=== PATIENT | female | born 1955 | race Caucasian/White ===

== ENCOUNTER 2024-05-29 10:18 | Emergency (ER) | payer MEDICARE, SELFPAY ==
[2024-05-29 10:36] VITALS: BP 128/69; PULSE 72; RESP 16; TEMP 37.5; O2SAT 98
--- NOTE | 2024-05-29 10:49 | ED_ITS ---
HPI - Eye Problem General Chief complaint: Eye Problems Stated complaint: Eye Problem History of Present Illness HPI Narrative: Patient presents with bilateral eye redness and drainage. Patient states she has a history of dry eye and has been using the eyedrops as prescribed. Patient is also using the Pataday eyedrops this has been going on for over 2 weeks so. Patient states now every morning her both her eyes were matted shut. Related Data Allergies Allergy/AdvReac Type Severity Reaction Status Date / Time No Known Allergies Allergy Verified 05/29/24 10:48 Review of Systems Review of Systems: CONSTITUTIONAL: Denies chills, or sweats. Reports fever and generalized body aches EYES: Denies visual changes, redness, or discharge. ENT: Denies otalgia. Reports nasal congestion runny nose and sore throat CARDIOVASCULAR: Denies chest pain, palpitations, or edema. RESPIRATORY: Denies dyspnea. Reports occasional cough GASTROINTESTINAL: Denies abdominal pain, nausea, vomiting, or diarrhea. GENITOURINARY: Denies dysuria or hematuria. SKIN: Denies rash or itching. MUSCULOSKELETAL: Denies back pain, joint pain, or myalgia. Reports generalized body aches NEUROLOGIC: Denies headache, numbness, or weakness. PSYCHIATRIC: Denies anxiety or depression. [facility] Comments At time of signature, agree with nursing past medical, surgical, social and family history. There is no relevant family history pertinent to the presenting complaint Exam Narrative: The patient is a well-developed, well-nourished in no acute distress. SKIN: Skin is warm and dry without erythema, swelling or exudate. There is good turgor. No tenting. HEAD: Atraumatic. Normocephalic. No temporal or scalp tenderness. EYES: Moist and bright. Sclera and conjunctivae normal. No discharge. PERRLA. Extraocular motions intact. Gross visual acuity intact. EARS: Pinna is normal shape and contour. Clear external auditory canals. TM pearly baltzaar with good cone of light, no erythema or suppuration. Bilateral cerumen noted no gross hearing deficit. NOSE: pink, moist mucosa with good air movement. Clear rhinorrhea without nasal flaring. Septum midline. Mouth: moist mucous membranes. THROAT; mild erythema noted to posterior oropharynx with moderate postnasal drainage. Without exudate or ulceration.. Uvula midline. Normal movement of soft palate. NECK: Supple and nontender with full range of motion without discomfort. No meningeal signs. LUNGS: Equal and bilateral breath sounds without wheezes, rales or rhonchi. CHEST: The chest wall is without retractions or use of accessory muscles. HEART: Has a regular rate and rhythm without murmur, gallops, click or rub. ABDOMEN: Soft, nontender with positive active bowel sounds. No rebound tenderness. EXTREMITIES: Without cyanosis, clubbing or edema. Equal 2+ distal pulses and 2 second capillary refill noted. NEUROLOGIC: alert, active, . The patient moves all extremities with normal muscle strength. Normal muscle tone is noted. Normal coordination is noted. NO focal neurological findings noted. Eyes: Conjunctivae: conjunctival abnormality bilateral conjunctival injection and discharge Course Course Level of Care: Express Care Visit Vital Signs Vital signs: Vital Signs Temperature 37.5 C 05/29/24 10:36 Pulse Rate 72 05/29/24 10:36 Respiratory Rate 16 05/29/24 10:36 Blood Pressure 128/69 05/29/24 10:36 Pulse Oximetry 98 05/29/24 10:36 Oxygen Delivery Room Air 05/29/24 10:36 Temperature 37.5 C 05/29/24 10:36 Pulse Rate 72 05/29/24 10:36 Respiratory Rate 16 05/29/24 10:36 Blood Pressure 128/69 05/29/24 10:36 Pulse Oximetry 98 05/29/24 10:36 Oxygen Delivery Room Air 05/29/24 10:36 Discharge Plan Discharge Clinical Impression: Bacterial conjunctivitis Patient Disposition: Home, Self-Care Condition: Stable Instructions: Antibiotic Form, Conjunctivitis (ED) Additional Instructions: Conjunctivitis is spread by [id number] contact or by touching a contaminated surface. You can use artificial tears, cold and warm compresses-use, different compress for each eye, and increase hygiene such as hand-washing. Do not wear contacts for 1 week, if applicable. Do not return for 24 hours to daycare, school, workplace for 24 hours after first antibiotic dose. Change bedding. follow up with eye doctor in 24-48 hours -If you have any worsening of symptoms or any other concerns please go to the ED immediately. Patient Language: Libyan Prescriptions: New cetirizine [Zyrtec] 10 mg tablet 10 mg PO DAILY Qty: 14 0RF ofloxacin [Ocuflox] 0.3 % drops 2 drp EACH EYE QID 7 Days Qty: 5 0RF Follow-up/Referrals: Paulino,ADEOLA Fernandez [Primary Care Provider] -
--- OUTSIDE RECORDS SUMMARY | 2024-06-05 13:38 | XMS_ITS | Clinical Summary ---
Author Organization [facility] Building A Address [address] [place] [address] Care Team Providers Care Reviewer Sales Name Role Phone Maurice Bob Primary Care Provider Allergies No known active allergies Medications cholecalcifero l (VITAMIN D3) 2,000 unit capsule 1 capsule (2,000 Units total) daily. 100 capsule 7 Active cyanocobalamin (Vitamin B-12) 1,000 mcg tabletIndicati ons:Prevention of Vitamin B12 Deficiency Take 1 tablet (1,000 mcg total) by mouth daily Active atorvastatin (LIPITOR) 10 mg tablet Take 0.5 tablets (5 mg total) by mouth daily 45 tablet 3 4 Active FLUoxetine (PROzac) 10 mg tablet/capsule Take 1 tablet/caps ule (10 mg total) by mouth daily 90 capsule 4 4 05/09/20 25 Active aspirin 81 mg enteric coated tablet Take 1 tablet (81 mg total) by mouth every other day 05/09/20 24 Discontinued mirtazapine (REMERON) 7.5 mg tablet Take 1 tablet (7.5 mg total) by mouth nightly 90 tablet 3 4 05/09/20 24 Discontinued Active Problems Problem Noted Date Diagnosed Date IGT (impaired glucose tolerance) 02/18/2021 Assessment & Plan (05/04/2023 11:39 AM W[employer]EWATER [employer] IN[employer]): Patient should reduce sugar and carbs, increase exercise, maintain proper body weight, and will check an A1c once or twice yearly. Assessment & Plan (02/18/2021 3:03 PM CDT): a1c controlled with diet and exercises at 5.2 and cont to work to keep low Bilateral carotid artery stenosis 12/05/2019 Overview (05/04/2023): Mild intimal thickening with less than 50% blockage bilaterally 04/2022 Assessment & Plan (05/04/2023 11:37 AM W[employer]EWATER T[employer] INSTRUCTOR): Continue aspirin atorvastatin diet exercise and suggest repeating carotid ultrasound in a year or 2. Assessment & Plan (10/22/2021 9:16 AM CDT): On tight risk cotnroll and check every couplde yrs.as life line will do formal eval at hospital the week before Assessment & Plan (02/05/2021 3:23 PM CDT): Needs updated carotid study and agrees to . So r eview on return but with tight risk should be stable to [facility]. Assessment & Plan (08/27/2020 8:23 AM CDT): Tight ldl at 72 and stay on meds as on and repeat scan two yrs from first Assessment & Plan (12/05/2019 9:06 AM CDT): Mild bilateral strt asa 81 and lllllsttin at Small strted dose and re eval effects and taarget tight contoll recheck 89 yrs Pure hypercholesterolemia 12/05/2019 Assessment & Plan (05/08/2024 7:28 PM WASTEWATER [employer] INSTRUCTOR): Counseled on heart healthy diet, exercise Assessment & Plan (05/04/2023 11:40 AM WASTEWATER T[employer]MENT [employer]ANT INSTRUCTOR): Well controlled on current therapy and will check a lipid panel and LFTs in 12 months. Assessment & Plan (10/22/2021 9:14 AM CDT): ldl at 59 And keep same Your cholesterol in the form of ldl (bad) cholesterol,hdl(good) cholesterol and triglycerides are monitored. The triglycerides respond to reduction/controll of your simple carbs/sugars In such items as sugared soda/sweet tea along with fruit juices(containing natural sugar) even if no added sugar is added. LDL cholesterol is reduced with reducing daily intake of fats and robert. saturated fats. The monosaturated fats like olive oil are not harmful except in the calories they contained. Whole milk cheese needs to be remembered along with whole milk products And limited. Assessment & Plan (02/05/2021 3:25 PM CDT): ldl at 54 and great and keep here to pfevent and revers arterial disease. No added diet Assessment & Plan (08/27/2020 8:24 AM CDT): ldl 73 and 72 last and prior 104. So working and has been on 7-8 mohnths. Cont meds and no chages and ocnt Diet. Your cholesterol in the form of ldl (bad) cholesterol,hdl(good) cholesterol and triglycerides are monitored. The triglycerides respond to reduction/controll of your simple carbs/sugars In such items as sugared soda/sweet tea along with fruit juices(containing natural sugar) even if no added sugar is added. LDL cholesterol is reduced with reducing daily intake of fats and robert. saturated fats. The monosaturated fats like olive oil are not harmful except in the calories they contained. Whole milk cheese needs to be remembered along with whole milk products And limited. Assessment & Plan (03/08/2020 9:45 AM CDT): ldl at 72 and dropped 36 and will ask to inch up taking 2.5 mg and go to athe 1/4 pil and add 1/2 of the 1/4 and target 60 if able no diedt as wtlow enough Assessment & Plan (12/05/2019 9:08 AM CDT): ldl at 106 and target 60 start atorvastin and no ore then 1/2 pill of a 10 and can start at smashing a full tab and taaking over week or cut the full tab into 1/2 to 1-4 a dayYour cholesterol in the form of ldl (bad) cholesterol,hdl(good) cholesterol and triglycerides are monitored. The triglycerides respond to reduction/controll of your simple carbs/sugars In such items as sugared soda/sweet tea along with fruit juices(containing natural sugar) even if no added sugar is added. LDL cholesterol is reduced with reducing daily intake of fats and robert. saturated fats. The monosaturated fats like olive oil are not harmful except in the calories they contained. Whole milk cheese needs to be remembered along with whole milk products And limited. Osteopenia of multiple sites 11/29/2018 Overview (05/04/2023): BMD due 10/2023. Assessment & Plan (05/04/2023 11:39 AM WASTEWATER TREATMENT [employer]ANT INSTRUCTOR): Calcium, vitamin-D, weight-bearing exercise and repeat bone density scan due October 2023 Assessment & Plan (10/22/2021 9:15 AM CDT): Stable bdmd and repeat in 2 + yrs Assessment & Plan (02/05/2021 3:29 PM CDT): Check on reutorn as 2 yrs out. And check vit d on reutrn Assessment & Plan (12/05/2019 9:10 AM CDT): Due for update Assessment & Plan (11/29/2018 11:06 AM CDT): bmd -1.3 and -1.4 mild osteopenia keep d upl;recheck 2yrs and walking wt brearing several time A wek Healthcare maintenance 11/26/2017 Overview (11/26/2017): Added automatically from request for surgery [id number] Assessment & Plan (05/04/2023 11:39 AM WASTEWATER T[employer] INSTRUCTOR): Flu shot each March. Shingrix and Prevnar 20 completed. Tetanus booster due October 2030. Consider RSV and COVID booster. Mammogram due January 2024. Recommended seeing her lead handler for well woman exam and evaluation of her lower abdominal pain as well. Colonoscopy due March 2028. Repeat visit 2 months with Kalee for follow-up of her abdominal pain Assessment & Plan (02/05/2021 3:32 PM CDT): Low fall risk derpoiens screen nl cog screeen nl colon and blanco up to date. Suggest p shot sersies and covid series done. Heart rate 57 nsr axis 71 nl no ekg with rate 57and take p 13 in 6months on reutrn as getting trip planned B12 deficiency 02/27/2017 Assessment & Plan (05/04/2023 11:36 AM WASTEWATER T[employer]MENT [employer] INSTRUCTOR): Continue B12 supplementation and check levels yearly. Assessment & Plan (11/29/2018 11:15 AM CDT): b 12 came up and stable 996 and cotn as doing. Assessment & Plan (11/26/2017 8:52 AM CDT): b12 great last fall and will recheck ou return. Cont on b12 Assessment & Plan (05/19/2017 9:09 AM WASTEWATER TREATMENT [employer]ANT INSTRUCTOR): b12 at 7612 and great and will stay about here for most as long as stay with supplements Assessment & Plan (02/27/2017 8:26 AM CDT): b12 level ws in the range where 5-10% can see a nerve damage risk restart b12 and shold need chandan 500 a day. The vitamin itself is not a risk to cause s tr ess.anxiety. Slow transit constipation 11/25/2016 Assessment & Plan (05/04/2023 11:40 AM WASTEWATER TREATMENT [employer]ANT INSTRUCTOR): Add MiraLax to her prunes and hopefully this will improve her lower abdominal discomfort. Assessment & Plan (11/26/2017 8:52 AM CDT): Back to nl with diet. Assessment & Plan (05/19/2017 9:10 AM WASTEWATER TRE[employer]MENT [employer]ANT INSTRUCTOR): Controlled and stable Assessment & Plan (11/25/2016 9:04 AM CDT): Try probiotic and fiber bversus miralx sdaily GERD (gastroesophageal reflux disease) 7 Assessment & Plan (08/27/2020 8:22 AM CDT): Clearing throat . Irritation no obvious gerd trial life styole chaznges and see if enough if not trial ppi for several weeks. For now g[facility] at [facility] and prn and report. ot prilosec works Assessment & Plan (11/29/2018 11:12 AM CDT): goen Assessment & Plan (11/26/2017 9:03 AM CDT): Gone and not using the zantac Assessment & Plan (05/19/2017 9:10 AM WASTEWATER T[employer] INSTRUCTOR): No gerd with meds Assessment & Plan (11/25/2016 9:03 AM CDT): Trial zantac 150 twice a day and see if stops the thickening feeling in back of throat . If not consider upping meds and or ent eeval Vitamin D deficiency 10/22/2013 Overview (09/12/2016): VITAMIN D DEFICIENCY NOS Assessment & Plan (05/04/2023 11:40 AM WASTEWATER T[employer]MENT [employer] INSTRUCTOR): Continue current supplementation and check level in 1 year. Assessment & Plan (10/22/2021 9:17 AM CDT): vid At 45 and great. And keep same Assessment & Plan (03/08/2020 9:43 AM CDT): Level 38 qand good and no changes Assessment & Plan (12/05/2019 9:10 AM CDT): Check on return Assessment & Plan (11/29/2018 11:07 AM CDT): D at 35 want to keep here or better. Assessment & Plan (11/26/2017 8:53 AM CDT): A yr aago low but up to nl 6month ago. Dina add to nov labs to monitoor Assessment & Plan (05/19/2017 9:09 AM WASTEWATER TREATMENT [employer]ANT INSTRUCTOR): Vit 39 Great and no changes Assessment & Plan (02/27/2017 8:25 AM CDT): D was not a cause for anxiety and would restr the 1999 Day and check levels in the futrer Assessment & Plan (11/25/2016 9:05 AM CDT): Vit d at 28 and want higher. Add 2000 of d a day and will get yo to about 40 and great. Stay with or will d rop Resolved Problems Problem Noted Date Diagnosed Date Resolved Date Depression, major, recurrent 01/27/2024 05/09/2024 Lower abdominal pain 05/04/2023 024 Assessment & Plan (05/04/2023 11:42 AM WASTEWATER TREAT[employer] INSTRUCTOR): CT abdomen pelvis with p.o. and IV contrast. Call back for results. Could be chronic constipation and recommended adding MiraLax to her high-fiber diet. Schedule gynecology evaluation. Follow-up 2 months and consider repeat colonoscopy or other interventions depending on his symptoms at that time. Dog bite 08/27/2020 02/05/2021 Assessment & Plan (08/27/2020 8:32 AM CDT): Cleared nicely and get update on dog bite. tetnus as had covid 1 wk ago will wait on tetnus and get Month after covid 2nd. BMI 21.0-21.9, adult 11/26/2017 024 Assessment & Plan (02/05/2021 3:24 PM CDT): stabl nhung dgood wt. Assessment & Plan (08/27/2020 8:23 AM CDT): Work to keep tight Assessment & Plan (03/08/2020 9:44 AM CDT): St stable Assessment & Plan (12/05/2019 9:10 AM CDT): wowrk to keep stable Assessment & Plan (11/29/2018 11:07 AM CDT): Work to keep wt stable Assessment & Plan (11/26/2017 8:51 AM CDT): Weight such that your great at present but do not want to lose much if any. If find it drifting down then needs to take counter actions to bring up Colon cancer screening 11/26/201711/29 Assessment & Plan (11/26/2017 8:50 AM CDT): Colon due this fall and will refer for such. Recurrent major depressive d isorder, in full remission (CMS/HCC) 11/26/2017 03/21/2022 Assessment & Plan (02/05/2021 3:26 PM CDT): devyn taitirbrian abd bi changes Assessment & Plan (08/27/2020 8:25 AM CDT): Well cont roolled on meds and cont on as is. Assessment & Plan (03/08/2020 9:45 AM CDT): Well controlled and sstay on e ]meds Assessment & Plan (12/05/2019 9:09 AM CDT): Well controlled on meds and no chages Assessment & Plan (11/29/2018 11:06 AM CDT): Well contrlled on meds. And stay stable Assessment & Plan (11/26/2017 8:54 AM CDT): Stable on prozac. Had came off more then once n past and didn't go well and decided to stay on now going forward Epigastric pain 05/19/2017 11/26/2017 Assessment & Plan (05/19/2017 9:16 AM WASTEWATER TREATMENT [employer]ANT INSTRUCTOR): As pain better to near gone will not eval or treat but if appears to get worse again. Not completely go away then would weant to re eval. As no new meds added to get improvement and after cruise to [place]. Additionally not takinghte zantac she has on any frequescy but only with occasional gerd andnot having Gal bladder out. Chapin play wait and watch with improvement for now. No bm changes either Anxiousness 02/27/2017 11/26/2017 Assessment & Plan (05/19/2017 9:11 AM WASTEWATER TREATMENT [employer]ANT INSTRUCTOR): Back to b ase line and feels shold never come off the meds. Will stay with for the future Assessment & Plan (02/27/2017 8:25 AM CDT): Resolution or major improvement with strtinghte prozac after 3 wks would stay on and Look for additioal improvement over next several weeks. Option to go to 30-40 a day if need over time. Fall and winter/holiday time can increased need. PE (physical exam), annual 11/25/2016 0 02/05/2021 Assessment & Plan (12/05/2019 9:15 AM CDT): Well exam wt proper new cad. mildlipids up to date on colon and blanco update bmd for nov fall flu shots suggest shingles shot. Assessment & Plan (11/29/2018 11:15 AM CDT): Fall flu lshots. Discussed shingles shot but had old 1 and 1/2 yrs ago and will look at in 1 yr to get. Blanco.s repeat bmd in 2yrs. Colon in 10 yrs as nl last fall. Cbc,cmp. ua all nl. Assessment & Plan (11/26/2017 9:02 AM CDT): Screening blood cnts. Chem for liver and kidney great. No anemia. Lipids good and no changes needed. bmd next summer p.e. And due prior to seeeing then. Colon oct time for 10 yr Repeat. Blanco in setpt for yr'ly, shinlgles 03/23 and new .2 shot series now available and felt much better then last. Suggest getting it but can do now or wait sev eral yrs from the prior shot. Neck pain appears more strain. Reviewed range of motion and stretches , if not going to gone in a wk would re eval and consider referral for formal pt. Possible xrays eval . No apparent underlying lymph noes or masses. Assessment & Plan (05/19/2017 9:14 AM WASTEWATER TREATMENT [employer]ANT INSTRUCTOR): Repeat in november Assessment & Plan (11/25/2016 9:06 AM CDT): Screening labs for blood cnts. Chem with kidney and liver nl. w eight good yrly blanco. Screening colon per rec's. Hep c neg. Check screening yr'ly and repeat b12 and d in 6 [facility] Vitamin B-complex deficiency 10/22/2013 02/27/2017 Overview (09/10/2016): B-COMPLEX DEFIC NEC Assessment & Plan (11/25/2016 9:05 AM CDT): b12 at 379 and neuro feels Below 400 there is a 5-10 %^ chance of nerve damage. So try 500 5-7 days a week and stay on and will check in futuree Palpitations 10/22/2013 11/25/2016 Overview (09/12/2016): Palpitations Depression 10/22/2013 02/27/2017 Overview (09/12/2016): DEPRESSIVE DISORDER NEC Encounters Date Type Department Care Team Description 05/09/2024 8:00 AM W[employer]EWATER TREATMENT PLANT INSTRUCTOR Office Visit [facility] Primary Care at [address] [place] [address] Maurice Bob PA Annual physical exam (Primary Dx); Pure hypercholesterolemia; Vitamin D deficiency; BMI 22.0-22.9, adult; Anxiety and depression; B12 deficiency 05/09/2024 Orders Only [facility] Primary Care at [address] [place] [address] Maurice Bob PA Pure hypercholesterolemia (Primary Dx); B12 deficiency; Vitamin D deficiency 04/07/2024 Telephone [facility] Primary Care at [address] [place] [address] Tereza Randall MA 04/06/2024 11:15 AM CDT - 04/06/2024 11:59 PM CDT Hospital Encounter [facility] [address] [place] [address] Osteopenia of multiple sites Discharge Disposition: Discharge to home or self care from Last 3 Months Immunizations Name Administration Dates Next Due Influenza, Quad, Adjuvantate d, Intramuscular 04/24/2021 Influenza, Quadrivalent, Hig h Dose, Preservative Free, Intrr 03/21/2022 Influenza, Quadrivalent, Spl it, Intramuscular 04/22/2023 Influenza, Quadrivalent, Spl it, Preservative Free, Intradermal 03/12/2016 Influenza, Quadrivalent, Spl it, Preservative Free, Intramuscular 03/08/2020,04/08/2019,04/07/2018,02/27 Influenza, Split 05/30/2013, 2,07/17/2011,03/05 Influenza, Trivalent, Adjuva nted, Intramuscular 04/01/2024 Influenza, Trivalent, IM (MDV) 05/30/2013 Influenza, Trivalent, Recomb inant, Egg Free, Preservative Free, Antibiotic Free, IM (FLUBLOK) 03/24/2014 Influenza, Unspecified 02/05/2021(Deferred: Charu ent Refused) Pfizer SARS-CoV-2 Monovalent Vaccination (12+ Yrs) PURPLE 09/15/2020,08/23/2020 Pneumococcal Conjugate Pcv20 12/25/2021 Tdap 10/15/2020,01/26/2012 ZOSTER LIVE 03/26/2016 ZOSTER Recombinant 12/20/2020,10/15/2020 Surgical History Surgery Date Site/Laterality Comments TONSILLECTOMY 06/08/1974 - 06/07/1975 Tonsillectomy SECTION section CHOLECYSTECTOMY Cholecystectomy COLONOSCOPY 03/22/2008 Medical History Medical History Date Comments Hx Other Medical MVP Chronic constipation Smoking Family History Medical History Relation Name Comments COPD Mother copd; Lung cancer Mother Cancer, lung; Breast cancer Mother's Sister shree Ovarian cancer Neg Hx Thyroid cancer Neg Hx Relation Name Status Comments Mother Alive Mother's Sister shree Social History Tobacco Use Types Packs/Day Years Used Date Smoking Tobacco: Former Smokeless Tobacco: Former Comments:Started 1972 quit 1 998 2 ppd Alcohol Use Standard Drinks/Week Comments No 0 (1 standard drink = 0.6 oz pur e alcohol) AUDIT-C Answer Date Recorded Q1: How often do you have a drink containing alc ohol? 2-4 times a month 05/09/2024 Q2: How many drinks containi ng alcohol do you have on a typical day when you are drinking? 1 or 2 05/09/2024 Q3: How often do you have si x or more drinks on one occasion? Less than monthly 05/09/2024 PHQ-2 Answer Date Recorded PHQ-2 Total Score (If total score is 3 or more points, staff should administer the PHQ-9) 0 05/09/2024 Comments No Sex and Gender Information Value Date Recorded Sex Assigned at Not on file Legal Sex Female 9:51 AM W[employer]EWATER T[employer] INSTRUCTOR Gender Identity Not on file Sexual Orientation Not on file Obstetrics History Para Term AB IAB SAB Ectopic Multiple Livin g Live Births 3 2 2 Date Outcome GA Total Labor Labor/2nd/3rd Weight Sex Type Anes PTL Erin A1 A5 Name Clin Term Term Last Filed Vital Signs Vital Sign Reading Time Taken Comments Blood Pressure 126/70 05/09/2024 7:50 AM W[employer]EWATER T[employer]AT[employer] INSTRUCTOR Pulse 70 05/09/2024 7:50 AM W[employer]EWATER T[employer] INSTRUCTOR Temperature 36.4 ??C (97.6 ??F) 05/09/2024 7:50 AM CS T Respiratory Rate 16 05/09/2024 7:50 AM W[employer]EWATER [employer] INSTRUCTOR Oxygen Saturation 96% 05/09/2024 7:50 AM WASTEWATER TREATMENT PLANT INSTRUCTOR Inhaled Oxygen Concentration - - Weight 62 kg (136 lb 9.6 oz) 05/09/2024 7:50 AM WASTEWATER T[employer]AT[employer]ANT INSTRUCTOR Height 165.1 cm (5' 5 ) 05/09/2024 7:50 AM W[employer]EWATER T[employer]ATMENT [employer]ANT INSTRUCTOR Body Mass Index 22.73 05/09/2024 7:50 AM WASTEWATER TREATMENT [employer]ANT INSTRUCTOR Plan of Treatment Health Maintenance Due Date Last Done Comments Covid-19 Vaccine (2023-2 5 season) 2024 05/05/2023, 05/21/2022, 04/17/2021, Additional history exists Breast Cancer Screening-Mammogram 01/13/2025 01/14/2024, 01/07/2023, 11/21/2021, Additional history exists Depression Screening 05/09/2025 05/09/2024, 01/27/2024, 12/17/2023, Additional history exists Fall Risk Assessment 05/09/2025 05/09/2024, 01/27/2024, 12/17/2023, Additional history exists Well Visit 65+ 05/09/2025 05/09/2024, 04/09, 03/21/2022, Additional history exists Osteoporosis Screening-Bone Density Scan 04/06/2026 04/06/2024, 10/07/2021, 11/08/2018, Additional history exists Colon Cancer Screening-Colonoscopy 03/29/2028 03/29/2018, 03/22/2008 DTaP/Tdap/Td Vaccine (3 - Td or Tdap) 10/15/2030 10/15/2020, 01/26/2012 Hepatitis C Screening Completed 11/04/2016, 017 Colon Cancer Screening-CT Colonography Discontinued 03/29/2018, 03/22/2008 Colon Cancer Screening-DNA Stool Discontinued 03/29/20 18, 03/22/2008 Colon Cancer Screening-FIT Discontinued 03/29/2018, Colon Cancer Screening-Sigmoidoscopy Discontinued 03/29/2018, 03/22/2008 Zoster Vaccine Completed 12/20/2020, 10/06, 03/26/2016 Pneumococcal vaccine 65+ Completed 12/25/2021 Influenza Vaccine Completed 04/01/2024, , 03/21/2022, Additional history exists Hepatitis B Screening Completed 04/27/2024 Procedures Procedure Name Priority Date/Time Associated Diagnosis Comments TSH Routine 04/27/2024 9:43 AM W[employer]EWATER T[employer]AT[employer] INSTRUCTOR Slow transit constipation Healthcare maintenance LIPID PANEL Routine 04/27/2024 9:43 AM W[employer]EWATER T[employer]AT[employer] INSTRUCTOR Slow transit constipation Pure hypercholesterolem ia Healthcare maintenance VITAMIN B12 Routine 04/27/2024 9:43 AM WASTEWATER TREATMENT PLANT INSTRUCTOR B12 deficiency Slow transit constipation Healthcare maintenance VITAMIN D 25 HYDROXY Routine 04/27/2024 9:43 AM WASTEWATER TREATMENT PLANT INSTRUCTOR Vitamin D deficiency Slow transit constipation Healthcare maintenance COMPREHENSIVE METABOLIC PANEL Routine 04/27/2024 9:43 AM WASTEWATER T[employer]ATMENT [employer]ANT INSTRUCTOR Slow transit constipation Healthcare maintenance HEPATITIS B SURFACE ANTIGEN Routine 04/27/2024 9:43 AM WASTEWATER T[employer]ATMENT PLANT INSTRUCTOR Slow transit constipation Need for hepatitis B screening test Healthcare maintenance HEPATITIS B SURFACE ANTIBODY (IMMUNE STATUS) Routine 04/27/2024 9:43 AM WASTEWATER TREATMENT PLANT INSTRUCTOR Slow transit constipation Need for hepatitis B screening test Healthcare maintenance HEPATITIS B CORE ANTIBODY, TOTAL Routine 04/27/2024 9:43 AM WASTEWATER T[employer]ATMENT [employer]ANT INSTRUCTOR Slow transit constipation Need for hepatitis B screening test Healthcare maintenance DEXA AXIAL SKELETON BONE DENSITY 1 OR MORE SITES Schedule Routine, Read Routine (OP Routine) 04/06/2024 11:46 AM CDT Osteopenia of multiple sites SCREENING MAMMOGRAM BILATERAL W SAEED Schedule Routine, Read Routine (OP Routine) 01/14/2024 2:13 PM CDT Screening mammogram, encounter for COLONOSCOPY 03/29/2018 8:26 AM CDT HEPATITIS C AB REFLEX RNA QUANT PCR Routine 11/04/2016 8:35 AM CDT from Last 3 Months or Most Recently Relevant to Health Maintenance Results * Hepatitis B core antibody, total Blood (04/27/2024 9:43 AM WASTEWATER TREATMENT [employer]ANT INSTRUCTOR) Hep B core IgG/IgM NON-REACTI VE NON-REACTI VE [facility] Comment: For additional information, please refer to http://education.doggyloot.[employer]/faq/XBG342 (This link is being provided for informational/ educational purposes only.) Blood 04/27/2024 9:43 AM WASTEWATER T[employer]ATMENT PLANT INSTRUCTOR 04/27/2024 9:44 AM WASTEWATER TREATMENT PLANT INSTRUCTOR Narrative [facility] - 04/28/2024 6:59 AM WASTEWATER TREATMENT PLANT INSTRUCTOR FASTING:YES FASTING: YES Maurice MIR LAB MICROBIOLOGY - GENE RAL ORDERABLES Final Result Performing Organization Address [facility] de Phone Number [facility] [address] [place] [address] * Vitamin D 25 hydroxy (04/27/2024 9:43 AM WASTEWATER TREATMENT PLANT INSTRUCTOR) Pathologist [facility] Vitamin D 25-OH 46 30 - 100 ng/mL [facility] Comment: Vitamin D Status ? 25-OH Vitamin D: Deficiency: ?<20 ng/mL Insufficiency: ? 20 - 29 ng/mL Optimal: ? > or = 30 ng/mL For 25-OH Vitamin D testing on patients on D2-supplementation and patients for whom quantitation of D2 and D3 fractions is required, the QuestAssureD(TM) 25-OH VIT D, (D2,D3), LC/MS/MS is recommended: order code 77092 (patients >2yrs). See Note 1 Note 1 For additional information, please refer to http://education.Broadchoice.[employer]/faq/XRL838 (This link is being provided for informational/ educational purposes only.) Blood 04/27/2024 9:43 AM WASTEWATER TREATMENT PLANT INSTRUCTOR 04/27/2024 9:44 AM WASTEWATER TREATMENT PLANT INSTRUCTOR Narrative [facility] - 04/28/2024 6:59 AM WASTEWATER TREATMENT PLANT INSTRUCTOR FASTING:YES FASTING: YES Maurice MIR LAB BLOOD ORDERABLES Fi nal Result Performing Organization Address [facility]/ZIP Co de Phone Number [facility] [address] [place] [address] * Hepatitis B surface antibody (immune status) Blood (04/27/2024 9:43 AM [employer]EW[employer]STRU[employer]) Pathologist [facility] HBsAb (immune status) NON-REACTI VE NON-REACTI VE [facility] Blood 04/27/2024 9:43 AM [employer] IN[employer]CTOR 04/27/2024 9:44 AM [employer]EWATER [employer] INSTRUCTOR Narrative [facility] - 04/28/2024 6:59 AM [employer]EWATER [employer] INSTRUCTOR FASTING:YES FASTING: YES Maurice MIR LAB MICROBIOLOGY - GENE RAL ORDERABLES Final Result Performing Organization Address [facility] Co de Phone Number QUEST [facility] [address] [place] [address] * Hepatitis B Surface Antigen Blood (04/27/2024 9:43 AM W[employer]EWATER [employer] INSTRUCTOR) [facility] HepBsAg NON-REACTI VE NON-REACTI VE [facility] Comment: For additional information, please refer to http://education.MiniTime/faq/TYE529 (This link is being provided for informational/ educational purposes only.) Blood 04/27/2024 9:43 AM [employer] IN[employer]CTOR 04/27/2024 9:44 AM [employer]EWATER [employer] INSTRUCTOR Narrative [facility] - 04/28/2024 6:59 AM WASTEWATER [employer] INSTRUCTOR FASTING:YES FASTING: YES Maurice MIR LAB MICROBIOLOGY - GENE RAL ORDERABLES Final Result Performing Organization Address [facility] de Phone Number QUEST [facility] [address] [place] [address] * TSH (04/27/2024 9:43 AM WASTEWATER [employer] INSTRUCTOR) [facility] TSH 2.14 0.40 - 4.50 mIU/L [facility] Blood 04/27/2024 9:43 AM [employer]EW[employer] INSTRUCTOR 04/27/2024 9:44 AM W[employer]EWATER [employer] INSTRUCTOR Narrative [facility] - 04/28/2024 6:59 AM W[employer]EWATER [employer] INSTRUCTOR FASTING:YES FASTING: YES Maurice MIR LAB BLOOD ORDERABLES Fi nal Result Performing Organization Address [facility] Co de Phone Number QUEST [facility] [address] [place] [address] * Vitamin B12 (04/27/2024 9:43 AM W[employer]EW[employer]STRUCTOR) Vitamin B12 621 200 - 1,100 pg/mL [facility] Blood 04/27/2024 9:43 AM W[employer]EWATER [employer] INSTRUCTOR 04/27/2024 9:44 AM W[employer]EWATER [employer] INSTRUCTOR Narrative [facility] - 04/28/2024 6:59 AM WASTEWATER [employer] INSTRUCTOR FASTING:YES FASTING: YES Maurice MIR LAB BLOOD ORDERABLES Fi nal Result Performing Organization Address [facility] Co de Phone Number QUEST [facility] [address] [place] [address] * (ABNORMAL) Lipid panel (04/27/2024 9:43 AM WASTEWATER [employer] INSTRUCTOR) Pathologist [facility] Cholesterol 198 <200 mg/dL [facility] HDL 77 > OR = 50 mg/dL [facility] Triglycerides 63 <150 mg/dL [facility] LDL 106(H) mg/dL (calc) [facility] Comment: Reference range: <100 Desirable range <100 mg/dL for primary prevention; ?? <70 mg/dL for patients with CHD or diabetic patients with > or = 2 CHD risk factors. LDL-C is now calculated using the Tyrone-Jc calculation, which is a validated novel method providing better accuracy than the Friedewald equation in the estimation of LDL-C. Tyrone BONILLA et al. BON. 2013;310(19): 7070-1451 (http://education.Broadchoice.Inway Studios/faq/QSU756) Chol/HDL ratio 2.6 <5.0 (calc) [facility] Non-HDL, (LDL+VLDL) 121 <130 mg/dL (calc) [facility] Comment: For patients with diabetes plus 1 major ASCVD risk factor, treating to a non-HDL-C goal of <100 mg/dL (LDL-C of <70 mg/dL) is considered a therapeutic option. Blood 04/27/2024 9:43 AM WASTEWATER [employer] INSTRUCTOR 04/27/2024 9:44 AM WASTEWATER [employer]ATMENT [employer]ANT INSTRUCTOR Narrative [facility] - 04/28/2024 6:59 AM WASTEWATER [employer] INSTRUCTOR FASTING:YES FASTING: YES us Maurice MIR LAB BLOOD ORDERABLES Fi nal Result [facility] [address] [place] [address] * Comprehensive metabolic panel (04/27/2024 9:43 AM WASTEWATER [employer] INSTRUCTOR) Pathologist [facility] Glucose 87 65 - 99 mg/dL [facility] Comment: ? Fasting reference interval BUN 15 7 - 25 mg/dL [facility] Creatinine 0.57 0.50 - 1.05 mg/dL [facility] eGFR 99 > OR = 60 mL/min/1.7 3m2 [facility] BUN/creat ratio SEE NOTE: (calc) [facility] Comment: ?? Not Reported: BUN and Creatinine are within ?? reference range. ? Sodium 137 135 - 146 mmol/L [facility] Potassium, pl 4.3 3.5 - 5.3 mmol/L [facility] Chloride 102 98 - 110 mmol/L [facility] CO2 29 20 - 32 mmol/L [facility] Calcium 9.0 8.6 - 10.4 mg/dL [facility] Protein, sr 6.4 6.1 - 8.1 g/dL [facility] Albumin 4.1 3.6 - 5.1 g/dL [facility] GLOBULIN 2.3 1.9 - 3.7 g/dL (calc) [facility] Alb/glob ratio 1.8 1.0 - 2.5 (calc) [facility] Bilirubin, total 0.5 0.2 - 1.2 mg/dL [facility] Alk phos 69 37 - 153 U/L [facility] AST 19 10 - 35 U/L [facility] ALT (SGPT) 9 6 - 29 U/L [facility] Blood 04/27/2024 9:43 AM WASTEWATER [employer]MENT [employer]ANT INSTRUCTOR 04/27/2024 9:44 AM WASTEWATER TREATMENT [employer]ANT INSTRUCTOR Narrative [facility] - 04/28/2024 6:59 AM WASTEWATER TREATMENT [employer]ANT INSTRUCTOR FASTING:YES FASTING: YES us Maurice MIR LAB BLOOD ORDERABLES Fi nal Result BONNY [facility] [address] [address] * Dexa Axial Skeleton Bone Density 1 or 2 Site (04/06/2024 11:46 AM CDT) Anatomical Region Laterality Modality Body N/A Other 04/06/2024 6:59 PM CDT Narrative 04/06/2024 7:01 PM CDT EXAM DESCRIPTION: DEXA AXIAL SKELETON BONE DENSITY 1 OR MORE SITES REASON FOR STUDY: 69 y/o ?? year old ??F ??with given history of: ??Osteoporosis screening ?? Screening. ? 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 Maximum height: ??67 ??inches ? Weight: ??134 ??pounds Risk factors: ??Postmenopausal, parental hip fracture COMPARISON: 11/08/2018 No comparison FINDINGS: AP LUMBAR SPINE L1-L4: Total BMD is 0.872 g/cm2 T-score is -1.6 LEFT HIP: Total BMD is 0.696 g/cm2 T-score is -2.0 Femoral neck BMD is 0.696 g/cm2 T-score is -1.4 ?? FRAX: 10 year risk for a major osteoporotic fracture is 14 %, 10 year risk for a hip fracture is 1.8 % IMPRESSION: Low Bone Mass. REFERENCE: Bone mineral density: T-Score: ?Normal (T-score above or = -1.0) ?Low bone mass ??(T-score between -1.0 and -2.5) replaces the previously used term osteopenia ?Osteoporosis (T-score = or below -2.5) Z-Score: ? Within the expected range for age (Z-score above -2.0) ? Below the expected range for age (Z-score is -2.0 or below) Please see below follow up recommendations. Medical evaluation for secondary causes of low bone mineral density may be appropriate. FRAX is a World Health Organization validated fracture risk assessment tool that calculates a person's 10 year probability of a major osteoporosis related fracture and hip fracture. ??According to the National Osteoporosis Foundation guidelines, postmenopausal women and men age 50 or older with low bone mass and a 10 year probability of a major osteoporosis related fracture = or greater than 20% or a 10 year probability of a hip fracture = or greater than 3% should be considered for pharmacological treatment for the prevention of osteoporosis. For further information, including treatment recommendations, please refer to the 2019 ISCD Official Positions (http://www.iscd.org) and the NOF's Clinician's Guide to Prevention and Treatment of Osteoporosis (http://www.nof.org/professionals/clinical-guidelines) THIS IS AN ELECTRONICALLY VERIFIED FINAL REPORT 04/06/2024 7:01 PM - Electronically signed by ??Tanmay Marley M.D. MF: [email or web address] D: ??04/06/2024 7:01 PM T: ??04/06/2024 7:01 PM Report ID: [id number] Reading Location: ??[id number] Procedure Note Tanmay Marley MD - 04/06/2024 EXAM DESCRIPTION: DEXA AXIAL SKELETON BONE DENSITY 1 OR MORE SITES REASON FOR STUDY: 69 y/o year old F with given history of:Osteoporosis screening Screening. 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 REFERENCE: Bone mineral density: T-Score: Normal (T-score above or = -1.0) Low bone mass (T-score between -1.0 and -2.5) replaces thepreviously used term osteopenia Osteoporosis (T-score = or below -2.5) Z-Score: Within the expected range for age (Z-score above -2.0) Below the expected range for age (Z-score is -2.0 or below) Please see below follow up recommendations. Medical evaluation forsecondary causes of low bone mineral density may be appropriate. FRAX is a World Health Organization validated fracture risk assessmenttool that calculates a person's 10 year probability of a major osteoporosisrelated fracture and hip fracture. According to the National OsteoporosisFoundation guidelines, postmenopausal women and men age 50 or older with low bonemass and a 10 year probability of a major osteoporosis related fracture = or greater than 20% or a 10 year probability of a hip fracture = or greaterthan 3% should be considered for pharmacological treatment for the preventionof osteoporosis. For further information, including treatment recommendations, please referto the 2019 ISCD Official Positions (http://www.iscd.org) and the NOF's Clinician's Guide to Prevention and Treatment of Osteoporosis (http://www.nof.org/professionals/clinical-guidelines) THIS IS AN ELECTRONICALLY VERIFIED FINAL REPORT 04/06/2024 7:01 PM - Electronically signed by Tanmay Marley M.D. MF: [id number] Report ID: [id number] Reading Location: [id number] Maurice MIR IMG DXA PROCEDURES Eloisa l Result * Screening Mammogram Bilateral W Saeed (01/14/2024 2:13 PM CDT) Anatomical Region Laterality Modality Breast Bilateral Mammography 01/14/2024 2:32 PM CDT Impressions 01/14/2024 2:32 PM CDT There is no mammographic evidence of malignancy. A 1 year screening mammogram is recommended. BI-RADS: 1 - Negative. The patient has been or will be contacted. The patient will be entered into a reminder system with a target due date of 1 year for her next mammogram. Electronically signed by: Jake Perry M.D. Narrative 01/14/2024 2:32 PM CDT EXAMINATION: SCREENING MAMMOGRAM BILATERAL W SAEED ORDERING HEALTHCARE PROVIDER: SELF SCREENING MAMMOGRAM HISTORY: Routine screening mammography. COMPARISON: ??01/07/2023, 11/21/2021, 09/06/2020, 06/21/2019 TECHNIQUE: CC and MLO views of the bilateral breasts were obtained with digital technique using breast tomosynthesis with C view. Computer aided detection was utilized. FINDINGS: DENSITY: There are scattered fibroglandular elements in the bilateral breasts. BREASTS: There are no suspicious masses, suspicious calcifications, or other suspicious findings in either breast. There has been no suspicious interval change. us Self Screening Mammogram IMG MAMMO PROCEDURES Fi nal Result * COLONOSCOPY (03/29/2018 8:26 AM CDT) Anatomical Region Laterality Modality Other Narrative Procedure Note Tulio Serna MD - 03/29/2018 8:26 AM CDT [facility] Patient Name: Renee Vance Procedure Date: 03/29/2018 8:26 AM Date of : 1955 Admit Type: Outpatient Age: 63 Gender: Female Attending MD: Tulio Serna M.D. Room: ON LICENSE OF [facility] ENDOSCOPY CAPSULE Note Status: Finalized Procedure: Colonoscopy Indications: Screening for colorectal malignant neoplasm, Last colonoscopy: March 2008 Referring MD: Wood Mahan MD Providers: Tulio Serna M.D. Impression: - Hemorrhoids found on perianal exam. - The entire examined colon is normal. - No specimens collected. Recommendation: - Discharge patient to home. - Resume previous diet. - Continue present medications. - Repeat colonoscopy in 10 years for screeningpurposes. - Return to primary care physician as previously scheduled. Medicines: Propofol per Anesthesia Complications: No immediate complications. Estimated Blood Loss: Estimated blood loss: none. Procedure: Pre-Anesthesia Assessment: - Prior to the procedure, a History and Physical was performed, and patient medications and allergieswere reviewed. The patient is competent. The risks and benefits of the procedure and the sedation optionsand risks were discussed with the patient. All questions were answered and informed consent was obtained. Patient identification and proposed procedure were verified by the physician in the pre-procedure area. Mental Status Examination: alert and oriented.Airway Examination: normal oropharyngeal airway and neck mobility. Prophylactic Antibiotics: The patient does not require prophylactic antibiotics. Prior Anticoagulants: The patient has taken no previous anticoagulant or antiplatelet agents. ASA Grade Assessment: II - A patient with mild systemicdisease. After reviewing the risks and benefits, the patientwas deemed in satisfactory condition to undergo the procedure. The anesthesia plan was to use moderate sedation / analgesia (conscious sedation).Immediately prior to administration of medications, the patientwas re-assessed for adequacy to receive sedatives. The heart rate, respiratory rate, oxygen saturations,blood pressure, adequacy of pulmonary ventilation, and response to care were monitored throughout the procedure. The physical status of the patient was re-assessed after the procedure. The benefits, risks and alternatives of theprocedure and sedation were discussed and informed consent was obtained. All questions were answered. Please referto the signed informed consent document in the medical record. The scope was passed under direct vision.The Colonoscope [id number] was introducedthrough the anus and advanced to the the cecum, identifiedby appendiceal orifice and ileocecal valve. The colonoscopy was performed without difficulty. The patient tolerated the procedure well. The quality of the bowel preparation was good. Findings: Hemorrhoids were found on perianal exam. The colon (entire examined portion) appeared normal. Electronically signed by Tulio Serna M.D. Tulio Serna M.D. 03/29/2018 8:53:54 AM Number of Addenda: 0 Note Initiated On: 03/29/2018 8:26 AM Procedure Code(s): --- Professional --- G0121, Colorectal cancer screening; colonoscopy on individual not meeting criteria for high risk Diagnosis Code(s): --- Professional --- K64.9, Unspecified hemorrhoids Z12.11, Encounter for screening for malignant neoplasm of colon CPT copyright 2017 [employer]. All rights reserved. The codes documented in this report are preliminary and upon on site nurse reviewmay be revised to meet current compliance requirements. Recognized by the [employer] for promoting quality in endoscopy us Tulio Serna MD ENDOSCOPY PROCEDURES Final Re sult * Hepatitis C Antibody Reflex Hepatitis C RNA Quantitative PCR (11/04/2016 8:35 AM CDT) Hep C Ab Negative Negative MEKHI MCCULLOUGH Blood specimen (specimen) 11/04/2016 8:35 AM CDT 11/04/2016 1:02 PM CDT us Wood Mahan MD LAB MICROBI OLOGY - GENERAL ORDERABLES [place] - [place] [id number] [address] [place] [address] from Last 3 Months or Most Recently Relevant to Health Maintenance Insurance [facility] AETNA MEDICARE AET MEDICARE Advance Directives For more information, please contact: [phone] * Full Code (Latest Code Status on File) Date Activated Date Inactivated Comments 03/29/2018 7:54 AM 03/29/2018 11:44 AM * Full Code Date Activated Date Inactivated Comments 03/29/2018 7:54 AM 03/29/2018 7:54 AM Care Teams Reviewer Sales Relationship Specialty Start Date End Date Maurice Bob PA [address] [place] [address] DR SANCHEZ [address] [place] [id number] PCP - General Internal Medicine 05/04/23
--- OUTSIDE RECORDS SUMMARY | 2024-06-05 13:38 | XMS_ITS | Encounter Summary ---
Author Organization [facility] Healthcare Address [address] [place] [address] Care Team Providers Care Soil Tester Name Role Phone Maurice Bob Primary Care Provider Reason for Visit * Reason Comments Preventative Care Encounter Details Date Type Department Care Team (Late st Contact Info) Description 05/09/2024 8:00 AM DELIVERY DRIVER/CUSTOMER SERVICE Office Visit [facility] Medical Group Primary Care at [address] [place] [phone] Maurice Bob PA [address] [place], [place] [address] [place] [address] Annual physical exam (Primary Dx); Pure hypercholesterolemia ; Vitamin D deficiency; BMI 22.0-22.9, adult; Anxiety and depression; B12 deficiency Social History Tobacco Use Types Packs/Day Years Used Date Smoking Tobacco: Former Smokeless Tobacco: Former Comments:Started 1971 quit 1 998 2 ppd Alcohol Use [...] on file Legal Sex Female 9:51 AM DELIVERY DRIVER/CUSTOMER SERVICE Gender Identity Not on file Sexual Orientation Not on file documented as of this encounter Last Filed Vital Signs Vital Sign Reading Time Taken Comments Blood Pressure 126/70 05/09/2024 7:50 AM DELIVERY DRIVER/CUSTOMER SERVICE Pulse 70 05/09/2024 7:50 AM DELIVERY DRIVER/CUSTOMER SERVICE Temperature 36.4 ??C (97.6 ??F) 05/09/2024 7:50 AM CS T Respiratory Rate 16 05/09/2024 7:50 AM DELIVERY DRIVER/CUSTOMER SERVICE Oxygen Saturation 96% 05/09/2024 7:50 AM DELIVERY DRIVER/CUSTOMER SERVICE Inhaled Oxygen Concentration - - Weight 62 kg (136 lb 9.6 oz) 05/09/2024 7:50 AM DELIVERY DRIVER/CUSTOMER SERVICE Height 165.1 cm (5' 5 ) 05/09/2024 7:50 AM DELIVERY DRIVER/CUSTOMER SERVICE Body Mass Index 22.73 05/09/2024 7:50 AM DELIVERY DRIVER/CUSTOMER SERVICE documented in this encounter Patient Instructions * Patient Instructions* Maurice Bob PA - 05/09/2024 8:00 AM DELIVERY DRIVER/CUSTOMER SERVICE My medical technologist, Tereza, and I are thankful you have trusted us with your care, and hope that you received EXCELLENT care today! Please do not hesitate to call if you have any questions or concerns. You may receive a phone call or text asking about your care today. We would love to hear your input and again, hope your visit was as EXCELLENT as possible, even if you were not feeling your best! -Maurice Bob PA-C VERY DRIVER/CUSTOMER SERVICE documented in this encounter Ordered Prescriptions Prescription Sig Dispense Quantity Refills Last Filled Start Date End Date FLUoxetine (PROzac) 10 mg tablet/capsule Take 1 tablet/caps ule (10 mg total) by mouth daily 90 capsule 4 05/09/2024 05/09/2025 documented in this encounter Progress Notes * Maurice Bob PA - 05/09/2024 8:00 AM CST Subjective/Objective Patient ID: Renee Vance is a 69 y.o. female. Chief Complaint Preventative Care HPI Renee Vance is 69 yo here for CPE. Her weigh tis up a few lbs. Good appetite. She walks. No falls, injuries. No CP, SOB, cough, abd pain. Is fighting tooth and nail to keepthe weight off. But is sleeping well. Feelsthe appetite is too good with the mirtazepine. The stress is better now with the wedding behind her. She is going [place] a [place] in June She is UTD on mammo and BMD. UTD On pneumococcal vaccine, tetanus, shingrix. Had normal cscope 2018 CARE TEAM Crum Lynne, optho Matthew, account technician Jane, derm No Known Allergies Current Outpatient Medications: atorvastatin (LIPITOR) 10 mg tablet, Take 0.5 tablets (5 mg total) by mouth daily, Disp: 45 tablet,Rfl: 3 cholecalciferol (VITAMIN D3) 2,000 unit capsule, 1 capsule (2,000 Units total) daily., Disp: 100 capsule, Rfl: 0 cyanocobalamin (Vitamin B-12) 1,000 mcg tablet, Take 1 tablet (1,000 mcg total) by mouth daily, Disp: , Rfl: FLUoxetine (PROzac) 10 mg tablet/capsule, Take 1 tablet/capsule (10 mg total) by mouth daily, Disp:90 capsule, Rfl: 4 Past Medical History: Diagnosis Date Chronic constipation HX OTHER MEDICAL MVP Smoking Past Surgical History: Procedure Laterality Date SECTION section CHOLECYSTECTOMY Cholecystectomy COLONOSCOPY 03/22/2008 TONSILLECTOMY 1975 Tonsillectomy Family History Problem Relation Age of Onset Lung cancer Mother Cancer, lung; COPD Mother copd; Breast cancer Mother's Sister Ovarian cancer Neg Hx Thyroid cancer Neg Hx Social History Tobacco Use Smoking status: Former Smokeless tobacco: Former Tobacco comments: Started 1971 quit 2017 2 ppd Substance and Sexual Activity Drug use: No Sexual activity: Defer Alcohol Use: Alcohol Misuse (05/09/2024) AUDIT-C Frequency of Alcohol Consumption: 2-4 times a month Average Number of Drinks: 1 or 2 Frequency of Binge Drinking: Less than monthly Review of Systems Constitutional: Negative for appetite change (imrpoved), chills, fatigue, fever and unexpected weight change (up). HENT: Negative for hearing loss, rhinorrhea, sore throat and trouble swallowing. No odynophagia, dysphagia Eyes: Negative for visual disturbance. Respiratory: Negative for cough, chest tightness, shortness of breath and wheezing. Cardiovascular: Negative for chest pain, palpitations and leg swelling. Gastrointestinal: Negative for abdominal pain, blood in stool, constipation, diarrhea, nausea and vomiting. Endocrine: Negative for polydipsia and polyuria. Genitourinary: Negative for difficulty urinating, dysuria, frequency, hematuria and urgency. Musculoskeletal: Negative for arthralgias, back pain, gait problem, joint swelling, myalgias and neck stiffness. Skin: Negative for rash. Neurological: Negative for dizziness, syncope, weakness, light-headedness and headaches. Hematological: Negative for adenopathy. Does not bruise/bleed easily. Psychiatric/Behavioral: Negative for agitation and sleep disturbance. The patient is not nervous/anxious. Vitals: 05/09/24 0750 BP: 126/70 BP Location: Left arm Patient Position: Sitting Pulse: 70 Resp: 16 Temp: 36.4 ??C (97.6 ??F) TempSrc: Oral SpO2: 96% Weight: 62 kg (136 lb 9.6 oz) Height: 165.1 cm (5' 5 ) Physical Exam Constitutional: General: She is not in acute distress. HENT: Head: Normocephalic and atraumatic. Right Ear: Tympanic membrane, ear canal and external ear normal. Left Ear: Tympanic membrane, ear canal and external ear normal. Nose: No congestion. Mouth/Throat: Pharynx: No oropharyngeal exudate (TMs normal, nose and throat clear). Eyes: Extraocular Movements: Extraocular movements intact. Pupils: Pupils are equal, round, and reactive to light. Neck: Thyroid: No thyromegaly. Vascular: No carotid bruit. Comments: No carotid bruits Cardiovascular: Rate and Rhythm: Normal rate and regular rhythm. Heart sounds: Normal heart sounds. No murmur heard. No friction rub. No gallop. Pulmonary: Effort: Pulmonary effort is normal. Breath sounds: Normal breath sounds. No wheezing or rales. Chest: Chest wall: No tenderness. Abdominal: General: Bowel sounds are normal. Palpations: Abdomen is soft. There is no mass. Tenderness: There is no abdominal tenderness. There is no guarding. Comments: Tympanic, soft, NT Musculoskeletal: General: No deformity. Normal range of motion. Cervical back: Neck supple. Right lower leg: No edema. Left lower leg: No edema. Lymphadenopathy: Cervical: No cervical adenopathy. Skin: General: Skin is warm. Findings: No rash. Neurological: Mental Status: She is alert and oriented to person, place, and time. Cranial Nerves: No cranial nerve deficit. Psychiatric: Mood and Affect: Mood normal. Judgment: Judgment normal. Latest Reference Range & Units 04/27/24 09:43 Sodium 135 - 146 mmol/L 137 Potassium Lvl 3.5 - 5.3 mmol/L 4.3 Chloride 98 - 110 mmol/L 102 CO2 20 - 32 mmol/L 29 BUN 7 - 25 mg/dL 15 Creatinine 0.50 - 1.05 mg/dL 0.57 BUN_Creat Ratio 6 - 22 (calc) SEE NOTE: Glucose 65 - 99 mg/dL 87 Calcium 8.6 - 10.4 mg/dL 9.0 Bilirubin, total 0.2 - 1.2 mg/dL 0.5 Protein, sr 6.1 - 8.1 g/dL 6.4 Albumin 3.6 - 5.1 g/dL 4.1 Alb/glob ratio 1.0 - 2.5 (calc) 1.8 Estimated Glomerular Filtration Rate > OR = 60 mL/min/1.73m2 99 Alk phos 37 - 153 U/L 69 AST 10 - 35 U/L 19 ALT 6 - 29 U/L 9 Chol/HDL ratio <5.0 (calc) 2.6 Cholesterol <200 mg/dL 198 HDL Cholesterol > OR = 50 mg/dL 77 LDL mg/dL (calc) 106 (H) Non-HDL Cholesterol <130 mg/dL (calc) 121 Triglycerides <150 mg/dL 63 TSH 0.40 - 4.50 mIU/L 2.14 Vitamin D 25-OH 30 - 100 ng/mL 46 Vitamin B12 200 - 1,100 pg/mL 621 HepBsAg NON-REACTIVE NON-REACTIVE HBsAb (immune status) NON-REACTIVE NON-REACTIVE Hep B core IgG/IgM NON-REACTIVE NON-REACTIVE (H): Data is abnormally high Assessment/Plan Diagnoses and all orders for this visit: Annual physical exam (Primary) Comments: Discussed routine screneings and vaccines. Follow-up 6 months with labs ahead Pure hypercholesterolemia Comments: LDL up a notch. Continue atorvastatin 10 mg. Recheck level in 6 months Assessment & Plan: Counseled on heart healthy diet, exercise Vitamin D deficiency Comments: Level is sufficient at 46 BMI 22.0-22.9, adult Anxiety and depression Comments: Improved. Given her weight has come back up, we opted to DC mirtazapine and return back to fluoxetine 10 mg. If needed she can go up to 20. Report in with progress in the next month B12 deficiency Comments: Level normal at 621 Other orders - FLUoxetine (PROzac) 10 mg tablet/capsule; Take 1 tablet/capsule (10 mg total) by mouth daily Side effects, risks, interactions reviewed with patient. Indications for testing discussed. Any further problems to contact us. She was told what to look out for and verbalized understanding. The patient was given the opportunity to have all questions answered today and was in agreement with the plan of care. VERY DRIVER/CUSTOMER SERVICE documented in this encounter Miscellaneous Notes * Assessment & Plan Note - Maurice Bob PA - 05/08/2024 7:28 PM DELIVERY DRIVER/CUSTOMER SERVICE Associated Problem(s): Pure hypercholesterolemia Counseled on heart healthy diet, exercise VERY DRIVER/CUSTOMER SERVICE documented in this encounter Plan of Treatment Not on file documented as of this encounter Visit Diagnoses Diagnosis Annual physical exam- Primary Routine general medical examination at a health care facility Pure hypercholesterolemia Vitamin D deficiency BMI 22.0-22.9, adult Anxiety and depression B12 deficiency documented in this encounter Discontinued Medications Medication Sig Discontinue Reason Start Date End Da te mirtazapine (REMERON) 7.5 mg tablet Take 1 tablet (7.5 mg total) by mouth nightly 01/27/2024 05/09/2024 aspirin 81 mg enteric coated tablet Take 1 tablet (81 mg total) by mouth every other day 05/09/2024 documented as of this encounter Care Teams Soil Tester Relationship Specialty Start Date End Date Maurice Bob PA [address] [facility] [address] PCP - General Internal Medicine 05/04/23 documented as of this encounter
--- OUTSIDE RECORDS SUMMARY | 2024-06-05 13:38 | XMS_ITS | Encounter Summary ---
Author Organization [facility] Healthcare Address [address] [place] [address] Care Team Providers Care Automatic Coin Machine Mechanic Name Role Phone Maurice Bob Primary Care Provider Reason for Visit * Reason Comments Anxiety Encounter Details Date Type Department Care Team (Late st Contact Info) Description 01/27/2024 1:15 PM CDT Office Visit [facility] Medical Group Primary Care at [address] [place] [phone] Maurice Bob PA [address] [place], [place] [address] [place] [address] Anxiety and depression (Primary Dx); BMI 23.0-23.9, adult; Vitamin D deficiency Social History Tobacco Use Types Packs/Day Years Used Date Smoking Tobacco: Former Smokeless Tobacco: Former Tobacco Cessation:Counseling Given: Not Answered Alcohol Use Standard Drinks/Week Comments No 0 (1 standard drink = 0.6 oz pur e alcohol) AUDIT-C Answer Date Recorded Q1: How often do you have a drink containing alcohol? Never 12/17/2023 Q2: How many drinks containi ng alcohol do you have on a typical day when you are drinking? Patient does not drink Q3: How often do you have si x or more drinks on one occasion? Never 12/17/2023 PHQ-2 Answer Date Recorded PHQ-2 Total Score (If total score is 3 or more points, staff should administer the PHQ-9) 0 01/27/2024 Comments No Sex and Gender Information Value Date Recorded Sex Assigned at Not on file Legal Sex Female 9:51 AM FUEL DOCK ATTENDANT Gender Identity Not on file Sexual Orientation Not on file documented as of this encounter Last Filed Vital Signs Vital Sign Reading Time Taken Comments Blood Pressure 120/66 01/27/2024 1:05 PM CDT Pulse 73 01/27/2024 1:05 PM CDT Temperature 36.3 ??C (97.4 ??F) 01/27/2024 1:05 PM CD T Respiratory Rate 16 01/27/2024 1:05 PM CDT Oxygen Saturation 97% 01/27/2024 1:05 PM CDT Inhaled Oxygen Concentration - - Weight 60.8 kg (134 lb) 01/27/2024 1:05 PM CDT Height 162.6 cm (5' 4 ) 01/27/2024 1:05 PM CDT Body Mass Index 23 01/27/2024 1:05 PM CDT documented in this encounter Patient Instructions * Patient Instructions* Maurice Bob PA - 01/27/2024 1:15 PM CDT My bio medical technician, Tereza, and I are thankful you have [...] not feeling your best! -Maurice Bob PA-C documented in this encounter Ordered Prescriptions Prescription Sig Dispense Quantity Refills Last Filled Start Date End Date mirtazapine (REMERON) 7.5 mg tablet Take 1 tablet (7.5 mg total) by mouth nightly 90 tablet 3 01/27/2024 4 documented in this encounter Progress Notes * Maurice Bob PA - 01/27/2024 1:15 PM CDT Subjective/Objective Patient ID: Renee Vance is a 69 y.o. female. Chief Complaint Anxiety HPI Patient is here for a follow up on depression and anxiety . See my last note. Last visit we startedher on mirtazapine and buspirone. She took the mirtazapine and felt much better was able to sleep. Her appetite is improved. She Took 3 tablets of buspirone and stopped as it made her dizzy. But she feels good. Patient is in a good mood and has been getting good sleep lately. Her appetite has improved and she was back up 5 lb as well. Denies: CP, SOB, cough, abdominal pain, bowel changes, constipation, hematuria, dizziness, lightheadedness, falls, injuries Stress has improved some as it gets closer to the wedding and they are getting tasks completed Review of Systems Constitutional: Positive for unexpected weight change. Negative for appetite change (improved), chills and fever. Respiratory: Negative for cough, shortness of breath and wheezing. Cardiovascular: Negative for chest pain, palpitations and leg swelling. Gastrointestinal: Negative for abdominal pain. Neurological: Negative for dizziness and light-headedness. Psychiatric/Behavioral: Negative for sleep disturbance (Improved). The patient is not nervous/anxious. Vitals: 01/27/24 1305 BP: 120/66 BP Location: Left arm Patient Position: Sitting Pulse: 73 Resp: 16 Temp: 36.3 ??C (97.4 ??F) TempSrc: Oral SpO2: 97% Weight: 60.8 kg (134 lb) Height: 162.6 cm (5' 4 ) Physical Exam Constitutional: General: She is not in acute distress. Appearance: She is well-developed. Neck: Vascular: No carotid bruit. Cardiovascular: Rate and Rhythm: Normal rate and regular rhythm. Heart sounds: Normal heart sounds. No murmur heard. Pulmonary: Effort: Pulmonary effort is normal. No respiratory distress. Breath sounds: Normal breath sounds. No wheezing or rales. Musculoskeletal: Cervical back: Normal range of motion and neck supple. Right lower leg: No edema. Left lower leg: No edema. Lymphadenopathy: Cervical: No cervical adenopathy. Psychiatric: Mood and Affect: Mood normal. Behavior: Behavior normal. Thought Content: Thought content normal. Judgment: Judgment normal. Assessment/Plan Diagnoses and all orders for this visit: Anxiety and depression (Primary) Comments: Improved and will continue mirtazapine 7.5 at night. Any further she was to contact us BMI 23.0-23.9, adult Vitamin D deficiency Comments: Continue D supplement and will repeat level before next visit Other orders - mirtazapine (REMERON) 7.5 mg tablet; Take 1 tablet (7.5 mg total) by mouth nightly Side effects, risks, interactions reviewed with patient. Indications for testing discussed. Any further problems to contact us. She was told what to look out for and verbalized understanding. The patient was given the opportunity to have all questions answered today and was in agreement with the plan of care. documented in this encounter Plan of Treatment Not on file documented as of this encounter Visit Diagnoses Diagnosis Anxiety and depression- Primary BMI 23.0-23.9, adult Vitamin D deficiency documented in this encounter Discontinued Medications Medication Sig Discontinue Reason Start Date End Da te busPIRone (BUSPAR) 5 mg tabletIndications:Genera lized Anxiety Disorder Take 2 tablets (10 mg total) by mouth 3 (three) times a day as needed (anxiety) 12/17/2023 01/27/2024 mirtazapine (REMERON) 7.5 mg tablet Take 1 tablet (7.5 mg total) by mouth nightly Reorder 12/17/2023 01/27/2024 documented as of this encounter Care Teams Automatic Coin Machine Mechanic Relationship Specialty Start Date End Date Maurice Bob PA [address] [facility] [address] [place] [address] [place] [id number] PCP - General Internal Medicine 05/04/23 documented as of this encounter
--- OUTSIDE RECORDS SUMMARY | 2024-06-05 13:38 | XMS_ITS | Encounter Summary ---
Author Organization [facility] Healthcare Address [address] [place] [address] Care Team Providers Care College Athletic Director Name Role Phone Maurice Bob Primary Care Provider Reason for Referral * Diagnostic Imaging (Routine) - Closed Specialty Diagnoses / Procedures Referred By Contac t Referred To Contact Diagnoses Osteopenia of multiple sites Procedures Dexa Axial Skeleton Bone Density 1 or 2 Site Maurice Bob PA [address] [facility] [address] [place] [address] [place] [address] Phone: tel: fax: [address] [phone] Referral ID Status Reason Start Date Expiration Date Visits Re quested Visits Authorized [id number] Closed 01/27/2024 02/25/2025 1 1 Encounter Details Date Type Department Care Team (Late st Contact Info) Description 01/27/2024 Orders Only [facility] Medical Group Primary Care at [address] [phone] Maurice Bob PA [address] [facility] [address] [place] [address] [place] [id number] Osteopenia of multiple sites (Primary Dx) Social History Tobacco Use Types Packs/Day Years Used Date Smoking Tobacco: Former Smokeless Tobacco: Former Alcohol Use Standard Drinks/Week Comments No 0 [...] on file Legal Sex Female 9:51 AM COCONUT COOKER Gender Identity Not on file Sexual Orientation Not on file documented as of this encounter Plan of Treatment Not on file documented as of this encounter Results * Dexa Axial Skeleton Bone Density 1 or 2 Site (04/06/2024 11:46 AM CDT) Anatomical Region Laterality Modality Body N/A Other 04/06/2024 6:59 PM CDT Narrative 04/06/2024 7:01 PM CDT EXAM DESCRIPTION: DEXA AXIAL SKELETON BONE DENSITY 1 OR MORE SITES REASON FOR STUDY: 69 y/o ?? year old ??F ??with given history of: ??Osteoporosis screening ?? Screening. ? Products Mechanical Design Engineer/Model: [employer] SL (S/N [id number]) CLINICAL INFORMATION: Current height: ??66 ??inches ? [...] PM T: ??04/06/2024 7:01 PM Report ID: [id number] Reading Location: ??[id number] Procedure Note Tanmay Marley MD - 04/06/2024 EXAM DESCRIPTION: DEXA AXIAL SKELETON BONE DENSITY 1 OR MORE SITES REASON FOR STUDY: 69 y/o year old F with given history of:Osteoporosis screening Screening. Products Mechanical Design Engineer/Model: [employer] (S/N [id number]) CLINICAL INFORMATION: Current height: 66 inches Maximum [...] Tanmay Marley M.D. MF: [email or web address] Report ID: [id number] Reading Location: [place] [address] Maurice MIR G DXA PROCEDURES Eloisa l Result documented in this encounter Visit Diagnoses Diagnosis Osteopenia of multiple sites- Primary Osteopenia of multiple sites documented in this encounter Care Teams College Athletic Director Relationship Specialty Start Date End Date Maurice Bob PA [address] [facility] [address] [place] [address] [place] [id number] PCP - General Internal Medicine 05/04/23 documented as of this encounter
--- OUTSIDE RECORDS SUMMARY | 2024-06-05 13:38 | XMS_ITS | Encounter Summary ---
Author Organization Formerly [facility] Address [address] [place] [address] Care Team Providers Care Setter Molding And Coremaking Machines Name Role Phone Maurice Bob Primary Care Provider Reason for Referral * Diagnostic Imaging (Routine) - Closed Specialty Diagnoses / Procedures Referred By Contac t Referred To Contact Diagnoses Osteopenia of multiple sites Procedures Dexa Axial Skeleton Bone Density 1 or 2 Site Maurice Bob PA [address] [place] [address] [address] SANCHEZ [address] [place] [address] Phone: tel: fax: [address] [phone] Referral ID Status Reason Start Date Expiration Date Visits Re quested Visits Authorized [id number] Closed 01/27/2024 02/25/2025 1 1 Reason for Visit * Diagnostic Imaging (Routine) - Closed Specialty Diagnoses / Procedures Referred By Contac t Referred To Contact Diagnoses Osteopenia of multiple sites Procedures Dexa Axial Skeleton Bone Density 1 or 2 Site Maurice Bob PA [address] [address] Phone: tel: fax: [address] [phone] Referral ID Status Reason Start Date Expiration Date Visits Re quested Visits Authorized [id number] Closed 01/27/2024 02/25/2025 1 1 Encounter Details Date Type Department Care Team (Latest Contact Info) Description 04/06/2024 11:15 AM CDT - 04/06/2024 11:59 PM CDT Hospital Encounter [facility] [address] [place] [address] Osteopenia of multiple sites Discharge Disposition: Discharge to home or self care Social History Tobacco Use Types Packs/Day Years [...] on file Legal Sex Female 9:51 AM WOVEN LABEL DESIGNER Gender Identity Not on file Sexual Orientation Not on file documented as of this encounter Medications at Time of Discharge atorvastatin (LIPITOR) 10 mg tablet Take 0.5 tablets (5 mg total) by mouth daily 45 tablet 3 08/17/2023 cholecalciferol (VITAMIN D3) 2,000 unit capsule 1 capsule (2,000 Units total) daily. 100 capsule 02/27/2017 cyanocobalamin (Vitamin B-12) 1,000 mcg tabletIndications :Prevention of Vitamin B12 Deficiency Take 1 tablet (1,000 mcg total) by mouth daily aspirin 81 mg enteric coated tablet Take 1 tablet (81 mg total) by mouth every other day 05/09/2024 mirtazapine (REMERON) 7.5 mg tablet Take 1 tablet (7.5 mg total) by mouth nightly 90 tablet 3 01/27/2024 05/09/2024 documented as of this encounter Discharge Disposition Disposition Code Departure Means Destination Discharge to home or self care documented in this encounter Plan of Treatment Not on file documented as of this encounter Procedures Procedure Name Priority Date/Time Associated Diagnosis Comments DEXA AXIAL SKELETON BONE DENSITY 1 OR MORE SITES Schedule Routine, Read Routine (OP Routine) 04/06/2024 11:46 AM CDT Osteopenia of multiple sites documented in this encounter Results * Dexa Axial Skeleton Bone Density 1 or 2 Site (04/06/2024 11:46 AM CDT) Anatomical Region Laterality Modality Body N/A Other 04/06/2024 6:59 PM CDT Narrative 04/06/2024 7:01 PM CDT EXAM DESCRIPTION: DEXA AXIAL SKELETON BONE DENSITY 1 OR MORE SITES REASON FOR STUDY: 69 y/o ?? year old ??F ??with given history of: ??Osteoporosis screening ?? Screening. ? Manufacturing Analyst/Model: [employer] Discovery SL (S/N [id number]) CLINICAL INFORMATION: Current height: ??66 ??inches ? [...] PM T: ??04/06/2024 7:01 PM Report ID: [id number] Reading Location: ??[id number] Procedure Note Tanmay Marley MD - 04/06/2024 EXAM DESCRIPTION: DEXA AXIAL SKELETON BONE DENSITY 1 OR MORE SITES REASON FOR STUDY: 69 y/o year old F with given history of:Osteoporosis screening Screening. Manufacturing Analyst/Model: [employer] SL (S/N [id number]) CLINICAL INFORMATION: Current height: 66 inches Maximum [...] Tanmay Marley M.D. MF: MADELINE Report ID: [id number] Reading Location: [place] [address] Maurice MIR IMG DXA PROCEDURES Eloisa l Result documented in this encounter Visit Diagnoses Diagnosis Osteopenia of multiple sites documented in this encounter Care Teams Setter Molding And Coremaking Machines Relationship Specialty Start Date End Date Maurice Bob PA [address] [place] [address] [place] [address] PCP - General Internal Medicine 05/04/23 documented as of this encounter
--- OUTSIDE RECORDS SUMMARY | 2024-06-05 13:38 | XMS_ITS | Referral Summary ---
Author Organization [facility] Address [address] [place] [address] Care Team Providers Care End Maker Name Role Phone Maurice Bob Primary Care Provider Encounters Date Type Department Care Team Description 05/09/2024 Orders Only [facility] Primary Care at [address] [phone] Maurice Bob PA Pure hypercholesterolemia (Primary Dx); B12 deficiency; Vitamin D deficiency 05/09/2024 8:00 AM HRIS MANAGER Office Visit [facility] Primary Care at [address] [phone] Maurice Bob PA Annual physical exam (Primary Dx); Pure hypercholesterolemia; Vitamin D deficiency; BMI 22.0-22.9, adult; Anxiety and depression; B12 deficiency 04/07/2024 Telephone [facility] Primary Care at [address] [phone] Tereza Randall MA 04/06/2024 11:15 AM CDT - 04/06/2024 11:59 PM CDT Hospital Encounter [facility] [address] [place] [address] Osteopenia of multiple sites Discharge Disposition: Discharge to home or self care from Last 3 Months Allergies No known active allergies Medications cholecalcifero [...] 02/18/2021 Assessment & Plan (05/04/2023 11:39 AM HRIS MANAGER): Patient should reduce sugar and carbs, increase [...] 04/2022 Assessment & Plan (05/04/2023 11:37 AM HRIS MANAGER): Continue aspirin atorvastatin diet exercise and suggest [...] with tight risk should be stable to gurwinder. Assessment & Plan (08/27/2020 8:23 AM CDT): Tight ldl at 72 and stay on meds as on and repeat scan two yrs from first Assessment & Plan (12/05/2019 9:06 AM CDT): Mild bilateral strt asa 81 and lllllsttin at Small strted dose and re eval effects and taarget tight contoll recheck 89 yrs Pure hypercholesterolemia 12/05/2019 Assessment & Plan (05/08/2024 7:28 PM HRIS MANAGER): Counseled on heart healthy diet, exercise Assessment & Plan (05/04/2023 11:40 AM HRIS MANAGER): Well controlled on current therapy and will [...] 10/2023. Assessment & Plan (05/04/2023 11:39 AM HRIS MANAGER): Calcium, vitamin-D, weight-bearing exercise and repeat bone [...] and walking wt brearing several time A [employer] maintenance 11/26/2017 Overview (11/26/2017): Added automatically from request for surgery [id number] Assessment & Plan (05/04/2023 11:39 AM HRIS MANAGER): Flu shot each March. Shingrix and Prevnar 20 completed. Tetanus booster due October 2030. Consider RSV and COVID booster. Mammogram due January 2024. Recommended seeing her document analyst for well woman exam and evaluation of [...] 02/27/2017 Assessment & Plan (05/04/2023 11:36 AM HRIS MANAGER): Continue B12 supplementation and check levels yearly. Assessment & Plan (11/29/2018 11:15 AM CDT): b 12 came up and stable 996 and cotn as doing. Assessment & Plan (11/26/2017 8:52 AM CDT): b12 great last fall and will recheck ou return. Cont on b12 Assessment & Plan (05/19/2017 9:09 AM HRIS MANAGER): b12 at 7612 and great and will [...] 11/25/2016 Assessment & Plan (05/04/2023 11:40 AM HRIS MANAGER): Add MiraLax to her prunes and hopefully this will improve her lower abdominal discomfort. Assessment & Plan (11/26/2017 8:52 AM CDT): Back to nl with diet. Assessment & Plan (05/19/2017 9:10 AM HRIS MANAGER): Controlled and stable Assessment & Plan (11/25/2016 9:04 AM CDT): Try probiotic and fiber bversus miralx sdaily GERD (gastroesophageal reflux disease) 7 Assessment & Plan (08/27/2020 8:22 AM CDT): Clearing throat . Irritation no obvious gerd trial life styole chakeeges and see if enough if not trial ppi for several weeks. For [facility] and report. otc prilosec works Assessment & Plan (11/29/2018 11:12 AM CDT): goen Assessment & Plan (11/26/2017 9:03 AM CDT): Gone and not using the zantac Assessment & Plan (05/19/2017 9:10 AM HRIS MANAGER): No gerd with meds Assessment & Plan (11/25/2016 9:03 AM CDT): Trial zantac 150 twice a day and see if stops the thickening feeling in back of throat . If not consider upping meds and or ent eeval Vitamin D deficiency 10/22/2013 Overview (09/12/2016): VITAMIN D DEFICIENCY NOS Assessment & Plan (05/04/2023 11:40 AM HRIS MANAGER): Continue current supplementation and check level in [...] monitoor Assessment & Plan (05/19/2017 9:09 AM HRIS MANAGER): Vit 39 Great and no changes Assessment [...] 024 Assessment & Plan (05/04/2023 11:42 AM HRIS MANAGER): CT abdomen pelvis with p.o. and IV [...] Assessment & Plan (02/05/2021 3:24 PM CDT): whit hooker dgood wt. Assessment & Plan (08/27/2020 8:23 [...] Assessment & Plan (02/05/2021 3:26 PM CDT): viancaelisa horner abd bi changes Assessment & Plan (08/27/2020 [...] 11/26/2017 Assessment & Plan (05/19/2017 9:16 AM HRIS MANAGER): As pain better to near gone will not eval or treat but if appears to get worse again. Not completely go away then would weant to re eval. As no new meds added to get improvement and after cruise to [place]. Additionally not takinghte zantac she has on any frequescy but only with occasional gerd andnot having Gal bladder out. Chapin play wait and watch with improvement for now. No bm changes either Anxiousness 02/27/2017 11/26/2017 Assessment & Plan (05/19/2017 9:11 AM HRIS MANAGER): Back to b ase line and feels [...] masses. Assessment & Plan (05/19/2017 9:14 AM HRIS MANAGER): Repeat in november Assessment & Plan (11/25/2016 9:06 AM CDT): Screening labs for blood cnts. Chem with kidney and liver nl. w eight good yrly blanco. Screening colon per rec's. Hep c neg. Check screening yr'ly and repeat b12 and d in 6 m [facility] Vitamin B-complex deficiency 10/22/2013 02/27/2017 Overview (09/10/2016): B-COMPLEX DEFIC NEC Assessment & Plan (11/25/2016 9:05 AM CDT): b12 at 379 and neuro feels Below 400 there is a 5-10 %^ chance of nerve damage. So try 500 5-7 days a week and stay on and will check in futuree Palpitations 10/22/2013 11/25/2016 Overview (09/12/2016): Palpitations Depression 10/22/2013 02/27/2017 Overview (09/12/2016): DEPRESSIVE DISORDER NEC Immunizations Name Administration Dates Next Due Influenza, [...] 10/15/2020,01/26/2012 ZOSTER LIVE 03/26/2016 ZOSTER Recombinant 12/20/2020,10/15/2020 Social History Tobacco Use Types Packs/Day Years [...] on file Legal Sex Female 9:51 AM HRIS MANAGER Gender Identity Not on file Sexual Orientation Not on file Last Filed Vital Signs Vital Sign Reading Time Taken Comments Blood Pressure 126/70 05/09/2024 7:50 AM HRIS MANAGER Pulse 70 05/09/2024 7:50 AM HRIS MANAGER Temperature 36.4 ??C (97.6 ??F) 05/09/2024 7:50 AM CS T Respiratory Rate 16 05/09/2024 7:50 AM HRIS MANAGER Oxygen Saturation 96% 05/09/2024 7:50 AM HRIS MANAGER Inhaled Oxygen Concentration - - Weight 62 kg (136 lb 9.6 oz) 05/09/2024 7:50 AM HRIS MANAGER Height 165.1 cm (5' 5 ) 05/09/2024 7:50 AM HRIS MANAGER Body Mass Index 22.73 05/09/2024 7:50 AM HRIS MANAGER Plan of Treatment Not on file Procedures Procedure Name Priority Date/Time Associated Diagnosis Comments TSH Routine 04/27/2024 9:43 AM HRIS MANAGER Slow transit constipation Healthcare maintenance LIPID PANEL Routine 04/27/2024 9:43 AM HRIS MANAGER Slow transit constipation Pure hypercholesterolem ia Healthcare maintenance VITAMIN B12 Routine 04/27/2024 9:43 AM HRIS MANAGER B12 deficiency Slow transit constipation Healthcare maintenance VITAMIN D 25 HYDROXY Routine 04/27/2024 9:43 AM HRIS MANAGER Vitamin D deficiency Slow transit constipation Healthcare maintenance COMPREHENSIVE METABOLIC PANEL Routine 04/27/2024 9:43 AM HRIS MANAGER Slow transit constipation Healthcare maintenance HEPATITIS B SURFACE ANTIGEN Routine 04/27/2024 9:43 AM HRIS MANAGER Slow transit constipation Need for hepatitis B screening test Healthcare maintenance HEPATITIS B SURFACE ANTIBODY (IMMUNE STATUS) Routine 04/27/2024 9:43 AM HRIS MANAGER Slow transit constipation Need for hepatitis B screening test Healthcare maintenance HEPATITIS B CORE ANTIBODY, TOTAL Routine 04/27/2024 9:43 AM HRIS MANAGER Slow transit constipation Need for hepatitis B [...] core antibody, total Blood (04/27/2024 9:43 AM HRIS MANAGER) Hep B core IgG/IgM NON-REACTI VE NON-REACTI VE [facility] Comment: For additional information, please refer to http://education.Panizon.GTxcel/faq/JER901 (This link is being provided for informational/ educational purposes only.) Blood 04/27/2024 9:43 AM HRIS MANAGER 04/27/2024 9:44 AM HRIS MANAGER Narrative [facility] - 04/28/2024 6:59 AM HRIS MANAGER FASTING:YES FASTING: YES us Maurice MIR LAB MICROBIOLOGY - GENE [facility] ORDERABLES Final Result [facility] [address] [place] [address] * Vitamin D 25 hydroxy (04/27/2024 9:43 AM HRIS MANAGER) Pathologist [facility] Vitamin D 25-OH 46 30 - 100 ng/mL [facility] Comment: Vitamin D Status ? 25-OH Vitamin D: Deficiency: ?<20 ng/mL Insufficiency: ? 20 - 29 ng/mL Optimal: ? > or = 30 ng/mL For 25-OH Vitamin D testing on patients on D2-supplementation and patients for whom quantitation of D2 and D3 fractions is required, the Quest[facility]ure[facility](TM) 25-OH VIT D, (D2,D3), LC/MS/MS is recommended: order code 70973 (patients >2yrs). See Note 1 Note 1 For additional information, please refer to http://education.DigiPath/faq/OGG986 (This link is being provided for informational/ educational purposes only.) Blood 04/27/2024 9:4 3 AM HRIS MANAGER 04/27/2024 9:44 AM HRIS MANAGER Narrative [facility] - 04/28/2024 6:59 AM HRIS MANAGER FASTING:YES FASTING: YES Maurice MIR LAB BLOOD ORDERABLES Fi nal Result [facility] [address] [place] [address] * Hepatitis B surface antibody (immune status) Blood (04/27/2024 9:43 AM HRIS MANAGER) [facility] HBsAb (immune status) NON-REACTI VE NON-REACTI VE [facility] Blood 04/27/2024 9:43 AM HRIS MANAGER 04/27/2024 9:44 AM HRIS MANAGER Narrative [facility] - 04/28/2024 6:59 AM HRIS MANAGER FASTING:YES FASTING: YES Maurice MIR LAB MICROBIOLOGY - GENE RAL ORDERABLES Final Result Performing Organization Address [facility] de Phone Number [facility] [address] [place] [address] * Hepatitis B Surface Antigen Blood (04/27/2024 9:43 AM HRIS MANAGER) [facility] HepBsAg NON-REACTI VE NON-REACTI VE [facility] Comment: For additional information, please refer to http://education.RemitPro/faq/ZIB846 (This link is being provided for informational/ educational purposes only.) Blood 04/27/2024 9:43 AM HRIS MANAGER 04/27/2024 9:44 AM HRIS MANAGER Narrative [facility] - 04/28/2024 6:59 AM HRIS MANAGER FASTING:YES FASTING: YES Maurice MIR LAB MICROBIOLOGY - GENE RAL ORDERABLES Final Result Performing Organization Address [facility] de Phone Number [facility] [address] [place] [address] * TSH (04/27/2024 9:43 AM HRIS MANAGER) [facility] TSH 2.14 0.40 - 4.50 mIU/L [facility] Blood 04/27/2024 9:43 AM HRIS MANAGER 04/27/2024 9:44 AM HRIS MANAGER Narrative [facility] - 04/28/2024 6:59 AM HRIS MANAGER FASTING:YES FASTING: YES Maurice MIR LAB BLOOD ORDERABLES Fi nal Result Performing Organization Address [facility] de Phone Number [facility] [address] [place] [address] * Vitamin B12 (04/27/2024 9:43 AM HRIS MANAGER) [facility] Vitamin B12 621 200 - 1,100 pg/mL [facility] Blood 04/27/2024 9:43 AM HRIS MANAGER 04/27/2024 9:44 AM HRIS MANAGER Narrative [facility] - 04/28/2024 6:59 AM HRIS MANAGER FASTING:YES FASTING: YES Maurice MIR LAB BLOOD ORDERABLES Fi nal Result Performing Organization Address [facility]/ZIP Co de Phone Number [facility] [address] [address] [address] * (ABNORMAL) Lipid panel (04/27/2024 9:43 AM HRIS MANAGER) Cholesterol 198 <200 mg/dL [facility] [...] factors. LDL-C is now calculated using the Tyrone-Hosea calculation, which is a validated novel method providing better accuracy than the Friedewald equation in the estimation of LDL-C. Tyrone SS et al. BON. 2013;310(19): 6274-3148 (http://education.DigiPath/faq/YLZ316) Chol/HDL ratio 2.6 <5.0 (calc) [facility] Non-HDL, (LDL+VLDL) 121 <130 mg/dL (calc) [facility] Comment: For patients with diabetes plus 1 major ASCVD risk factor, treating to a non-HDL-C goal of <100 mg/dL (LDL-C of <70 mg/dL) is considered a therapeutic option. Blood 04/27/2024 9:43 AM HRIS MANAGER 04/27/2024 9:44 AM HRIS MANAGER Narrative [facility] - 04/28/2024 6:59 AM HRIS MANAGER FASTING:YES FASTING: YES Maurice MIR LAB BLOOD ORDERABLES Fi nal Result [facility] [address] [address] [address] * Comprehensive metabolic panel (04/27/2024 9:43 AM HRIS MANAGER) Glucose 87 65 - 99 mg/dL [facility] [...] [facility] Blood 04/27/2024 9:43 AM HRIS MANAGER 04/27/2024 9:44 AM HRIS MANAGER Narrative [facility] - 04/28/2024 6:59 AM HRIS MANAGER FASTING:YES FASTING: YES us Maurice MIR LAB BLOOD ORDERABLES Fi nal Result [employer] [facility] [address] [address] [address] * Dexa Axial Skeleton Bone Density 1 or 2 Site (04/06/2024 11:46 AM CDT) Anatomical Region Laterality Modality Body N/A Other 04/06/2024 6:59 PM CDT Narrative 04/06/2024 7:01 PM CDT EXAM DESCRIPTION: DEXA AXIAL SKELETON BONE DENSITY 1 OR MORE SITES REASON FOR STUDY: 69 y/o ?? year old ??F ??with given history of: ??Osteoporosis screening ?? Screening. ? Back End Web Developer/Model: [employer] SL (S/N [id number]) CLINICAL INFORMATION: Current height: ??66 ??inches ? [...] PM T: ??04/06/2024 7:01 PM Report ID: [id number] Reading Location: ??[id number] Procedure Note Tanmay Marley MD - 04/06/2024 EXAM DESCRIPTION: DEXA AXIAL SKELETON BONE DENSITY 1 OR MORE SITES REASON FOR STUDY: 69 y/o year old F with given history of:Osteoporosis screening Screening. Back End Web Developer/Model: [employer] SL (S/N [id number]) CLINICAL INFORMATION: Current height: 66 inches Maximum [...] Tanmay Marley M.D. MF: MADELINE Report ID: [id number] Reading Location: [place] [address] Maurice MIR IMG DXA PROCEDURES Eloisa l [...] Serna MD - 03/29/2018 8:26 AM CDT [facility] Patient Name: Renee Vance Procedure Date: 03/29/2018 8:26 AM Date of : 1955 Admit Type: Outpatient Age: 63 Gender: Female Attending MD: Tulio Serna M.D. Room: [facility] Note Status: Finalized Procedure: Colonoscopy Indications: Screening [...] scope was passed under direct vision.The Colonoscope [id number] was introducedthrough the anus and advanced to [...] malignant neoplasm of colon CPT copyright 2017 [employer]. All rights reserved. The codes documented in this report are preliminary and upon stopperer assembler reviewmay be revised to meet current compliance requirements. Recognized by the [employer] for promoting quality [...] - GENERAL ORDERABLES Edited Result - Final MEKHI MCCULLOUGH [address] [address] [employer] [place] [address] from Last 3 Months or Most Recently Relevant to Health Maintenance Insurance [facility] AETNA MEDICARE [facility] MEDICARE Advance Directives For more information, please contact: [phone] * Full Code (Latest Code Status on File) Date Activated Date Inactivated Comments 03/29/2018 7:54 AM 03/29/2018 11:44 AM * Full Code Date Activated Date Inactivated Comments 03/29/2018 7:54 AM 03/29/2018 7:54 AM Care Teams End Maker Relationship Specialty Start Date End Date Maurice Bob PA [address] [facility] [address] SANCHEZ [address] [place] [address] PCP - General Internal Medicine 05/04/23
--- OUTSIDE RECORDS SUMMARY | 2024-06-05 13:38 | XMS_ITS | Encounter Summary ---
Author Organization [facility] Healthcare Address [address] [place] [address] Care Team Providers Care Federal District Law Clerk Name Role Phone Maurice Bob Primary Care Provider Encounter Details Date Type Department Care Team (Latest Contact Info) Description 05/09/2024 Orders Only [facility] Medical Group Primary Care at [address] [place] [address] Maurice Bob PA [address] [place] [address] [address] [place] [address] Pure hypercholesterolemia (Primary Dx); B12 deficiency; Vitamin D deficiency Social History Tobacco Use Types Packs/Day Years Used Date Smoking Tobacco: Former Smokeless Tobacco: Former Comments:Started 1972 quit 2 018 2 ppd Alcohol Use Standard Drinks/Week Comments [...] on file Legal Sex Female 9:51 AM BASKET PERSON Gender Identity Not on file Sexual Orientation Not on file documented as of this encounter Plan of Treatment Scheduled Orders Name Type Priority Associated Diagnoses Orde r Schedule Comprehensive metabolic panel Lab Routine Pure hypercholesterolemia Expected: 11/03/2024 (Approximate), Expires: 05/09/2025 Vitamin B12 Lab Routine B12 deficiency Expected: 11/03/2024 (Approximate), Expires: 05/09/2025 Vitamin D 25 hydroxy Lab Routine Vitamin D deficiency Expected: 11/03/2024 (Approximate), Expires: 05/09/2025 Lipid panel with reflex to direct LDL Lab Routine Pure hypercholesterolemia Expected: 11/03/2024 (Approximate), Expires: 05/09/2025 documented as of this encounter Visit Diagnoses Diagnosis Pure hypercholesterolemia- Primary B12 deficiency Vitamin D deficiency documented in this encounter Care Teams Federal District Law Clerk Relationship Specialty Start Date End Date Maurice Bob PA [address] [facility] [address] SANCHEZ [address] [place] [address] PCP - General Internal Medicine 05/04/23 documented as of this encounter
--- OUTSIDE RECORDS SUMMARY | 2024-06-05 13:38 | XMS_ITS | Encounter Summary ---
Author Organization [facility] Healthcare Address [address] [place] [address] Care Team Providers Care Briquetter Operator Name Role Phone Maurice Bob Primary Care Provider Encounter Details Date Type Department Care Team (Late st Contact Info) Description 01/14/2024 Telephone [facility] Medical Group Primary Care at [address] [place] [address] Maurice Bob PA [address] [place] [address] [address] [place] [address] Social History Tobacco Use Types Packs/Day Years [...] points, staff should administer the PHQ-9) 0 12/17/2023 Comments No Sex and Gender Information Value Date Recorded Sex Assigned at Not on file Legal Sex Female 9:51 AM BULL GANG WORKER Gender Identity Not on file Sexual Orientation Not on file documented as of this encounter Miscellaneous Notes * Telephone Encounter - Tereza Randall MA - 01/14/2024 3:16 PM CDT Pt aware * Telephone Encounter - Tereza Randall MA - 01/14/2024 3:16 PM CDT ----- Message from ADEOLA Leung sent at 01/14/2024 2:55 PM CDT ----- Please inform patient her mammogram was negative. Repeat one year. documented in this encounter Plan of Treatment Not on file documented as of this encounter Visit Diagnoses Not on filedocumented in this encounter Care Teams Briquetter Operator Relationship Specialty Start Date End Date Maurice Bob PA 2 [facility] [address] SANCHEZ [address] [place] [address] PCP - General Internal Medicine 05/04/23 documented as of this encounter
--- OUTSIDE RECORDS SUMMARY | 2024-06-05 13:38 | XMS_ITS | Data Portability ---
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 Lab pap, LB + reflex to HR HPV if ASC-U 2016 017 [facility], [address], [address], [place], [address], 7 10:10:29 fecal occult blood, stool 2016 017 JONELLE In-Office Order, Internal Use Only DO Not Attach Compendium DO Not Attach Compendium, Do Not Delete/merge, [id number] 14:13:00 fecal occult blood, stool 2017 018 JONELLE In-Office Order, Internal Use Only DO Not Attach Compendium DO Not Attach Compendium, Do Not Delete/merge, [id number] 12:53:07 unlisted lab - igp, rfx aptima HPV ascu 2019 020 [facility], [address], [address], [place], [address], 0 16:12:54 fecal occult blood, stool 2019 020 JONELLE In-Office Order, Internal Use Only DO Not Attach Compendium DO Not Attach Compendium, Do Not Delete/merge, [id number] 10:47:39 cytology report, thin prep, smear or scraping, cervical or vaginal 2023 024 [facility], [address], [address], [place], [address], 4 16:22:07 Referral None recorded. Procedures None recorded. Surgeries None recorded. Imaging MAMMO, screening, digital, bilateral 2017 018 [email or web address] Not available 8 12:52:50 MAMMO, screening, digital, bilateral 2019 020 JONELLE Not available 1 15:58:56 MAMMO, screening, digital, bilateral 2021 022 JONELLE Borges (Radiology), [address] [place], [address], 2 10:03:38 MAMMO, screening, digital, bilateral 2023 024 JONELLE Borges Scheduling, [address] [place], [address], 16:53:23 Medication Orders None recorded. Patient TargetsNo targets recorded. Patient Instructions Encounter Date Encounter Id Patient Instructions Last Modified By Organization Details Last Modified Time 05/03/2018 [id number] learning about breast cancer screening Not available 05/03/2018 12:47:23 04/26/2020 [id number] learning about breast cancer screening Not available 04/26/2020 10:41:25 11/19/2021 [id number] learning about breast cancer screening Not available 11/19/2021 10:04:53 11/24/2023 [id number] learning about breast cancer screening gter Not available 11/24/2023 10:08:03 Reason for Referral None Reported. Results Created Date Observation Date Name Description Value Unit Range Abnormal Flag Note LastModifiedBy Organization Detail LastModifiedTime 04/28/2017 fecal occul t blood , stool Occult Blood negati ve Not Available In-Office Order Internal Use Only DO Not Attach Compendium DO Not Attach Compendium, Do Not Delete/merge, [id number] 04/28/2017 13:57:27 04/28/20 17 04/30/2017 pap, IG + refle x HR HPV diagnosis: Commen t NEGAT BREEZY FOR INTRA EPITH ELIAL LESISIAH N AND CONNOR VIDALES . CELLU LAR POND ES ASSOC IATED WITH ATROP HY ARE PRESE NT. Not Available [facility] ([facility]) [address], [place], [address], 04/30/2017 10:10:29 04/28/20 17 04/30/2017 pap, IG + refle x HR HPV specimen adequacy: Commen t Satis facto ry for evalu ation . Endoc ervic al compo nent may not be disti nguis hed in cases of atrop hy. Not Available [facility] ([facility]) [address], [place], [address], 04/30/2017 10:10:29 04/28/20 17 04/30/2017 pap, IG + refle x HR HPV clinician provided ICD10: Commen t Z01.4 19 Not Available [facility] ([facility]) [address] [place], [address], 04/30/2017 10:10:29 04/28/20 17 04/30/2017 pap, IG + refle x HR HPV performed by: Guilherme merrill, Cytot duong cho (ASCP ) Not Available [facility] ([facility]) [address] [place], [address], 04/30/2017 10:10:29 04/28/20 17 04/30/2017 pap, IG + refle x HR HPV . . Not Available [facility] ([facility]) [address] [place], [address], 04/30/2017 10:10:29 04/28/20 17 04/30/2017 pap, IG + refle x HR HPV note: Guilherme cho The Pap smear is a scree mare test desig rosa to aid in the detec tion of vikram ligna nt and malig nant condi tions of the uteri ne cervi x. It is not a diagn ostic proce dure and shoul d not be used as the sole means of detec ting cervi radha cance r. Both false -posi tive and false -nega tive repor ts do occur . Not Available [facility] ([facility]) [address] [place], [address], 04/30/2017 10:10:29 04/28/20 17 04/30/2017 pap, IG + refle x HR HPV test methodology: Guilherme cho This liqui d based ThinP rep(R ) pap test was scree rosa with the use of an image guide kaleb johnson Not Available [facility] ([facility]) [address] [place], [address], 04/30/2017 10:10:29 04/28/20 17 04/30/2017 pap, IG + refle x HR HPV . Commen t The HPV DNA refle x crite fenrando were not met with this speci men resul t there fore, no HPV testi ng was perfo rmed. Not Available [facility] ([facility]) [address], [place], [address], 04/30/2017 10:10:29 05/03/20 18 05/03/2018 fecal occul t blood , stool Occult Blood negati ve Not Available In-Office Order Internal Use Only DO Not Attach Compendium DO Not Attach Compendium, Do Not Delete/merge, [id number] 05/03/2018 12:29:36 04/26/20 20 04/30/2020 pap, IG + refle x HR HPV diagnosis: Guilherme t NEGAT BREEZY FOR INTRA EPITH ELIAL LESIO N OR CONNOR VIDALES . CELLU SORIN POND ES ASSOC IATED WITH ATROP HY ARE PRESE NT. THIS SPECI MEN WAS RESCR EENED PART OF OUR QUALI TY CONTR OL PROGR AM. Not Available [facility] ([facility]) [address], [place], [address], 04/30/2020 16:12:54 04/26/20 20 04/30/2020 pap, IG + refle x HR HPV specimen adequacy: Guilherme t Satis facto ry for evalu ation . Endoc ervic al compo nent may not be disti nguis hed in cases of atrop hy. Not Available [facility] ([facility]) [address], [place], [address], 04/30/2020 16:12:54 04/26/20 20 04/30/2020 pap, IG + refle x HR HPV clinician provided ICD10: Guilherme cho Z01.4 19 Not Available [facility] ([facility]) [address], [place], [address], 04/30/2020 16:12:54 04/26/20 20 04/30/2020 pap, IG + refle x HR HPV performed by: Guilherme t Corazon Zarate (ASCP ) Not Available [facility] ([facility]) [address] [place], [address], 04/30/2020 16:12:54 04/26/20 20 04/30/2020 pap, IG + refle x HR HPV QC reviewed by: Guilherme jones, Cytot duong cho (ASCP ) Not Available [facility] ([facility]) [address] [place], [address], 04/30/2020 16:12:54 04/26/20 20 04/30/2020 pap, IG + refle x HR HPV . . Not Available [facility] ([facility]) [address] [place], [address], 04/30/2020 16:12:54 04/26/20 20 04/30/2020 pap, IG + refle x HR HPV note: Guilherme cho The Pap smear is a scree mare test desig rosa to aid in the detec tion of vikram ligna nt and malig nant condi tions of the uteri ne cervi x. It is not a diagn ostic proce dure and shoul d not be used as the sole means of detec ting cervi radha cance r. Both false -posi tive and false -nega tive repor ts do occur . Not Available [facility] ([facility]) [address] [place], [address], 04/30/2020 16:12:54 04/26/20 20 04/30/2020 pap, IG + refle x HR HPV test methodology: Guilherme cho This liqui d based ThinP rep(R ) pap test was scree rosa with the use of an image guide kaleb aj. Not Available [facility] ([facility]) [address] [place], [address], 04/30/2020 16:12:54 04/26/20 20 04/30/2020 pap, IG + refle x HR HPV . Guilherme t The HPV DNA refle x crite fernando were not met with this speci men resul t there fore, no HPV testi ng was perfo rmed. Not Available [facility] ([facility]) [address], [place], [address], 04/30/2020 16:12:54 04/26/20 20 04/26/2020 fecal occul t blood , stool Occult Blood negati ve Not Available In-Office Order Internal Use Only DO Not Attach Compendium DO Not Attach Compendium, Do Not Delete/merge, [id number] 04/26/2020 10:40:51 11/24/19 24 11/27/2023 IGP, RFX APTIM A HPV ASCU diagnosis: COMMEN T UNSAT ISFAC TORY FOR EVALU ATION . Not Available [facility] ([facility]) [address], [place], [address], 11/27/2023 16:22:07 11/24/19 24 11/27/2023 IGP, RFX APTIM A HPV ASCU recommendati on: GUILHERME T Sugge st follo w up as clini beatrice appro priat e. Not Available [facility] ([facility]) [address], [place], [address], 11/27/2023 16:22:07 11/24/19 24 11/27/2023 IGP, RFX APTIM A HPV ASCU specimen adequacy: COMMEN T Speci men proce ssed and exami rosa but unsat isfac tory for evalu ation of epith elial abnor malit y becau se of obscu ring infla mmato ry exuda te. Not Available [facility] ([facility]) [address], [place], [address], 11/27/2023 16:22:07 11/24/19 24 11/27/2023 IGP, RFX APTIM A HPV ASCU clinician provided ICD10: GUILHERME Cho Z01.4 19 Not Available [facility] ([facility]) [address], [place], [address], 11/27/2023 16:22:07 11/24/19 24 11/27/2023 IGP, RFX APTIM A HPV ASCU performed by: GUILHERME Bee, Cytot echno logis t (ASCP ) Not Available [facility] ([facility]) [address] [place], [address], 11/27/2023 16:22:07 11/24/19 24 11/27/2023 IGP, RFX APTIM A HPV ASCU QC reviewed by: GUILHERME Elaine n, Super visor y Cytot echno logis t (ASCP ) Not Available [facility] ([facility]) [address] [place], [address], 11/27/2023 16:22:07 11/24/19 24 11/27/2023 IGP, RFX APTIM A HPV ASCU . . Not Available [facility] ([facility]) [address] [place], [address], 11/27/2023 16:22:07 11/24/19 24 11/27/2023 IGP, RFX APTIM A HPV ASCU note: GUILHERME Cho The Pap smear is a scree mare test desig rosa to aid in the detec tion of vikram ligna nt and malig nant condi tions of the uteri ne cervi x. It is not a diagn ostic proce dure and shoul d not be used as the sole means of detec ting cervi radha cance r. Both false -posi tive and false -nega tive repor ts do occur . Not Available [facility] ([facility]) [address] [place], [address], 11/27/2023 16:22:07 11/24/19 24 11/27/2023 IGP, RFX APTIM A HPV ASCU test methodology: GUILHERME Cho This liqui d based ThinP rep(R ) pap test was scree rosa with the use of an image guide d syste m. Not Available [facility] ([facility]) [address], [place], [address], 11/27/2023 16:22:07 11/24/19 24 11/27/2023 IGP, RFX APTIM A HPV ASCU . COMMEN T The HPV DNA refle x crite fernando were not met with this speci men resul t there fore, no HPV testi ng was perfo rmed. Not Available [facility] ([facility]) [address], [place], [address], 11/27/2023 16:22:07 06/22/19 20 06/21/2019 MAMMO , scree mare, digit al, bilat eral No observ ation record ed. [address] [place], [address], 06/22/2019 10:44:04 09/07/19 21 09/06/2020 MAMMO , scree mare, digit al, bilat eral No observ ation record ed. [facility] [address] [place] [address] [place], [address], 09/06/2020 16:06:32 11/22/19 22 11/21/2021 MAMMO , scree mare, digit al, bilat eral No observ ation record ed. [facility] [address] [place] [address] [place], [address], 11/21/2021 10:06:55 01/08/20 23 01/07/2023 MAMMO , scree mare, digit al, bilat eral No observ ation record ed. [address] [place], [address], 01/08/2023 09:33:16 11/24/19 24 05/28/2023 CT, abdom en + pelvi s, w/ contr ast No observ ation record ed. [address] [place], [address], 11/24/2023 10:04:34 01/14/20 24 01/14/2024 MAMMO , melanye mare, digit al, bilat eral No observ ation record ed. esteban [facility] [address] [place], [address], 01/14/2024 16:56:57 Result Notes None recorded. Problems Name Problem SNOMED Code Status Onset Date Resolution Date Notes Provider Name and Address Organization Details Recorded Time Menopause present 613042291 Active Shagufta Sprague MD Attn: Nkechi ryan,[address] [facility], [place], [address] [place] [address] 5 14:20:33 Problem Notes None recorded. Procedures Surgical History Date Name Laterality Status Provider Name and Address Organization Details Recorded Time 4 Most Recent Mammogram completed Iman Yuan RN [facility] 01/14/2024 16:57:08 4 Date of Last Pap Smear completed Iman Yuan RN [facility] 11/27/2023 16:22:59 Caesarean Section completed Iman Yuan RN [facility] 02/28/2015 16:12:40 Imaging Results Imaging Date Name Status [facility]Modified by [facility] Details LastModified Time 06/21/2019 MAMMO, screening, digital, bilateral [facility] [address] [place], [address], 06/22/2019 10:44:04 09/06/2020 MAMMO, screening, digital, bilateral completed esteban [facility] [address] [place] [address] [place], [address], 09/06/2020 16:06:32 11/21/2021 MAMMO, screening, digital, bilateral completed esteban [facility] [address] [place], [address], 11/21/2021 10:06:55 01/07/2023 MAMMO, screening, digital, bilateral completed esteban [address] [place], [address], 01/08/2023 09:33:16 05/28/2023 CT, abdomen + pelvis, w/ contrast completed [email or web address] [address] [place], [address], 11/24/2023 10:04:34 01/14/2024 MAMMO, screening, digital, bilateral completed esteban Nub[place] [address] [place], [address], 01/14/2024 16:56:57 Procedure Notes None recorded. Medical Equipment None Reported. Allergies No known drug allergies Medications Name Sig Start Date Stop Date Status Note LastModified by Organization Details LastModified Time atorvastatin 10 mg tablet TAKE 1/2 TABLET BY MOUTH EVERY DAY active Not Available Not Available No t Available acyclovir 5 % topical ointment 11/19 completed Not Available Not Available Not Available fluoxetine 20 mg tablet TAKE 1 TABLET BY MOUTH DAILY active Not Available Not Available No t Available ranitidine 150 mg tablet 11/19 completed Not Available Not Available Not Available halobetasol propionate 0.05 % topical cream 11/19 completed Not Available Not Available Not Available ketoconazole 2 % topical cream APPLY BID TO TOES AND TOE WEBS ON LEFT FOOT FOR 8 WEEKS 11/19 completed Not Available Not Available Not Available Vitals Date Recorded Body height Body mass index (BMI) Body weight Systolic blood pressure Diastolic blood pressure Provider Name and Address Organization Details Last Updated DateTime 05/03/2018 170.18 cm 21.4 kg/m2 69465 g 108 mm[Hg] 72 mm[Hg] Ana M louis [place] - [facility] 8 12:35:22 Date Recorded Body weight Systolic blood pressure Diastolic blood pressure Provider Name and Address Organization Details Last Updated DateTime 04/26/2020 33200.64 g 132 mm[Hg] 78 mm[Hg] JEAN Brasher [place] - [facility] 04/26/2020 10:36:29 Date Recorded Body weight Systolic blood pressure Diastolic blood pressure Provider Name and Address Organization Details Last Updated DateTime 11/19/2021 11280.81 g 122 mm[Hg] 74 mm[Hg] Maday Monreal Luna [facility] 11/19/2021 10:01:52 Date Recorded Body height Body mass index (BMI) Body weight Systolic blood pressure Diastolic blood pressure Provider Name and Address Organization Details Last Updated DateTime 11/24/2023 170.18 cm 21.3 kg/m2 53225.56 g 155 mm[Hg] 80 mm[Hg] Maday Monreal Luna [facility] 4 10:01:05 Date Recorded Body height Body mass index (BMI) Body weight Systolic blood pressure Diastolic blood pressure Provider Name and Address Organization Details Last Updated DateTime 04/28/2017 170.18 cm 20.7 kg/m2 20601.63 g 102 mm[Hg] 72 mm[Hg] Ana M louis MA [facility] 7 14:02:24 Social History Question Answer Notes LastModified by Organizat ion Details LastModified Time Tobacco Smoking Status Former Smoker Iman Yuan RN [facility], [facility] 02/28/2015 16:12:40 How Much Tobacco Do You Chew? None Information not available 04/26/2020 In The 14 Days Before Symptom Onset, Have You Had Close Contact With A Laboratory-confir med COVID-19 While That Case Was Ill? No Information not available 11/19/2021 In The 14 Days Before Symptom Onset, Have You Had Close Contact With A Person Who Is Under Investigation For COVID-19 While That Person Was Ill? No Information not available 11/19/2021 Have You Been To An Area Known To Be High Risk For COVID-19? No Information not available 11/19/2021 What Type Of Diet Are You Following? REGULAR Information not available 04/26/2020 Do You Or Have You Ever Used E-cigarettes Or Vape? Never Used Electronic Cigarettes Information not available 04/26/2020 What Was The Date Of Your Most Recent Tobacco Screening? 11/24/2023 Information not available 11/24/2023 How Many Children Do You Have? 2 Information not available 04/13/2015 What Is Your Relationship Status? Information not available 04/13/2015 Do You Or Have You Ever Used Smokeless Tobacco? Never Used Smokeless Tobacco Information not available 04/26/2020 How Much Tobacco Do You Smoke? No Information not available 04/26/2020 General Stress Level Low Information not available 04/26/2020 Has Tobacco Cessation Counseling Been Provided? No Information not available 11/19/2021 On What Date Was Tobacco Cessation Counseling Provided? 04/26/2020 Information not available 04/26/2020 Do You Or Have You Ever Used Any Other Forms Of Tobacco Or Nicotine? No Information not available 11/19/2021 Sex: Female Functional Status Question Answer Note LastModified by Organization D etails LastModified Time What is your exercise level? None Information not available 04/26/2020 Mental Status None recorded. Family History Relationship Description Onset Age of this Age Resolved Age Notes LastModified by Organization Details LastModified Time Father No current problems or disability [email or web address] Not available 11/19 09:56:37 Mother No current problems or disability [email or web address] Not available 11/19 09:56:37 Notes:no breast ca hx Mother other [place] Medical History Condition Response Other N High Blood Pressure N Breast Cancer N Thyroid Problems N Kidney or Bladder Problems N Lung Disease N Depression N Blood Clots N GI Problems N Acne N Breast Problem N Eating Disorder N Anemia N Anesthesia Complications N Headaches/Migraines N Ovarian Cancer N Diabetes N Anxiety Disorder N Muscle, Joint, or Bone Problems N Blood Transfusions N Seizures/Epilepsy N Polyps N Infertility N Acid Reflux (GERD) N Cancer N Abuse/Domestic Violence N Asthma N Endometriosis N High Cholesterol N Hepatitis N Liver Disease N Heart Disease N Pre-Eclampsia N Osteoporosis N Gynecological History Statement/Question Response Abnormal Pap N If Post Menopausal, Age at Menopause 46 Menses Monthly N STIs/STDs N HPV Vaccine N Date of Last Pap Smear 11/24/2023 Sexual Problems? N Current Control Method Menopause Most Recent Mammogram 01/14/2024 LMP Definite Obstetrics History GPAL:G 3 P 2 0 0 2 Type Value Full Term 2 Living 2 Total 3 Immunizations Vaccine Type Date Status Note Provider Nam e and Address Organization Details Recorded Time Influenza, split virus, quadrivalent, preservative 3 completed Maday Jocelin, RMA [place], [place] [facility] 11/24/2023 09:56:19 zoster recombinant 1 completed Maday Monreal [place] [facility] 11/24/2023 09:56:19 zoster recombinant 1 completed Maday Monreal [place] [facility] 11/24/2023 09:56:19 Influenza, high-dose, quadrivalent, PF 2 completed Maday Monreal [place] [facility] 11/24/2023 09:56:19 Influenza, adjuvanted, quadrivalent, PF 1 completed Maday Monreal [place] [facility] 11/24/2023 09:56:19 COVID-19, mRNA, LNP-S, PF, 30 mcg/0.3 mL dose 1 completed Maday Monreal [place] [facility] 11/24/2023 09:56:19 COVID-19, mRNA, LNP-S, PF, 30 mcg/0.3 mL dose 1 completed Maday Monreal [place] [facility] 11/24/2023 09:56:19 COVID-19, mRNA, LNP-S, PF, 30 mcg/0.3 mL dose 1 completed Maday Monreal [place] [facility] 11/24/2023 09:56:19 Pneumococcal conjugate PCV20, polysaccharide [id number] conjugate, adjuvant, PF 2 completed Maday Monreal [place] [facility] 11/24/2023 09:56:19 COVID-19, mRNA, LNP-S, bivalent, PF, 30 mcg/0.3 mL dose 2 completed Maday Monreal [place] [facility] 11/24/2023 09:56:19 COVID-19, subunit, rS-nanoparticle, adjuvanted, PF, 5 mcg/0.5 mL 3 completed Maday Monreal [place] [facility] 11/24/2023 09:56:19 Tdap 1 completed Maday Jocelin, [place] [facility] 11/24/2023 09:56:19 Influenza, split virus, trivalent, preservative 3 completed Maday Jocelin, [place] [facility] 11/24/2023 09:56:19 Influenza, split virus, quadrivalent, PF 7 completed Maday Lesterce, [place] [facility] 11/24/2023 09:56:19 Influenza, split virus, quadrivalent, PF 0 completed Maday Jocelin, [place] [facility] 11/24/2023 09:56:19 Influenza, split virus, quadrivalent, PF 8 completed Maday Jocelin, [place] [facility] 11/24/2023 09:56:19 Influenza, split virus, quadrivalent, PF 9 completed Maday Grace, [place] [facility] 11/24/2023 09:56:19 Past Encounters Encounter ID Performer Location Encounter Start Date Encounter Closed Date Diagnosis/Indication Diagnosis SNOMED-CT Code Diagnosis ICD10 Code [id number] MD Nubia Morgan ([facility]) [address] [place], [place] [address], [place] [address] 04/13/2015 13:52:11 04/13/2015 15:02:17 Gynecologic examination 15506438 Z01.419 Menopause present 124181 006 N95.1 Screening for malignant neoplasm of colon 436995376 Z12.11 Screening for malignant neoplasm of breast 954901528 Z12.39 [id number] MD Nubia Morgan ([facility]) [address] [place] [address] 04/28/2017 13:33:52 04/28/2017 16:01:28 Body mass index 20-24 - normal 144486066 Z68.22 Gynecologi c examination 95866225 Z01.419 Screening for malignant neoplasm of colon 322352289 Z12.11 [id number] MD Nubia Morgan [address] [place] [address] 05/03/2018 11:44:07 05/04/2018 16:55:29 Screening for malignant neoplasm of colon 889152049 Z12.11 Gynecologi c examination 80031592 Z01.419 Screening for malignant neoplasm of breast 354660310 Z12.39 [id number] MD Nubia Morgan [address] [place] [address] 04/26/2020 10:22:58 04/27/2020 16:30:44 Screening for malignant neoplasm of colon 001217714 Z12.11 Gynecologi c examination 02876052 Z01.419 Screening for malignant neoplasm of breast 763775348 Z12.39 [id number] MD Nubia Morgan [address] [place] [address] 11/19/2021 09:35:36 11/20/2021 08:42:13 Gynecologic examination 17863467 Z01.419 Screening for malignant neoplasm of breast 034236978 Z12.39 Menopause present 515257 006 N95.1 [id number] MD Nubia Morgan [address] [place] [address] 11/24/2023 09:38:57 11/27/2023 09:49:22 Screening for malignant neoplasm of breast [id number] Z12.39 Gynecologi c examination [id number] Z01.419 Health Concerns Section Related Observation LastModified by Organization Detai ls LastModified Time None Recorded Concern Status LastModified by Organization Details LastModified Time None Recorded Advance Directives Directive None Recorded Payers Encounter Date Sequence Insurance Name Policy Number Policy Rod Covered Member ID Rod Member ID Guarantor Name 04/28/2017 1 [employer] - DOS PRIOR TO 20 - [facility] BENEFITS PLAN [id number] Renee Vance [id number] Renee Vance 05/03/2018 1 [employer] - DOS PRIOR TO 20 - [facility] BENEFITS PLAN [id number] Renee Vance [id number] Renee Vance 04/26/2020 1 [employer] - DOS PRIOR TO 20 - [facility] BENEFITS PLAN [id number] Renee Vance [id number] Renee Vance 11/19/2021 2 MEDICARE-ME (MEDICARE) Renee Vance [id number] Renee Vance 11/19/2021 2 [employer] - PREFERRED CARE (MEDICARE SUPPLEMENT) Renee Vance [id number] Renee Vance 11/24/2023 1 [employer] - PRIME (MEDICARE REPLACEMENT/A DVANTAGE - HMO) [id number] Renee Vance [id number] Renee Vance Notes Date Note Type Note Provider Name and Address Organization Details Recorded Time 04/28/2017 text/html Annual 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 Post-MenopausalRep orted bypatient.Menopaus al Symptoms:no menopausal symptoms; normal vaginal lubrication Vaginal Bleeding:history of menopause having occurred; no history of post menopausal bleeding Urinary Symptoms:no hematuria; no incontinence; no nocturia; no urinary frequency Vulva:no genital lesion; no vulvar atrophy Vagina:normal vaginal discharge; no vaginal atrophy Breast:no breast lump; no nipple discharge; no breast pain Sexual Complaints:no sexual complaints Psychological Symptoms:no depression; no anxiety Shagufta Sprague MD Attn: Accounting[address] [place], [address], [facility] 04/28/2017 14:15:31 05/03/2018 text/html Annual Pipe 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 Post-MenopausalRep orted bypatient.Menopaus al Symptoms:no menopausal symptoms; normal vaginal lubrication Vaginal Bleeding:history of menopause having occurred; no history of post menopausal bleeding Urinary Symptoms:no hematuria; no incontinence; no nocturia; no urinary frequency Vulva:no genital lesion; no vulvar atrophy Vagina:normal vaginal discharge; no vaginal atrophy Breast:no breast lump; no nipple discharge; no breast pain Sexual Complaints:no sexual complaints Psychological Symptoms:no depression; no anxiety Shagufta Sprague MD Attn: Accounting[address] [place], [address], [facility] 05/03/2018 12:58:23 04/26/2020 text/html Annual Pipe 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 Post-MenopausalRep orted bypatient.Menopaus al Symptoms:no menopausal symptoms; normal vaginal lubrication Vaginal Bleeding:history of menopause having occurred; no history of post menopausal bleeding Urinary Symptoms:no hematuria; no incontinence; no nocturia; no urinary frequency Vulva:no genital lesion; no vulvar atrophy Vagina:normal vaginal discharge; no vaginal atrophy Breast:no breast lump; no nipple discharge; no breast pain Sexual Complaints:no sexual complaints Psychological Symptoms:no depression; no anxiety Shagufta Sprague MD Attn: Accounting[address] [place], [address], [facility] 04/26/2020 10:56:14 11/19/2021 text/html Annual Pipe 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 Post-MenopausalRep orted bypatient.Menopaus al Symptoms:no menopausal symptoms; normal vaginal lubrication Vaginal Bleeding:history of menopause having occurred; no history of post menopausal bleeding Urinary Symptoms:no hematuria; no incontinence; no nocturia; no urinary frequency Vulva:no genital lesion; no vulvar atrophy Vagina:normal vaginal discharge; no vaginal atrophy Breast:no breast lump; no nipple discharge;breast pain; left sided Sexual Complaints:no sexual complaints Psychological Symptoms:no depression; no anxiety Shagufta Sprague MD Attn: Accounting[address] [place], [address], [facility] 11/19/2021 10:14:51 11/24/2023 text/html Annual Pipe 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 Post-MenopausalRep orted bypatient.Menopaus al Symptoms:no menopausal symptoms; normal vaginal lubrication Vaginal Bleeding:history of menopause having occurred; no history of post menopausal bleeding Urinary Symptoms:no hematuria; no incontinence; no nocturia; no urinary frequency Vulva:no genital lesion; no vulvar atrophy Vagina:normal vaginal discharge; no vaginal atrophy Breast:no breast lump; no nipple discharge;breast pain; left sided Sexual Complaints:no sexual complaints Psychological Symptoms:no depression; no anxiety some recent RLQ pain, CT showed lots of stool, no female issues seen Shagufta Sprague MD Attn: Accounting[address] [place], [address], [facility] 11/24/2023 10:19:08 OBGyn Episode No OBEpisode recorded.
--- OUTSIDE RECORDS SUMMARY | 2024-06-05 13:38 | XMS_ITS | Encounter Summary ---
Author Organization [facility] Healthcare Address [address] [place] [address] Care Team Providers Care Prototype Machine Operator Name Role Phone Maurice Bob Primary Care Provider Encounter Details Date Type Department Care Team (Late st Contact Info) Description 04/07/2024 Telephone [facility] Medical Group Primary Care at [address] [place] [address] Tereza Randall MA Social History Tobacco Use Types Packs/Day Years [...] on file Legal Sex Female 9:51 AM QUILLER OPERATOR Gender Identity Not on file Sexual Orientation Not on file documented as of this encounter Miscellaneous Notes * Telephone Encounter - Mishel Norton - 04/08/2024 9:36 AM CDT Noted. HM updated. * Telephone Encounter - Tereza Randall MA - 04/07/2024 9:49 AM CDT Pt aware * Telephone Encounter - Tereza Randall MA - 04/07/2024 9:49 AM CDT ----- Message from ADEOLA Leung sent at 04/07/2024 7:58 AM CDT ----- Patient's bone density shows low bone mass but not quite osteoporosis. Repeat BMD in 2 years documented in this encounter Plan of Treatment Not on file documented as of this encounter Visit Diagnoses Not on filedocumented in this encounter Care Teams Prototype Machine Operator Relationship Specialty Start Date End Date Maurice Bob PA [address] [facility] [address] S[address] [place] [address] PCP - General Internal Medicine 05/04/23 documented as of this encounter
--- OUTSIDE RECORDS SUMMARY | 2024-06-05 13:39 | XMS_ITS | Encounter Summary ---
Author Organization [facility] Healthcare Address [address] [place] [address] Care Team Providers Care Audio/Visual Operator Name Role Phone Maurice Bob Primary Care Provider Reason for Visit * Reason Comments Anxiety/Depression She has been having some anxiety and depression and she had some old prozac form 2 years ago that she started to take again but doesn't seem to help Encounter Details Date Type Department Care Team (Late st Contact Info) Description 12/17/2023 11:00 AM CDT Office Visit [facility] Medical Group Primary Care at [address] [place] [address] Maurice Bob PA [address] [place] [address] [address] [place] [address] Anxiety and depression (Primary Dx) Social History Tobacco Use Types [...] on file Legal Sex Female 9:51 AM 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 Gender Identity Not on file Sexual Orientation Not on file documented as of this encounter Last Filed Vital Signs Vital Sign Reading Time Taken Comments Blood Pressure 140/80 12/17/2023 10:55 AM CDT Pulse 79 12/17/2023 10:55 AM CDT Temperature - - Respiratory Rate - - Oxygen Saturation 94% 12/17/2023 10:55 AM CDT Inhaled Oxygen Concentration - - Weight 58.5 kg (129 lb) 12/17/2023 10:55 AM CDT Height 162.6 cm (5' 4 ) 12/17/2023 10:55 AM CDT Body Mass Index 22.14 12/17/2023 10:55 AM CDT documented in this encounter Patient Instructions * Patient Instructions* Maurice Bob PA - 12/17/2023 11:00 AM CDT My medical assistant instructor and I are thankful you have trusted [...] Refills Last Filled Start Date End Date busPIRone (BUSPAR) 5 mg tabletIndications: Generalized Anxiety Disorder Take 2 tablets (10 mg total) by mouth 3 (three) times a day as needed (anxiety) 50 tablet 1 12/17/2023 4 mirtazapine (REMERON) 7.5 mg tablet Take 1 tablet (7.5 mg total) by mouth nightly 30 tablet 1 12/17/2023 4 documented in this encounter Progress Notes * Maurice Bob PA - 12/17/2023 11:00 AM CDT Subjective/Objective Patient ID: Renee Vance is a 68 y.o. female. Chief Complaint Anxiety/Depression (She has been having some anxiety and depression and she had some old prozac form 2 years ago that she started to take again but doesn't seem to help) HPI Renee Vance is here c/o anxiety and depression for the past month or so. Her stomach is upset, churning, trouble sleeping. Appetite is down as is weight. Has had stress with upcoming big wedding of her son's in Feb. And was told by Dr. Castro she had an abnormal pap - to be repeated I na year. She tried taking prozac from 2 years dun82xx, followed by 20mg, but that di dnot help. She has good support network with and gf. No SI/HI. Review of Systems Constitutional: Positive for appetite change and unexpected weight change. Negative for chills and fever. Respiratory: Negative for cough, shortness of breath and wheezing. Cardiovascular: Negative for chest pain, palpitations and leg swelling. Gastrointestinal: Positive for nausea. Negative for abdominal pain (upset stomach). Neurological: Negative for dizziness and light-headedness. Psychiatric/Behavioral: Positive for sleep disturbance. Negative for agitation, confusion and dysphoric mood. The patient is nervous/anxious. Vitals: 12/17/23 1055 BP: 140/80 BP Location: Left arm Patient Position: Sitting Pulse: 79 SpO2: 94% Weight: 58.5 kg (129 lb) Height: 162.6 cm (5' 4 ) Physical Exam Constitutional: General: She is not in acute distress (thin pleasant NAD). Appearance: She is well-developed. Cardiovascular: Rate and Rhythm: Normal rate and regular rhythm. Heart sounds: Normal heart sounds. No murmur heard. Pulmonary: Effort: Pulmonary effort is normal. No respiratory distress. Breath sounds: Normal breath sounds. No wheezing or rales. Musculoskeletal: Right lower leg: No edema. Left lower leg: No edema. Psychiatric: Mood and Affect: Mood normal. Thought Content: Thought content normal. Judgment: Judgment normal. Assessment/Plan Diagnoses and all orders for this visit: Anxiety and depression (Primary) Comments: Options discussed. DC prozac. ADd remeron 7.5 hs, and buspar 5 TID prn anxiety. FU about 1 mo, sooner if needed. Other orders - mirtazapine (REMERON) 7.5 mg tablet; Take 1 tablet (7.5 mg total) by mouth nightly - busPIRone (BUSPAR) 5 mg tablet; Take 2 tablets (10 mg total) by mouth 3 (three) times a day as needed (anxiety) Side effects, risks, interactions reviewed with patient. [...] Visit Diagnoses Diagnosis Anxiety and depression- Primary documented in this encounter Care Teams Audio/Visual Operator Relationship Specialty Start Date End Date Maurice Bob PA [address] [place] [address] [place] [address] PCP - General Internal Medicine 05/04/23 documented as of this encounter
--- OUTSIDE RECORDS SUMMARY | 2024-06-05 13:39 | XMS_ITS | Encounter Summary ---
Author Organization [facility] Medical Group Address [address] [place] [address] Care Team Providers Care Boat Detailer Name Role Phone Maurice Bbo Primary Care Provider Encounter Details Date Type Department Care Team (Late st Contact Info) Description 04/21/2022 Telephone [facility] Primary Care at [address] [place] [address] Maurice Bob PA [address] [place] [address] [address] [place] [address] Social History Tobacco Use Types Packs/Day Years Used Date Smoking Tobacco: Former Smokeless Tobacco: Former Alcohol Use Standard Drinks/Week Comments No 0 (1 standard drink = 0.6 oz pur e alcohol) PHQ-2 Answer Date Recorded PHQ-2 Total Score (If total score is 3 or more points, staff should administer the PHQ-9) 0 03/21/2022 Comments No Sex and Gender Information Value Date Recorded Sex Assigned at Not on file Legal Sex Female 9: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 Stay on the ASA and cholesterolmed. HNUT MACHINE OPERATOR documented in this encounter Plan of Treatment Not on file documented as of this encounter Visit Diagnoses Not on filedocumented in this encounter Care Teams Boat Detailer Relationship Specialty Start Date End Date Maurice Bob PA [address] [facility] [address] [place] [address] PCP - General Internal Medicine 03/12/22 12/01/22 documented as of this encounter
--- OUTSIDE RECORDS SUMMARY | 2024-06-05 13:39 | XMS_ITS | Encounter Summary ---
Author Organization [facility] Healthcare Address [address] [place] [address] Care Team Providers Care Clerical Receptionist Name Role Phone Maurice Bob Primary Care Provider Encounter Details Date Type Department Care Team (Latest Contact Info) Description 09/07/[address] [facility] Medical Group Primary Care at [address] [place] [address] Maurice Bob PA [address] [place] [address] [address] [place] [address] Healthcare maintenance (Primary Dx); Vitamin D deficiency; B12 deficiency; Slow transit constipation; Need for hepatitis B screening test; Pure hypercholesterolemia Social History Tobacco Use Types Packs/Day Years Used Date Smoking Tobacco: Former Smokeless Tobacco: Former Alcohol Use Standard Drinks/Week Comments No 0 (1 standard drink = 0.6 oz pur e alcohol) AUDIT-C Answer Date Recorded Q1: How often do you have a drink containing alc ohol? Monthly or less 05/04/2023 Q2: How many drinks containi ng alcohol do you have on a typical day when you are drinking? 1 or 2 05/04/2023 Q3: How often do you have si x or more drinks on one occasion? Never 05/04/2023 PHQ-2 Answer Date Recorded PHQ-2 Total Score (If total score is 3 or more points, staff should administer the PHQ-9) 0 09/07/2023 Comments No Sex and Gender Information Value Date Recorded Sex Assigned at Not on file Legal Sex Female 9:51 AM JEEP DRIVER Gender Identity Not on file Sexual Orientation Not on file documented as of this encounter Plan of Treatment Not on file documented as of this encounter Procedures Procedure Name Priority Date/Time Associated Diagnosis Comments HEPATITIS B CORE ANTIBODY, TOTAL Routine 04/27/2024 9:43 AM JEEP DRIVER Slow transit constipation Need for hepatitis B screening test Healthcare maintenance VITAMIN D 25 HYDROXY Routine 04/27/2024 9:43 AM JEEP DRIVER Vitamin D deficiency Slow transit constipation Healthcare maintenance HEPATITIS B SURFACE ANTIBODY (IMMUNE STATUS) Routine 04/27/2024 9:43 AM JEEP DRIVER Slow transit constipation Need for hepatitis B screening test Healthcare maintenance HEPATITIS B SURFACE ANTIGEN Routine 04/27/2024 9:43 AM JEEP DRIVER Slow transit constipation Need for hepatitis B screening test Healthcare maintenance TSH Routine 04/27/2024 9:43 AM JEEP DRIVER Slow transit constipation Healthcare maintenance VITAMIN B12 Routine 04/27/2024 9:43 AM JEEP DRIVER B12 deficiency Slow transit constipation Healthcare maintenance LIPID PANEL Routine 04/27/2024 9:43 AM JEEP DRIVER Slow transit constipation Pure hypercholesterolemi a Healthcare maintenance COMPREHENSIVE METABOLIC PANEL Routine 04/27/2024 9:43 AM JEEP DRIVER Slow transit constipation Healthcare maintenance documented in this encounter Results * TSH (04/27/2024 9:43 AM JEEP DRIVER) TSH 2.14 0.40 - 4.50 mIU/L [facility] Blood 04/27/2024 9:43 AM JEEP DRIVER 04/27/2024 9:44 AM JEEP DRIVER Narrative [facility] - 04/28/2024 6:59 AM JEEP DRIVER FASTING:YES FASTING: YES us Maurice MIR LAB BLOOD ORDERABLES Fi nal Result [facility] [address] [facility] [place] [address] * (ABNORMAL) Lipid panel (04/27/2024 9:43 AM JEEP DRIVER) Pathologist [facility] Cholesterol 198 <200 mg/dL [facility] [...] factors. LDL-C is now calculated using the Jarred calculation, which is a validated novel method providing better accuracy than the Friedewald equation in the estimation of LDL-C. Tyrone BONILLA et al. BON. 2013;310(19): 1258-6632 (http://education.[employer].ThePort Network/faq/BPN750) Chol/HDL ratio 2.6 <5.0 (calc) [facility] Non-HDL, (LDL+VLDL) 121 <130 mg/dL (calc) [facility] Comment: For patients with diabetes plus 1 major ASCVD risk factor, treating to a non-HDL-C goal of <100 mg/dL (LDL-C of <70 mg/dL) is considered a therapeutic option. Blood 04/27/2024 9:43 AM JEEP DRIVER 04/27/2024 9:44 AM JEEP DRIVER Narrative [facility] - 04/28/2024 6:59 AM JEEP DRIVER FASTING:YES FASTING: YES us Maurice MIR LAB BLOOD ORDERABLES Fi nal Result BON[facility] [address] [place] [address] * Vitamin B12 (04/27/2024 9:43 AM JEEP DRIVER) Pathologist [facility] Vitamin B12 621 200 - 1,100 pg/mL [facility] Blood 04/27/2024 9:43 AM JEEP DRIVER 04/27/2024 9:44 AM JEEP DRIVER Narrative [facility] - 04/28/2024 6:59 AM JEEP DRIVER FASTING:YES FASTING: YES Maurice MIR LAB BLOOD ORDERABLES Fi nal Result Performing Organization Address [facility] de Phone Number [facility] [address] [place] [address] * Vitamin D 25 hydroxy (04/27/2024 9:43 AM JEEP DRIVER) [facility] Vitamin D 25-OH 46 30 - 100 ng/mL [facility] Comment: Vitamin D Status ? 25-OH Vitamin D: Deficiency: ?<20 ng/mL Insufficiency: ? 20 - 29 ng/mL Optimal: ? > or = 30 ng/mL For 25-OH Vitamin D testing on patients on D2-supplementation and patients for whom quantitation of D2 and D3 fractions is required, the QuestAssureD(TM) 25-OH VIT D, (D2,D3), LC/MS/MS is recommended: order code 68950 (patients >2yrs). See Note 1 Note 1 For additional information, please refer to http://education.Openet/faq/XWZ329 (This link is being provided for informational/ educational purposes only.) Blood 04/27/2024 9:43 AM JEEP DRIVER 04/27/2024 9:44 AM JEEP DRIVER Narrative [facility] - 04/28/2024 6:59 AM JEEP DRIVER FASTING:YES FASTING: YES Maurice MIR LAB BLOOD ORDERABLES Fi nal Result Performing Organization Address [facility]/ZIP Co de Phone Number [facility] [address] [facility] [place] [address] * Hepatitis B Surface Antigen Blood (04/27/2024 9:43 AM JEEP DRIVER) HepBsAg NON-REACTI VE NON-REACTI VE [facility] Comment: For additional information, please refer to http://[employer].Rackup/faq/MVU527 (This link is being provided for informational/ educational purposes only.) Blood 04/27/2024 9:43 AM JEEP DRIVER 04/27/2024 9:44 AM JEEP DRIVER Narrative [facility] - 04/28/2024 6:59 AM JEEP DRIVER FASTING:YES FASTING: YES Maurice MIR LAB MICROBIOLOGY - GENE RAL ORDERABLES Final Result Performing Organization Address [facility] Co de Phone Number [facility] [address] [place] [address] * Hepatitis B surface antibody (immune status) Blood (04/27/2024 9:43 AM JEEP DRIVER) HBsAb (immune status) NON-REACTI VE NON-REACTI VE [facility] Blood 04/27/2024 9:43 AM JEEP DRIVER 04/27/2024 9:44 AM JEEP DRIVER Narrative [facility] - 04/28/2024 6:59 AM JEEP DRIVER FASTING:YES FASTING: YES Maurice MIR LAB MICROBIOLOGY - GENE RAL ORDERABLES Final Result Performing Organization Address [facility] Co de Phone Number [facility] [address] [place] [address] * Hepatitis B core antibody, total Blood (04/27/2024 9:43 AM JEEP DRIVER) Hep B core IgG/IgM NON-REACTI VE NON-REACTI VE [facility] Comment: For additional information, please refer to http://[employer].Rackup/faq/POI014 (This link is being provided for informational/ educational purposes only.) Blood 04/27/2024 9:43 AM JEEP DRIVER 04/27/2024 9:44 AM JEEP DRIVER Narrative [facility] - 04/28/2024 6:59 AM JEEP DRIVER FASTING:YES FASTING: YES us Maurice MIR LAB MICROBIOLOGY - GENE RAL ORDERABLES Final Result [facility] [address] [address] [place] [address] * Comprehensive metabolic panel (04/27/2024 9:43 AM JEEP DRIVER) Glucose 87 65 - 99 mg/dL [facility] [...] [facility] Blood 04/27/2024 9:43 AM JEEP DRIVER 04/27/2024 9:44 AM JEEP DRIVER Narrative [facility] - 04/28/2024 6:59 AM JEEP DRIVER FASTING:YES FASTING: YES Maurice MIR LAB BLOOD ORDERABLES Fi nal Result [facility] [address] [place] [address] documented in this encounter Visit Diagnoses Diagnosis Healthcare maintenance- Primary Vitamin D deficiency B12 deficiency Slow transit constipation Need for hepatitis B screening test Pure hypercholesterolemia documented in this encounter Care Teams Clerical Receptionist Relationship Specialty Start Date End Date Maurice Bob PA [address] [place] [address] DR SANC[address] [place] [address] PCP - General Internal Medicine 05/04/23 documented as of this encounter
--- OUTSIDE RECORDS SUMMARY | 2024-06-05 13:39 | XMS_ITS | Encounter Summary ---
Author Organization [facility] Healthcare Address [address] [place] [address] Care Team Providers Care Litigation Associate Name Role Phone Maurice Bob Primary Care Provider Reason for Visit * Diagnostic Imaging (Routine) - Closed Specialty Diagnoses / Procedures Referred By Alyx t Referred To Contact Diagnoses Bilateral carotid artery stenosis Procedures [facility] Carotids Maurice Bob PA [address] [place] [address] [place] [address] Phone: tel: fax: [address] [address] Referral ID Status Reason Start Date Expiration Date Visits Re quested Visits Authorized [id number] Closed 10/22/2021 11/21/2022 1 1 Encounter Details Date Type Department Care Team (Latest Contact Info) Description 04/15/2022 10:49 AM VENDING MACHINE MECHANIC - 04/15/2022 11:59 PM VENDING MACHINE MECHANIC Hospital Encounter [facility] [address] [place] [id number] Wood Maahn MD [address] [place], [place] [id number] Discharge Disposition: Discharge to home or self [...] on file Legal Sex Female 9:51 AM VENDING MACHINE MECHANIC Gender Identity Not on file Sexual Orientation Not on file documented as of this encounter Medications at Time of Discharge cholecalciferol (VITAMIN D3) 2,000 unit capsule 1 capsule (2,000 Units total) daily. 100 capsule 02/27/2017 cyanocobalamin (Vitamin B-12) 1,000 mcg tabletIndications :Prevention of Vitamin B12 Deficiency Take 1 tablet (1,000 mcg total) by mouth daily aspirin 81 mg enteric coated tablet Take 1 tablet (81 mg total) by mouth every other day 05/09/2024 atorvastatin (LIPITOR) 10 mg tablet TAKE 1/2 TABLET BY MOUTH EVERY DAY 45 tablet 3 02/03/2022 03/19/2023 FLUoxetine (PROzac) 20 mg tablet TAKE 1 TABLET BY MOUTH DAILY 90 tablet 3 05/06/2021 11/06/2022 documented as of this encounter Discharge Disposition Disposition Code Departure Means Destination Discharge to home or self care documented in this encounter Plan of Treatment Not on file documented as of this encounter Procedures Procedure Name Priority Date/Time Associated Diagnosis Comments US CAROTIDS DUPLEX BILATERAL Schedule Routine, Read Routine (OP Routine) 04/15/2022 11:39 AM VENDING MACHINE MECHANIC Bilateral carotid artery stenosis documented in this encounter Results * Vl US Carotids (04/15/2022 11:39 AM VENDING MACHINE MECHANIC) Anatomical Region Laterality Modality Vascular Bilateral Ultrasound 04/15/2022 3:53 PM VENDING MACHINE MECHANIC Narrative 04/15/2022 3:55 PM VENDING MACHINE MECHANIC EXAM DESCRIPTION: ?? US CAROTIDS DUPLEX BILATERAL REASON FOR STUDY: ?? Carotid Bruit, lifeline scan 4 years ago with bilateral carotid arterial plaque. TECHNIQUE: Gonzalez scale, color Doppler and spectral Doppler imaging were performed. ??Velocity criteria are extrapolated from diameter as defined by the Society of Radiologists in Ultrasound Consensus Conference. All velocity measurements are in cm/sec. COMPARISON: ?? None. FINDINGS: Right: ??Mild intimal thickening and plaque are seen. Distal CCA Peak Systolic Velocity: ??76 Distal CCA End Diastolic Velocity: ??26 Peak ICA Systolic Velocity: ??82 ICA End Diastolic Velocity: ??33 Peak ICA/CCA Systolic Ratio: ??1.1 Right Vertebral Artery: ?Antegrade direction of flow. Left: ??Mild intimal thickening and plaque are seen. Distal CCA Peak Systolic Velocity: 84 Distal CCA End Diastolic Velocity: 25 Peak ICA Systolic Velocity: 95 ICA End Diastolic Velocity: 33 Peak ICA/CCA Systolic Ratio: 1.1 Left Vertebral Artery: ?Antegrade direction of flow. IMPRESSION: Velocities correspond to a ?? less than 50 percent diameter stenosis of the right ICA. Velocities correspond to a ?? less than 50 percent diameter stenosis of the left ICA. ?? Antegrade direction of flow of the bilateral vertebral arteries. REFERENCE: Consensus Panel Gonzalez-Scale and Doppler US Criteria for Diagnosis of ICA Stenosis. No stenosis: ICA PSV <125*, 0 percent plaque, ICA/CCA PSV Ratio <2.0, ICA EDV <40*. <50 percent stenosis: ICA PSV <125*, <50 percent plaque, ICA/CCA PSV Ratio <2.0, ICA EDV <40*. 50-69 percent stenosis: ICA PSV 125-230*, >=50 percent plaque, ICA/CCA PSV Ratio 2.0-4.0, ICA EDV 40-100*. >=70 percent but less than near occlusion >230, >=50 percent plaque, ICA/CAA PSV Ratio >4.0, ICA EDV >100*. *cm/sec Plaque estimate (diameter reduction) with gonzalez-scale and color Doppler US. RSNA 2002 THIS IS AN ELECTRONICALLY VERIFIED FINAL REPORT 04/15/2022 3:55 PM - Electronically signed by ??Sharan Camara M.D. CH: JAMEL D: ??04/15/2022 3:55 PM T: ??04/15/2022 3:55 PM Report ID: [id number] Reading Location: ??[id number] Procedure Note Sharan Camara Jr., MD - 04/15/2022 EXAM DESCRIPTION: US CAROTIDS DUPLEX BILATERAL REASON FOR STUDY: Carotid Bruit, lifeline scan 4 years ago withbilateral carotid arterial plaque. TECHNIQUE: Gonzalez scale, color Doppler and spectral Doppler imaging were performed. Velocity criteria are extrapolated from diameter as defined bythe Society of Radiologists in Ultrasound Consensus Conference. All velocity measurements are in cm/sec. COMPARISON: None. FINDINGS: Right: Mild intimal thickening and plaque are seen. Distal CCA Peak Systolic Velocity: 76 Distal CCA End Diastolic Velocity: 26 Peak ICA Systolic Velocity: 82 ICA End Diastolic Velocity: 33 Peak ICA/CCA Systolic Ratio: 1.1 Right Vertebral Artery: Antegrade direction of flow. Left: Mild intimal thickening and plaque are seen. Distal CCA Peak Systolic Velocity: 84 Distal CCA End Diastolic Velocity: 25 Peak ICA Systolic Velocity: 95 ICA End Diastolic Velocity: 33 Peak ICA/CCA Systolic Ratio: 1.1 Left Vertebral Artery: Antegrade direction of flow. IMPRESSION: Velocities correspond to a less than 50 percent diameter stenosis ofthe right ICA. Velocities correspond to a less than 50 percent diameter stenosis ofthe left ICA. Antegrade direction of flow of the bilateral vertebral arteries. REFERENCE: Consensus Panel Gonzalez-Scale and Doppler US Criteria forDiagnosis of ICA Stenosis. No stenosis: ICA PSV <125*, 0 percent plaque, ICA/CCA PSV Ratio <2.0, ICAEDV <40*. <50 percent stenosis: ICA PSV <125*, <50 percent plaque, ICA/CCA PSV Ratio <2.0, ICA EDV <40*. 50-69 percent stenosis: ICA PSV 125-230*, >=50 percent plaque, ICA/CCA PSV Ratio 2.0-4.0, ICA EDV 40-100*. >=70 percent but less than near occlusion >230, >=50 percent plaque,ICA/CAA PSV Ratio >4.0, ICA EDV >100*. *cm/sec Plaque estimate (diameter reduction) with gonzalez-scale and color DopplerUS. RSNA 2002 THIS IS AN ELECTRONICALLY VERIFIED FINAL REPORT 04/15/2022 3:55 PM - Electronically signed by Sharan Camara M.D. CH: JAMEL Report ID: [id number] Reading Location: [place] [address] us Maurice MIR IMG US PROCEDURES Final Result documented in this encounter Visit Diagnoses Not on filedocumented in this encounter Care Teams Litigation Associate Relationship Specialty Start Date End Date Maurice Bob PA [address] [place] [address] [place] [id number] PCP - General Internal Medicine 03/12/22 12/01/22 documented as of this encounter
--- OUTSIDE RECORDS SUMMARY | 2024-06-05 13:39 | XMS_ITS | Encounter Summary ---
Author Organization [facility] Healthcare Address [address] [place] [address] Care Team Providers Care Glass Cutting Machine Feeder Name Role Phone Maurice Bob Primary Care Provider Barrie Duke MD Unavailable [phone] Encounter Details Date Type Department Care Team (Late st Contact Info) Description 05/27/2023 Telephone [facility] [address] [place] [address] Wendy Vuong RT Social History Tobacco Use Types Packs/Day Years [...] points, staff should administer the PHQ-9) 0 05/04/2023 Comments No Sex and Gender Information Value Date Recorded Sex Assigned at Not on file Legal Sex Female 9:51 AM MULTIPLEX OPERATOR Gender Identity Not on file Sexual Orientation Not on file documented as of this encounter Miscellaneous Notes * Telephone Encounter - Wendy Vuong RT - 05/27/2023 12:25 PM MULTIPLEX OPERATOR C @ 12:25 IPLEX OPERATOR documented in this encounter Plan of Treatment Not on file documented as of this encounter Visit Diagnoses Not on filedocumented in this encounter Care Teams Glass Cutting Machine Feeder Relationship Specialty Start Date End Date Maurice Bob PA [address] [place] [address] PCP - General Internal Medicine 05/04/23 Barrie Duke MD [address] [place] [address] Consulting Physician Internal Medicine 05/04/23 4 documented as of this encounter
--- OUTSIDE RECORDS SUMMARY | 2024-06-05 13:39 | XMS_ITS | Encounter Summary ---
Author Organization [facility] Healthcare Address [address] [place] [address] Care Team Providers Care Bilingual Inside Sales Representative Name Role Phone Unavailable Primary Care Provider Unavailabl e Encounter Details Date Type Department Care Team (Late st Contact Info) Description 04/23/2023 Orders Only [facility] Medical Group Primary Care at [address] [place] [address] Maurice Bob PA [address] [place] [address] [address] [place] [address] Social History Tobacco Use Types Packs/Day Years Used Date Smoking Tobacco: Former Smokeless Tobacco: Former Alcohol Use Standard Drinks/Week Comments No 0 (1 standard drink = 0.6 oz pur e alcohol) PHQ-2 Answer Date Recorded PHQ-2 Total Score (If total score is 3 or more points, staff should administer the PHQ-9) 0 11/06/2022 Comments No Sex and Gender Information Value Date Recorded Sex Assigned at Not on file Legal Sex Female 9:51 AM ACADEMIC DEAN Gender Identity Not on file Sexual Orientation Not on file documented as of this encounter Plan of Treatment Not on file documented as of this encounter Procedures Procedure Name Priority Date/Time Associated Diagnosis Comments VITAMIN D 25 HYDROXY Routine 04/23/2023 7:40 AM ACADEMIC DEAN CHOLESTEROL, LDL, DIRECT Routine 04/23/2023 7:40 AM ACADEMIC DEAN VITAMIN B12 Routine 04/23/2023 7:40 AM ACADEMIC DEAN COMPREHENSIVE METABOLIC PANEL Routine 04/23/2023 7:40 AM ACADEMIC DEAN documented in this encounter Results * Vitamin D 25 hydroxy (04/23/2023 7:40 AM ACADEMIC DEAN) Vitamin D 25-OH 46 30 - 100 ng/mL [facility] Comment: Vitamin D Status ? 25-OH Vitamin D: Deficiency: ?<20 ng/mL Insufficiency: ? 20 - 29 ng/mL Optimal: ? > or = 30 ng/mL For 25-OH Vitamin D testing on patients on D2-supplementation and patients for whom quantitation of D2 and D3 fractions is required, the Quest[facility]ure[facility](TM) 25-OH VIT D, (D2,D3), LC/MS/MS is recommended: order code 51261 (patients >2yrs). See Note 1 Note 1 For additional information, please refer to http://education.[employer]/faq/CGH833 (This link is being provided for informational/ educational purposes only.) 04/23/2023 7:40 AM ACADEMIC DEAN 04/23/2023 7:42 AM ACADEMIC DEAN Narrative [facility] - 04/24/2023 6:05 AM ACADEMIC DEAN FASTING:YES FASTING: YES Maurice MIR LAB BLOOD ORDERABLES Fi nal Result [facility] [address] [place] [address] * Vitamin B12 (04/23/2023 7:40 AM ACADEMIC DEAN) Vitamin B12 704 200 - 1,100 pg/mL [facility] 04/23/2023 7:40 AM ACADEMIC DEAN 04/23/2023 7:42 AM ACADEMIC DEAN Narrative [facility] - 04/24/2023 6:05 AM ACADEMIC DEAN FASTING:YES FASTING: YES us Maurice MIR LAB BLOOD ORDERABLES Fi nal Result [facility] [address] [address] [address] * Comprehensive metabolic panel (04/23/2023 7:40 AM ACADEMIC DEAN) Pathologist [facility] Glucose 85 65 - 99 mg/dL [facility] Comment: ? Fasting reference interval BUN 10 7 - 25 mg/dL [facility] Creatinine 0.63 0.50 - 1.05 mg/dL [facility] eGFR 97 > OR = 60 mL/min/1.7 3m2 [facility] BUN/creat ratio SEE NOTE: (calc) [facility] Comment: ?? Not Reported: BUN and Creatinine are within ?? reference range. ? Sodium 140 135 - 146 mmol/L [facility] Potassium, pl 4.6 3.5 - 5.3 mmol/L [facility] Chloride 105 98 - 110 mmol/L [facility] CO2 31 20 - 32 mmol/L [facility] Calcium 8.9 8.6 - 10.4 mg/dL [facility] Protein, sr 6.4 6.1 - 8.1 g/dL [facility] Albumin 4.0 3.6 - 5.1 g/dL [facility] GLOBULIN 2.4 1.9 - 3.7 g/dL (calc) [facility] Alb/glob ratio 1.7 1.0 - 2.5 (calc) [facility] Bilirubin, total 0.6 0.2 - 1.2 mg/dL [facility] Alk phos 57 37 - 153 U/L [facility] AST 19 10 - 35 U/L [facility] ALT (SGPT) 9 6 - 29 U/L [facility] 04/23/2023 7:40 AM ACADEMIC DEAN 04/23/2023 7:42 AM ACADEMIC DEAN Narrative [facility] - 04/24/2023 6:05 AM ACADEMIC DEAN FASTING:YES FASTING: YES Maurice MIR LAB BLOOD ORDERABLES Fi nal Result Performing Organization Address [facility] de Phone Number [facility] [address] [place] [address] * Cholesterol, LDL, direct (04/23/2023 7:40 AM ACADEMIC DEAN) LDL, direct 69 <100 mg/dL [facility] Comment: Greatly elevated Triglycerides values (>1200 mg/dL) interfere with the dLDL assay. As no Triglycerides testing was ordered, interpret results with caution. Desirable range <100 mg/dL for primary prevention; ?? <70 mg/dL for patients with CHD or diabetic patients with > or = 2 CHD risk factors. 04/23/2023 7:40 AM ACADEMIC DEAN 04/23/2023 7:42 AM ACADEMIC DEAN Narrative [facility] - 04/24/2023 6:05 AM ACADEMIC DEAN FASTING:YES FASTING: YES Maurice MIR LAB BLOOD ORDERABLES Fi nal Result Performing Organization Address [facility] Co de Phone Number [facility] [address] [address] [facility] [place] [address] documented in this encounter Visit Diagnoses Not on filedocumented in this encounter
--- OUTSIDE RECORDS SUMMARY | 2024-06-05 13:39 | XMS_ITS | Encounter Summary ---
Author Organization [facility] Healthcare Address [address] [place] [address] Care Team Providers Care Drapery Counselor Name Role Phone Maurice Bob Primary Care Provider Barrie Duke MD Unavailable Reason for Visit * Reason Comments Preventative Care Encounter Details Date Type Department Care Team (Late st Contact Info) Description 05/04/2023 11:00 AM CHANGE CONSULTANT Office Visit [facility] Primary Care at [address] [place] [address] Barrie Duke MD [address] [address] Healthcare maintenance (Primary Dx); Body mass index (BMI) of 22.0-22.9 in adult; B12 deficiency; Bilateral carotid artery stenosis; IGT (impaired glucose tolerance); Osteopenia of multiple sites; Pure hypercholesterolemia; Vitamin D deficiency; Slow transit constipation; Lower abdominal pain Social History Tobacco Use Types Packs/Day Years [...] on file Legal Sex Female 9:51 AM CHANGE CONSULTANT Gender Identity Not on file Sexual Orientation Not on file documented as of this encounter Last Filed Vital Signs Vital Sign Reading Time Taken Comments Blood Pressure 110/70 05/04/2023 11:00 AM CHANGE CONSULTANT Pulse 58 05/04/2023 11:00 AM CHANGE CONSULTANT Temperature - - Respiratory Rate 16 05/04/2023 11:00 AM CHANGE CONSULTANT Oxygen Saturation 96% 05/04/2023 11:00 AM CHANGE CONSULTANT Inhaled Oxygen Concentration - - Weight 60.8 kg (134 lb) 05/04/2023 11:00 AM CHANGE CONSULTANT Height 165 cm (5' 4.96 ) 05/04/2023 11:00 AM CHANGE CONSULTANT Body Mass Index 22.33 05/04/2023 11:00 AM CHANGE CONSULTANT documented in this encounter Patient Instructions * Patient Instructions* Barrie Duke MD - 05/04/2023 11:00 AM CHANGE CONSULTANT Add miralax one serving daily. GE CONSULTANT documented in this encounter Ordered Prescriptions Prescription Sig Dispense Quantity Refills Last Filled Start Date End Date scopolamine 1 mg over 3 days patch [address] 1 patch on the skin every third day as needed (nausea) 10 patch 1 05/04/2023 07/06/2023 documented in this encounter Progress Notes * Barrie Duke MD - 05/04/2023 11:00 AM CST Subjective/Objective Patient ID: eRnee Vance is a 68 y.o. female. Chief Complaint Preventative Care HPI Patient presents today for yearly physical. Apparently staff put her on my schedule today for unknown reasons. Patient thought they were transferring her to my practice. Complains of 6-8 week historyof right greater than left lower quadrant abdominal pain. It is associated with increased gas production. Pain severity currently 2/10 but can be worse. It might get better after having a bowel movement. She has had longstanding history of constipation. She has been eating prunes and lemon juice inthe morning with some improvement. Colonoscopy unremarkable March 2018 with recommendations for 10 year follow-up. Did have hemorrhoids on that examination and she notes trace blood on her stool occ asionally. Denies weight loss. She is due to see her community relations representative. Has had multiple C-sections and cholecystectomy. Otherwise tolerating her atorvastatin without difficulty. Requests scopolamine patches for upcoming cruise in June. Past medical history, social history, family history, medications, allergies reviewed and updated in the EMR. Review of Systems Constitutional: Negative for chills, fever and unexpected weight change. Respiratory: Negative for shortness of breath. Cardiovascular: Negative for chest pain and palpitations. Gastrointestinal: Positive for abdominal pain, constipation and negative for diarrhea. Skin: Negative for rash. Neurological: Negative for numbness and headaches. Psychiatric/Behavioral: Negative for dysphoric mood. The patient is not nervous/anxious. Physical Exam Blood pressure 110/70, pulse 58, resp. rate 16, height 165 cm (5' 4.96 ), weight 60.8 kg (134 lb), SpO2 96%, not currently . Constitutional: Oriented to person, place, and time. Appears well-developed and well-nourished. HENT: Head: Normocephalic and atraumatic. Cardiovascular: Normal rate, regular rhythm and normal heart sounds. Pulmonary/Chest: Breath sounds normal. Abdominal: Soft. Bowel sounds are normal. There is no tenderness. Neurological: Alert and oriented to person, place, and time. Psychiatric: Normal mood and affect. Assessment/Plan Diagnoses and all orders for this visit: Healthcare maintenance (Z00.00) (Primary) Assessment & Plan: Flu shot each March. Shingrix and Prevnar 20 completed. Tetanus booster due October 2030. Consider RSV and COVID booster. Mammogram due January 2024. Recommended seeing her community relations representative for well woman exam and evaluation of her lower abdominal pain as well. Colonoscopy due March 2028. Repeat visit 2months with Kalee for follow-up of her abdominal pain Body mass index (BMI) of 22.0-22.9 in adult (Z68.22) B12 deficiency (E53.8) Assessment & Plan: Continue B12 supplementation and check levels yearly. Bilateral carotid artery stenosis (I65.23) Assessment & Plan: Continue aspirin atorvastatin diet exercise and suggest repeating carotid ultrasound in a year or 2. IGT (impaired glucose tolerance) (R73.02) Assessment & Plan: Patient should reduce sugar and carbs, increase exercise, maintain proper body weight, and will check an A1c once or twice yearly. Osteopenia of multiple sites (M85.89) Assessment & Plan: Calcium, vitamin-D, weight-bearing exercise and repeat bone density scan due October 2023 Pure hypercholesterolemia (E78.00) Assessment & Plan: Well controlled on current therapy and will check a lipid panel and LFTs in 12 months. Vitamin D deficiency (E55.9) Assessment & Plan: Continue current supplementation and check level in 1 year. Slow transit constipation (K59.01) Assessment & Plan: Add MiraLax to her prunes and hopefully this will improve her lower abdominal discomfort. Lower abdominal pain (R10.30) Assessment & Plan: CT abdomen pelvis with p.o. and IV contrast. Call back for results. Could be chronic constipation and recommended adding MiraLax to her high-fiber diet. Schedule gynecology evaluation. Follow-up 2 months and consider repeat colonoscopy or other interventions depending on his symptoms at that time. Other orders - scopolamine 1 mg over 3 days patch 3 day; Place 1 patch on the skin every third day as needed (nausea) GE CONSULTANT documented in this encounter Miscellaneous Notes * Assessment & Plan Note - Barrie Duke MD - 05/04/2023 11:42 AM CHANGE CONSULTANT Associated Problem(s): Lower abdominal pain (Resolved 07/06/2023) CT abdomen pelvis with p.o. and IV contrast. Call back for results. Could be chronic constipation and recommended adding MiraLax to her high-fiber diet. Schedule gynecology evaluation. Follow-up 2 months and consider repeat colonoscopy or other interventions depending on his symptoms at that time. GE CONSULTANT * Assessment & Plan Note - Barrie Duke MD - 05/04/2023 11:40 AM CHANGE CONSULTANT Associated Problem(s): Vitamin D deficiency Continue current supplementation and check level in 1 year. GE CONSULTANT * Assessment & Plan Note - Barrie Duke MD - 05/04/2023 11:40 AM CHANGE CONSULTANT Associated Problem(s): Slow transit constipation Add MiraLax to her prunes and hopefully this will improve her lower abdominal discomfort. GE CONSULTANT * Assessment & Plan Note - Barrie Duke MD - 05/04/2023 11:40 AM CHANGE CONSULTANT Associated Problem(s): Pure hypercholesterolemia Well controlled on current therapy and will check a lipid panel and LFTs in 12 months. GE CONSULTANT * Assessment & Plan Note - Barrie Duke MD - 05/04/2023 11:39 AM CHANGE CONSULTANT Associated Problem(s): Osteopenia of multiple sites Calcium, vitamin-D, weight-bearing exercise and repeat bone density scan due October 2023 GE CONSULTANT * Assessment & Plan Note - Barrie Duke MD - 05/04/2023 11:39 AM CHANGE CONSULTANT Associated Problem(s): IGT (impaired glucose tolerance) Patient should reduce sugar and carbs, increase exercise, maintain proper body weight, and will check an A1c once or twice yearly. GE CONSULTANT * Assessment & Plan Note - Barrie Duke MD - 05/04/2023 11:39 AM CHANGE CONSULTANT Associated Problem(s): Healthcare maintenance Flu shot each March. Shingrix and Prevnar 20 completed. Tetanus booster due October 2030. Consider RSV and COVID booster. Mammogram due January 2024. Recommended seeing her community relations representative for well woman exam and evaluation of her lower abdominal pain as well. Colonoscopy due March 2028. Repeat visit 2months with Kaele for follow-up of her abdominal pain GE CONSULTANT * Assessment & Plan Note - Barrie Duke MD - 05/04/2023 11:37 AM CHANGE CONSULTANT Associated Problem(s): Bilateral carotid artery stenosis Continue aspirin atorvastatin diet exercise and suggest repeating carotid ultrasound in a year or 2. GE CONSULTANT * Assessment & Plan Note - Barrie Duke MD - 05/04/2023 11:36 AM CHANGE CONSULTANT Associated Problem(s): B12 deficiency Continue B12 supplementation and check levels yearly. GE CONSULTANT GE CONSULTANT documented in this encounter Plan of Treatment Not on file documented as of this encounter Visit Diagnoses Diagnosis Healthcare maintenance- Primary Body mass index (BMI) of 22.0-22.9 in adult B12 deficiency Bilateral carotid artery stenosis Occlusion and stenosis of carotid artery without mention of cerebral infarction IGT (impaired glucose tolerance) Impaired glucose tolerance test Osteopenia of multiple sites Pure hypercholesterolemia Vitamin D deficiency Slow transit constipation Lower abdominal pain Abdominal pain, other specified site documented in this encounter Discontinued Medications Medication Sig Discontinue Reason Start Date End Da te [id number] ETHasone (MAXITROL) 3.5mg/mL-10,000 unit/mL-0.1 % ophthalmic suspension SHAKE LIQUID AND INSTILL 1 DROP IN EACH EYE FOUR TIMES DAILY FOR 5 DAYS 10/14/2022 05/04/2023 documented as of this encounter Care Teams Drapery Counselor Relationship Specialty Start Date End Date Maurice Bob PA [address] [place] [address] [place] [address] PCP - General Internal Medicine 05/04/23 Barrie Duke MD [address] [facility] [address] SANCHEZ [address] [place] [id number] Consulting Physician Internal Medicine 05/04/23 4 documented as of this encounter
--- OUTSIDE RECORDS SUMMARY | 2024-06-05 13:39 | XMS_ITS | Encounter Summary ---
Author Organization [facility] Healthcare Address [address] [place] [address] Care Team Providers Care Memorial Marker Designer Name Role Phone Maurice Bob Primary Care Provider Barrie Duke MD Unavailable [phone] Reason for Referral * MRI/CAT/PET Scan (Routine) - Closed Specialty Diagnoses / Procedures Referred By Contac t Referred To Contact Radiology Diagnoses Lower abdominal pain Procedures CT Abdomen Pelvis W Contrast Barrie Duke MD [address] [place] [address] DR SANCHEZ [address] [place] [address] Phone: tel: fax: [address] [phone] Referral ID Status Reason Start Date Expiration Date Visits Re quested Visits Authorized [id number] Closed 05/13/2023 11/09/2023 1 1 E BOLT EQUALIZER Reason for Visit * MRI/CAT/PET Scan (Routine) - Closed Specialty Diagnoses / Procedures Referred By Contac t Referred To Contact Radiology Diagnoses Lower abdominal pain Procedures CT Abdomen Pelvis W Contrast Barrie Duke MD [address] [place] [address] DR SANCHEZ [address] [place] [address] Phone: tel: fax: [address] [phone] Referral ID Status Reason Start Date Expiration Date Visits Re quested Visits Authorized [id number] Closed 05/13/2023 11/09/2023 1 1 Encounter Details Date Type Department Care Team (Latest Contact Info) Description 05/28/2023 2:35 PM STAVE BOLT EQUALIZER - 05/28/2023 11:59 PM STAVE BOLT EQUALIZER Hospital Encounter [facility] [address] [place] [address] Lower abdominal pain Discharge Disposition: Discharge to home or self [...] on file Legal Sex Female 9:51 AM STAVE BOLT EQUALIZER Gender Identity Not on file Sexual Orientation [...] day 05/09/2024 atorvastatin (LIPITOR) 10 mg tablet Take 0.5 tablets (5 mg total) by mouth daily 45 tablet 03/20/2023 08/16/2023 scopolamine 1 mg over 3 days patch [address] 1 patch on the skin every third day as needed (nausea) 10 patch 1 05/04/2023 07/06/2023 documented as of this encounter Discharge Disposition Disposition Code Departure Means Destination Discharge to home or self care documented in this encounter Plan of Treatment Not on file documented as of this encounter Procedures Procedure Name Priority Date/Time Associated Diagnosis Comments CT ABDOMEN PELVIS W CONTRAST Schedule Routine, Read Routine (OP Routine) 05/28/2023 4:20 PM STAVE BOLT EQUALIZER Lower abdominal pain documented in this encounter Results * CT Abdomen Pelvis W Contrast (05/28/2023 4:20 PM STAVE BOLT EQUALIZER) Anatomical Region Laterality Modality Body N/A Computed Tomogra phy 05/30/2023 2:00 PM STAVE BOLT EQUALIZER Narrative 05/30/2023 2:10 PM STAVE BOLT EQUALIZER EXAM DESCRIPTION: ?? CT ABDOMEN PELVIS W CONTRAST REASON FOR STUDY: ?? abd pain ?? Right lower abdomen pain x 3 weeks, pain is better this past week. ??H/o constipation, cholecystectomy, 3 c-sections ? TECHNIQUE: CT scan of the abdomen and pelvis performed with intravenous and ?? without ??oral contrast using helical scanning technique with dynamic intravenous contrast injection. Reconstructed coronal and sagittal MPR images reviewed. All images stored on PACS. Automated exposure control was used as a dose optimization technique for this examination. CONTRAST TYPE/DOSE: ?? 75 ML of IOVERSOL 350 MG IODINE/ML INTRAVENOUS SYRINGE ?? injected via ?? intravenous COMPARISON: ?? None available REFERENCE: Per ACR white paper recommendations, unless otherwise specified no follow-up imaging is recommended for incidental renal and adrenal lesions per consensus recommendations based on imaging criteria. Further lab evaluation could be pursued based on clinical findings. FINDINGS: LOWER CHEST: ?? Linear densities right middle lobe and lingula likely related to scarring or atelectasis. ??No dense consolidations or effusions. LIVER: ?? Normal size. ??1 cm hypodensity medial segment left lobe suggesting small cyst. GALLBLADDER: ?? Surgically absent with clips in place. BILE DUCTS: ?? Mildly prominent intrahepatic and extrahepatic ducts may indicate reservoir effect post cholecystectomy. ??Please correlate clinically and with laboratory values. SPLEEN: ?? Normal size. ??No focal lesions. PANCREAS: ?? No identified cystic or solid masses. No significant calcifications. No adjacent inflammation or peripancreatic fluid collections. Pancreatic duct not dilated. ?? ADRENALS: ?? Normal. KIDNEYS/URINARY TRACT: ?? No identified significant cystic or solid masses. No visualized stones. No hydronephrosis or hydroureter. Symmetric enhancement. ? Urinary bladder is unremarkable. GI: ?? No dilated bowel loops. No obvious wall thickening. ??Normal appendix. ?? No significant diverticular disease. Large volume stool throughout the colon. ??No cecily regions of wall thickening identified. PERITONEUM: ?? No ascites or free air. RETROPERITONEUM: ?? No mass or adenopathy. REPRODUCTIVE: ?? No significant abnormality. VASCULATURE: ?? No abdominal aortic aneurysm. MUSCULOSKELETAL: ?? No significant abnormality. OTHER: ?? No other abnormality. IMPRESSION: No acute finding. Large volume stool throughout the colon. Mildly prominent intrahepatic and extrahepatic ducts may indicate reservoir effect post cholecystectomy. THIS IS AN ELECTRONICALLY VERIFIED FINAL REPORT 05/30/2023 2:10 PM - Electronically signed by ??Abdiaziz Benitez M.D. RB: ZACHARY D: ??05/30/2023 2:10 PM T: ??05/30/2023 2:10 PM Report ID: [id number] Reading Location: ??[id number] Procedure Note Abdiaziz Benitez MD - 05/30/2023 EXAM DESCRIPTION: CT ABDOMEN PELVIS W CONTRAST REASON FOR STUDY: abd pain Right lower abdomen pain x 3 weeks, pain is better this past week. H/o constipation, cholecystectomy, 3 c-sections TECHNIQUE: CT scan of the abdomen and pelvis performed with intravenousand without oral contrast using helical scanning technique with dynamic intravenous contrast injection. Reconstructed coronal and sagittal MPRimages reviewed. All images stored on PACS. Automated exposure control was usedas a dose optimization technique for this examination. CONTRAST TYPE/DOSE: 75 ML of IOVERSOL 350 MG IODINE/ML INTRAVENOUSSYRINGE injected via intravenous COMPARISON: None available REFERENCE: Per ACR white paper recommendations, unless otherwise specifiedno follow-up imaging is recommended for incidental renal and adrenal lesionsper consensus recommendations based on imaging criteria. Further labevaluation could be pursued based on clinical findings. FINDINGS: LOWER CHEST: Linear densities right middle lobe and lingula likelyrelated to scarring or atelectasis. No dense consolidations or effusions. LIVER: Normal size. 1 cm hypodensity medial segment left lobesuggesting small cyst. GALLBLADDER: Surgically absent with clips in place. BILE DUCTS: Mildly prominent intrahepatic and extrahepatic ducts may indicate reservoir effect post cholecystectomy. Please correlateclinically and with laboratory values. SPLEEN: Normal size. No focal lesions. PANCREAS: No identified cystic or solid masses. No significant calcifications. No adjacent inflammation or peripancreatic fluidcollections. Pancreatic duct not dilated. ADRENALS: Normal. KIDNEYS/URINARY TRACT: No identified significant cystic or solid masses.No visualized stones. No hydronephrosis or hydroureter. Symmetricenhancement. Urinary bladder is unremarkable. GI: No dilated bowel loops. No obvious wall thickening. Normalappendix. No significant diverticular disease. Large volume stool throughout the colon. No cecily regions of wallthickening identified. PERITONEUM: No ascites or free air. RETROPERITONEUM: No mass or adenopathy. REPRODUCTIVE: No significant abnormality. VASCULATURE: No abdominal aortic aneurysm. MUSCULOSKELETAL: No significant abnormality. OTHER: No other abnormality. IMPRESSION: No acute finding. Large volume stool throughout the colon. Mildly prominent intrahepatic and extrahepatic ducts may indicatereservoir effect post cholecystectomy. THIS IS AN ELECTRONICALLY VERIFIED FINAL REPORT 05/30/2023 2:10 PM - Electronically signed by Abdiaziz Benitez M.D. RB: ZACHARY Report ID: [id number] Reading Location: [place] [address] Barrie Duke MD IMG CT PROCEDURES Final Resu lt documented in this encounter Visit Diagnoses Diagnosis Lower abdominal pain Abdominal pain, other specified site documented in this encounter Administered Medications Inactive Administered Medications - up to 3 most recent administrations Medication Order MAR Action Action Date Dose Rate Site ioversoL (OPTIRAY 350) syringe 75 mL 75 mL, intravenous, Once in imaging, contrast, Starting on Malini 05/28/23 at 1618, For 1 dose Contrast Given 05/28/2023 4:21 PM STAVE BOLT EQUALIZER 75 mL documented in this encounter Orders Medications Ordered That Fuad ht Not Have Been Administered Count Last Ordered Date First Ordered Date ioversoL (OPTIRAY 350) syringe 75 mL 1 05/09 documented in this encounter Care Teams Memorial Marker Designer Relationship Specialty Start Date End Date Maurice Bob PA [address] [place] [address] DR SANCHEZ [address] [place] [id number] PCP - General Internal Medicine 05/04/23 Barrie Duke MD [address] [facility] [address] SANCHEZ [address] [place] [id number] Consulting Physician Internal Medicine 05/04/23 4 documented as of this encounter
--- OUTSIDE RECORDS SUMMARY | 2024-06-05 13:39 | XMS_ITS | Encounter Summary ---
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 Gender Identity Not on file Sexual Orientation Not on file documented as of this encounter Miscellaneous Notes * Addendum Note - Maria Ines Gilbert - 11/06/2022 8:21 AM CDTAddended by: MARIA INES GILBERT on: 11/06/2022 08:27 AM Modules accepted: Orders * Addendum Note - Mayelin Jameson CLT - 11/06/2022 8:21 AM CDTAddended by: MAYELIN JAMESON on: 11/06/2022 08:46 AM Modules accepted: Orders documented in this encounter Plan of Treatment Not on file documented as of this encounter Results * (ABNORMAL) CBC with auto differential (11/06/2022 8:52 AM CDT) WBC 3.8 3.8 - 9.9 K/cumm [facility] Hgb 13.4 11.9 - 15.5 g/dL [facility] Hct 39.8 35.6 - 45.5 % [facility] Plt 241 150 - 400 K/cumm [facility] MPV 9.4 9.1 - 12.3 fL [facility] RBC 4.19 3.90 - 5.20 M/cumm [facility] MCV 95.0 81.3 - 96.4 fL [facility] MCH 32.0 27.1 - 33.3 pg [facility] MCHC 33.7 32.3 - 35.7 g/dL [facility] RDW CV 14.2 11.1 - 14.9 % [facility] RDW SD 49.7(H) 35.7 - 48.1 fL [facility] NRBC abs 0.00 0.00 - 0.01 K/cumm [facility] Blood 11/06/2022 8:52 AM CDT 11/06/2022 8:59 AM CDT us Maurice MIR LAB BLOOD ORDERABLES Fi nal Result [facility] Department [place] [address] documented in this encounter Visit Diagnoses Diagnosis Orthostasis- Primary Orthostatic hypotension documented in this encounter Care Teams Heel Cementer Machine Relationship Specialty Start Date End Date Maurice Bob PA [address] [place] [address] [address] [place] [address] PCP - General Internal Medicine 03/12/22 12/01/22 documented as of this encounter
--- OUTSIDE RECORDS SUMMARY | 2024-06-05 13:39 | XMS_ITS | Encounter Summary ---
Author Organization [facility] Address [address] [place] [address] Care Team Providers Care Fuel Tank Sealer And Tester Name Role Phone Maurice Bob Primary Care Provider Barrie Duke MD Unavailable [phone] Reason for Referral * Diagnostic Imaging (Routine) - Closed Specialty Diagnoses / Procedures Referred By Contac t Referred To Contact Diagnoses Screening mammogram for breast cancer Procedures Screening Mammogram Bilateral W Barrie Larios MD [address] [place] [address] Phone: tel: fax: [address] [phone] Referral ID Status Reason Start Date Expiration Date Visits Re quested Visits Authorized [id number] Closed 01/08/2023 02/07/2024 1 1 Encounter Details Date Type Department Care Team (Late st Contact Info) Description 01/08/2023 Orders Only [facility] Primary Care at [address] [address] Barrie Duke MD [address] [address] Screening mammogram for breast cancer (Primary Dx) Social History Tobacco Use Types [...] on file 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 Gender Identity Not on file Sexual Orientation Not on file documented as of this encounter Progress Notes * Saray Stockton MA - 01/08/2023 12:05 PM CDT Completed 01/14/2024 documented in this encounter Plan of Treatment Scheduled Orders Name Type Priority Associated Diagnoses Orde r Schedule Screening Mammogram Bilateral W Saeed Imaging Schedule Routine, Read Routine (OP Routine) Screening mammogram for breast cancer Expected: 2024 (Approximate), Expires: 07/11/2024 documented as of this encounter Visit Diagnoses Diagnosis Screening mammogram for breast cancer- Primary documented in this encounter Care Teams Fuel Tank Sealer And Tester Relationship Specialty Start Date End Date Maurice Bob PA [address] [place] [address] PCP - General Internal Medicine 05/04/23 Barrie Duke MD [address] [place] [address] Consulting Physician Internal Medicine 05/04/23 4 documented as of this encounter
--- OUTSIDE RECORDS SUMMARY | 2024-06-05 13:39 | XMS_ITS | Encounter Summary ---
Author Organization [facility] Address [address] [place] [address] Care Team Providers Care Client Coordinator Name Role Phone Unavailable Primary Care Provider Unavailabl e Reason for Referral * Diagnostic Imaging (Routine) - Closed Specialty Diagnoses / Procedures Referred By Alyx cho Referred To Contact Diagnoses Screening mammogram for breast cancer Procedures Screening Mammogram Bilateral W Zayra Kirkland PA [address] [place] [address] [place] [address] Phone: tel: fax: [address] [phone] Referral ID Status Reason Start Date Expiration Date Visits Re quested Visits Authorized [id number] Closed 11/06/2022 12/06/2023 1 1 Reason for Visit * Diagnostic Imaging (Routine) - Closed Specialty Diagnoses / Procedures Referred By Alyx cho Referred To Contact Diagnoses Screening mammogram for breast cancer Procedures Screening Mammogram Bilateral W Zayra Kirkland PA [address] [facility] [address] [facility] [place] [place] [address] Phone: tel: fax: [address] [phone] Referral ID Status Reason Start Date Expiration Date Visits Re quested Visits Authorized [id number] Closed 11/06/2022 12/06/2023 1 1 Encounter Details Date Type Department Care Team (Latest Contact Info) Description 01/07/2023 12:58 PM CDT - 01/07/2023 11:59 PM CDT Hospital Encounter [facility] [address] [place] [address] Screening mammogram for breast cancer Discharge Disposition: Discharge to home or self [...] on file Legal Sex Female 9:51 AM PRIVACY OFFICER Gender Identity Not on file Sexual Orientation [...] EVERY DAY 45 tablet 3 02/03/2022 03/19/2023 neomycin-polymyxi n-dexAMETHasone (MAXITROL) 3.5mg/mL-10,000 unit/mL-0.1 % ophthalmic suspension SHAKE LIQUID AND INSTILL 1 DROP IN EACH EYE FOUR TIMES DAILY FOR 5 DAYS 10/14/2022 05/04/2023 documented as of this encounter Discharge Disposition Disposition Code Departure Means Destination Discharge to home or self care documented in this encounter Plan of Treatment Not on file documented as of this encounter Procedures Procedure Name Priority Date/Time Associated Diagnosis Comments SCREENING MAMMOGRAM BILATERAL W NICOLE Schedule Routine, Read Routine (OP Routine) 01/07/2023 1:17 PM CDT Screening mammogram for breast cancer documented in this encounter Results * Screening Mammogram Bilateral W Nicole (01/07/2023 1:17 PM CDT) Anatomical Region Laterality Modality Breast Bilateral Mammography 01/07/2023 3:46 PM CDT Impressions 01/07/2023 3:46 PM CDT There is no mammographic evidence of malignancy. A 1 year screening mammogram is recommended. BI-RADS: 1 - Negative. The patient has been or will be contacted. The patient will be entered into a reminder system with a target due date of 1 year for her next mammogram. Electronically signed by: Morenita Ibanez M.D. Narrative 01/07/2023 3:46 PM CDT EXAMINATION: SCREENING MAMMOGRAM BILATERAL W NICOLE ORDERING HEALTHCARE PROVIDER: ZAYRA BOB HISTORY: Routine screening mammography. COMPARISON: ??11/21/2021, 09/06/2020, 06/21/2019, 04/07/2018 TECHNIQUE: CC and MLO views of the bilateral breasts were obtained with digital technique using breast tomosynthesis with C view. Computer aided detection was utilized. FINDINGS: DENSITY: There are scattered fibroglandular elements in the bilateral breasts. BREASTS: There are no suspicious masses, suspicious calcifications, or other suspicious findings in either breast. There has been no suspicious interval change. us Zayra MIR IMG MAMMO PROCEDURES Fi nal Result documented in this encounter Visit Diagnoses Diagnosis Screening mammogram for breast cancer documented in this encounter
--- OUTSIDE RECORDS SUMMARY | 2024-06-05 13:39 | XMS_ITS | Encounter Summary ---
Author Organization [facility] Address [address] [place] [address] Care Team Providers Care Machine Lay Out Worker Name Role Phone Maurice Bob Primary Care Provider Encounter Details Date Type Department Care Team (Late st Contact Info) Description 11/06/2022 Orders Only [facility] Primary Care at [place] [address] [facility] [facility] [address] [place] [address] Maurice Bob PA [address] [place] [address] [address] [place] [address] Vitamin D deficiency (Primary Dx); B12 deficiency; Pure hypercholesterolemia; Hypertension, unspecified type Social History Tobacco Use Types Packs/Day Years [...] on file 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 Gender Identity Not on file Sexual Orientation Not on file documented as of this encounter Plan of Treatment Scheduled Orders Name Type Priority Associated Diagnoses Orde r Schedule Comprehensive metabolic panel Lab Routine Hypertension, unspecified type Expected: 03/22/2023, Expires: 11/07/2023 Cholesterol, LDL, direct Lab Routine Pure hypercholesterolemia Expected: 03/22/2023, Expires: 11/07/2023 Vitamin D 25 hydroxy Lab Routine Vitamin D deficiency Expected: 03/22/2023, Expires: 11/07/2023 Vitamin B12 Lab Routine B12 deficiency Expected: 03/22/2023, Expires: 11/07/2023 documented as of this encounter Visit Diagnoses Diagnosis Vitamin D deficiency- Primary B12 deficiency Pure hypercholesterolemia Hypertension, unspecified type documented in this encounter Care Teams Machine Lay Out Worker Relationship Specialty Start Date End Date Maurice Bob PA [address] [facility] [address] [place] [address] PCP - General Internal Medicine 03/12/22 12/01/22 documented as of this encounter
--- OUTSIDE RECORDS SUMMARY | 2024-06-05 13:39 | XMS_ITS | Encounter Summary ---
Author Organization [facility] Address [address] [place] [address] Care Team Providers Care Car Examiner Name Role Phone Maurice Bob Primary Care Provider Reason for Visit * Reason Comments Medicare Wellness Encounter Details Date Type Department Care Team (Late st Contact Info) Description 03/21/2022 9:15 AM CDT Office Visit [facility] Primary Care at [address] [place] [address] Maurice Bob PA [address] [place], [place] [address] [place] [address] Initial Medicare annual wellness visit (Primary Dx); Vitamin D deficiency; Osteopenia of multiple sites; Pure hypercholesterolemia ; BMI 21.0-21.9, adult; Flu vaccine need; Bilateral carotid artery stenosis; B12 deficiency Social History Tobacco Use Types Packs/Day Years Used Date Smoking Tobacco: Former Smokeless Tobacco: Former Tobacco Cessation:Counseling Given: No Alcohol Use Standard Drinks/Week Comments No 0 (1 standard drink = 0.6 oz pur e alcohol) PHQ-2 Answer Date Recorded PHQ-2 Total Score (If total score is 3 or more points, staff should administer the PHQ-9) 0 03/21/2022 Comments No Sex and Gender Information Value Date Recorded Sex Assigned at Not on file 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 Gender Identity Not on file Sexual Orientation Not on file documented as of this encounter Last Filed Vital Signs Vital Sign Reading Time Taken Comments Blood Pressure 102/70 03/21/2022 9:28 AM CDT Pulse 74 03/21/2022 9:28 AM CDT Temperature - - Respiratory Rate - - Oxygen Saturation 99% 03/21/2022 9:28 AM CDT Inhaled Oxygen Concentration - - Weight 61.2 kg (135 lb) 03/21/2022 9:28 AM CDT Height 167.6 cm (5' 6 ) 03/21/2022 9:28 AM CDT Body Mass Index 21.79 03/21/2022 9:28 AM CDT documented in this encounter Patient Instructions * Patient Instructions* Maurice Bob PA - 03/21/2022 9:15 AM CDT My clinical medical assistant, Candida, and I are thankful you have trusted us with your care, and hope thatyou received EXCELLENT care today! Please do not hesitate to call if you have any questions or concerns. You may receive a phone call or text asking about your care today. We would love to hear your input and again, hope your visit was as EXCELLENT as possible, even if you were not feeling your best! -Maurice Bob PA-C documented in this encounter Progress Notes * Maurice Bob PA - 03/21/2022 9:15 AM CDT Subjective/Objective Patient ID: Renee Vance is a 67 y.o. female. Chief Complaint Medicare Wellness HPI Renee Vance is. 67 yo here for Medicare PE. CARE TEAM She did see armida duvall and will be switching soon as he retired. 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 She is UTD On mammo. Normal colonoscopy in 2018 with 10 year surveillance recommended. Had BMD in October showing low bone mass. UTD on vaccines. No falls. No depression. She walks daily , CP, SOB, cough, abd pain. Plans on going off the fluoxetine and has been weaning. Was on for palpitations, but these are controlled , fleeting, and had beenWU d by card, wore monitor, in the past. No Known Allergies Current Outpatient Medications: aspirin 81 mg enteric coated tablet, Take 81 mg by mouth every other day, Disp: , Rfl: atorvastatin (LIPITOR) 10 mg tablet, TAKE 1/2 TABLET BY MOUTH EVERY DAY, Disp: 45 tablet, Rfl: 3 cholecalciferol (VITAMIN D3) 2,000 unit capsule, 1 capsule (2,000 Units total) daily., Disp: 100 capsule, Rfl: 0 cyanocobalamin (Vitamin B-12) 1,000 mcg tablet, Take 1,000 mcg by mouth daily, Disp: , Rfl: FLUoxetine (PROzac) 20 mg tablet, TAKE 1 TABLET BY MOUTH DAILY (Patient taking differently: 20 mg every other day), Disp: 90 tablet, Rfl: 3 Past Medical History: Diagnosis Date Chronic constipation [...] Use Smoking status: Former Smokeless tobacco: Former Substance and Sexual Activity Drug use: No Sexual activity: Defer Alcohol Use: Not on file Review of Systems Constitutional: Negative for appetite change, chills, fatigue, fever and unexpected weight change. HENT: Negative for hearing loss, rhinorrhea, sore [...] urinating, dysuria, frequency, hematuria and urgency. Musculoskeletal: Positive for arthralgias (R ankle, from sprain in June). Negative for back pain, gait problem, joint swelling, myalgias and neck stiffness. Skin: Negative for rash. Neurological: Negative for dizziness, syncope, weakness, light-headedness and headaches. Hematological: Negative for adenopathy. Does not bruise/bleed easily. Psychiatric/Behavioral: Negative for agitation and sleep disturbance. The patient is not nervous/anxious. Vitals: 03/21/22 0928 BP: 102/70 BP Location: Left arm Patient Position: Sitting Pulse: 74 SpO2: 99% Weight: 61.2 kg (135 lb) Height: 167.6 cm (5' 6 ) Physical Exam Constitutional: General: She is [...] Judgment normal. Latest Reference Range & Units 03/12/22 07:24 Sodium 135 - 146 mmol/L 138 Potassium Lvl 3.5 - 5.3 mmol/L 4.3 Chloride 98 - 110 mmol/L 102 CO2 20 - 32 mmol/L 28 BUN 7 - 25 mg/dL 9 Creatinine 0.50 - 1.05 mg/dL 0.65 Glucose 65 - 99 mg/dL 82 Calcium 8.6 - 10.4 mg/dL 8.9 Bilirubin, total 0.2 - 1.2 mg/dL 0.5 Protein, sr 6.1 - 8.1 g/dL 6.2 Albumin 3.6 - 5.1 g/dL 3.9 Estimated Glomerular Filtration Rate > OR = 60 mL/min/1.73m2 97 Alk phos 37 - 153 U/L 66 AST 10 - 35 U/L 20 ALT 6 - 29 U/L 11 Alb/glob ratio 1.0 - 2.5 (calc) 1.7 BUN_Creat Ratio 6 - 22 (calc) NOT APPLICABLE LDL Chol, Direct <100 mg/dL 55 Assessment/Plan Diagnoses and all orders for this visit: Initial Medicare annual wellness visit (Primary) Comments: depression screen: Negative fall risk: Negligible no cognitive dysfunction Flu shot today Vitamin D deficiency Osteopenia of multiple sites Comments: Up-to-date on bone density scan and repeat in 2 years. On vitamin-D Pure hypercholesterolemia Comments: Controlled with LDL 55 BMI 21.0-21.9, adult Flu vaccine need - Flu Vaccine Quad High Dose PF 65Y+ IM - Fluzone High Dose Quad Bilateral carotid artery stenosis Comments: On statin and recommend resuming aspirin. LDL suppressed. Repeat Doppler in April scheduled B12 deficiency Comments: Will check level before next visit. On supplement Discussed community resources and any need for referrals. Health risk assessment reviewed. Providers and care team suppliers up-to-date. Age-appropriate Medicare preventive services check list reviewed. Discussed physical activities. Side effects, risks, interactions reviewed with patient. [...] as of this encounter Visit Diagnoses Diagnosis Initial Medicare annual wellness visit- Primary Vitamin D deficiency Osteopenia of multiple sites Pure hypercholesterolemia BMI 21.0-21.9, adult Flu vaccine need Bilateral carotid artery stenosis Occlusion and stenosis of carotid artery without mention of cerebral infarction B12 deficiency documented in this encounter Discontinued Medications Medication Sig Discontinue Reason Start Date End Da te acyclovir (ZOVIRAX) 5 % ointment acyclovir 5 % topical ointment 03/21/2022 ketoconazole (NIZORAL) 2 % cream ketoconazole 2 % topical cream APPLY BID TO TOES AND TOE WEBS ON LEFT FOOT FOR 8 WEEKS 03/21/2022 lactobacillus rhamnosus R0011 20 billion cell capsule Take by mouth 03/21/2022 aspirin 81 mg chewable tablet Take 1 tablet (81 mg total) by mouth daily Therapy completed 03/08/2020 03/21/2022 documented as of this encounter Historical Medications * This list may reflect changes made after this encounter. aspirin 81 mg enteric coated tablet Take 1 tablet (81 mg total) by mouth every other day 05/09/2024 added in this encounter Orders Immunization/Injection Count Last Ordered Date First Ordered Date FLU VACCINE HIGH DOSE QUAD P F 65Y+ IM - FLUZONE HIGH DOS 1 03/21/2022 documented in this encounter Care Teams Car Examiner Relationship Specialty Start Date End Date Maurice Bob PA [address] [place] [address] DR [address] [place] [address] PCP - General Internal Medicine 03/12/22 12/01/22 documented as of this encounter
--- OUTSIDE RECORDS SUMMARY | 2024-06-05 13:39 | XMS_ITS | Encounter Summary ---
Author Organization [facility] Address [address] [place] [address] Care Team Providers Care Registered Massage Therapist Name Role Phone Maurice Bob Primary Care Provider Reason for Visit * Reason Comments Hyperlipidemia Encounter Details Date Type Department Care Team (Late st Contact Info) Description 11/06/2022 8:00 AM CDT Office Visit [facility] Primary Care at [address] [place] [address] Maurice Bob PA [address] [place], [place] [address] [place] [address] Vitamin D deficiency (Primary Dx); Pure hypercholesterolemia ; BMI 22.0-22.9, adult; Orthostasis; B12 deficiency Social History Tobacco Use Types [...] on file 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 Gender Identity Not on file Sexual Orientation Not on file documented as of this encounter Last Filed Vital Signs Vital Sign Reading Time Taken Comments Blood Pressure 112/64 11/06/2022 8:16 AM CDT Pulse 77 11/06/2022 7:58 AM CDT Temperature - - Respiratory Rate 16 11/06/2022 7:58 AM CDT Oxygen Saturation 96% 11/06/2022 7:58 AM CDT Inhaled Oxygen Concentration - - Weight 61.9 kg (136 lb 6.4 oz) 11/06/2022 7:58 A M CDT Height 167.6 cm (5' 6 ) 11/06/2022 7:58 AM CDT Body Mass Index 22.02 11/06/2022 7:58 AM CDT documented in this encounter Patient Instructions * Patient Instructions* Maurice Bob PA - 11/06/2022 8:00 AM CDT My medical clerical assistant, Tereza, and I are thankful you have [...] Progress Notes * Maurice Bob PA - 11/06/2022 8:00 AM CDT Subjective/Objective Patient ID: Renee Vance is a 67 y.o. female. Chief Complaint Hyperlipidemia HPI Renee is here for six-month follow-up. She has occ lightheadedness , usually with standing up or walking up a hill for example. It is Fleeting. No falls. No presyncope or syncope. No CP, infrequent palpitations, better with staying away from coffee. Doing well off prozac. Appetite and weight are stable. Review of Systems Constitutional: Negative for appetite change, chills, fever and unexpected weight change. Respiratory: Negative for cough, shortness of breath and wheezing. Cardiovascular: Negative for chest pain, palpitations and leg swelling. Gastrointestinal: Negative for abdominal pain. Neurological: Positive for light-headedness (see HPI). Negative for dizziness. Vitals: 11/06/22 0758 11/06/22 0815 11/06/22 0816 BP: 122/74 132/74 112/64 BP Location: Right arm Patient Position: Sitting Sitting Standing Pulse: 77 Resp: 16 SpO2: 96% Weight: 61.9 kg (136 lb 6.4 oz) Height: 167.6 cm (5' 6 ) Physical [...] adenopathy. Psychiatric: Mood and Affect: Mood normal. Latest Reference Range & Units 10/31/22 08:08 Sodium 135 - 146 mmol/L 140 Potassium Lvl 3.5 - 5.3 mmol/L 4.6 Chloride 98 - 110 mmol/L 103 CO2 20 - 32 mmol/L 31 BUN 7 - 25 mg/dL 9 Creatinine 0.50 - 1.05 mg/dL 0.61 Glucose 65 - 99 mg/dL 85 Calcium 8.6 - 10.4 mg/dL 9.2 Bilirubin, total 0.2 - 1.2 mg/dL 0.5 Protein, sr 6.1 - 8.1 g/dL 6.4 Albumin 3.6 - 5.1 g/dL 4.0 Estimated Glomerular Filtration Rate > OR = 60 mL/min/1.73m2 99 Alk phos 37 - 153 U/L 73 AST 10 - 35 U/L 19 ALT 6 - 29 U/L 10 Alb/glob ratio 1.0 - 2.5 (calc) 1.7 BUN_Creat Ratio 6 - 22 (calc) NOT APPLICABLE Chol/HDL ratio <5.0 (calc) 1.9 Cholesterol <200 mg/dL 163 HDL Cholesterol > OR = 50 mg/dL 86 LDL mg/dL (calc) 63 Non-HDL Cholesterol <130 mg/dL (calc) 77 Triglycerides <150 mg/dL 56 Vitamin D 25-OH 30 - 100 ng/mL 53 Vitamin B12 200 - 1,100 pg/mL 841 IMPRESSION: Velocities correspond to a less than 50 percent diameter stenosis of the right ICA. Velocities correspond to a less than 50 percent diameter stenosis of the left ICA. Antegrade direction of flow of the bilateral vertebral arteries. Assessment/Plan Diagnoses and all orders for this visit: Vitamin D deficiency (Primary) Comments: Vitamin-D level is normal at 53. Pure hypercholesterolemia Comments: LDL well controlled on Lipitor. Continue heart healthy diet exercise BMI 22.0-22.9, adult Orthostasis Comments: Suggest pushign fluids with salt, and wearing compression hose. Will additionally check CBC B12 deficiency Comments: B12 level is also normal. Side effects, risks, interactions reviewed with patient. Indications for testing discussed. Any further problems to contact us. She was told what to look out for and verbalized understanding. The patient was given the opportunity to have all questions answered today and was in agreement with the plan of care. * Radha Cavazos - 11/06/2022 8:00 AM CDT Order placed. Centralized scheduling should contact pt to schedule. documented in this encounter Plan of Treatment Not on file documented as of this encounter Visit Diagnoses Diagnosis Vitamin D deficiency- Primary Pure hypercholesterolemia BMI 22.0-22.9, adult Orthostasis Orthostatic hypotension B12 deficiency documented in this encounter Discontinued Medications Medication Sig Discontinue Reason Start Date End Da te FLUoxetine (PROzac) 20 mg tablet TAKE 1 TABLET BY MOUTH DAILY 05/06/2021 11/06/2022 documented as of this encounter Historical Medications * This list may reflect changes made after this encounter. neomycin-polymyxi n-dexAMETHasone (MAXITROL) 3.5mg/mL-10,000 unit/mL-0.1 % ophthalmic suspension SHAKE LIQUID AND INSTILL 1 DROP IN EACH EYE FOUR TIMES DAILY FOR 5 DAYS 10/14/2022 05/04/2023 added in this encounter Care Teams Registered Massage Therapist Relationship Specialty Start Date End Date Maurice Bob PA [address] [facility] [facility] [address] S[address] [place], [place] [address], [place] [address] PCP - General Internal Medicine 03/12/22 12/01/22 documented as of this encounter
--- OUTSIDE RECORDS SUMMARY | 2024-06-05 13:39 | XMS_ITS | Encounter Summary ---
Author Organization [facility] Healthcare Address [address] [place] [address] Care Team Providers Care Irrigation Laborer Name Role Phone Maurice Bob Primary Care Provider Barrie Duke MD Unavailable [phone] Reason for Visit * Reason Comments 2 mo fu Encounter Details Date Type Department Care Team (Late st Contact Info) Description 07/06/2023 10:45 AM PAPER FINISHER Office Visit [facility] Medical Group Primary Care at [address] [place] [address] Maurice Bob PA [address] [place] [address] [address] [place] [address] Chest pain, unspecified type (Primary Dx); Slow transit constipation; Pure hypercholesterolemia ; Vitamin D deficiency; BMI 23.0-23.9, adult; B12 deficiency Social History Tobacco Use Types [...] points, staff should administer the PHQ-9) 0 07/06/2023 Comments No Sex and Gender Information Value Date Recorded Sex Assigned at Not on file Legal Sex Female 9:51 AM PAPER FINISHER Gender Identity Not on file Sexual Orientation Not on file documented as of this encounter Last Filed Vital Signs Vital Sign Reading Time Taken Comments Blood Pressure 110/62 07/06/2023 10:38 AM PAPER FINISHER Pulse 66 07/06/2023 10:38 AM PAPER FINISHER Temperature 36.4 ??C (97.5 ??F) 07/06/2023 10:[address] Respiratory Rate 16 07/06/2023 10:38 AM PAPER FINISHER Oxygen Saturation 96% 07/06/2023 10:38 AM PAPER FINISHER Inhaled Oxygen Concentration - - Weight 62.4 kg (137 lb 9.6 oz) 07/06/2023 10:38 AM PAPER FINISHER Height 162.6 cm (5' 4 ) 07/06/2023 10:38 AM PAPER FINISHER Body Mass Index 23.62 07/06/2023 10:38 AM PAPER FINISHER documented in this encounter Patient Instructions * Patient Instructions* Maurice Bob PA - 07/06/2023 10:45 AM PAPER FINISHER My medical policy specialist, Tereza, and I are thankful you have [...] not feeling your best! -Maurice Bob PA-C R FINISHER documented in this encounter Progress Notes * Maurice Bob PA - 07/06/2023 10:45 AM CST Subjective/Objective Patient ID: Renee Vance is a 68 y.o. female. Chief Complaint 2 mo fu HPI Renee Vance is 68 yo here for 2 mo FU. Saw BM in April for CPE and was having lower abd discomfort and constipation. Had CT, as below. She still has occ lower abd discomfort 1-2x a month. She takes prunes and fiber to help her go, but still doesn't have BMs every day. She has tried MiraLax but that makes her more gassy She has had a few episodes of severe substernal pain, lasting 10 min. She was sitting at home when it came on suddenly. No n/v/dizziness. Maybe some indigestion with it as she felt it up the L neck and face. No pain in arm or back. She has a lot of flatus, but no indigestion, heartburn normally. No palpitations. MGF w/ NE but he w as obese. Appetite is good. Weight is stable. Had recent [place] cruise. Nonsmoker. Review of Systems Constitutional: Negative for appetite change, chills, fever and unexpected weight change. Respiratory: Negative for cough, shortness of breath and wheezing. Cardiovascular: Positive for chest pain (see HPI). Negative for palpitations and leg swelling. Gastrointestinal: Positive for abdominal distention (bloating). Negative for abdominal pain. Neurological: Negative for dizziness and light-headedness. Vitals: 07/06/23 1038 BP: 110/62 BP Location: Right arm Patient Position: Sitting Pulse: 66 Resp: 16 Temp: 36.4 ??C (97.5 ??F) TempSrc: Oral SpO2: 96% Weight: 62.4 kg (137 lb 9.6 oz) Height: 162.6 cm (5' 4 ) Physical Exam Constitutional: General: She is not in acute distress. Appearance: She is well-developed. Neck: Vascular: No carotid bruit. Cardiovascular: Rate and Rhythm: Normal rate and regular rhythm. Heart sounds: Normal heart sounds. No murmur heard. Pulmonary: Effort: Pulmonary effort is normal. No respiratory distress. Breath sounds: Normal breath sounds. No wheezing or rales. Abdominal: General: Bowel sounds are normal. There is no distension. Palpations: Abdomen is soft. Tenderness: There is no abdominal tenderness (currenlty NT). There is no guarding. Musculoskeletal: Cervical back: Normal range of motion and neck supple. Right lower leg: No edema. Left lower leg: No edema. Lymphadenopathy: Cervical: No cervical adenopathy. Psychiatric: Mood and Affect: Mood normal. Latest Reference Range & Units 04/23/23 07:40 Sodium 135 - 146 mmol/L 140 Potassium Lvl 3.5 - 5.3 mmol/L 4.6 Chloride 98 - 110 mmol/L 105 CO2 20 - 32 mmol/L 31 BUN 7 - 25 mg/dL 10 Creatinine 0.50 - 1.05 mg/dL 0.63 Glucose 65 - 99 mg/dL 85 Calcium 8.6 - 10.4 mg/dL 8.9 Bilirubin, total 0.2 - 1.2 mg/dL 0.6 Protein, sr 6.1 - 8.1 g/dL 6.4 Albumin 3.6 - 5.1 g/dL 4.0 Estimated Glomerular Filtration Rate > OR = 60 mL/min/1.73m2 97 Alk phos 37 - 153 U/L 57 AST 10 - 35 U/L 19 ALT 6 - 29 U/L 9 Alb/glob ratio 1.0 - 2.5 (calc) 1.7 BUN_Creat Ratio 6 - 22 (calc) SEE NOTE: LDL Chol, Direct <100 mg/dL 69 Vitamin D 25-OH 30 - 100 ng/mL 46 Vitamin B12 200 - 1,100 pg/mL 704 No acute finding. Large volume stool throughout the colon. Mildly prominent intrahepatic and extrahepatic ducts may indicate reservoir effect post cholecystectomy. Today ECG: SB, VR 58. No St or T wave changes Assessment/Plan Diagnoses and all orders for this visit: Chest pain, unspecified type (Primary) Comments: Now resolved. EKG is normal. Will obtain exercise stress echo to ensure noncardiac. Follow-up about2 months with labs, sooner if needed Orders: - ECG 12 lead Slow transit constipation Comments: Reviewed CT with patient. Some improved. She is managing with diet Pure hypercholesterolemia Comments: Counseled on heart healthy diet exercise. Remains on Lipitor and will repeat labs before next visit Vitamin D deficiency Comments: Vitamin-D level sufficient at 46 and will continue to monitor BMI 23.0-23.9, adult B12 deficiency Comments: She is on B12 supplement and will check B12 level with next labs Side effects, risks, interactions reviewed with patient. Indications for testing discussed. Any further problems to contact us. She was told what to look out for and verbalized understanding. The patient was given the opportunity to have all questions answered today and was in agreement with the plan of care. R FINISHER documented in this encounter Plan of Treatment Not on file documented as of this encounter Procedures Procedure Name Priority Date/Time Associated Diagnosis Comments ECG 12-LEAD Routine 07/06/2023 Chest pain, unspecified type documented in this encounter Results * ECG 12 lead (07/06/2023) Maurice MIR ECG ORDERABLES Final R esult documented in this encounter Visit Diagnoses Diagnosis Chest pain, unspecified type- Primary Slow transit constipation Pure hypercholesterolemia Vitamin D deficiency BMI 23.0-23.9, adult B12 deficiency documented in this encounter Discontinued Medications Medication Sig Discontinue Reason Start Date End Da te scopolamine 1 mg over 3 days patch [address] 1 patch on the skin every third day as needed (nausea) 05/04/2023 07/06/2023 documented as of this encounter Care Teams Irrigation Laborer Relationship Specialty Start Date End Date Maurice Bob PA [address] [facility] [place] [address] PCP - General Internal Medicine 05/04/23 Barrie Duke MD [address] [facility] [place] [address] Consulting Physician Internal Medicine 05/04/23 4 documented as of this encounter
--- OUTSIDE RECORDS SUMMARY | 2024-06-05 13:39 | XMS_ITS | Encounter Summary ---
Author Organization [facility] Healthcare Address [address] [place] [address] Care Team Providers Care Flatwork Presser Name Role Phone Maurice Bob Primary Care Provider Barrie Duke MD Unavailable [phone] Reason for Referral * MRI/CAT/PET Scan (Routine) - Closed Specialty Diagnoses / Procedures Referred By Contac t Referred To Contact Radiology Diagnoses Lower abdominal pain Procedures CT Abdomen Pelvis W Contrast Barrie Duke MD [address] [place] [address] Phone: tel: fax: [address] [address] Referral ID Status Reason Start Date Expiration Date Visits Re quested Visits Authorized [id number] Closed 05/13/2023 11/09/2023 1 1 CONDITIONING UNIT TESTER Encounter Details Date Type Department Care Team (Late st Contact Info) Description 05/04/2023 Orders Only [facility] Medical Group Primary Care at [address] [place] [address] Barrie Duke MD [address] [address] Lower abdominal pain (Primary Dx) Social History Tobacco Use Types [...] on file Legal Sex Female 9: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 CT ABDOMEN PELVIS W [...] PM T: ??05/30/2023 2:10 PM Report ID: [id number] Reading Location: [id number] Procedure Note Abdiaziz Benitez MD - 05/30/2023 [...] Abdiaziz Benitez M.D. RB: ZACHARY Report ID: [id number] Reading Location: [id number] Barrie Duke MD IMG CT PROCEDURES Final Resu lt documented in this encounter Visit Diagnoses Diagnosis Lower abdominal pain- Primary Abdominal pain, other specified site Lower abdominal pain Abdominal pain, other specified site documented in this encounter Care Teams Flatwork Presser Relationship Specialty Start Date End Date Maurice Bob PA [address] [facility] [place] [address] PCP - General Internal Medicine 05/04/23 Barrie Duke MD [address] [place] [address] [place] [address] Consulting Physician Internal Medicine 05/04/23 4 documented as of this encounter
--- OUTSIDE RECORDS SUMMARY | 2024-06-05 13:39 | XMS_ITS | Encounter Summary ---
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 * Telephone Encounter - Elio Estes MA - 11/06/2022 11:13 AM CDT ----- Message from ADEOLA Arambula sent at 11/06/2022 10:02 AM CDT ----- Patient's CBC is normal. We discussed her blood pressure dropping in the office. If she also gets a chance to check it from time to time at home, both sitting and standing, that would be helpful as well. documented in this encounter Plan of Treatment Not on file documented as of this encounter Visit Diagnoses Not on filedocumented in this encounter Care Teams Cycle Specialist Relationship Specialty Start Date End Date Maurice Bob PA [address] [facility] [address] [place] [address] [place] [address] PCP - General Internal Medicine 03/12/22 12/01/22 documented as of this encounter
--- OUTSIDE RECORDS SUMMARY | 2024-06-05 13:39 | XMS_ITS | Encounter Summary ---
Author Organization [facility] Medical Group Address [address] [facility] [address] [place] [address] Care Team Providers Care Prescriptionist Name Role Phone Wood Mahan MD Primary Care Provi cherie Reason for Referral * Diagnostic Imaging (Routine) - Closed Specialty Diagnoses / Procedures Referred By Alyx cho Referred To Contact Diagnoses Screening mammogram, encounter for Procedures Screening Mammogram Bilateral W Maurice Kirkland PA [address] [facility] [address] [place] [address] [place] [address] Phone: tel: fax: [address] [address] Referral ID Status Reason Start Date Expiration Date Visits Re quested Visits Authorized [id number] Closed 11/21/2021 12/21/2022 1 1 Encounter Details Date Type Department Care Team (Late st Contact Info) Description 11/21/2021 Orders Only [facility] [address] [address] Maurice Bob PA [address] [facility] [address] [place] [address] [place] [address] Screening mammogram, encounter for (Primary Dx) Social History Tobacco Use Types Packs/Day Years Used Date Smoking Tobacco: Former Smokeless Tobacco: Former Alcohol Use Standard Drinks/Week Comments No 0 (1 standard drink = 0.6 oz pur e alcohol) PHQ-2 Answer Date Recorded PHQ-2 Total Score (If total score is 3 or more points, staff should administer the PHQ-9) 0 10/22/2021 Comments No Sex and Gender Information Value Date Recorded Sex Assigned at Not on file Legal Sex Female 9:51 AM 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 Gender Identity Not on file Sexual Orientation Not on file documented as of this encounter Plan of Treatment Scheduled Orders Name Type Priority Associated Diagnoses Orde r Schedule Screening Mammogram Bilateral W Saeed Imaging Schedule Routine, Read Routine (OP Routine) Screening mammogram, encounter for Expected: 11/21/2022, Expires: 05/23/2023 documented as of this encounter Visit Diagnoses Diagnosis Screening mammogram, encounter for- Primary documented in this encounter Care Teams Prescriptionist Relationship Specialty Start Date End Date Wood Mahan MD PCP - General 08/10/09 03/11/22 documented as of this encounter
--- OUTSIDE RECORDS SUMMARY | 2024-06-05 13:39 | XMS_ITS | Encounter Summary ---
Author Organization [facility] Healthcare Address [address] [place] [address] Care Team Providers Care Appointment Specialist Name Role Phone Maurice Diaz Primary Care Provider Barrie Duke MD Unavailable [phone] Reason for Referral * Cardiology (Routine) - Closed Specialty Diagnoses / Procedures Referred By Contac t Referred To Contact Diagnoses Chest pain, unspecified type Procedures Stress Echo Exercise W Doppler/CF Maurice Diaz PA [address] [facility] [address] [place] [address] [place] [address] Phone: tel: fax: [address] [address] Referral ID Status Reason Start Date Expiration Date Visits Re quested Visits Authorized [id number] Closed 07/07/2023 01/06/2024 1 1 CAL SECRETARY TEACHER Encounter Details Date Type Department Care Team (Latest Contact Info) Description 07/06/2023 Orders Only [facility] Medical Group Primary Care at [address] [place] [phone] Maurice Diaz PA [address] [facility] [address] [place] [place] [address] Pure hypercholesterolemia (Primary Dx); Vitamin D deficiency; B12 deficiency; IGT (impaired glucose tolerance); Chest pain, unspecified type Social History Tobacco Use Types [...] on file Legal Sex Female 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 Gender Identity Not on file Sexual Orientation Not on file documented as of this encounter Plan of Treatment Not on file documented as of this encounter Procedures Procedure Name Priority Date/Time Associated Diagnosis Comments LIPID PANEL WITH REFLEX TO DIRECT LDL Routine 08/26/2023 7:25 AM CDT Pure hypercholesterolem ia IGT (impaired glucose tolerance) VITAMIN D 25 HYDROXY Routine 08/26/2023 7:25 AM CDT Pure hypercholesterolem ia Vitamin D deficiency IGT (impaired glucose tolerance) VITAMIN B12 Routine 08/26/2023 7:25 AM CDT Pure hypercholesterolem ia B12 deficiency IGT (impaired glucose tolerance) COMPREHENSIVE METABOLIC PANEL Routine 08/26/2023 7:25 AM CDT Pure hypercholesterolem ia IGT (impaired glucose tolerance) documented in this encounter Results * Vitamin D 25 hydroxy (08/26/2023 7:25 AM CDT) Vitamin D 25-OH 46 30 - 100 ng/mL [facility] Comment: Vitamin D Status ? 25-OH Vitamin D: Deficiency: ?<20 ng/mL Insufficiency: ? 20 - 29 ng/mL Optimal: ? > or = 30 ng/mL For 25-OH Vitamin D testing on patients on D2-supplementation and patients for whom quantitation of D2 and D3 fractions is required, the [facility](TM) 25-OH VIT D, (D2,D3), LC/MS/MS is recommended: order code 48476 (patients >2yrs). See Note 1 Note 1 For additional information, please refer to http://education.Raiing/faq/SRB486 (This link is being provided for informational/ educational purposes only.) Blood 08/26/2023 7:25 AM CDT 08/26/2023 7:26 AM CDT Narrative [facility] - 08/27/2023 10:28 PM CDT FASTING:YES FASTING: YES Maurice MIR LAB BLOOD ORDERABLES Fi nal Result Performing Organization Address [facility] de Phone Number [facility] [address] [place] [address] * Vitamin B12 (08/26/2023 7:25 AM CDT) Pathologist [facility] Vitamin B12 685 200 - 1,100 pg/mL [facility] Blood 08/26/2023 7:25 AM CDT 08/26/2023 7:26 AM CDT Narrative [facility] - 08/27/2023 10:28 PM CDT FASTING:YES FASTING: YES Mauirce MIR LAB BLOOD ORDERABLES Fi nal Result Performing Organization Address [facility] de Phone Number [facility] [address] [place] [address] * Comprehensive metabolic panel (08/26/2023 7:25 AM CDT) Pathologist [facility] Glucose 89 65 - 99 mg/dL [facility] Comment: ? Fasting reference interval BUN 12 7 - 25 mg/dL [facility] Creatinine 0.64 0.50 - 1.05 mg/dL [facility] eGFR 97 > OR = 60 mL/min/1.7 3m2 [facility] BUN/creat ratio SEE NOTE: 6 - 22 (calc) [facility] Comment: ?? Not Reported: BUN and Creatinine are within ?? reference range. ? Sodium 137 135 - 146 mmol/L [facility] Potassium, pl 4.4 3.5 - 5.3 mmol/L [facility] Chloride 102 98 - 110 mmol/L [facility] CO2 30 20 - 32 mmol/L [facility] Calcium 8.8 8.6 - 10.4 mg/dL [facility] Protein, sr 6.1 6.1 - 8.1 g/dL [facility] Albumin 3.8 3.6 - 5.1 g/dL [facility] GLOBULIN 2.3 1.9 - 3.7 g/dL (calc) [facility] Alb/glob ratio 1.7 1.0 - 2.5 (calc) [facility] Bilirubin, total 0.5 0.2 - 1.2 mg/dL [facility] Alk phos 86 37 - 153 U/L [facility] AST 17 10 - 35 U/L [facility] ALT (SGPT) 9 6 - 29 U/L [facility] Blood 08/26/2023 7:25 AM CDT 08/26/2023 7:26 AM CDT Narrative [facility] - 08/27/2023 10:28 PM CDT FASTING:YES FASTING: YES us Maurice MIR LAB BLOOD ORDERABLES Fi nal Result [facility] [address] [address] [place] [address] * Lipid panel with reflex to direct LDL (08/26/2023 7:25 AM CDT) Pathologist [facility] Cholesterol 166 <200 mg/dL [facility] HDL 77 > OR = 50 mg/dL [facility] Triglycerides 52 <150 mg/dL [facility] LDL 76 mg/dL (calc) [facility] Comment: Reference [...] LDL-C. Tyrone SS et al. BON. 2013;310(19): 3815-6289 (http://education.Raiing/faq/JML376) Chol/HDL ratio 2.2 <5.0 (calc) [facility] Non-HDL, (LDL+VLDL) 89 <130 mg/dL (calc) [facility] Comment: For patients with diabetes plus 1 major ASCVD risk factor, treating to a non-HDL-C goal of <100 mg/dL (LDL-C of <70 mg/dL) is considered a therapeutic option. Blood 08/26/2023 7:25 AM CDT 08/26/2023 7:26 AM CDT Narrative [facility] - 08/27/2023 10:28 PM CDT FASTING:YES FASTING: YES Maurice MIR LAB BLOOD ORDERABLES Fi nal Result [facility] [address] [facility] [place] [address] * STRESS ECHO EXERCISE W DOPPLER/CF WO CONTRAST (07/17/2023 10:47 AM 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) Anatomical Region Laterality Modality Ultrasound, Nucl ear Medicine 07/17/2023 10:3 7 AM 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 Narrative 07/17/2023 11:41 AM 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 [address] [place] [address] Stress Echocardiogram Report Patient Name: RENEE BRUCE : 1955 Study Date: 07/17/2023 10:37:07 AM Gender: F Tech: CLINICAL ADMINISTRATOR Ref Provider: MAURICE DIAZ Height(Cm): 166 BSA: Weight(Kg): 61.69 ?Quality: Good Order Provider: MAURICE DIAZ PROCEDURES: Stress Echo Report: Treadmill stress echocardiogram. INDICATIONS: Chest Pain. FINDINGS: Stress Echo: Exercise Time: 6:00. Resting HR 80 bpm. Peak HR: 149 bpm. Predicted Maximal HR 153 bpm. Target HR: 130 bpm. Percent Max Predicted HR Achieved: 97 %. Baseline BP: 216/78. Peak BP: 170/74. METS achieved: 7.3. Supervising Physician: The Supervising Physician is karin nix. Termination: Target HR achieved. Leg fatigue and shortness of breath. Resting ECG: Normal sinus rhythm normal axis. Sinus bradycardia. Exercise ECG: Normal exercise ECG. Only minor changes noted inferolaterally. Resting LV Function: Normal left ventricular size and systolic function with normal wall thickness. Post Stress LV Function: Hyperdynamic global contractility, no segmental wall motion abnormality, chamber size smaller. CONCLUSIONS: Adequate stress test in regards to heart rate. No definite ischemia on stress EKG. Only minor changes noted inferolaterally. No Echocardiographic evidence of ischemia. Electronically Signed By: Dr Karin Nix 2023-07-17 11:41:02 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 Procedure Note Karin Nix MD - 07/17/[address] [place] [address] Stress Echocardiogram Report Patient Name: RENEE BRUCE : 1955 Study Date: 07/17/2023 10:37:07 AM Gender: F Tech: CLINICAL ADMINISTRATOR Ref Provider: MAURICE DIAZ Height(Cm): 166 BSA: Weight(Kg): 61.69 Quality: Good Order Provider: MAURICE DIAZ PROCEDURES: Stress Echo Report: Treadmill stress echocardiogram. INDICATIONS: Chest Pain. FINDINGS: Stress Echo: Exercise Time: 6:00. Resting HR 80 bpm. Peak HR: 149 bpm. PredictedMaximal HR 153 bpm. Target HR: 130 bpm. Percent Max Predicted HR Achieved: 97 %. Baseline BP:216/78. Peak BP: 170/74. METS achieved: 7.3. Supervising Physician: The Supervising Physician is karin nix. Termination: Target HR achieved. Leg fatigue and shortness of breath. Resting ECG: Normal sinus rhythm normal axis. Sinus bradycardia. Exercise ECG: Normal exercise ECG. Only minor changes noted inferolaterally. Resting LV Function: Normal left ventricular size and systolic function with normal wallthickness. Post Stress LV Function: Hyperdynamic global contractility, no segmental wall motion abnormality,chamber size smaller. CONCLUSIONS: Adequate stress test in regards to heart rate. No definite ischemia on stress EKG. Only minor changes noted inferolaterally. No Echocardiographic evidence of ischemia. Electronically Signed By: Dr Karin Nix 2023-07-17 11:41:02 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 Maurice MIR CV ECHO PROCEDURES Eloisa l Result documented in this encounter Visit Diagnoses Diagnosis Pure hypercholesterolemia- Primary Vitamin D deficiency B12 deficiency IGT (impaired glucose tolerance) Impaired glucose tolerance test Chest pain, unspecified type Chest pain, unspecified type documented in this encounter Care Teams Appointment Specialist Relationship Specialty Start Date End Date Maurice Diaz PA [address] [place] [address] [place] [address] PCP - General Internal Medicine 05/04/23 Barrie Duke MD [address] [place] [address] [place] [address] Consulting Physician Internal Medicine 05/04/23 4 documented as of this encounter
--- OUTSIDE RECORDS SUMMARY | 2024-06-05 13:39 | XMS_ITS | Encounter Summary ---
Author Organization [facility] Healthcare Address [address] [place] [address] Care Team Providers Care Radio Communications Mechanician Name Role Phone Maurice Bob Primary Care Provider Barrie Duke MD Unavailable [phone] Encounter Details Date Type Department Care Team (Late st Contact Info) Description 05/28/2023 2:35 PM LOAF COUNTER Lab [address] [address] Social History Tobacco Use Types Packs/Day Years [...] on file Legal Sex Female 9:51 AM LOAF COUNTER Gender Identity Not on file Sexual Orientation Not on file documented as of this encounter Plan of Treatment Not on file documented as of this encounter Procedures Procedure Name Priority Date/Time Associated Diagnosis Comments CREATININE, WHOLE BLOOD STAT 05/28/2023 2:42 PM LOAF COUNTER documented in this encounter Results * (ABNORMAL) Creatinine, whole blood (05/28/2023 2:42 PM LOAF COUNTER) Creatinine, bld 0.55(L) 0.60 - 1.30 mg/dL [facility] DIGGS ([place]) Blood 05/28/2023 2:42 PM LOAF COUNTER 05/28/2023 2:44 PM LOAF COUNTER us Barrie Duke MD LAB BLOOD ORDERABLES Final R esult MEKHI CATERINA ([place]) 1 [facility] [place] [address] documented in this encounter Visit Diagnoses Not on filedocumented in this encounter Care Teams Radio Communications Mechanician Relationship Specialty Start Date End Date Maurice Bob PA [address] [facility] [address] [place] [address] PCP - General Internal Medicine 05/04/23 Barrie Duke MD [address] [facility] [address] [place] [address] Consulting Physician Internal Medicine 05/04/23 4 documented as of this encounter
--- OUTSIDE RECORDS SUMMARY | 2024-06-05 13:39 | XMS_ITS | Encounter Summary ---
Author Organization [facility] Medical Group Address [address] [facility] [address] [place] [address] Care Team Providers Care Algology Teacher Name Role Phone Unavailable Primary Care Provider Unavailabl e Encounter Details Date Type Department Care Team (Late st Contact Info) Description 01/08/2023 Telephone [facility] Medical Group Primary Care at [place] [address] [facility] [address] [place] [address] Maurice Bob PA [address] [place] [address] [address] [place] [address] Social History Tobacco Use Types [...] on file 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 Centralized scheduling should contact pt to schedule. * Telephone Encounter - Elio Estes MA - 01/08/2023 8:39 AM CDT Pt is aware, routing to referrals * Telephone Encounter - Elio Estes MA - 01/08/2023 8:39 AM CDT ----- Message from ADEOLA Arambula sent at 01/07/2023 4:53 PM CDT ----- Please inform patient her mammogram was negative. Repeat one year. documented in this encounter Plan of Treatment Not on file documented as of this encounter Visit Diagnoses Not on filedocumented in this encounter
--- OUTSIDE RECORDS SUMMARY | 2024-06-05 13:39 | XMS_ITS | Encounter Summary ---
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 * Telephone Encounter - Candida Mishra MA - 11/21/2021 11:06 AM CDT ----- Message from ADEOLA Arambula sent at 11/21/2021 9:37 AM CDT ----- Please inform patient her mammogram was negative. Repeat one year. documented in this encounter Plan of Treatment Not on file documented as of this encounter Visit Diagnoses Not on filedocumented in this encounter Care Teams Real Estate Transaction Coordinator Relationship Specialty Start Date End Date Wood Mahan MD PCP - General 08/10/09 03/11/22 documented as of this encounter
--- OUTSIDE RECORDS SUMMARY | 2024-06-05 13:39 | XMS_ITS | Encounter Summary ---
Author Organization [facility] Healthcare Address [address] [place] [address] Care Team Providers Care Framing Mill Supervisor Name Role Phone Zayra Bob Primary Care Provider Barrie Duke MD Unavailable [phone] Reason for Referral * Cardiology (Routine) - Closed Specialty Diagnoses / Procedures Referred By Alyx cho Referred To Contact Diagnoses Chest pain, unspecified type Procedures Stress Echo Exercise W Doppler/CF Zayra Bob PA [address] [facility] [address] [place] [address] Phone: tel: fax: [address] [address] Referral ID Status Reason Start Date Expiration Date Visits Re quested Visits Authorized [id number] Closed 07/07/2023 01/06/2024 1 1 IN RESTORER Reason for Visit * Cardiology (Routine) - Closed Specialty Diagnoses / Procedures Referred By Contcandelario cho Referred To Contact Diagnoses Chest pain, unspecified type Procedures Stress Echo Exercise W Doppler/CF Zayra Bob PA [address] [facility] [address] [place] [address] Phone: tel: fax: [address] [address] Referral ID Status Reason Start Date Expiration Date Visits Re quested Visits Authorized [id number] Closed 07/07/2023 01/06/2024 1 1 Encounter Details Date Type Department Care Team (Latest Contact Info) Description 07/17/2023 10:02 AM VIOLIN RESTORER - 07/17/2023 11:59 PM VIOLIN RESTORER Hospital Encounter [facility] Cardiology 1 [place] [address] Chest pain, unspecified type Discharge Disposition: Discharge to home or self [...] on file Legal Sex Female 9:51 AM VIOLIN RESTORER Gender Identity Not on file Sexual Orientation [...] by mouth daily 45 tablet 03/20/2023 08/16/2023 documented as of this encounter Discharge Disposition Disposition Code Departure Means Destination Discharge to home or self care documented in this encounter Plan of Treatment Not on file documented as of this encounter Procedures Procedure Name Priority Date/Time Associated Diagnosis Comments STRESS ECHO EXERCISE W DOPPLER/CF WO CONTRAST Routine 07/17/2023 10:47 AM VIOLIN RESTORER Chest pain, unspecified type documented in this encounter Results * STRESS ECHO EXERCISE W DOPPLER/CF WO CONTRAST (07/17/2023 10:47 AM VIOLIN RESTORER) Anatomical Region Laterality Modality Ultrasound, Nucl ear Medicine 07/17/2023 10:3 7 AM VIOLIN RESTORER Narrative 07/17/2023 11:41 AM VIOLIN RESTORER [address] [place] [address] Stress Echocardiogram Report Patient Name: RENEE BRUCE : 1955 Study Date: 07/17/2023 10:37:07 AM Gender: F Tech: RAILROAD COOK Ref Provider: ZAYRA BOB Height(Cm): 166 BSA: Weight(Kg): 61.69 ?Quality: Good Order Provider: ZAYRA BOB PROCEDURES: Stress Echo Report: Treadmill stress echocardiogram. [...] Signed By: Dr Karin Nix 2023-07-17 11:41:02 VIOLIN RESTORER Procedure Note Karin Nix MD - 07/17/2023 [facility] [address] [facility] [place] [address] Stress Echocardiogram Report Patient Name: RENEE BRUCE : 1955 Study Date: 07/17/2023 10:37:07 AM Gender: F Tech: RAILROAD COOK Ref Provider: ZAYRA BOB Height(Cm): 166 BSA: Weight(Kg): 61.69 Quality: Good Order Provider: ZAYRA BOB PROCEDURES: Stress Echo Report: Treadmill stress echocardiogram. [...] Signed By: Dr Karin Nix 2023-07-17 11:41:02 VIOLIN RESTORER Zayra MIR CV ECHO PROCEDURES Eloisa l Result documented in this encounter Visit Diagnoses Diagnosis Chest pain, unspecified type documented in this encounter Care Teams Framing Mill Supervisor Relationship Specialty Start Date End Date Zayra Bob PA [address] [facility] [place] [address] PCP - General Internal Medicine 05/04/23 Barrie Duke MD [address] [facility] [place] [place] [address] Consulting Physician Internal Medicine 05/04/23 4 documented as of this encounter
--- OUTSIDE RECORDS SUMMARY | 2024-06-05 13:39 | XMS_ITS | Encounter Summary ---
Author Organization [facility] Medical Group Address [address] [facility] [address] [place] [address] Care Team Providers Care Hall Worker Name Role Phone Maurice Bob Primary Care Provider Encounter Details Date Type Department Care Team (Latest Contact Info) Description 03/21/2022 Orders Only [facility] Medical Group Primary Care at [address] [place] [address] Maurice Bob PA [address] [place] [address] [address] [place] [address] Vitamin D deficiency (Primary Dx); B12 deficiency; Pure hypercholesterolemia Social History Tobacco Use Types [...] on file 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 Gender Identity Not on file Sexual Orientation Not on file documented as of this encounter Plan of Treatment Not on file documented as of this encounter Procedures Procedure Name Priority Date/Time Associated Diagnosis Comments LIPID PANEL WITH REFLEX TO DIRECT LDL Routine 10/31/2022 8:08 AM CDT Pure hypercholesterolemia VITAMIN D 25 HYDROXY Routine 10/31/2022 8:08 AM CDT Vitamin D deficiency VITAMIN B12 Routine 10/31/2022 8:08 AM CDT B12 deficiency COMPREHENSIVE METABOLIC PANEL Routine 10/31/2022 8:08 AM CDT Pure hypercholesterolemia documented in this encounter Results * Lipid panel with reflex to direct LDL (10/31/2022 8:08 AM CDT) Pathologist [facility] Cholesterol 163 <200 mg/dL [facility] HDL 86 > OR = 50 mg/dL [facility] Triglycerides 56 <150 mg/dL [facility] LDL 63 mg/dL (calc) [facility] Comment: Reference [...] LDL-C. Tyrone SS et al. BON. 2013;310(19): 8307-2209 (http://education.carpooling.com/faq/HHT320) Chol/HDL ratio 1.9 <5.0 (calc) [facility] Non-HDL, (LDL+VLDL) 77 <130 mg/dL (calc) [facility] Comment: For patients with diabetes plus 1 major ASCVD risk factor, treating to a non-HDL-C goal of <100 mg/dL (LDL-C of <70 mg/dL) is considered a therapeutic option. Blood 10/31/2022 8:08 AM CDT 10/31/2022 8:08 AM CDT Narrative [facility] - 11/01/2022 6:17 AM CDT FASTING:YES FASTING: YES Maurice MIR LAB BLOOD ORDERABLES Fi nal Result [facility] [address] [place], [place] [address] * Comprehensive metabolic panel (10/31/2022 8:08 AM CDT) Pathologist [facility] Glucose 85 65 - 99 mg/dL [facility] Comment: ? Fasting reference interval BUN 9 7 - 25 mg/dL [facility] Creatinine 0.61 0.50 - 1.05 mg/dL [facility] eGFR 99 > OR = 60 mL/min/1. 73m2 [facility] Comment: The eGFR is based on the CKD-EPI 2020 equation. To calculate the new eGFR from a previous Creatinine or Cystatin C result, go to https://www.kidney.org/professionals/ kdoqi/gfr%5Fcalculator BUN/creat ratio NOT APPLICABLE (calc) [facility] Sodium 140 135 - 146 mmol/L [facility] Potassium, pl 4.6 3.5 - 5.3 mmol/L [facility] Chloride 103 98 - 110 mmol/L [facility] CO2 31 20 - 32 mmol/L [facility] Calcium 9.2 8.6 - 10.4 mg/dL [facility] Protein, sr 6.4 6.1 - 8.1 g/dL [facility] Albumin 4.0 3.6 - 5.1 g/dL [facility] GLOBULIN 2.4 1.9 - 3.7 g/dL (calc) [facility] Alb/glob ratio 1.7 1.0 - 2.5 (calc) [facility] Bilirubin, total 0.5 0.2 - 1.2 mg/dL [facility] Alk phos 73 37 - 153 U/L [facility] AST 19 10 - 35 U/L [facility] ALT (SGPT) 10 6 - 29 U/L [facility] Blood 10/31/2022 8:08 AM CDT 10/31/2022 8:08 AM CDT Narrative [facility] - 11/01/2022 6:17 AM CDT FASTING:YES FASTING: YES Maurice Kayla MIR LAB BLOOD ORDERABLES Fi nal Result Performing Organization Address [facility] Co de Phone Number [facility] [address] [place] [address] * Vitamin B12 (10/31/2022 8:08 AM CDT) Pathologist [facility] Vitamin B12 841 200 - 1,100 pg/mL [facility] Blood 10/31/2022 8:08 AM CDT 10/31/2022 8:08 AM CDT [facility] - 11/01/2022 6:17 AM CDT FASTING:YES FASTING: YES Maurice Kayla MIR LAB BLOOD ORDERABLES Fi nal Result Performing Organization Address [facility] de Phone Number [facility] [address] [place] [address] * Vitamin D 25 hydroxy (10/31/2022 8:08 AM CDT) Pathologist [facility] Vitamin D 25-OH 53 30 - 100 ng/mL [facility] Comment: Vitamin D Status ? 25-OH Vitamin D: Deficiency: ?<20 ng/mL Insufficiency: ? 20 - 29 ng/mL Optimal: ? > or = 30 ng/mL For 25-OH Vitamin D testing on patients on D2-supplementation and patients for whom quantitation of D2 and D3 fractions is required, the [facility] 25-OH VIT D, (D2,D3), LC/MS/MS is recommended: order code 58013 (patients >2yrs). See Note 1 Note 1 For additional information, please refer to http://education.carpooling.com/faq/ZMI647 (This link is being provided for informational/ educational purposes only.) Blood 10/31/2022 8:08 AM CDT 10/31/2022 8:08 AM CDT Narrative [facility] - 11/01/2022 6:17 AM CDT FASTING:YES FASTING: YES us Maurice MIR LAB BLOOD ORDERABLES Fi nal Result [facility] [address] [place] [address] documented in this encounter Visit Diagnoses Diagnosis Vitamin D deficiency- Primary B12 deficiency Pure hypercholesterolemia documented in this encounter Care Teams Hall Worker Relationship Specialty Start Date End Date Maurice Bob PA [address] [facility] [address] [place] [address] PCP - General Internal Medicine 03/12/22 12/01/22 documented as of this encounter
--- OUTSIDE RECORDS SUMMARY | 2024-06-05 13:39 | XMS_ITS | Encounter Summary ---
Author Organization [facility] Healthcare Address [address] [place] [address] Care Team Providers Care Tax Collection Coordinator Name Role Phone Maurice Bob Primary Care Provider Reason for Visit * Reason Comments 2 mo fu Encounter Details Date Type Department Care Team (Latest Contact Info) Description 09/07/2023 9:30 AM CDT Office Visit 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 Gender Identity Not on file Sexual Orientation Not on file documented as of this encounter Last Filed Vital Signs Vital Sign Reading Time Taken Comments Blood Pressure 120/70 09/07/2023 9:18 AM CDT Pulse 66 09/07/2023 9:18 AM CDT Temperature 36.6 ??C (97.9 ??F) 09/07/2023 9:18 AM CD T Respiratory Rate 16 09/07/2023 9:18 AM CDT Oxygen Saturation 97% 09/07/2023 9:18 AM CDT Inhaled Oxygen Concentration - - Weight 62.2 kg (137 lb 3.2 oz) 09/07/2023 9:18 A M CDT Height 162.6 cm (5' 4 ) 09/07/2023 9:18 AM CDT Body Mass Index 23.55 09/07/2023 9:18 AM CDT documented in this encounter Patient Instructions * Patient Instructions* Maurice Bob PA - 09/07/2023 9:30 AM CDT My ophthalmic medical technician, Tereza, and I are thankful [...] Progress Notes * Maurice Bob PA - 09/07/2023 9:30 AM CDT Subjective/Objective Patient ID: Renee Vance is a 68 y.o. female. Chief Complaint 2 mo fu HPI Patient presents for 2 month follow-up. Since last visit we ordered a stress test, as below. She feels well. She occ has indigestion which helps with Tums. This is infrequent, only with certain foods. She still has some bloating and mild constipation. She has a BM daily but they are small. No bloodin stool. She drinks prune juice in and takes a lot of fiber. She has avoided MiraLax because it makes her gassy. Her appetite is good and weight is stable. She drinks plenty of fluids. She is UTD Oncolonoscopy Review of Systems Constitutional: Negative for appetite change, chills, fever and unexpected weight change. Respiratory: Negative for cough, shortness of breath and wheezing. Cardiovascular: Negative for chest pain, palpitations and leg swelling. Gastrointestinal: Positive for constipation. Negative for abdominal pain, nausea and vomiting. Neurological: Negative for dizziness and light-headedness. Vitals: 09/07/23 0918 BP: 120/70 BP Location: Right arm Patient Position: Sitting Pulse: 66 Resp: 16 Temp: 36.6 ??C (97.9 ??F) TempSrc: Oral SpO2: 97% Weight: 62.2 kg (137 lb 3.2 oz) Height: 162.6 cm (5' 4 ) [...] rales. Abdominal: General: Bowel sounds are normal. Palpations: Abdomen is soft. Tenderness: There is no abdominal tenderness. There is no guarding. Musculoskeletal: Cervical back: Normal range of motion and neck supple. Right lower leg: No edema. Left lower leg: No edema. Lymphadenopathy: Cervical: No cervical adenopathy. Psychiatric: Mood and Affect: Mood normal. Latest Reference Range & Units 08/26/23 07:25 Sodium 135 - 146 mmol/L 137 Potassium Lvl 3.5 - 5.3 mmol/L 4.4 Chloride 98 - 110 mmol/L 102 CO2 20 - 32 mmol/L 30 BUN 7 - 25 mg/dL 12 Creatinine 0.50 - 1.05 mg/dL 0.64 Glucose 65 - 99 mg/dL 89 Calcium 8.6 - 10.4 mg/dL 8.8 Bilirubin, total 0.2 - 1.2 mg/dL 0.5 Protein, sr 6.1 - 8.1 g/dL 6.1 Albumin 3.6 - 5.1 g/dL 3.8 Estimated Glomerular Filtration Rate > OR = 60 mL/min/1.73m2 97 Alk phos 37 - 153 U/L 86 AST 10 - 35 U/L 17 ALT 6 - 29 U/L 9 Alb/glob ratio 1.0 - 2.5 (calc) 1.7 BUN_Creat Ratio 6 - 22 (calc) SEE NOTE: Chol/HDL ratio <5.0 (calc) 2.2 Cholesterol <200 mg/dL 166 HDL Cholesterol > OR = 50 mg/dL 77 LDL mg/dL (calc) 76 Non-HDL Cholesterol <130 mg/dL (calc) 89 Triglycerides <150 mg/dL 52 Vitamin D 25-OH 30 - 100 ng/mL 46 Vitamin B12 200 - 1,100 pg/mL 685 CONCLUSIONS: Adequate stress test in regards to heart rate. No definite ischemia on stress EKG. Only minor changes noted inferolaterally. No Echocardiographic evidence of ischemia. Assessment/Plan Diagnoses and all orders for this visit: Slow transit constipation (Primary) Comments: Improved. Recommend intermittent bowel cleanse perhaps once a month or as needed. Educational handout provided on that as well BMI 23.0-23.9, adult Vitamin D deficiency Comments: Vitamin-D level normal at 46 B12 deficiency Comments: B12 level sufficient at 685 Pure hypercholesterolemia Comments: Lipids are well controlled and continue Lipitor 5 mg, heart healthy diet exercise. Repeat labs before physical later this year Side effects, risks, interactions reviewed with patient. [...] as of this encounter Visit Diagnoses Diagnosis Slow transit constipation- Primary BMI 23.0-23.9, adult Vitamin D deficiency B12 deficiency Pure hypercholesterolemia documented in this encounter Care Teams Tax Collection Coordinator Relationship Specialty Start Date End Date Maurice Bob PA [address] [place] [address] [place] [address] PCP - General Internal Medicine 05/04/23 documented as of this encounter
--- OUTSIDE RECORDS SUMMARY | 2024-06-05 13:39 | XMS_ITS | Encounter Summary ---
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 Gender Identity Not on file Sexual Orientation Not on file documented as of this encounter Plan of Treatment Not on file documented as of this encounter Procedures Procedure Name Priority Date/Time Associated Diagnosis Comments DIFFERENTIAL AUTO Routine 11/06/2022 8:5 2 AM CDT Orthostasis CBC WITH AUTO DIFFERENTIAL Routine 11/06/2022 8:52 AM CDT Orthostasis documented in this encounter Results * Differential, auto (11/06/2022 8:52 AM CDT) Neutrophil abs 1.7 1.7 - 6.5 K/cumm [facility] ([place]) Imm gran abs 0.0 0.0 - 0.1 K/cumm [facility] ([place]) Lymphocyte abs 1.6 0.8 - 3.3 K/cumm [facility] ([place]) Monocyte abs 0.4 0.2 - 0.8 K/cumm [facility] ([place]) Eosinophil abs 0.1 0.0 - 0.5 K/cumm [facility] ([place]) Basophil abs 0.0 0.0 - 0.1 K/cumm [facility] ([place]) Neutrophil pct 46.1 % [facility] ([place]) Comment: Interpretive Data Percent cell count reference ranges are not reported, since discordance with absolute values may lead to misinterpretation of CBC data. Current Interpretive Data was last revised on 2017. Imm gran pct 0.0 % [facility] ([place]) Comment: Interpretive Data Percent cell count reference ranges are not reported, since discordance with absolute values may lead to misinterpretation of CBC data. Current Interpretive Data was last revised on 2017. Lymphocyte pct 41.6 % [facility] ([place]) Comment: Interpretive Data Percent cell count reference ranges are not reported, since discordance with absolute values may lead to misinterpretation of CBC data. Current Interpretive Data was last revised on 2017. Monocyte pct 9.9 % [facility] ([place]) Comment: Interpretive Data Percent cell count reference ranges are not reported, since discordance with absolute values may lead to misinterpretation of CBC data. Current Interpretive Data was last revised on 2017. Eosinophil pct 1.6 % [facility] ([place]) Comment: Interpretive Data Percent cell count reference ranges are not reported, since discordance with absolute values may lead to misinterpretation of CBC data. Current Interpretive Data was last revised on 2017. Basophil pct 0.8 % [facility] ([place]) Comment: Interpretive Data Percent cell count reference ranges are not reported, since discordance with absolute values may lead to misinterpretation of CBC data. Current Interpretive Data was last revised on 2017. Blood 11/06/2022 8:52 AM CDT 11/06/2022 8:59 AM CDT us Maurice MIR LAB BLOOD ORDERABLES Fi nal Result Performing Organization Address City/[facility]/ZIP Co de Phone Number [facility] ([place]) [address] [facility] [place] [address] * (ABNORMAL) CBC with auto differential (11/06/2022 [...] ORDERABLES Fi nal Result Performing Organization Address City/[facility]/ZIP Co de Phone Number [facility] ([place]) 1 [facility] [place] [address] documented in this encounter Visit Diagnoses Diagnosis Orthostasis Orthostatic hypotension documented in this encounter Care Teams Senior Qualitative Researcher Relationship Specialty Start Date End Date Maurice Bob PA [address] [facility] [address] [place] [address] PCP - General Internal Medicine 03/12/22 12/01/22 documented as of this encounter
--- OUTSIDE RECORDS SUMMARY | 2024-06-05 13:39 | XMS_ITS | Encounter Summary ---
Author Organization [facility] Healthcare Address [address] [place] [address] Care Team Providers Care Poising Inspector Name Role Phone Wood Mahan MD Primary Care Provi cherie Reason for Visit * Diagnostic Imaging (Routine) - Closed Specialty Diagnoses / Procedures Referred By Alyx cho Referred To Contact Diagnoses Screening mammogram for breast cancer Procedures Screening Mammogram Bilateral W Zayra Kirkland PA [address] [facility] [address] SANCHEZ [address] [place] [address] Phone: tel: fax: [address] [address] Referral ID Status Reason Start Date Expiration Date Visits Re quested Visits Authorized [id number] Closed 10/22/2021 11/21/2022 1 1 Encounter Details Date Type Department Care Team (Latest Contact Info) Description 11/21/2021 7:26 AM CDT - 11/21/2021 11:59 PM CDT Hospital Encounter [facility] [address] [place] [address] Wood Mahan MD [address] [place] [address] Zayra Bob PA [address] [facility] [address] SANCHEZ [address] [place] [address] Discharge Disposition: Discharge to home or self [...] on file 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 100 capsule 02/27/2017 cyanocobalamin (Vitamin B-12) 1,000 mcg tabletIndication s:Prevention of Vitamin B12 Deficiency Take 1 tablet (1,000 mcg total) by mouth daily acyclovir (ZOVIRAX) 5 % ointment acyclovir 5 % topical ointment 2 aspirin 81 mg chewable tablet Take 1 tablet (81 mg total) by mouth daily 30 tablet 11 03/08/2020 2 atorvastatin (LIPITOR) 10 mg tablet TAKE 1/2 TABLET BY MOUTH EVERY DAY 45 tablet 3 01/21/2021 2 FLUoxetine (PROzac) 20 mg tablet TAKE 1 TABLET BY MOUTH DAILY 90 tablet 3 05/06/2021 3 ketoconazole (NIZORAL) 2 % cream ketoconazole 2 % topical cream APPLY BID TO TOES AND TOE WEBS ON LEFT FOOT FOR 8 WEEKS 2 lactobacillus rhamnosus R0011 20 billion cell capsule Take by mouth 2 documented as of this encounter Discharge Disposition Disposition Code Departure Means Destination Discharge to home or self care documented in this encounter Plan of Treatment Not on file documented as of this encounter Procedures Procedure Name Priority Date/Time Associated Diagnosis Comments SCREENING MAMMOGRAM BILATERAL W NICOLE Schedule Routine, Read Routine (OP Routine) 11/21/2021 7:42 AM CDT Screening mammogram for breast cancer documented in this encounter Results * Screening Mammogram Bilateral W Nicole (11/21/2021 7:42 AM CDT) Anatomical Region Laterality Modality Breast Bilateral Mammography 11/21/2021 8:49 AM CDT Impressions 11/21/2021 8:49 AM CDT There is no mammographic evidence of malignancy. A 1 year screening mammogram is recommended. BI-RADS: 1 - Negative. The patient has been or will be contacted. The patient will be entered into a reminder system with a target due date of 1 year for her next mammogram. Electronically signed by: Jake Perry M.D. Narrative 11/21/2021 8:49 AM CDT EXAMINATION: SCREENING MAMMOGRAM BILATERAL W NICOLE ORDERING HEALTHCARE PROVIDER: ZAYRA BOB HISTORY: Routine screening mammography. COMPARISON: ??09/06/2020, 06/21/2019, 04/07/2018, 02/18/2017 TECHNIQUE: CC and MLO views of the [...] on filedocumented in this encounter Care Teams Poising Inspector Relationship Specialty Start Date End Date Wood Mahan MD PCP - General 08/10/09 03/11/22 documented as of this encounter
--- OUTSIDE RECORDS SUMMARY | 2024-06-05 13:39 | XMS_ITS | Encounter Summary ---
Author Organization [facility] Address [address] [place] [address] Care Team Providers Care Associate Software Developer Name Role Phone Maurice Bob Primary Care Provider Reason for Referral * Diagnostic Imaging (Routine) - Closed Specialty Diagnoses / Procedures Referred By Contac t Referred To Contact Diagnoses Screening mammogram, encounter for Procedures Screening Mammogram Bilateral W Nicole Screening Mammogram, [address] [address] Referral ID Status Reason Start Date Expiration Date Visits Re quested Visits Authorized [id number] Closed 01/13/2024 02/11/2025 1 1 * Diagnostic Imaging (Routine) - Closed Specialty Diagnoses / Procedures Referred By Contac t Referred To Contact Diagnoses Screening mammogram, encounter for Procedures Screening Mammogram Bilateral W Nicole Screening Mammogram, Self [address] [address] Referral ID Status Reason Start Date Expiration Date Visits Re quested Visits Authorized [id number] Closed 01/13/2024 02/11/2025 1 1 Reason for Visit * Diagnostic Imaging (Routine) - Closed Specialty Diagnoses / Procedures Referred By Contac t Referred To Contact Diagnoses Screening mammogram, encounter for Procedures Screening Mammogram Bilateral W Nicole Screening Mammogram, [address] [address] Referral ID Status Reason Start Date Expiration Date Visits Re quested Visits Authorized [id number] Closed 01/13/2024 02/11/2025 1 1 Encounter Details Date Type Department Care Team (Latest Contact Info) Description 01/14/2024 1:56 PM CDT - 01/14/2024 11:59 PM CDT Hospital Encounter [facility] [address] [place] [address] Screening mammogram, encounter for Discharge Disposition: Discharge to home or self [...] on file 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 Gender Identity Not on file Sexual Orientation [...] total) by mouth every other day 05/09/2024 busPIRone (BUSPAR) 5 mg tabletIndications :Generalized Anxiety Disorder Take 2 tablets (10 mg total) by mouth 3 (three) times a day as needed (anxiety) 50 tablet 1 12/17/2023 01/27/2024 mirtazapine (REMERON) 7.5 mg tablet Take 1 tablet (7.5 mg total) by mouth nightly 30 tablet 1 12/17/2023 01/27/2024 documented as of this encounter Discharge Disposition Disposition Code Departure Means Destination Discharge to home or self care documented in this encounter Plan of Treatment Not on file documented as of this encounter Procedures Procedure Name Priority Date/Time Associated Diagnosis Comments SCREENING MAMMOGRAM BILATERAL W NICOLE Schedule Routine, Read Routine (OP Routine) 01/14/2024 2:13 PM CDT Screening mammogram, encounter for documented in this encounter Results * Screening Mammogram Bilateral W Nicole (01/14/2024 2:13 PM CDT) Anatomical Region Laterality [...] MAMMOGRAM BILATERAL W NICOLE ORDERING HEALTHCARE PROVIDER: SELF SCREENING MAMMOGRAM HISTORY: [...] Mammogram IMG MAMMO PROCEDURES Fi nal Result documented in this encounter Visit Diagnoses Diagnosis Screening mammogram, encounter for documented in this encounter Care Teams Associate Software Developer Relationship Specialty Start Date End Date Maurice Bob PA [address] [facility] [address] SANCHEZ [address] [place] [address] PCP - General Internal Medicine 05/04/23 documented as of this encounter
--- OUTSIDE RECORDS SUMMARY | 2024-06-05 13:39 | XMS_ITS | Encounter Summary ---
Author Organization [facility] Address [address] [place] [address] Care Team Providers Care Unit Assistant Name Role Phone Zayra Bob Primary Care Provider Reason for Referral * Diagnostic Imaging (Routine) - Closed Specialty Diagnoses / Procedures Referred By Alyx cho Referred To Contact Diagnoses Screening mammogram for breast cancer Procedures Screening Mammogram Bilateral W Zayra Kirkland PA 2 [facility] [address] SANCHEZ [address] [place] [address] Phone: tel: fax: [address] [address] Referral ID Status Reason Start Date Expiration Date Visits Re quested Visits Authorized [id number] Closed 11/06/2022 12/06/2023 1 1 Encounter Details Date Type Department Care Team (Late st Contact Info) Description 11/06/2022 Orders Only [facility] Primary Care at [address] [address] Zayra Bob PA [address] [facility] [address] SANCHEZ [address] [place] [address] Screening mammogram for breast cancer (Primary Dx) [...] on file 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 Zayra MIR IMG MAMMO PROCEDURES Fi nal Result documented in this encounter Visit Diagnoses Diagnosis Screening mammogram for breast cancer- Primary Screening mammogram for breast cancer documented in this encounter Care Teams Unit Assistant Relationship Specialty Start Date End Date Zayra Bob PA [address] [place] [address] DR SANCHEZ [address] [place] [address] PCP - General Internal Medicine 03/12/22 12/01/22 documented as of this encounter
--- OUTSIDE RECORDS SUMMARY | 2024-06-05 13:39 | XMS_ITS | Encounter Summary ---
Author Organization [facility] Healthcare Address [address] [place] [address] Care Team Providers Care Bottom Cager Name Role Phone Maurice Bob Primary Care Provider Reason for Visit * Reason Onset Date Comments Insomnia 12/11/2023 Diarrhea 12/11/2023 Encounter Details Date Type Department Care Team (Late st Contact Info) Description 12/11/[address] 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 I don't feel like myself. I feel anxious. There is a big wedding coming up in February, but normally that kind of stuff doesn't bother me. She has lost about 5 lbs and she has some nausea and insomnia. She is able to fall asleep but wakes up 2 hours later and can't fall back to sleep. She has tried melatonin but no relief. No vomitting. No chest pains. Sometimes she feels like her throat is feeling smaller and that she may choke. No shortness of breath. She is walking 40 minutes a day, 5 days a week. No suicidal or homicial ideations. She has been taking Prozac again (from an old script). She started off at 10mg daily and then after one week she increased it to 20mg daily. She is requesting a call back today to discuss an appt on Thursday with Maurice Bob. Okay to leave a message on machine. She agrees to call us back if she hasn't heard back by sometime this afternoon. Reason for Disposition Depression is worsening (e.g.,sleeping poorly, less able to do activities of daily living) Protocols used: [id number] * Telephone Encounter - Maday Lee RN - 12/11/2023 9:05 AM CDT Regarding: trouble sleeping, loose stools, upset stomach ----- Message from Nai Diego sent at 12/11/2023 8:58 AM CDT ----- Symptom Based Call Chief Complaint(s): trouble sleeping, loose stools, upset stomach Duration: started about four weeks ago What type of symptom(s) is the patient experiencing? Non-Emergent. Is this a new or reoccurring symptom(s)? new What have you tried to help your symptom(s)? Patient has not taken anything over the counter however, she has an script of 20 mg fluoxetine that she was no longer taking. She restarted 10 mg a day then went up to 10 mg twice a day. She restarted this because she thought maybe her symptoms were due to some anxiety she is having. She mentioned a wedding coming up in February and that couldpossibly be causing her some stress. She also mentioned wondering if it could be hormone related. She said her throat sometimes feels like it is smaller when she goes to eat and feels like she may choke however states she has not and has not had any trouble breathing or chest tightness. Why was appointment not scheduled? Appointment availability did not meet the patient's need. Additional Comments: patient stated she has lost about five pounds from not eating much and not being able to sleep. She requested an appointment with ADEOLA Richards however first available is 12/16 and patient wondering if she could work her in sooner. Does message need to be routed? Yes-Action Needed documented in this encounter Plan of Treatment Not on file documented as of this encounter Visit Diagnoses Not on filedocumented in this encounter Care Teams Bottom Cager Relationship Specialty Start Date End Date Maurice Bob PA [address] [place] [address] DR SANCHEZ [address] [place] [address] PCP - General Internal Medicine 05/04/23 documented as of this encounter
--- OUTSIDE RECORDS SUMMARY | 2024-06-05 13:39 | XMS_ITS | Encounter Summary ---
Author Organization [facility] Healthcare Address [address] [place] [address] Care Team Providers Care Sales Representative Business Courses Name Role Phone Maurice Bob Primary Care Provider Barrie Duke MD Unavailable [phone] Encounter Details Date Type Department Care Team (Late st Contact Info) Description 07/17/2023 Telephone [facility] Primary Care at [address] [place] [phone] Maurice Bob PA [address] [place], [place] [address] [place] [address] Social History Tobacco Use Types [...] on file 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 Good news. TER SUPERVISOR documented in this encounter Plan of Treatment Not on file documented as of this encounter Visit Diagnoses Not on filedocumented in this encounter Care Teams Sales Representative Business Courses Relationship Specialty Start Date End Date Maurice Bob PA [address] [facility] [place] [address] PCP - General Internal Medicine 05/04/23 Barrie Duke MD [address] [facility] [place] [address] Consulting Physician Internal Medicine 05/04/23 4 documented as of this encounter
--- OUTSIDE RECORDS SUMMARY | 2024-06-05 13:40 | XMS_ITS | Encounter Summary ---
Author Organization [facility] Address [address] [place] [address] Care Team Providers Care President Celebrity Acquistion Name Role Phone Wood Mahan MD Primary Care Provi [facility] Encounter Details Date Type Department Care Team (Late st Contact Info) Description 11/28/2019 [facility] Internal Medicine [address] [facility] [address] [place] [phone] Wood Mahan MD [address] [place] [address] Social History Tobacco Use Types Packs/Day Years Used Date Smoking Tobacco: Former Smokeless Tobacco: Former Alcohol Use Standard Drinks/Week Comments No 0 (1 standard drink = 0.6 oz pur e alcohol) PHQ-2 Answer Date Recorded PHQ-2 Score 0 01/27/2019 Comments No Sex and Gender Information Value Date Recorded Sex Assigned at Not on file 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 Gender Identity Not on file Sexual Orientation Not on file documented as of this encounter Plan of Treatment Not on file documented as of this encounter Procedures Procedure Name Priority Date/Time Associated Diagnosis Comments URINALYSIS AND REFLEX TO MICROSCOPIC AND CULTURE Routine 11/28/2019 8:53 AM CDT VITAMIN D 25 HYDROXY Routine 11/28/2019 8:53 AM CDT TSH Routine 11/28/2019 8:53 AM CDT VITAMIN B12 Routine 11/28/2019 8:53 AM CDT LIPID PANEL Routine 11/28/2019 8:53 AM CDT COMPREHENSIVE METABOLIC PANEL Routine 11/28/2019 8:53 AM CDT documented in this encounter Results * Vitamin B12 (11/28/2019 8:53 AM CDT) Pathologist [facility] Vitamin B12 586 200 - 1,100 pg/mL [facility] 11/28/2019 8:53 AM CDT 11/28/2019 8:58 AM CDT [facility] - 11/30/2019 1:53 AM CDT FASTING:YES FASTING: YES Wood Mahan MD LAB BLOOD ORDERABLE S Final Result Performing Organization Address City/State/[facility] Co de Phone Number [facility] [address] [place] [address] * Vitamin D 25 hydroxy (11/28/2019 8:53 AM CDT) Pathologist [facility] Vitamin D 25-OH 43 30 - 100 ng/mL [facility] Comment: Vitamin D Status ? 25-OH Vitamin D: Deficiency: ?<20 ng/mL Insufficiency: ? 20 - 29 ng/mL Optimal: ? > or = 30 ng/mL For 25-OH Vitamin D testing on patients on D2-supplementation and patients for whom quantitation of D2 and D3 fractions is required, the QuestAssureD(TM) 25-OH VIT D, (D2,D3), LC/MS/MS is recommended: order code 50721 (patients >2yrs). See Note 1 Note 1 For additional information, please refer to http://education.Listar.Service Management Group/faq/ENA369 (This link is being provided for informational/ educational purposes only.) 11/28/2019 8:53 AM CDT 11/28/2019 8:58 AM CDT Narrative [facility] - 11/30/2019 1:53 AM CDT FASTING:YES FASTING: YES Wood Mahan MD LAB BLOOD ORDERABLE S Final Result Performing Organization Address [facility] de Phone Number [facility] [address] [place] [address] * TSH (11/28/2019 8:53 AM CDT) TSH 1.74 0.40 - 4.50 mIU/L [facility] 11/28/2019 8:53 AM CDT 11/28/2019 8:58 AM CDT Narrative [facility] - 11/30/2019 1:53 AM CDT FASTING:YES FASTING: YES Wood Mahan MD LAB BLOOD ORDERABLE S Final Result Performing Organization Address [facility] de Phone Number [facility] [address] [place] [address] * Comprehensive metabolic panel (11/28/2019 8:53 AM CDT) Glucose 83 65 - 99 mg/dL [facility] Comment: ? Fasting reference interval BUN 9 7 - 25 mg/dL [facility] Creatinine 0.67 0.50 - 0.99 mg/dL [facility] Comment: For patients >49 years of age, the reference limit for Creatinine is approximately 13% higher for people identified as -Uzbek. eGFR NON-AFR. DJIBOUTIAN 94 > OR = 60 mL/min/1 .73m2 [facility] EGFR 108 > OR = 60 mL/min/1 .73m2 [facility] BUN/creat ratio NOT APPLICABLE (calc) [facility] Sodium 135 135 - 146 mmol/L [facility] Potassium, pl 4.1 3.5 - 5.3 mmol/L [facility] Chloride 100 98 - 110 mmol/L [facility] CO2 30 20 - 32 mmol/L [facility] Calcium 9.1 8.6 - 10.4 mg/dL [facility] Protein, sr 6.3 6.1 - 8.1 g/dL [facility] Albumin 4.0 3.6 - 5.1 g/dL [facility] GLOBULIN 2.3 1.9 - 3.7 g/dL (calc) [facility] Alb/glob ratio 1.7 1.0 - 2.5 (calc) [facility] Bilirubin, total 0.6 0.2 - 1.2 mg/dL [facility] Alk phos 67 37 - 153 U/L [facility] AST 20 10 - 35 U/L [facility] ALT (SGPT) 10 6 - 29 U/L [facility] 11/28/2019 8:53 AM CDT 11/28/2019 8:58 AM CDT Narrative [facility] - 11/30/2019 1:53 AM CDT FASTING:YES FASTING: YES us Wood Mahan MD LAB BLOOD ORDERABLE S Final Result [facility] [address] [place] [address] * (ABNORMAL) Lipid panel (11/28/2019 8:53 AM CDT) Pathologist [facility] Cholesterol 206(H) <200 mg/dL [facility] HDL 85 > OR = 50 mg/dL [facility] Triglycerides 65 <150 mg/dL [facility] LDL 106(H) [...] LDL-C. Tyrone SS et al. BON. 2013;310(19): 4843-3016 (http://education.Nefsis/faq/LZF396) Chol/HDL ratio 2.4 <5.0 (calc) [facility] Non-HDL, (LDL+VLDL) 121 <130 mg/dL (calc) [facility] Comment: For patients with diabetes plus 1 major ASCVD risk factor, treating to a non-HDL-C goal of <100 mg/dL (LDL-C of <70 mg/dL) is considered a therapeutic option. 11/28/2019 8:53 AM CDT 11/28/2019 8:58 AM CDT Narrative [facility] - 11/30/2019 1:53 AM CDT FASTING:YES FASTING: YES Wood Mahan MD LAB BLOOD ORDERABLE S Final Result [facility] [address] [place] [address] * Urinalysis reflex to microscopic and culture (11/28/2019 8:53 AM CDT) Color, ur YELLOW YELLOW [facility] Appearance, ur CLEAR CLEAR [facility] Specific gravity 1.007 1.001 - 1.035 [facility] pH, ur 7.0 5.0 - 8.0 [facility] Glucose, ur NEGATIVE NEGATIVE [facility] Bilirubin, ur NEGATIVE NEGATIVE [facility] Ketones, ur NEGATIVE NEGATIVE [facility] Blood, ur NEGATIVE NEGATIVE [facility] Protein, ur, quant NEGATIVE NEGATIVE [facility] Nitrites, ur NEGATIVE NEGATIVE [facility] Leukocyte esterase, ur NEGATIVE NEGATIVE [facility] WBC, ur NONE SEEN < OR = 5 /HPF [facility] RBC, ur NONE SEEN < OR = 2 /HPF [facility] Epithelial cells, squamous, ur NONE SEEN < OR = 5 /HPF [facility] Bacteria, ur, quant NONE SEEN NONE SEEN /HPF [facility] Hyaline cast NONE SEEN NONE SEEN /LPF [facility] Urine culture NO CULTURE INDICATED [facility] 11/28/2019 8:53 AM CDT 11/28/2019 8:58 AM CDT Narrative [facility] - 11/30/2019 1:53 AM CDT FASTING:YES FASTING: YES us Wood Mahan MD LAB MICROBIOLOGY - GENERAL ORDERABLES Final Result [facility] [address] [facility] [address] documented in this encounter Visit Diagnoses Not on filedocumented in this encounter Care Teams President Celebrity Acquistion Relationship Specialty Start Date End Date Wood Mahan MD PCP - General 08/10/09 03/11/22 documented as of this encounter
--- OUTSIDE RECORDS SUMMARY | 2024-06-05 13:40 | XMS_ITS | Encounter Summary ---
Author Organization [facility] Address [address] [place] [address] Care Team Providers Care Commercial Management Accountant Name Role Phone Wood Mahan MD Primary Care Provi cherie Encounter Details Date Type Department Care Team (Latest Contact Info) Description 03/08/2020 [facility] Internal Medicine [address] [place] [phone] Wood Mahan MD [address] [place] [address] Vitamin D deficiency (Primary Dx); Pure hypercholesterolemia Social History Tobacco Use Types Packs/Day Years Used Date Smoking Tobacco: Former Smokeless Tobacco: Former Alcohol Use Standard Drinks/Week Comments No 0 (1 standard drink = 0.6 oz pur e alcohol) PHQ-2 Answer Date Recorded PHQ-2 Total Score (If total score is 3 or more points, staff should administer the PHQ-9) 0 03/08/2020 Comments No Sex and Gender Information Value Date Recorded Sex Assigned at Not on file 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 Gender Identity Not on file Sexual Orientation Not on file documented as of this encounter Plan of Treatment Not on file documented as of this encounter Procedures Procedure Name Priority Date/Time Associated Diagnosis Comments LIPID PANEL WITH REFLEX TO DIRECT LDL Routine 08/22/2020 8:13 AM CDT Pure hypercholesterolemia COMPREHENSIVE METABOLIC PANEL Routine 08/22/2020 8:13 AM CDT Pure hypercholesterolemia documented in this encounter Results * Lipid panel with reflex to direct LDL (08/22/2020 8:13 AM CDT) Cholesterol 163 <200 mg/dL [facility] HDL 75 > OR = 50 mg/dL [facility] Triglycerides 71 <150 mg/dL [facility] LDL 73 mg/dL (calc) [facility] Comment: Reference [...] LDL-C. Tyrone SS et al. BON. 2013;310(19): 6187-2187 (http://education.Sribu/faq/HVT983) Chol/HDL ratio 2.2 <5.0 (calc) [facility] Non-HDL, (LDL+VLDL) 88 <130 mg/dL (calc) [facility] Comment: For patients with diabetes plus 1 major ASCVD risk factor, treating to a non-HDL-C goal of <100 mg/dL (LDL-C of <70 mg/dL) is considered a therapeutic option. Blood specimen (specimen) 08/22/2020 8:13 AM CDT 08/22/2020 8:14 AM CDT Narrative [facility] - 08/23/2020 3:00 AM CDT FASTING:YES FASTING: YES us Wood Mahan MD LAB BLOOD ORDERABLE S Final Result [facility] [address] [place] [id number] * Comprehensive metabolic panel (08/22/2020 8:13 AM CDT) Glucose 90 65 - 99 mg/dL [facility] Comment: ? Fasting reference interval BUN 11 7 - 25 mg/dL [facility] Creatinine 0.60 0.50 - 0.99 mg/dL [facility] Comment: For patients >49 years of age, the reference limit for Creatinine is approximately 13% higher for people identified as -Sri Lankan. eGFR NON-AFR. IVORIAN 96 > OR = 60 mL/min/1 .73m2 [facility] EGFR 112 > OR = 60 mL/min/1 .73m2 [facility] BUN/creat ratio NOT APPLICABLE 6 - 22 (calc) [facility] Sodium 138 135 - 146 mmol/L [facility] Potassium, pl 4.4 3.5 - 5.3 mmol/L [facility] Chloride 102 98 - 110 mmol/L [facility] CO2 28 20 - 32 mmol/L [facility] Calcium 9.1 8.6 - 10.4 mg/dL [facility] Protein, sr 6.3 6.1 - 8.1 g/dL [facility] Albumin 4.0 3.6 - 5.1 g/dL [facility] GLOBULIN 2.3 1.9 - 3.7 g/dL (calc) [facility] Alb/glob ratio 1.7 1.0 - 2.5 (calc) [facility] Bilirubin, total 0.6 0.2 - 1.2 mg/dL [facility] Alk phos 68 37 - 153 U/L [facility] AST 19 10 - 35 U/L [facility] ALT (SGPT) 10 6 - 29 U/L [facility] Blood specimen (specimen) 08/22/2020 8:13 AM CDT 08/22/2020 8:14 AM CDT Narrative [facility] - 08/23/2020 3:00 AM CDT FASTING:YES FASTING: YES us Wood Mahan MD LAB BLOOD ORDERABLE S Final Result [facility] [address] [place] [address] documented in this encounter Visit Diagnoses Diagnosis Vitamin D deficiency- Primary Pure hypercholesterolemia documented in this encounter Care Teams Commercial Management Accountant Relationship Specialty Start Date End Date Wood Mahan MD PCP - General 08/10/09 03/11/22 documented as of this encounter
--- OUTSIDE RECORDS SUMMARY | 2024-06-05 13:40 | XMS_ITS | Encounter Summary ---
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
--- OUTSIDE RECORDS SUMMARY | 2024-06-05 13:40 | XMS_ITS | Encounter Summary ---
Author Organization [facility] Address [address] [place] [address] Care Team Providers Care Hand Glove Cleaner Name Role Phone Wood Mahan MD Primary Care Provi [facility] Encounter Details Date Type Department Care Team (Late st Contact Info) Description 10/08/2021 Telephone [place] [facility] [address] [facility] [address] [facility] [address] [place] [address] Wood Mahan MD [address] [place] [address] Social History Tobacco Use Types Packs/Day Years Used Date Smoking Tobacco: Former Smokeless Tobacco: Former Alcohol Use Standard Drinks/Week Comments No 0 (1 standard drink = 0.6 oz pur e alcohol) PHQ-2 Answer Date Recorded PHQ-2 Total Score (If total score is 3 or more points, staff should administer the PHQ-9) 0 02/05/2021 Comments No Sex and Gender Information Value Date Recorded Sex Assigned at Not on file 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 Gender Identity Not on file Sexual Orientation Not on file documented as of this encounter Miscellaneous Notes * Telephone Encounter - Candida Mishra MA - 10/08/2021 8:14 AM CDT Pt aware * Telephone Encounter - Candida Mishra MA - 10/08/2021 8:13 AM CDT ----- Message from Wood Mahan MD sent at 10/07/2021 6:21 PM CDT ----- Bone density same with touch less in the neck of the hip but still thin no change and heather talk about documented in this encounter Plan of Treatment Not on file documented as of this encounter Visit Diagnoses Not on filedocumented in this encounter Care Teams Hand Glove Cleaner Relationship Specialty Start Date End Date Wood Mahan MD PCP - General 08/10/09 03/11/22 documented as of this encounter
--- OUTSIDE RECORDS SUMMARY | 2024-06-05 13:40 | XMS_ITS | Encounter Summary ---
Author Organization [facility] Address [address] [place] [address] Care Team Providers Care Division Roadmaster Name Role Phone Wood Mahan MD Primary Care Provi cherie Reason for Referral * Diagnostic Imaging (Routine) - Closed Specialty Diagnoses / Procedures Referred By Contac t Referred To Contact Diagnoses Osteopenia of multiple sites Vitamin D deficiency Procedures Dexa Axial Skeleton Bone Density 1 or 2 Site Wood Mahan MD Phone: tel: fax: [address] [phone] Referral ID Status Reason Start Date Expiration Date Visits Re quested Visits Authorized [id number] Closed 02/05/2021 03/07/2022 1 1 Encounter Details Date Type Department Care Team (Late st Contact Info) Description 02/05/2021 Orders Only [place] Internal Medicine [address] [facility] [address] [place] [address] Wood Mahan MD [address] [place] [address] Bilateral carotid artery stenosis (Primary Dx); Pure hypercholesterolemia; Osteopenia of multiple sites; Vitamin D deficiency Social History Tobacco Use [...] on file 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 Gender Identity Not on file Sexual Orientation Not on file documented as of this encounter Progress Notes * Helio Cornejo MA - 02/05/2021 3:38 PM CDT Printed Epic orders given to pt for [facility] documented in this encounter Plan of Treatment Not on file documented as of this encounter Procedures Procedure Name Priority Date/Time Associated Diagnosis Comments LIPID PANEL WITH REFLEX TO DIRECT LDL Routine 10/14/2021 7:14 AM CDT Pure hypercholesterolemia VITAMIN D 25 HYDROXY Routine 10/14/2021 7:14 AM CDT Vitamin D deficiency COMPREHENSIVE METABOLIC PANEL Routine 10/14/2021 7:14 AM CDT Pure hypercholesterolemia documented in this encounter Results * Vitamin D 25 hydroxy (10/14/2021 7:14 AM CDT) Vitamin D 25-OH 45 30 - 100 ng/mL [facility] Comment: Vitamin D Status ? 25-OH Vitamin D: Deficiency: ?<20 ng/mL Insufficiency: ? 20 - 29 ng/mL Optimal: ? > or = 30 ng/mL For 25-OH Vitamin D testing on patients on D2-supplementation and patients for whom quantitation of D2 and D3 fractions is required, the [facility](TM) 25-OH VIT D, (D2,D3), LC/MS/MS is recommended: order code 36522 (patients >2yrs). See Note 1 Note 1 For additional information, please refer to http://WhatClinic.com.TextHub/faq/KOM474 (This link is being provided for informational/ educational purposes only.) Blood specimen (specimen) 10/14/2021 7:14 AM CDT 10/14/2021 7:15 AM CDT Narrative [facility] - 10/15/2021 10:28 AM CDT FASTING:YES FASTING: YES us Wood Mahan MD LAB BLOOD ORDERABLE S Final Result [facility] [address] [address] * Lipid panel with reflex to direct LDL (10/14/2021 7:14 AM CDT) Cholesterol 153 <200 mg/dL [facility] HDL 80 > OR = 50 mg/dL [facility] Triglycerides 55 <150 mg/dL [facility] LDL 59 mg/dL (calc) [facility] Comment: Reference [...] LDL-C. Tyrone BONILLA et al. BON. 2013;310(19): 7001-5407 (http://education.Shyp.Compario/faq/OGV988) Chol/HDL ratio 1.9 <5.0 (calc) [facility] Non-HDL, (LDL+VLDL) 73 <130 mg/dL (calc) [facility] Comment: For patients with diabetes plus 1 major ASCVD risk factor, treating to a non-HDL-C goal of <100 mg/dL (LDL-C of <70 mg/dL) is considered a therapeutic option. Blood specimen (specimen) 10/14/2021 7:14 AM CDT 10/14/2021 7:15 AM CDT Narrative [facility] - 10/15/2021 10:28 AM CDT FASTING:YES FASTING: YES us Wood Mahan MD LAB BLOOD ORDERABLE S Final Result [facility] [address] [address] * (ABNORMAL) Comprehensive metabolic panel (10/14/2021 7:14 AM CDT) Glucose 86 65 - 99 mg/dL [facility] Comment: ? Fasting reference interval BUN 11 7 - 25 mg/dL [facility] Creatinine 0.47(L) 0.50 - 0.99 mg/dL [facility] Comment: For patients >49 years of age, the reference limit for Creatinine is approximately 13% higher for people identified as -[place]icaraguan. eGFR NON-AFR. LATVIAN 104 > OR = 60 mL/min/1. 73m2 [facility] EGFR 120 > OR = 60 mL/min/1. 73m2 [facility] BUN/creat ratio 23(H) 6 - 22 (calc) [facility] Sodium 141 135 - 146 mmol/L [facility] Potassium, pl 4.2 3.5 - 5.3 mmol/L [facility] Chloride 105 98 - 110 mmol/L [facility] CO2 28 20 - 32 mmol/L [facility] Calcium 8.9 8.6 - 10.4 mg/dL [facility] Protein, sr 6.0(L) 6.1 - 8.1 g/dL [facility] Albumin 4.0 3.6 - 5.1 g/dL [facility] GLOBULIN 2.0 1.9 - 3.7 g/dL (calc) [facility] Alb/glob ratio 2.0 1.0 - 2.5 (calc) [facility] Bilirubin, total 0.6 0.2 - 1.2 mg/dL [facility] Alk phos 68 37 - 153 U/L [facility] AST 22 10 - 35 U/L [facility] ALT (SGPT) 15 6 - 29 U/L [facility] Blood specimen (specimen) 10/14/2021 7:14 AM CDT 10/14/2021 7:15 AM CDT Narrative [facility] - 10/15/2021 10:28 AM CDT FASTING:YES FASTING: YES us Wood Mahan MD LAB BLOOD ORDERABLE S Final Result [facility] [address] [place] [address] * Dexa Axial Skeleton Bone Density 1 or 2 Site (10/07/2021 11:13 AM CDT) Anatomical Region Laterality Modality Body N/A Other 10/07/2021 2:21 PM CDT Narrative 10/07/2021 2:26 PM CDT EXAM DESCRIPTION: ?? DEXA AXIAL SKELETON BONE DENSITY 1 OR MORE SITES REASON FOR STUDY: ?66 y/o ?? year old ?? F ??with given history of screening. 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 65 ??inches ? Maximum height: 68 inches ? Weight: 135 pounds Risk factors: Parental hip fracture, postmenopausal COMPARISON: 11/08/2018. FINDINGS: AP LUMBAR SPINE L1-L4: Total BMD is ?? 0.902 ??g/cm2 T-score is -1.3 This is not a statistically significant change from prior. LEFT HIP: Total BMD is 0.724 g/cm2 T-score is -1.8 This is a statistically significant decrease from prior. Femoral neck BMD is 0.683 g/cm2 T-score is -1.5 IMPRESSION: ??Based on the left total hip bone mineral density (T-score -1.8) the patient has low bone mass. Fracture risk assessment (FRAX): ? 10 year risk for a major osteoporotic fracture is 16 % ? 10 year risk for a hip fracture is 1.1 % The FRAX tool has not been validated in patients currently or previously treated with pharmacotherapy for osteoporosis. ??In such patients, clinical judgement must be exercised in interpreting FRAX scores as the fracture risk may be overestimated. REFERENCE: Bone mineral density: ? Normal (T-score above or = -1.0) ? Low bone mass ??(T-score between -1.0 and -2.5) replaces the previously used term osteopenia ? Osteoporosis (T-score = or below -2.5) Medical evaluation for secondary causes of low [...] greater than 3% should be considered for treatment. For further information, including treatment recommendations, please refer to the 2013 ISCD Official Positions (http://www.iscd.org) and the NOF's Clinician's Guide to Prevention and Treatment of Osteoporosis (http://www.nof.org/professionals/clinical-guidelines) THIS IS AN ELECTRONICALLY VERIFIED FINAL REPORT 10/07/2021 2:26 PM - Electronically signed by ??Tanmay Marley M.D. MF: [email or web address] D: ??10/07/2021 2:26 PM T: ??10/07/2021 2:26 PM Report ID: [id number] Reading Location: ??[id number] Procedure Note Tanmay Marley MD - 10/07/2021 EXAM DESCRIPTION: DEXA AXIAL SKELETON BONE DENSITY 1 OR MORE SITES REASON FOR STUDY: 66 y/o year old F with given history ofscreening. 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 FINDINGS: AP LUMBAR SPINE L1-L4: Total BMD is 0.902 g/cm2 T-score is -1.3 This is not a statistically significant change from prior. LEFT HIP: Total BMD is 0.724 g/cm2 T-score is -1.8 This is a statistically significant decrease from prior. Femoral neck BMD is 0.683 g/cm2 T-score is -1.5 IMPRESSION: Based on the left total hip bone mineral density (T-score -1.8) thepatient has low bone mass. Fracture risk assessment (FRAX): 10 year risk for a major osteoporotic fracture is 16 % 10 year risk for a hip fracture is 1.1 % The FRAX tool has not been validated in patients currently or previously treated with pharmacotherapy for osteoporosis. In such patients, clinical judgement must be exercised in interpreting FRAX scores as the fracturerisk may be overestimated. REFERENCE: Bone mineral density: Normal (T-score above or = -1.0) Low bone mass (T-score between -1.0 and -2.5) replaces thepreviously used term osteopenia Osteoporosis (T-score = or below -2.5) Medical evaluation for secondary causes of low [...] or greaterthan 3% should be considered for treatment. For further information, including treatment recommendations, please referto the 2013 ISCD Official Positions (http://www.iscd.org) and the NOF's Clinician's Guide to Prevention and Treatment of Osteoporosis (http://www.nof.org/professionals/clinical-guidelines) THIS IS AN ELECTRONICALLY VERIFIED FINAL REPORT 10/07/2021 2:26 PM - Electronically signed by Tanmay Marley M.D. MF: [email or web address] Report ID: [id number] Reading Location: [id number] Wood Mahan MD IMG DXA PROCEDURES Final Result documented in this encounter Visit Diagnoses Diagnosis Bilateral carotid artery stenosis- Primary Occlusion and stenosis of carotid artery without mention of cerebral infarction Pure hypercholesterolemia Osteopenia of multiple sites Vitamin D deficiency Osteopenia of multiple sites Vitamin D deficiency documented in this encounter Care Teams Division Roadmaster Relationship Specialty Start Date End Date Wood Mahan MD PCP - General 08/10/09 03/11/22 documented as of this encounter
--- OUTSIDE RECORDS SUMMARY | 2024-06-05 13:40 | XMS_ITS | Encounter Summary ---
Author Organization [facility] Medical [facility] Address [address] [place] [address] Care Team Providers Care Circuit Board Assembler Name Role Phone Wood Mahan MD Primary Care Provi [facility] Encounter Details Date Type Department Care Team (Late st Contact Info) Description 12/05/2019 Documentation [place] [facility] [address] [place] [phone] Maria Ines Gilbert Social History Tobacco Use Types Packs/Day Years Used Date Smoking Tobacco: Former Smokeless Tobacco: Former Alcohol Use Standard Drinks/Week Comments No 0 (1 standard drink = 0.6 oz pur e alcohol) PHQ-2 Answer Date Recorded PHQ-2 Score 0 12/05/2019 Comments No Sex and Gender Information Value Date Recorded Sex Assigned at Not on file 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
--- OUTSIDE RECORDS SUMMARY | 2024-06-05 13:40 | XMS_ITS | Encounter Summary ---
Author Organization [facility] Medical [facility] Address [address] [place] [address] Care Team Providers Care Equipment Services Associate Name Role Phone Wood Mahan MD Primary Care Provi cherie Encounter Details Date Type Department Care Team (Late st Contact Info) Description 09/07/2020 [facility] Internal Medicine [address] [facility] [address] [place] [phone] Wood Mahan MD [address] [place] [address] Visit for screening mammogram (Primary Dx) Social History Tobacco Use Types Packs/Day Years Used Date Smoking Tobacco: Former Smokeless Tobacco: Former Alcohol Use Standard Drinks/Week Comments No 0 (1 standard drink = 0.6 oz pur e alcohol) PHQ-2 Answer Date Recorded PHQ-2 Total Score (If total score is 3 or more points, staff should administer the PHQ-9) 0 08/27/2020 Comments No Sex and Gender Information Value Date Recorded Sex Assigned at Not on file 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
--- OUTSIDE RECORDS SUMMARY | 2024-06-05 13:40 | XMS_ITS | Encounter Summary ---
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 Please advise. documented in this encounter Plan of Treatment Not on file documented as of this encounter Visit Diagnoses Not on filedocumented in this encounter Care Teams Beauty Consultant Relationship Specialty Start Date End Date Wood Mahan MD PCP - General 08/10/09 03/11/22 documented as of this encounter
--- OUTSIDE RECORDS SUMMARY | 2024-06-05 13:40 | XMS_ITS | Encounter Summary ---
Author Organization [facility] Medical Group Address [address] [place] [address] Care Team Providers Care Shearer Operator Name Role Phone Wood Mahan MD Primary Care Provi [facility] Encounter Details Date Type Department Care Team (Late st Contact Info) Description 02/20/2020 [facility] Internal Medicine [address] [place] [id number] Wood Mahan MD [address] [place] [address] Social History Tobacco Use Types Packs/Day Years Used Date Smoking Tobacco: Former Smokeless Tobacco: Former Alcohol Use Standard Drinks/Week Comments No 0 (1 standard drink = 0.6 oz pur e alcohol) PHQ-2 Answer Date Recorded PHQ-2 Score 0 12/05/2019 Comments No Sex and Gender Information Value Date Recorded Sex Assigned at Not on file 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 Gender Identity Not on file Sexual Orientation Not on file documented as of this encounter Plan of Treatment Not on file documented as of this encounter Procedures Procedure Name Priority Date/Time Associated Diagnosis Comments VITAMIN D 25 HYDROXY Routine 02/20/2020 10:24 AM CDT LIPID PANEL Routine 02/20/2020 10:24 AM CDT COMPREHENSIVE METABOLIC PANEL Routine 02/20/2020 10:24 AM CDT documented in this encounter Results * Vitamin D 25 hydroxy (02/20/2020 10:24 AM CDT) Pathologist [facility] Vitamin D 25-OH 38 30 - 100 ng/mL [facility] Comment: Vitamin D Status ? 25-OH Vitamin D: Deficiency: ?<20 ng/mL Insufficiency: ? 20 - 29 ng/mL Optimal: ? > or = 30 ng/mL For 25-OH Vitamin D testing on patients on D2-supplementation and patients for whom quantitation of D2 and D3 fractions is required, the QuestAssureD(TM) 25-OH VIT D, (D2,D3), LC/MS/MS is recommended: order code 11744 (patients >2yrs). See Note 1 Note 1 For additional information, please refer to http://education.GlobeImmune/faq/IKR204 (This link is being provided for informational/ educational purposes only.) 02/20/2020 10:2 4 AM CDT 02/20/2020 10:26 AM CDT [facility] - 02/21/2020 6:30 AM CDT FASTING:YES FASTING: YES us Wood Mahan MD LAB BLOOD ORDERABLE S Final Result [facility] [id number] [place], [place] [id number] * (ABNORMAL) Comprehensive metabolic panel (02/20/2020 10:24 AM CDT) [facility] Glucose 98 65 - 99 mg/dL [facility] Comment: ? Fasting reference interval BUN 6(L) 7 - 25 mg/dL [facility] Creatinine 0.62 0.50 - 0.99 mg/dL [facility] Comment: For patients >49 years of age, the reference limit for Creatinine is approximately 13% higher for people identified as -[place]. eGFR NON-AFR. BURKINAN 95 > OR = 60 mL/min/1.7 3m2 [facility] EGFR 110 > OR = 60 mL/min/1.7 3m2 [facility] BUN/creat ratio 10 6 - 22 (calc) [facility] Sodium 139 135 - 146 mmol/L [facility] Potassium, pl 4.8 3.5 - 5.3 mmol/L [facility] Chloride 101 98 - 110 mmol/L [facility] CO2 31 20 - 32 mmol/L [facility] Calcium 9.5 8.6 - 10.4 mg/dL [facility] Protein, sr 6.7 6.1 - 8.1 g/dL [facility] Albumin 4.4 3.6 - 5.1 g/dL [facility] GLOBULIN 2.3 1.9 - 3.7 g/dL (calc) [facility] Alb/glob ratio 1.9 1.0 - 2.5 (calc) [facility] Bilirubin, total 0.6 0.2 - 1.2 mg/dL [facility] Alk phos 70 37 - 153 U/L [facility] AST 20 10 - 35 U/L [facility] ALT (SGPT) 13 6 - 29 U/L [facility] 02/20/2020 10:2 4 AM CDT 02/20/2020 10:26 AM CDT Narrative [facility] - 02/21/2020 6:30 AM CDT FASTING:YES FASTING: YES us Wood Mahan MD LAB BLOOD ORDERABLE S Final Result [facility] [id number] [place] [id number] * Lipid panel (02/20/2020 10:24 AM CDT) Cholesterol 175 <200 mg/dL [facility] HDL 86 > OR = 50 mg/dL [facility] Triglycerides 90 <150 mg/dL [facility] LDL 72 mg/dL (calc) [facility] Comment: Reference [...] LDL-C. Tyrone SS et al. BON. 2013;310(19): 3636-0701 (http://education.GlobeImmune/faq/GQE288) Chol/HDL ratio 2.0 <5.0 (calc) [facility] Non-HDL, (LDL+VLDL) 89 <130 mg/dL (calc) [facility] Comment: For patients with diabetes plus 1 major ASCVD risk factor, treating to a non-HDL-C goal of <100 mg/dL (LDL-C of <70 mg/dL) is considered a therapeutic option. 02/20/2020 10:2 4 AM CDT 02/20/2020 10:26 AM CDT Narrative [facility] - 02/21/2020 6:30 AM CDT FASTING:YES FASTING: YES us Wood Mahan MD LAB BLOOD ORDERABLE S Final Result [facility] [id number] [facility] [place] [address] documented in this encounter Visit Diagnoses Not on filedocumented in this encounter Care Teams Shearer Operator Relationship Specialty Start Date End Date Wood Mahan MD PCP - General 08/10/09 03/11/22 documented as of this encounter
--- OUTSIDE RECORDS SUMMARY | 2024-06-05 13:40 | XMS_ITS | Encounter Summary ---
Author Organization [facility] Medical Group Address [address] [place] [address] Care Team Providers Care Law Tutor Name Role Phone Pamela Huang MD Primary Care Provi cherie Reason for Referral * Diagnostic Imaging (Routine) - Closed Specialty Diagnoses / Procedures Referred By Alyx cho Referred To Contact Diagnoses Visit for screening mammogram Procedures Screening Mammogram Bilateral W Pamela Merino MD Phone: tel: fax: [address] [phone] Referral ID Status Reason Start Date Expiration Date Visits Re quested Visits Authorized [id number] Closed 11/29/2018 06/09/2020 1 1 Encounter Details Date Type Department Care Team (Late st Contact Info) Description 11/29/2018 Orders Only [facility] [address] [place] [address] Pamela Huang MD [address] [place] [address] Visit for screening mammogram (Primary Dx) Social History Tobacco Use Types Packs/Day Years Used Date Smoking Tobacco: Former Smokeless Tobacco: Former Alcohol Use Standard Drinks/Week Comments No 0 (1 standard drink = 0.6 oz pur e alcohol) Comments No Sex and Gender Information Value Date Recorded Sex Assigned at Not on file 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 Follow-up in 1 year with screening mammography is recommended. BI-RADS: 1 - Negative. The patient has been or will be contacted. The patient will be entered into a reminder system with a target due date of 1 year for her next mammogram. Electronically signed by: Abdiaziz Paniagua M.D. Narrative 06/22/2019 9:34 AM PIECE DYER EXAMINATION: SCREENING MAMMOGRAM BILATERAL W SAEED ORDERING HEALTHCARE PROVIDER: PAMELA HUANG HISTORY: Routine screening mammography. COMPARISON: ??04/07/2018 through 10/10/2014 TECHNIQUE: CC and MLO views of the bilateral breasts were obtained with digital technique using breast tomosynthesis with C view. Computer aided detection was utilized. FINDINGS: The breast tissue is heterogeneously dense, which may obscure small masses. There are no suspicious masses, calcifications, or architectural distortion. Pamela Huang MD IMG MAMMO PROCEDURE S Final Result documented in this encounter Visit Diagnoses Diagnosis Visit for screening mammogram- Primary Visit for screening mammogram documented in this encounter Care Teams Law Tutor Relationship Specialty Start Date End Date Pamela Huang MD PCP - General 08/10/09 03/11/22 documented as of this encounter
--- OUTSIDE RECORDS SUMMARY | 2024-06-05 13:40 | XMS_ITS | Encounter Summary ---
Author Organization 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
--- OUTSIDE RECORDS SUMMARY | 2024-06-05 13:40 | XMS_ITS | Encounter Summary ---
Author Organization [facility] Healthcare Address [address] [place] [address] Care Team Providers Care Bank Vault Clerk Name Role Phone Pamela Huang MD Primary Care Provi cehrie Reason for Referral * Diagnostic Imaging (Routine) - Closed Specialty Diagnoses / Procedures Referred By Alyx cho Referred To Contact Diagnoses Visit for screening mammogram Procedures Screening Mammogram Bilateral W Pamela Merino MD Phone: tel: fax: [address] [phone] Referral ID Status Reason Start Date Expiration Date Visits Re quested Visits Authorized [id number] Closed 11/29/2018 06/09/2020 1 1 TS MEDIA Reason for Visit * Diagnostic Imaging (Routine) - Closed Specialty Diagnoses / Procedures Referred By Alyx cho Referred To Contact Diagnoses Visit for screening mammogram Procedures Screening Mammogram Bilateral W Pamela Merino MD Phone: tel: fax: [address] [address] Referral ID Status Reason Start Date Expiration Date Visits Re quested Visits Authorized [id number] Closed 11/29/2018 06/09/2020 1 1 Encounter Details Date Type Department Care Team (Latest Contact Info) Description 06/21/2019 8:15 AM SPORTS MEDIA - 06/21/2019 11:59 PM SPORTS MEDIA Hospital Encounter [facility] [address] [place] [address] Pamela Huang MD [address] [place], [place] [id number] Visit for screening mammogram Discharge Disposition: Discharge to home or self [...] on file Legal Sex Female 9:51 AM SPORTS MEDIA Gender Identity Not on file Sexual Orientation Not on file documented as of this encounter Last Filed Vital Signs Vital Sign Reading Time Taken Comments Blood Pressure - - Pulse - - Temperature - - Respiratory Rate - - Oxygen Saturation - - Inhaled Oxygen Concentration - - Weight 61.2 kg (135 lb) 06/21/2019 8:42 AM SPORTS MEDIA Height 167.6 cm (5' 6 ) 06/21/2019 8:42 AM SPORTS MEDIA Body Mass Index 21.79 06/21/2019 8:42 AM SPORTS MEDIA documented in this encounter Medications at Time of Discharge cholecalciferol (VITAMIN D3) 2,000 unit capsule 1 capsule (2,000 Units total) daily. 100 capsule 02/27/2017 cyanocobalamin (Vitamin B-12) 1,000 mcg tabletIndication s:Prevention of Vitamin B12 Deficiency Take 1 tablet (1,000 mcg total) by mouth daily acyclovir (ZOVIRAX) 5 % ointment acyclovir 5 % topical ointment 2 FLUoxetine (PROzac) 20 mg tablet Take 1 tablet (20 mg total) by mouth daily 90 tablet 3 11/29/2018 0 lactobacillus rhamnosus R0011 20 billion cell capsule Take by mouth 2 documented as of this encounter Discharge Disposition Disposition Code Departure Means Destination Discharge to home or self care documented in this encounter Plan of Treatment Not on file documented as of this encounter Procedures Procedure Name Priority Date/Time Associated Diagnosis Comments SCREENING MAMMOGRAM BILATERAL W SAEED Schedule Routine, Read Routine (OP Routine) 06/21/2019 8:49 AM SPORTS MEDIA Visit for screening mammogram documented in this encounter Results * Screening Mammogram Bilateral W Saeed (06/21/2019 8:49 AM SPORTS MEDIA) Anatomical Region Laterality Modality Breast Bilateral Mammography 06/22/2019 8:54 AM SPORTS MEDIA Impressions 06/22/2019 9:34 AM SPORTS MEDIA No evidence of malignancy. Follow-up in 1 year with screening mammography is recommended. BI-RADS: 1 - Negative. The patient has been or will be contacted. The patient will be entered into a reminder system with a target due date of 1 year for her next mammogram. Electronically signed by: Abdiaziz Paniagua M.D. Narrative 06/22/2019 9:34 AM SPORTS MEDIA EXAMINATION: SCREENING MAMMOGRAM BILATERAL W SAEED ORDERING [...] encounter Visit Diagnoses Diagnosis Visit for screening mammogram documented in this encounter Care Teams Bank Vault Clerk Relationship Specialty Start Date End Date Pamela Huang MD PCP - General 08/10/09 03/11/22 documented as of this encounter
--- OUTSIDE RECORDS SUMMARY | 2024-06-05 13:40 | XMS_ITS | Encounter Summary ---
Author Organization [facility] Medical Group Address [address] [place] [address] Care Team Providers Care Manager Semiconductor Name Role Phone Wood Mahan MD Primary Care Provi cherie Encounter Details Date Type Department Care Team (Late st Contact Info) Description 06/22/2019 Telephone [facility] [address] [place] [address] Wood Mahan MD [address] [place] [address] Social History Tobacco Use Types Packs/Day Years Used Date Smoking Tobacco: Former Smokeless Tobacco: Former Alcohol Use Standard Drinks/Week Comments No 0 (1 standard drink = 0.6 oz pur e alcohol) PHQ-2 Answer Date Recorded PHQ-2 Score 0 01/27/2019 Comments No Sex and Gender Information Value Date Recorded Sex Assigned at Not on file Legal Sex Female 9:51 AM CORPORATE DEVELOPMENT ANALYST Gender Identity Not on file Sexual Orientation Not on file documented as of this encounter Miscellaneous Notes * Telephone Encounter - Stacy Constantino MA - 06/22/2019 2:40 PM CORPORATE DEVELOPMENT ANALYST Repeat mammogram ordered for 1 year follow up ORATE DEVELOPMENT ANALYST * Telephone Encounter - Wendy Rider - 06/22/2019 2:33 PM CST Pt aware. Referrals ORATE DEVELOPMENT ANALYST * Telephone Encounter - Debo Manrique MA - 06/22/2019 2:31 PM CST lmom to cb ORATE DEVELOPMENT ANALYST * Telephone Encounter - Debo Manrique MA - 06/22/2019 2:31 PM CST ----- Message from Wood Mahan MD sent at 06/22/2019 12:57 PM CORPORATE DEVELOPMENT ANALYST ----- Kerri reported neg for cancerous changes. Order repeat in a yr ORATE DEVELOPMENT ANALYST documented in this encounter Plan of Treatment Not on file documented as of this encounter Visit Diagnoses Not on filedocumented in this encounter Care Teams Manager Semiconductor Relationship Specialty Start Date End Date Wood Mahan MD PCP - General 08/10/09 03/11/22 documented as of this encounter
--- OUTSIDE RECORDS SUMMARY | 2024-06-05 13:40 | XMS_ITS | Encounter Summary ---
Author Organization [facility] Medical Group Address [address] [place] [address] Care Team Providers Care Clinical Research Director Name Role Phone Wood Mahan MD Primary Care Provi cherie Reason for Visit * Reason Comments Preventative Care Encounter Details Date Type Department Care Team (Late st Contact Info) Description 12/05/2019 8:30 AM CDT Office Visit [facility] [address] [place] [phone] Wood Mahan MD [address] [place] [address] PE (physical exam), annual (Primary Dx); BMI 21.0-21.9, adult; Bilateral carotid artery stenosis; Pure hypercholesterolemia; Recurrent major depressive disorder, in full remission (CMS/HCC); Osteopenia of multiple sites; Vitamin D deficiency [...] on file Legal Sex Female 9:51 AM 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 Gender Identity Not on file Sexual Orientation Not on file documented as of this encounter Last Filed Vital Signs Vital Sign Reading Time Taken Comments Blood Pressure 116/74 12/05/2019 8:15 AM CDT Pulse 64 12/05/2019 8:15 AM CDT Temperature - - Respiratory Rate 18 12/05/2019 8:15 AM CDT Oxygen Saturation - - Inhaled Oxygen Concentration - - Weight 59.9 kg (132 lb) 12/05/2019 8:15 AM CDT Height 167.6 cm (5' 6 ) 12/05/2019 8:15 AM CDT Body Mass Index 21.31 12/05/2019 8:15 AM CDT documented in this encounter Ordered Prescriptions Prescription Sig Dispense Quantity Refills Last Filled Start Date End Date atorvastatin (LIPITOR) 10 mg tablet 1/2 a day 45 tablet 3 12/05/2019 01/21/2021 documented in this encounter Progress Notes * Wood Mahan MD - 12/05/2019 8:30 AM CDT Subjective/Objective Patient ID: Renee Vance is a 64 y.o. female. Chief Complaint Preventative Care Well exam off popcorn and gi bett er Review of Systems Constitutional: Negative. HENT: Negative. Eyes: Negative. Respiratory: Negative. Cardiovascular: Negative. Gastrointestinal: Negative. Endocrine: Negative. Genitourinary: Negative. Musculoskeletal: Negative. L 2nd toe needs bandaid on little bump Skin: Negative. Allergic/Immunologic: Negative. Neurological: Negative. Hematological: Negative. Psychiatric/Behavioral: Negative. All other systems reviewed and are negative. Vitals: 12/05/19 0815 BP: 116/74 Pulse: 64 Resp: 18 Weight: 59.9 kg (132 lb) Height: 167.6 cm (5' 6 ) Physical Exam Constitutional: General: She is not in acute distress. Appearance: She is well-developed. She is not diaphoretic. HENT: Head: Normocephalic and atraumatic. Right Ear: External ear normal. Left Ear: External ear normal. Nose: Nose normal. Eyes: General: No scleral icterus. Right eye: No discharge. Left eye: No discharge. Conjunctiva/sclera: Conjunctivae normal. Pupils: Pupils are equal, round, and reactive to light. Neck: Musculoskeletal: Normal range of motion and neck supple. Thyroid: No thyromegaly. Vascular: No JVD. Trachea: No tracheal deviation. Cardiovascular: Rate and Rhythm: Normal rate and regular rhythm. Heart sounds: Normal heart sounds. No murmur. No friction rub. No gallop. Pulmonary: Effort: Pulmonary effort is normal. No respiratory distress. Breath sounds: Normal breath sounds. No stridor. No wheezing or rales. Chest: Chest wall: No tenderness. Abdominal: General: Bowel sounds are normal. There is no distension. Palpations: Abdomen is soft. There is no mass. Tenderness: There is no abdominal tenderness. There is no guarding or rebound. Hernia: No hernia is present. Musculoskeletal: Normal range of motion. General: No tenderness or deformity. Comments: ? ganglioon at base l 2nd toe Lymphadenopathy: Cervical: No cervical adenopathy. Skin: General: Skin is warm and dry. Capillary Refill: Capillary refill takes less than 2 seconds. Coloration: Skin is not pale. Findings: No erythema or rash. Neurological: Mental Status: She is alert and oriented to person, place, and time. Cranial Nerves: No cranial nerve deficit. Motor: No abnormal muscle tone. Coordination: Coordination normal. Deep Tendon Reflexes: Reflexes are normal and symmetric. Reflexes normal. Psychiatric: Behavior: Behavior normal. Thought Content: Thought content normal. Judgment: Judgment normal. Assessment/Plan Diagnoses and all orders for this visit: PE (physical exam), annual (Primary) Assessment & Plan: Well exam wt proper new cad. mildlipids up to date on colon and blanco update bmd for nov fall flu shots suggest shingles shot. BMI 21.0-21.9, adult Assessment & Plan: wowrk to keep stable Bilateral carotid artery stenosis Assessment & Plan: Mild bilateral strt asa 81 and lllllsttin at Small strted dose and re eval effects and taarget tight contoll recheck 89 yrs Pure hypercholesterolemia Assessment & Plan: ldl at 106 and target 60 start [...] carbs/sugars In such items as sugared soda/sweet teaalong with fruit juices(containing natural sugar) even if no added sugar is added. LDL cholesterol is reduced with reducing daily intake of fats and robert. saturated fats. The monosaturated fats like olive oil are not harmful except in the calories they contained. Whole milk cheese needs to be remembered along with whole milk products And limited. Orders: - Lipid panel; Future - Comprehensive metabolic panel; Future Recurrent major depressive disorder, in full remission ([facility]/HCC) Assessment & Plan: Well controlled on meds and no chages Osteopenia of multiple sites Assessment & Plan: Due for update Orders: - Dexa Axial Skeleton Bone Density 1 or 2 Site; Future Vitamin D deficiency Assessment & Plan: Check on return Orders: - Vitamin D 25 hydroxy; Future Other orders - atorvastatin (LIPITOR) 10 mg tablet; 1/2 a day Side effects, risks, interactions reviewed with patient. Indications for testing discussed. Any further problems to contact us. She was told what to look out for and verbalized understanding. The patient was given the opportunity to have all questions answered today and was in agreement with the plan of care. documented in this encounter Miscellaneous Notes * Assessment & Plan Note - Wood Mahan MD - 12/05/2019 9:14 AM CDTAssociated Problem(s): PE (physical exam), annual (Resolved 02/05/2021) Well exam wt proper new cad. mildlipids up to date on colon and blanco update bmd for nov fall flu shots suggest shingles shot. * Assessment & Plan Note - Wood Mahan MD - 12/05/2019 9:10 AM CDTAssociated Problem(s): Vitamin D deficiency Check on return * Assessment & Plan Note - Wood Mahan MD - 12/05/2019 9:10 AM CDTAssociated Problem(s): Osteopenia of multiple sites Due for update * Assessment & Plan Note - Wood Mahan MD - 12/05/2019 9:09 AM CDTAssociated Problem(s): BMI 21.0-21.9, adult (Resolved 07/06/2023) wowrk to keep stable * Assessment & Plan Note - Wood Mahan MD - 12/05/2019 9:09 AM CDTAssociated Problem(s): Recurrent major depressive disorder, in full remission (CMS/HCC) (HCC) (Resolved 03/21/2022) Well controlled on meds and no chages * Assessment & Plan Note - Wood Mahan MD - 12/05/2019 9:07 AM CDTAssociated Problem(s): Pure hypercholesterolemia ldl at 106 and target 60 start [...] carbs/sugars In such items as sugared soda/sweet teaalong with fruit juices(containing natural sugar) even if no added sugar is added. LDL cholesterol is reduced with reducing daily intake of fats and robert. saturated fats. The monosaturated fats like olive oil are not harmful except in the calories they contained. Whole milk cheese needs to be remembered along with whole milk products And limited. * Assessment & Plan Note - Wood Mahan MD - 12/05/2019 9:06 AM CDTAssociated Problem(s): Bilateral carotid artery stenosis Mild bilateral strt asa 81 and lllllsttin at Small strted dose and re eval effects and taarget tight contoll recheck 89 yrs documented in this encounter Plan of Treatment Scheduled Orders Name Type Priority Associated Diagnoses Orde r Schedule Comprehensive metabolic panel Lab Routine Pure hypercholesterolemia 1 Occurrences starting 03/06/2020 until 12/04/2020 Vitamin D 25 hydroxy Lab Routine Vitamin D deficiency 1 Occurrences starting 03/06/2020 until 12/04/2020 documented as of this encounter Visit Diagnoses Diagnosis PE (physical exam), annual- Primary BMI 21.0-21.9, adult Bilateral carotid artery stenosis Occlusion and stenosis of carotid artery without mention of cerebral infarction Pure hypercholesterolemia Recurrent major depressive disorder, in full remission (CMS/HCC) (HCC) Osteopenia of multiple sites Vitamin D deficiency documented in this encounter Orders Lab Orders Without Results Count Last Ordered D ate First Ordered Date LIPID PANEL 1 12/05/2019 documented in this encounter Care Teams Clinical Research Director Relationship Specialty Start Date End Date Wood Mahan MD PCP - General 08/10/09 03/11/22 documented as of this encounter
--- OUTSIDE RECORDS SUMMARY | 2024-06-05 13:40 | XMS_ITS | Encounter Summary ---
Author Organization [facility] Healthcare Address [address] [place] [address] Care Team Providers Care Casket Assembler Name Role Phone Wood Mahan MD Primary Care Provi cherie Reason for Referral * Diagnostic Imaging (Routine) - Closed Specialty Diagnoses / Procedures Referred By Alyx t Referred To Contact Diagnoses Osteopenia of multiple sites Vitamin D deficiency Procedures Dexa Axial Skeleton Bone Density 1 or 2 Site Wood Mahan MD Phone: tel: fax: [address] [phone] Referral ID Status Reason Start Date Expiration Date Visits Re quested Visits Authorized [id number] Closed 02/05/2021 03/07/2022 1 1 Reason for Visit * Diagnostic Imaging (Routine) - Closed Specialty Diagnoses / Procedures Referred By Alyx cho Referred To Contact Diagnoses Osteopenia of multiple sites Vitamin D deficiency Procedures Dexa Axial Skeleton Bone Density 1 or 2 Site Wood Mahan MD Phone: tel: fax: [address] [phone] Referral ID Status Reason Start Date Expiration Date Visits Re quested Visits Authorized [id number] Closed 02/05/2021 03/07/2022 1 1 Encounter Details Date Type Department Care Team (Latest Contact Info) Description 10/07/2021 10:52 AM CDT - 10/07/2021 11:59 PM CDT Hospital Encounter [facility] [address] [place] [id number] Wood Mahan MD [address] [place] [address] Osteopenia of multiple sites; Vitamin D deficiency Discharge Disposition: Discharge to home or self [...] on file Legal 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 DEXA AXIAL SKELETON BONE DENSITY 1 OR MORE SITES REASON FOR STUDY: ?66 y/o ?? year old ?? F ??with given history of screening. Behavioral Health Case Manager/Model: ?? TickPick (S/N [id number]) CLINICAL INFORMATION: Current height: ?? 65 ??inches [...] PM T: ??10/07/2021 2:26 PM Report ID: [id number] Reading Location: ??[id number] Procedure Note Tanmay Marley MD - 10/07/2021 EXAM DESCRIPTION: DEXA AXIAL SKELETON BONE DENSITY 1 OR MORE SITES REASON FOR STUDY: 66 y/o year old F with given history ofscreening. Behavioral Health Case Manager/Model: TickPick (S/N [id number]) CLINICAL INFORMATION: Current height: 65 inches Maximum [...] Tanmay Marley M.D. MF: MADELINE Report ID: [id number] Reading Location: [id number] Wood Maahn MD IM DXA PROCEDURES Final Result documented in this encounter Visit Diagnoses Diagnosis Osteopenia of multiple sites Vitamin D deficiency documented in this encounter Care Teams Casket Assembler Relationship Specialty Start Date End Date Wood Mahan MD PCP - General 08/10/09 03/11/22 documented as of this encounter
--- OUTSIDE RECORDS SUMMARY | 2024-06-05 13:40 | XMS_ITS | Encounter Summary ---
Author Organization [facility] Medical Group Address [address] [place] [address] Care Team Providers Care Automotive Fuel Injection Servicer Name Role Phone Wood Mahan MD Primary Care Provi cherie Reason for Visit * Reason Comments Preventative Care Encounter Details Date Type Department Care Team (Late st Contact Info) Description 11/29/2018 10:30 AM CDT Office Visit [facility] [address] [facility] [address] [place] [phone] Wood Mahan MD [address] [place] [address] Osteopenia of multiple sites (Primary Dx); BMI 20.0-20.9, adult; Recurrent major depressive disorder, in full remission ([facility]); Vitamin D deficiency; PE (physical exam), annual; Gastroesophageal reflux disease without esophagitis; B12 deficiency Social History Tobacco Use Types Packs/Day Years Used Date Smoking Tobacco: Former Smokeless Tobacco: Former Alcohol Use Standard Drinks/Week Comments No 0 (1 standard drink = 0.6 oz pur e alcohol) PHQ-2 Answer Date Recorded PHQ-2 Score 0 01/27/2019 Comments No Sex and Gender Information Value Date Recorded Sex Assigned at Not on file Legal Sex Female 9:51 AM GLUER AND SLICER 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 Gender Identity Not on file Sexual Orientation Not on file documented as of this encounter Last Filed Vital Signs Vital Sign Reading Time Taken Comments Blood Pressure 124/74 11/29/2018 10:29 AM CDT Pulse 70 11/29/2018 10:29 AM CDT Temperature - - Respiratory Rate 16 11/29/2018 10:29 AM CDT Oxygen Saturation - - Inhaled Oxygen Concentration - - Weight 59 kg (130 lb) 11/29/2018 10:29 AM CDT Height 167.6 cm (5' 6 ) 11/29/2018 10:29 AM CDT Body Mass Index 20.98 11/29/2018 10:29 AM CDT documented in this encounter Ordered Prescriptions Prescription Sig Dispense Quantity Refills Last Filled Start Date End Date FLUoxetine (PROzac) 20 mg tablet Take 1 tablet (20 mg total) by mouth daily 90 tablet 3 11/29/2018 02/07/2020 documented in this encounter Progress Notes * Wood Mahan MD - 11/29/2018 10:30 AM CDT Subjective/Objective Patient ID: Renee Vance is a 63 y.o. female. Chief Complaint Preventative Care Well exam. Finally staying out Of sun Review of Systems Constitutional: Negative. HENT: Negative. Eyes: Negative. Respiratory: Negative. Cardiovascular: Negative. Gastrointestinal: Negative. Endocrine: Negative. Genitourinary: Negative. Musculoskeletal: Negative. Skin: Negative. Allergic/Immunologic: Negative. Neurological: Negative. Hematological: Negative. Psychiatric/Behavioral: Negative. All other systems reviewed and are negative. Vitals: 11/29/18 1029 BP: 124/74 Pulse: 70 Resp: 16 Weight: 59 kg (130 lb) Height: 167.6 cm (5' 6 ) Physical Exam Constitutional: She is oriented to person, place, and time. She appears well- developed and well-nourished. No distress. HENT: Head: Normocephalic and atraumatic. Right Ear: External ear normal. Left Ear: External ear normal. Nose: Nose normal. Mouth/Throat: Oropharynx is clear and moist. Eyes: Pupils are equal, round, and reactive to light. Conjunctivae and EOM are normal. Right eye exhibits no discharge. Left eye exhibits no discharge. No scleral icterus. Neck: Normal range of motion. Neck supple. No JVD present. No tracheal deviation present. No thyromegaly present. Cardiovascular: Normal rate, regular rhythm, normal heart sounds and intact distal pulses. Exam reveals no gallop and no friction rub. No murmur heard. Pulmonary/Chest: Effort normal and breath sounds normal. No stridor. No respiratory distress. She has no wheezes. She has no rales. She exhibits no tenderness. Abdominal: Soft. Bowel sounds are normal. She exhibits no distension and no mass. There is no tenderness. There is no rebound and no guarding. No hernia. Musculoskeletal: Normal range of motion. She exhibits no edema, tenderness or deformity. Lymphadenopathy: She has no cervical adenopathy. Neurological: She is alert and oriented to person, place, and time. She has normal reflexes. She displays normal reflexes. No cranial nerve deficit. She exhibits normal muscle tone. Coordination normal. Skin: Skin is warm and dry. Capillary refill takes less than 2 seconds. No rash noted. She is not diaphoretic. No erythema. No pallor. Psychiatric: She has a normal mood and affect. Her behavior is normal. Judgment and thought contentnormal. Assessment/Plan Diagnoses and all orders for this visit: Osteopenia of multiple sites (Primary) Assessment & Plan: bmd -1.3 and -1.4 mild osteopenia keep d upl;recheck 2yrs and walking wt brearing several time A wek BMI 20.0-20.9, adult Assessment & Plan: Work to keep wt stable Recurrent major depressive disorder, in full remission ([facility]) Assessment & Plan: Well contrlled on meds. And stay stable Vitamin D deficiency Assessment & Plan: D at 36 want to keep here or better. PE (physical exam), annual Assessment & Plan: Fall flu lshots. Discussed shingles shot but had old 1 and 1/2 yrs ago and will look at in 1 yr to get. Kerri.s repeat bmd in 2yrs. Colon in 10 yrs as nl last fall. Cbc,cmp. ua all nl. Orders: - Comprehensive metabolic panel; Future - Vitamin D 25 hydroxy; Future - Vitamin B12; Future - TSH; Future - Urinalysis reflex to microscopic and culture Urine, clean voided; Future - Lipid panel; Future Gastroesophageal reflux disease without esophagitis Assessment & Plan: goen B12 deficiency Assessment & Plan: b 12 came up and stable 996 and cotn as doing. Other orders - FLUoxetine (PROzac) 20 mg tablet; Take 1 tablet (20 mg total) by mouth daily Side effects, [...] Plan Note - Wood Mahan MD - 11/29/2018 11:14 AM CDTAssociated Problem(s): B12 deficiency b 12 came up and stable 996 and cotn as doing. * Assessment & Plan Note - Wood Mahan MD - 11/29/2018 11:12 AM CDTAssociated Problem(s): GERD (gastroesophageal reflux disease) goen * Assessment & Plan Note - Wood Mahan MD - 11/29/2018 11:11 AM CDTAssociated Problem(s): PE (physical exam), annual (Resolved 02/05/2021) Fall flu lshots. Discussed shingles shot but had old 1 and 1/2 yrs ago and will look at in 1 yr to get. Kerri.s repeat bmd in 2yrs. Colon in 10 yrs as nl last fall. Cbc,cmp. ua all nl. * Assessment & Plan Note - Wood Mahan MD - 11/29/2018 11:07 AM CDTAssociated Problem(s): BMI 21.0-21.9, adult (Resolved 07/06/2023) Work to keep wt stable * Assessment & Plan Note - Wood Mahan MD - 11/29/2018 11:07 AM CDTAssociated Problem(s): Vitamin D deficiency D at 36 want to keep here or better. * Assessment & Plan Note - Wood Mahan MD - 11/29/2018 11:06 AM CDTAssociated Problem(s): Recurrent major depressive disorder, in full remission (CMS/HCC) (HCC) (Resolved 03/21/2022) Well contrlled on meds. And stay stable * Assessment & Plan Note - Wood Mahan MD - 11/29/2018 11:05 AM CDTAssociated Problem(s): Osteopenia of multiple sites bmd -1.3 and -1.4 mild osteopenia keep d upl;recheck 2yrs and walking wt brearing several time A wek * Addendum Note - Farzana Maria - 11/29/2018 10:30 AM CDTAddended by: FARZANA MARIA on: 11/11/2019 07:41 AM Modules accepted: Orders * Addendum Note - Killian Chavira - 11/29/2018 10:30 AM CDTAddended by: KILLIAN CHAVIRA on: 11/14/2019 10:15 AM Modules accepted: Orders documented in this encounter Plan of Treatment Scheduled Orders Name Type Priority Associated Diagnoses Orde r Schedule Lipid panel Lab Routine PE (physical exam), annual Expected: 11/28/2019, Expires: 11/30/2019 Urinalysis reflex to microscopic and culture Urine, clean voided Microbiology Routine PE (physical exam), annual 1 Occurrences starting 11/30/2019 until 11/30/2019 TSH Lab Routine PE (physical exam), annual 1 Occurrences starting 11/30/2019 until 11/30/2019 Vitamin B12 Lab Routine PE (physical exam), annual 1 Occurrences starting 11/30/2019 until 11/30/2019 Vitamin D 25 hydroxy Lab Routine PE (physical exam), annual 1 Occurrences starting 11/30/2019 until 11/30/2019 Comprehensive metabolic panel Lab Routine PE (physical exam), annual 1 Occurrences starting 11/30/2019 until 11/30/2019 documented as of this encounter Procedures Procedure Name Priority Date/Time Associated Diagnosis Comments PAP SMEAR WITH HPV Routine 04/08/2018 documented in this encounter Results * PAP SMEAR WITH HPV (04/08/2018) Pap smear Normal Historical Provider HEALTH MAINTENANCE Final Result documented in this encounter Visit Diagnoses Diagnosis Osteopenia of multiple sites- Primary BMI 20.0-20.9, adult Recurrent major depressive disorder, in full remission ([facility]) ([facility]) Vitamin D deficiency PE (physical exam), annual Gastroesophageal reflux disease without esophagitis Esophageal reflux B12 deficiency documented in this encounter Discontinued Medications Medication Sig Discontinue Reason Start Date End Da te FLUoxetine (PROzac) 20 mg tablet Take 1 tablet (20 mg total) by mouth daily. Reorder 11/26/2017 11/29/2018 documented as of this encounter Historical Medications * This list may reflect changes made after this encounter. cyanocobalamin (Vitamin B-12) 1,000 mcg tabletIndication s:Prevention of Vitamin B12 Deficiency Take 1 tablet (1,000 mcg total) by mouth daily acyclovir (ZOVIRAX) 5 % ointment acyclovir 5 % topical ointment 2 lactobacillus rhamnosus R0011 20 billion cell capsule Take by mouth 2 added in this encounter Care Teams Automotive Fuel Injection Servicer Relationship Specialty Start Date End Date Wood Mahan MD PCP - General 08/10/09 03/11/22 documented as of this encounter
--- OUTSIDE RECORDS SUMMARY | 2024-06-05 13:40 | XMS_ITS | Encounter Summary ---
Author Organization [facility] Medical Group Address [address] [place] [address] Care Team Providers Care Airplane Electrician Name Role Phone Wood Mahan MD Primary Care Provi cherie Reason for Referral * Diagnostic Imaging (Routine) - Closed Specialty Diagnoses / Procedures Referred By Alyx cho Referred To Contact Diagnoses Screening mammogram for breast cancer Procedures Screening Mammogram Bilateral W Saeed Maurice Diaz PA [address] [facility] [address] [place] [address] Phone: tel: fax: [address] [phone] Referral ID Status Reason Start Date Expiration Date Visits Re quested Visits Authorized [id number] Closed 10/22/2021 11/21/2022 1 1 * Diagnostic Imaging (Routine) - Closed Specialty Diagnoses / Procedures Referred By Alyx cho Referred To Contact Diagnoses Bilateral carotid artery stenosis Procedures Vl US Carotids Maurice Diaz PA [address] [facility] [address] [place] [address] Phone: tel: fax: [address] [phone] Referral ID Status Reason Start Date Expiration Date Visits Re quested Visits Authorized [id number] Closed 10/22/2021 11/21/2022 1 1 Encounter Details Date Type Department Care Team (Late st Contact Info) Description 10/22/2021 Orders Only [facility] [address] [facility] [address] [place] [phone] Maurice Diaz PA [address] [facility] [address] [place] [address] Bilateral carotid artery stenosis (Primary Dx); Pure hypercholesterolemia; Screening mammogram for breast cancer Social History Tobacco Use Types Packs/Day Years [...] on file Legal Sex Female 9:51 AM SALES AND 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 Gender Identity Not on file Sexual Orientation Not on file documented as of this encounter Plan of Treatment Not on file documented as of this encounter Procedures Procedure Name Priority Date/Time Associated Diagnosis Comments US CAROTIDS DUPLEX BILATERAL Schedule Routine, Read Routine (OP Routine) 04/15/2022 11:39 AM SALES AND 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 Bilateral carotid artery stenosis CHOLESTEROL, LDL, DIRECT Routine 03/12/2022 7:24 AM CDT Pure hypercholesterolemia COMPREHENSIVE METABOLIC PANEL Routine 03/12/2022 7:24 AM CDT Pure hypercholesterolemia SCREENING MAMMOGRAM BILATERAL W SAEED Schedule Routine, Read Routine (OP Routine) 11/21/2021 7:42 AM CDT Screening mammogram for breast cancer documented in this encounter Results * Vl US Carotids (04/15/2022 11:39 AM SALES AND 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) Anatomical Region Laterality Modality Vascular Bilateral Ultrasound 04/15/2022 3:53 PM SALES AND 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 Narrative 04/15/2022 3:55 PM SALES AND 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 EXAM DESCRIPTION: ?? US CAROTIDS DUPLEX BILATERAL [...] Electronically signed by ??Sharan Camara M.D. CH: D: ??04/15/2022 3:55 PM T: ??04/15/2022 3:55 PM Report ID: [id number] Reading Location: ??[id number] Procedure Note Sharan Camara Jr., MD - [...] Sharan Camara M.D. CH: JAMEL Report ID: [id number] Reading Location: [place] [address] Maurice MIR IMG US PROCEDURES Final Result * Cholesterol, LDL, direct (03/12/2022 7:24 AM CDT) LDL, direct 55 <100 mg/dL [facility] Comment: Greatly elevated Triglycerides values (>1200 mg/dL) interfere with the dLDL assay. As no Triglycerides testing was ordered, interpret results with caution. Desirable range <100 mg/dL for primary prevention; ?? <70 mg/dL for patients with CHD or diabetic patients with > or = 2 CHD risk factors. Blood specimen (specimen) 03/12/2022 7:24 AM CDT 03/12/2022 7:25 AM CDT Narrative [facility] - 03/14/2022 2:03 AM CDT FASTING:YES FASTING: YES Maurice MIR LAB BLOOD ORDERABLES Fi nal Result [facility] [address] [place] [address] * Comprehensive metabolic panel (03/12/2022 7:24 AM CDT) Glucose 82 65 - 99 mg/dL [facility] Comment: ? Fasting reference interval BUN 9 7 - 25 mg/dL [facility] Creatinine 0.65 0.50 - 1.05 mg/dL [facility] eGFR 97 > OR = 60 mL/min/1. 73m2 [facility] Comment: The eGFR is based on the CKD-EPI 2020 equation. To calculate the new eGFR from a previous Creatinine or Cystatin C result, go to https://www.kidney.org/professionals/ kdoqi/gfr%5Fcalculator BUN/creat ratio NOT APPLICABLE 6 - 22 (calc) [facility] Sodium 138 135 - 146 mmol/L [facility] Potassium, pl 4.3 3.5 - 5.3 mmol/L [facility] Chloride 102 98 - 110 mmol/L [facility] CO2 28 20 - 32 mmol/L [facility] Calcium 8.9 8.6 - 10.4 mg/dL [facility] Protein, sr 6.2 6.1 - 8.1 g/dL [facility] Albumin 3.9 3.6 - 5.1 g/dL [facility] GLOBULIN 2.3 1.9 - 3.7 g/dL (calc) [facility] Alb/glob ratio 1.7 1.0 - 2.5 (calc) [facility] Bilirubin, total 0.5 0.2 - 1.2 mg/dL [facility] Alk phos 66 37 - 153 U/L [facility] AST 20 10 - 35 U/L [facility] ALT (SGPT) 11 6 - 29 U/L [facility] Blood specimen (specimen) 03/12/2022 7:24 AM CDT 03/12/2022 7:25 AM CDT Narrative [facility] - 03/14/2022 2:03 AM CDT FASTING:YES FASTING: YES us Maurice MIR LAB BLOOD ORDERABLES Fi nal Result Performing Organization Address City/State/[facility] Co de Phone Number [facility] [address] [place] [address] * Screening Mammogram Bilateral W Saeed (11/21/2021 7:42 AM CDT) Anatomical Region Laterality [...] AM CDT EXAMINATION: SCREENING MAMMOGRAM BILATERAL W SAEED ORDERING HEALTHCARE PROVIDER: MAURICE DIAZ HISTORY: Routine screening mammography. COMPARISON: ??09/06/2020, 06/21/2019, [...] has been no suspicious interval change. us Maurice MIR IMG MAMMO PROCEDURES Fi nal Result documented in this encounter Visit Diagnoses Diagnosis Bilateral carotid artery stenosis- Primary Occlusion and stenosis of carotid artery without mention of cerebral infarction Pure hypercholesterolemia Screening mammogram for breast cancer documented in this encounter Care Teams Airplane Electrician Relationship Specialty Start Date End Date Wood Mahan MD PCP - General 08/10/09 03/11/22 documented as of this encounter
--- OUTSIDE RECORDS SUMMARY | 2024-06-05 13:40 | XMS_ITS | Encounter Summary ---
Author Organization [facility] Address [address] [place] [address] Care Team Providers Care Lead Front End Developer Name Role Phone Wood Mahan MD Primary Care Provi cherie Reason for Visit * Reason Comments Medicare Wellness welcome Encounter Details Date Type Department Care Team (Late st Contact Info) Description 02/05/2021 2:30 PM CDT Office Visit [facility] [address] [place] [address] Wood Mahan MD [address] [place] [address] Welcome to Medicare preventive visit (Primary Dx); BMI 21.0-21.9, adult; Bilateral carotid artery stenosis; Pure hypercholesterolemia; Recurrent major depressive disorder, in full remission (CMS/HCC) (HCC); Medicare welcome visit; Osteopenia of multiple sites; IGT (impaired glucose tolerance) Social History Tobacco Use Types Packs/Day Years [...] on file Legal Sex Female 9: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 Gender Identity Not on file Sexual Orientation Not on file documented as of this encounter Last Filed Vital Signs Vital Sign Reading Time Taken Comments Blood Pressure 126/72 02/05/2021 2:26 PM CDT Pulse 60 02/05/2021 2:26 PM CDT Temperature - - Respiratory Rate 18 02/05/2021 2:26 PM CDT Oxygen Saturation - - Inhaled Oxygen Concentration - - Weight 61.2 kg (135 lb) 02/05/2021 2:26 PM CDT Height 167.6 cm (5' 6 ) 02/05/2021 2:26 PM CDT Body Mass Index 21.79 02/05/2021 2:26 PM CDT documented in this encounter Progress Notes * Wood Mahan MD - 02/05/2021 2:30 PM CDT Subjective/Objective Patient ID: Renee Vance is a 66 y.o. female. Chief Complaint Medicare Wellness (welcome) welcome deprieons igt lipids carotid dis HPI Review of Systems Constitutional: Negative. HENT: Negative. Eyes: Negative. Respiratory: Negative. Cardiovascular: Negative. Gastrointestinal: Negative. Endocrine: Negative. Genitourinary: Negative. Musculoskeletal: Negative. Skin: Negative. Allergic/Immunologic: Negative. Neurological: Negative. Hematological: Negative. Psychiatric/Behavioral: Negative. All other systems reviewed and are negative. Vitals: 02/05/21 1426 BP: 126/72 Pulse: 60 Resp: 18 Weight: 61.2 kg (135 lb) Height: 167.6 [...] light. Neck: Thyroid: No thyromegaly. Vascular: No JVD. Trachea: [...] rebound. Hernia: No hernia is present. Musculoskeletal: General: No tenderness or deformity. Normal range of motion. Cervical back: Normal range of motion and neck supple. Lymphadenopathy: Cervical: No cervical adenopathy. Skin: General: [...] Diagnoses and all orders for this visit: Welcome to Medicare preventive visit (Primary) - ECG 12 lead BMI 21.0-21.9, adult Assessment & Plan: stabl nhung dgood wt. Bilateral carotid artery stenosis Assessment & Plan: Needs updated carotid study and agrees to . So r emilw on return but with tight risk should be stable to [facility]. Pure hypercholesterolemia Assessment & Plan: ldl at 54 and great and keep here to pfevent and revers arterial disease. No added diet Recurrent major depressive disorder, in full remission (CMS/HCC) ([facility]) Assessment & Plan: devyn horner abd bi changes Medicare welcome visit Assessment & Plan: Low fall risk derpoiens screen nl cog screeen nl colon and blanco up to date. Suggest p shot sersies and covid series done. Heart rate 57 nsr axis 71 nl no ekg with rate 57and take p 13 in 6months on reutrn as getting trip planned Osteopenia of multiple sites Assessment & Plan: Check on reutorn as 2 yrs out. And check vit d on reutrn Side effects, risks, interactions reviewed with patient. [...] Plan Note - Wood Mahan MD - 02/18/2021 3:03 PM CDTAssociated Problem(s): IGT (impaired glucose tolerance) a1c controlled with diet and exercises at 5.2 and cont to work to keep low * Assessment & Plan Note - Wood Mahan MD - 02/05/2021 3:29 PM CDTAssociated Problem(s): Osteopenia of multiple sites Check on reutorn as 2 yrs out. And check vit d on reutrn * Assessment & Plan Note - Wood Mahan MD - 02/05/2021 3:27 PM CDTAssociated Problem(s): Healthcare maintenance Low fall risk derpoiens screen nl cog screeen nl colon and blanco up to date. Suggest p shot sersies and covid series done. Heart rate 57 nsr axis 71 nl no ekg with rate 57and take p 13 in 6months on reutrn as getting trip planned * Assessment & Plan Note - Wood Mahan MD - 02/05/2021 3:26 PM CDTAssociated Problem(s): Recurrent major depressive disorder, in full remission (CMS/HCC) (HCC) (Resolved 03/21/2022) wekk cibtirkked abd bi changes * Assessment & Plan Note - Wood Mahan MD - 02/05/2021 3:24 PM CDTAssociated Problem(s): Pure hypercholesterolemia ldl at 54 and great and keep here to pfevent and revers arterial disease. No added diet * Assessment & Plan Note - Wood Mahan MD - 02/05/2021 3:24 PM CDTAssociated Problem(s): BMI 21.0-21.9, adult (Resolved 07/06/2023) stabl nhung dgood wt. * Assessment & Plan Note - Wood Mahan MD - 02/05/2021 3:22 PM CDTAssociated Problem(s): Bilateral carotid artery stenosis Needs updated carotid study and agrees to . So r emilw on return but with tight risk should be stable to [facility]. documented in this encounter Plan of Treatment Not on file documented as of this encounter Procedures Procedure Name Priority Date/Time Associated Diagnosis Comments ECG 12-LEAD Routine 02/05/2021 Welcome to Medicare preventive visit documented in this encounter Results * ECG 12 lead (02/05/2021) Wood Mahan MD ECG ORDERABLES Fin al Result documented in this encounter Visit Diagnoses Diagnosis Welcome to Medicare preventive visit- Primary BMI 21.0-21.9, adult Bilateral carotid artery stenosis Occlusion and stenosis of carotid artery without mention of cerebral infarction Pure hypercholesterolemia Recurrent major depressive disorder, in full remission ([facility]) ([facility]) Medicare welcome visit Osteopenia of multiple sites IGT (impaired glucose tolerance) Impaired glucose tolerance test documented in this encounter Care Teams Lead Front End Developer Relationship Specialty Start Date End Date Wood Mahan MD PCP - General 08/10/09 03/11/22 documented as of this encounter
--- OUTSIDE RECORDS SUMMARY | 2024-06-05 13:40 | XMS_ITS | Encounter Summary ---
Author Organization [facility] Medical [facility] Address [address] [place] [address] Care Team Providers Care Furniture Removalist'S Assistant Name Role Phone Wood Mahan MD Primary Care Provi [facility] Encounter Details Date Type Department Care Team (Late st Contact Info) Description 12/06/2019 Orders Only [facility] [address] [place] [id number] Wood Mahan MD [address] [place] [address] Social History Tobacco Use Types Packs/Day Years Used Date Smoking Tobacco: Former Smokeless Tobacco: Former Alcohol Use Standard Drinks/Week Comments No 0 (1 standard drink = 0.6 oz pur e alcohol) PHQ-2 Answer Date Recorded PHQ-2 Score 0 12/05/2019 Comments No Sex and Gender Information Value Date Recorded Sex Assigned at Not on file Legal Sex Female 9:51 AM 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 SERVER Gender Identity Not on file Sexual Orientation Not on file documented as of this encounter Plan of Treatment Not on file documented as of this encounter Procedures Procedure Name Priority Date/Time Associated Diagnosis Comments SCAN - LABS Routine 12/06/2019 documented in this encounter Results * SCAN - LABS (12/06/2019) us Historical Provider Final Res ult documented in this encounter Visit Diagnoses Not on filedocumented in this encounter Care Teams Furniture Removalist'S Assistant Relationship Specialty Start Date End Date Wood Mahan MD PCP - General 08/10/09 03/11/22 documented as of this encounter
--- OUTSIDE RECORDS SUMMARY | 2024-06-05 13:40 | XMS_ITS | Encounter Summary ---
Author Organization [facility] Care Team Providers Care Painter Ordnance Name Role Phone Wood Mahan MD Primary Care Provi cherie Encounter Details Date Type Department Care Team (Latest Contact Info) Description 04/08/2019 Travel Social History Tobacco Use Types Packs/Day Years Used Date Smoking Tobacco: Former Smokeless Tobacco: Former Alcohol Use Standard Drinks/Week Comments No 0 (1 standard drink = 0.6 oz pur e alcohol) PHQ-2 Answer Date Recorded PHQ-2 Score 0 01/27/2019 Comments No Sex and Gender Information Value Date Recorded Sex Assigned at Not on file Legal Sex Female 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
--- OUTSIDE RECORDS SUMMARY | 2024-06-05 13:40 | XMS_ITS | Encounter Summary ---
Author Organization [facility] Medical [facility] Address [address] [place] [id number] Care Team Providers Care Field Crop Farming Supervisor Name Role Phone Wood Mahan MD Primary Care Provi cherie Reason for Visit * Reason Comments Vitamin D Deficiency Encounter Details Date Type Department Care Team (Latest Contact Info) Description 08/27/2020 8:00 AM CDT Office Visit [facility] [address] [place] [address] Wood Mahan MD [address] [place] [address] Gastroesophageal reflux disease without esophagitis (Primary Dx); BMI 21.0-21.9, adult; Bilateral carotid artery stenosis; Pure hypercholesterolemia; Recurrent major depressive disorder, in full remission (CMS/HCC); Dog bite, initial encounter Social History Tobacco Use Types Packs/Day Years [...] on file 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 Gender Identity Not on file Sexual Orientation Not on file documented as of this encounter Last Filed Vital Signs Vital Sign Reading Time Taken Comments Blood Pressure 124/74 08/27/2020 8:02 AM CDT Pulse 76 08/27/2020 8:02 AM CDT Temperature - - Respiratory Rate 18 08/27/2020 8:02 AM CDT Oxygen Saturation - - Inhaled Oxygen Concentration - - Weight 61.2 kg (135 lb) 08/27/2020 8:02 AM CDT Height 167.6 cm (5' 6 ) 08/27/2020 8:02 AM CDT Body Mass Index 21.79 08/27/2020 8:02 AM CDT documented in this encounter Progress Notes * Wood Mahan MD - 08/27/2020 8:00 AM CDT Subjective/Objective Patient ID: Renee Vance is a 65 y.o. female. Chief Complaint Vitamin D Deficiency clears thorat irritated. Lipids carotid disease depresoin well contorlled HPI Review of Systems Constitutional: Negative. HENT: Negative for congestion, ear pain, facial swelling, hearing loss, mouth sores, nosebleeds, postnasal drip, rhinorrhea, sinus pressure, sneezing, sore throat, tinnitus, trouble swallowing and voice change. Eyes: Negative. Respiratory: Negative. Cardiovascular: Negative. Gastrointestinal: Negative. Gerd likte complaints Endocrine: Negative. Genitourinary: Negative for decreased urine volume, difficulty urinating, dysuria, flank pain, frequency, genital sores, hematuria and urgency. Nocturia negative Musculoskeletal: Negative. Skin: Negative for skin lesions Negative for puritis Negative for hives Neurological: Negative. Hematological: Negative. Psychiatric/Behavioral: Negative. Vitals: 08/27/20 0802 BP: 124/74 Pulse: 76 Resp: 18 Weight: 61.2 kg (135 lb) Height: 167.6 cm (5' 6 ) Physical Exam Constitutional: Appearance: She is well-developed. HENT: Head: Normocephalic and atraumatic. Eyes: Pupils: Pupils are equal, round, and reactive to light. Cardiovascular: Rate and Rhythm: Normal rate and regular rhythm. Pulmonary: Effort: Pulmonary effort is normal. Breath sounds: Normal breath sounds. Abdominal: General: Bowel sounds are normal. Palpations: Abdomen is soft. Musculoskeletal: General: Normal range of motion. Cervical back: Normal range of motion and neck supple. Skin: General: Skin is warm and dry. Neurological: Mental Status: She is alert and oriented to person, place, and time. Psychiatric: Behavior: Behavior normal. Thought Content: Thought content normal. Judgment: Judgment normal. Assessment/Plan Diagnoses and all orders for this visit: Gastroesophageal reflux disease without esophagitis (Primary) Assessment & Plan: Clearing throat . Irritation no obvious gerd trial life styole chaznges and see if enough if not trial ppi for several weeks. For now gavixcon at [facility] and prn and report. otc prilosec works BMI 21.0-21.9, adult Assessment & Plan: Work to keep tight Bilateral carotid artery stenosis Assessment & Plan: Tight ldl at 72 and stay on meds as on and repeat scan two yrs from first Pure hypercholesterolemia Assessment & Plan: ldl 73 and 72 last and prior [...] along with whole milk products And limited. Recurrent major depressive disorder, in full remission (CMS/[facility]) Assessment & Plan: Well cont roolled on meds and cont on as is. Dog bite, initial encounter Assessment & Plan: Cleared nicely and get update on dog bite. tetnus as had covid 1 wk ago will wait on tetnus and getMonth after covid 2nd. Side effects, risks, interactions reviewed with patient. [...] Plan Note - Wood Mahan MD - 08/27/2020 8:30 AM CDTAssociated Problem(s): Dog bite (Resolved 02/05/2021) Cleared nicely and get update on dog bite. tetnus as had covid 1 wk ago will wait on tetnus and getMonth after covid 2nd. * Assessment & Plan Note - Wood Mahan MD - 08/27/2020 8:24 AM CDTAssociated Problem(s): Recurrent major depressive disorder, in full remission (CMS/HCC) (HCC) (Resolved 03/21/2022) Well cont roolled on meds and cont on as is. * Assessment & Plan Note - Wood Mahan MD - 08/27/2020 8:23 AM CDTAssociated Problem(s): Pure hypercholesterolemia ldl 73 and 72 last and prior [...] Plan Note - Wood Mahan MD - 08/27/2020 8:23 AM CDTAssociated Problem(s): BMI 21.0-21.9, adult (Resolved 07/06/2023) Work to keep tight * Assessment & Plan Note - Wood Mahan MD - 08/27/2020 8:22 AM CDTAssociated Problem(s): Bilateral carotid artery stenosis Tight ldl at 72 and stay on meds as on and repeat scan two yrs from first * Assessment & Plan Note - Wood Mahan MD - 08/27/2020 8:21 AM CDTAssociated Problem(s): GERD (gastroesophageal reflux disease) Clearing throat . Irritation no obvious gerd trial life styole chaznges and see if enough if not trial ppi for several weeks. For now gavixcon at [facility] and prn and report. otc prilosec works documented in this encounter Plan of Treatment Not on file documented as of this encounter Visit Diagnoses Diagnosis Gastroesophageal reflux disease without esophagitis- Primary Esophageal reflux BMI 21.0-21.9, adult Bilateral carotid artery stenosis Occlusion and stenosis of carotid artery without mention of cerebral infarction Pure hypercholesterolemia Recurrent major depressive disorder, in full remission (CMS/HCC) (HCC) Dog bite, initial encounter documented in this encounter Historical Medications * This list may reflect changes made after this encounter. ketoconazole (NIZORAL) 2 % cream ketoconazole 2 % topical cream APPLY BID TO TOES AND TOE WEBS ON LEFT FOOT FOR 8 WEEKS 2 added in this encounter Care Teams Field Crop Farming Supervisor Relationship Specialty Start Date End Date Wood Mahan MD PCP - General 08/10/09 03/11/22 documented as of this encounter
--- OUTSIDE RECORDS SUMMARY | 2024-06-05 13:40 | XMS_ITS | Encounter Summary ---
Author Organization [facility] Healthcare Address [address] [place] [address] Care Team Providers Care Graves Registration Specialist Name Role Phone Pamela Huang MD Primary Care Provi cherie Reason for Referral * Diagnostic Imaging (Routine) - Closed Specialty Diagnoses / Procedures Referred By Alyx cho Referred To Contact Diagnoses Screening mammogram, encounter for Procedures Screening Mammogram Bilateral W Pamela Merino MD Phone: tel: fax: [address] [phone] Referral ID Status Reason Start Date Expiration Date Visits Re quested Visits Authorized [id number] Closed 06/22/2019 12/31/2020 1 1 Reason for Visit * Diagnostic Imaging (Routine) - Closed Specialty Diagnoses / Procedures Referred By Alyx cho Referred To Contact Diagnoses Screening mammogram, encounter for Procedures Screening Mammogram Bilateral W Pamela Merino MD Phone: tel: fax: [address] [phone] Referral ID Status Reason Start Date Expiration Date Visits Re quested Visits Authorized [id number] Closed 06/22/2019 12/31/2020 1 1 Encounter Details Date Type Department Care Team (Latest Contact Info) Description 09/06/2020 10:09 AM CDT - 09/06/2020 11:59 PM CDT Hospital Encounter [facility] [address] [id number] Pamela Huang MD [address] [place], [place] [id number] Screening mammogram, encounter for Discharge Disposition: Discharge [...] on file 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 Gender Identity Not on file Sexual Orientation Not on file documented as of this encounter Last Filed Vital Signs Vital Sign Reading Time Taken Comments Blood Pressure - - Pulse - - Temperature - - Respiratory Rate - - Oxygen Saturation - - Inhaled Oxygen Concentration - - Weight 61.2 kg (135 lb) 09/06/2020 10:18 AM CDT Height - - Body Mass Index 21.79 08/27/2020 8:02 AM CDT documented in this encounter Medications at Time [...] 03/08/2020 2 atorvastatin (LIPITOR) 10 mg tablet 1/2 a day 45 tablet 3 12/05/2019 1 FLUoxetine (PROzac) 20 mg tablet TAKE 1 TABLET(20 MG) BY MOUTH DAILY 90 tablet 3 02/07/2020 1 ketoconazole (NIZORAL) 2 % cream ketoconazole 2 [...] SAEED Schedule Routine, Read Routine (OP Routine) 09/06/2020 10:26 AM CDT Screening mammogram, encounter for documented in this encounter Results * Screening Mammogram Bilateral W Saeed (09/06/2020 10:26 AM CDT) Anatomical Region Laterality Modality Breast Bilateral Mammography 09/06/2020 2:47 PM CDT Impressions 09/06/2020 2:52 PM CDT There is no mammographic evidence of malignancy. A 1 year screening mammogram is recommended. BI-RADS: 1 - Negative. The patient will be entered into a reminder system with a target due date of 1 year for her next mammogram. Electronically signed by: Javier Houser M.D. Narrative 09/06/2020 2:52 PM CDT EXAMINATION: SCREENING MAMMOGRAM BILATERAL W SAEED ORDERING HEALTHCARE PROVIDER: PAMELA HUANG HISTORY: Routine screening mammography. COMPARISON: ??06/21/2019, 04/07/2018, 02/18/2017, 01/23/2016. TECHNIQUE: CC and MLO views of the bilateral breasts were obtained with digital technique using breast tomosynthesis with C view. Computer aided detection was utilized. FINDINGS: DENSITY: The tissue of the bilateral breasts is heterogeneously dense, which may obscure small masses. BREASTS: There are no suspicious masses, suspicious calcifications, or other suspicious findings in either breast. There has been no suspicious interval change. us Pamela Huang MD IMG MAMMO PROCEDURE S Final Result documented in this encounter Visit Diagnoses Diagnosis Screening mammogram, encounter for documented in this encounter Care Teams Graves Registration Specialist Relationship Specialty Start Date End Date Pamela Huang MD PCP - General 08/10/09 03/11/22 documented as of this encounter
--- OUTSIDE RECORDS SUMMARY | 2024-06-05 13:40 | XMS_ITS | Encounter Summary ---
Author Organization [facility] Medical Group Address [address] [place] [address] Care Team Providers Care Reproduction Artist Name Role Phone Wood Mahan MD Primary Care Provi cherie Reason for Visit * Reason Comments Flu Vaccine Encounter Details Date Type Department Care Team (Latest Contact Info) Description 04/08/2019 3:15 PM CDT Clinical Support [facility] [address] [place] [address] [address] [place] [address] Flu vaccine need (Primary Dx) Social History Tobacco Use Types Packs/Day Years Used Date Smoking Tobacco: Former Smokeless Tobacco: Former Alcohol Use Standard Drinks/Week Comments No 0 (1 standard drink = 0.6 oz pur e alcohol) PHQ-2 Answer Date Recorded PHQ-2 Score 0 01/27/2019 Comments No Sex and Gender Information Value Date Recorded Sex Assigned at Not on file 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
--- OUTSIDE RECORDS SUMMARY | 2024-06-05 13:40 | XMS_ITS | Encounter Summary ---
Author Organization [facility] Address [address] [place] [address] Care Team Providers Care Wire Stockkeeper Name Role Phone Wood Mahan MD Primary Care Provi cherie Encounter Details Date Type Department Care Team (Late st Contact Info) Description 08/27/2020 Orders Only [facility] [address] [place] [id number] [place] [address] Gastroesophageal reflux disease with esophagitis without hemorrhage (Primary Dx); B12 deficiency; Pure hypercholesterolemia; Bilateral carotid artery stenosis Social History Tobacco Use Types Packs/Day Years [...] on file 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 Gender Identity Not on file Sexual Orientation Not on file documented as of this encounter Progress Notes * Maria Ines Gilbert - 08/27/2020 8:38 AM CDT Lab for [facility] due 01/2021 lam martinez 10/2020 documented in this encounter Plan of Treatment Not on file documented as of this encounter Procedures Procedure Name Priority Date/Time Associated Diagnosis Comments LIPID PANEL WITH REFLEX TO DIRECT LDL Routine 01/25/2021 8:08 AM CDT Gastroesophageal reflux disease with esophagitis without hemorrhage B12 deficiency Pure hypercholesterolemi a Bilateral carotid artery stenosis HEMOGLOBIN A1C Routine 01/25/2021 8:08 AM CDT Gastroesophageal reflux disease with esophagitis without hemorrhage B12 deficiency Pure hypercholesterolemi a Bilateral carotid artery stenosis VITAMIN B12 Routine 01/25/2021 8:08 AM CDT Gastroesophageal reflux disease with esophagitis without hemorrhage B12 deficiency Pure hypercholesterolemi a Bilateral carotid artery stenosis COMPREHENSIVE METABOLIC PANEL Routine 01/25/2021 8:08 AM CDT Gastroesophageal reflux disease with esophagitis without hemorrhage B12 deficiency Pure hypercholesterolemi a Bilateral carotid artery stenosis documented in this encounter Results * Hemoglobin A1c (01/25/2021 8:08 AM CDT) Hgb A1C 5.2 <5.7 % [facility] (specimen) 01/25/2021 8:08 AM CDT 01/25/2021 8:09 AM CDT [facility] - 01/26/2021 7:33 AM CDT FASTING:YES FASTING: YES us Wood Mahan MD LAB BLOOD ORDERABLE S Final Result [facility] [address] [place] [address] * Vitamin B12 (01/25/2021 8:08 AM CDT) Vitamin B12 783 200 - 1,100 pg/mL [facility] Blood specimen (specimen) 01/25/2021 8:08 AM CDT 01/25/2021 8:09 AM CDT Narrative [facility] - 01/26/2021 7:33 AM CDT FASTING:YES FASTING: YES us Wood Mahan MD LAB BLOOD ORDERABLE S Final Result [facility] [address] [address] * Comprehensive metabolic panel (01/25/2021 8:08 AM CDT) Pathologist [facility] Glucose 87 65 - 99 mg/dL [facility] Comment: ? Fasting reference interval BUN 10 7 - 25 mg/dL [facility] Creatinine 0.68 0.50 - 0.99 mg/dL [facility] Comment: For patients >49 years of age, the reference limit for Creatinine is approximately 13% higher for people identified as -Egyptian. eGFR NON-AFR. GEORGIAN 92 > OR = 60 mL/min/1 .73m2 [facility] EGFR 106 > OR = 60 mL/min/1 .73m2 [facility] BUN/creat ratio NOT APPLICABLE 6 - 22 (calc) [facility] Sodium 136 135 - 146 mmol/L [facility] Potassium, pl 4.7 3.5 - 5.3 mmol/L [facility] Chloride 102 98 - 110 mmol/L [facility] CO2 28 20 - 32 mmol/L [facility] Calcium 9.1 8.6 - 10.4 mg/dL [facility] Protein, sr 6.2 6.1 - 8.1 g/dL [facility] Albumin 4.1 3.6 - 5.1 g/dL [facility] GLOBULIN 2.1 1.9 - 3.7 g/dL (calc) [facility] Alb/glob ratio 2.0 1.0 - 2.5 (calc) [facility] Bilirubin, total 0.5 0.2 - 1.2 mg/dL [facility] Alk phos 66 37 - 153 U/L [facility] AST 18 10 - 35 U/L [facility] ALT (SGPT) 10 6 - 29 U/L [facility] Blood specimen (specimen) 01/25/2021 8:08 AM CDT 01/25/2021 8:09 AM CDT Narrative [facility] - 01/26/2021 7:33 AM CDT FASTING:YES FASTING: YES Wood Mahan MD LAB BLOOD ORDERABLE S Final Result [facility] [address] [address] * Lipid panel with reflex to direct LDL (01/25/2021 8:08 AM CDT) Cholesterol 157 <200 mg/dL [facility] HDL 90 > OR = 50 mg/dL [facility] Triglycerides 57 <150 mg/dL [facility] LDL 54 mg/dL (calc) [facility] Comment: Reference [...] LDL-C. Tyrone BONILLA et al. BON. 2013;310(19): 1637-1131 (http://education.[employer]us.App DreamWorks/faq/BKV507) Chol/HDL ratio 1.7 <5.0 (calc) [facility] Non-HDL, (LDL+VLDL) 67 <130 mg/dL (calc) [facility] Comment: For patients with diabetes plus 1 major ASCVD risk factor, treating to a non-HDL-C goal of <100 mg/dL (LDL-C of <70 mg/dL) is considered a therapeutic option. Blood specimen (specimen) 01/25/2021 8:08 AM CDT 01/25/2021 8:09 AM CDT Narrative [facility] - 01/26/2021 7:33 AM CDT FASTING:YES FASTING: YES us Wood Mahan MD LAB BLOOD ORDERABLE S Final Result [facility] [address] [place] [address] documented in this encounter Visit Diagnoses Diagnosis Gastroesophageal reflux disease with esophagitis without hemorrhage- Primary B12 deficiency Pure hypercholesterolemia Bilateral carotid artery stenosis Occlusion and stenosis of carotid artery without mention of cerebral infarction documented in this encounter Care Teams Wire Stockkeeper Relationship Specialty Start Date End Date Wood Mahan MD PCP - General 08/10/09 03/11/22 documented as of this encounter
--- OUTSIDE RECORDS SUMMARY | 2024-06-05 13:40 | XMS_ITS | Encounter Summary ---
Author Organization [facility] Address [address] [place] [id number] Care Team Providers Care Tipple Worker Name Role Phone Wood Mahan MD Primary Care Provi cherie Encounter Details Date Type Department Care Team (Late st Contact Info) Description 11/15/[address] [address] Wood Mahan MD [address] [place] [address] Routine lab draw; PE (physical exam), annual; B12 deficiency; Vitamin D deficiency Social History Tobacco Use Types Packs/Day Years Used Date Smoking Tobacco: Former Smokeless Tobacco: Former Alcohol Use Standard Drinks/Week Comments No 0 (1 standard drink = 0.6 oz pur e alcohol) Comments No Sex and Gender Information Value Date Recorded Sex Assigned at Not on file 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 Gender Identity Not on file Sexual Orientation Not on file documented as of this encounter Plan of Treatment Not on file documented as of this encounter Procedures Procedure Name Priority Date/Time Associated Diagnosis Comments DIFFERENTIAL AUTO Routine 11/15/2018 9:1 0 AM CDT PE (physical exam), annual URINALYSIS AND REFLEX TO MICROSCOPIC AND CULTURE Routine 11/15/2018 9:10 AM CDT PE (physical exam), annual CBC WITH AUTO DIFFERENTIAL Routine 11/15/2018 9:10 AM CDT PE (physical exam), annual VITAMIN D 25 HYDROXY Routine 11/15/2018 9:10 AM CDT PE (physical exam), annual Vitamin D deficiency TSH Routine 11/15/2018 9:10 AM CDT PE (physical exam), annual VITAMIN B12 Routine 11/15/2018 9:10 AM CDT PE (physical exam), annual B12 deficiency LIPID PANEL Routine 11/15/2018 9:10 AM CDT Routine lab draw COMPREHENSIVE METABOLIC PANEL Routine 11/15/2018 9:10 AM CDT PE (physical exam), annual documented in this encounter Results * Differential, auto (11/15/2018 9:10 AM CDT) Neutrophil abs 1.9 1.7 - 6.5 K/cumm [facility] Imm gran abs 0.0 0.0 - 0.1 K/cumm [facility] Lymphocyte abs 1.3 0.8 - 3.3 K/cumm [facility] Monocyte abs 0.3 0.2 - 0.8 K/cumm [facility] Eosinophil abs 0.0 0.0 - 0.5 K/cumm [facility] Basophil abs 0.0 0.0 - 0.1 K/cumm [facility] Neutrophil pct 52.1 % [facility] Comment: Interpretive Data Percent cell count reference ranges are not reported, since discordance with absolute values may lead to misinterpretation of CBC data. Current Interpretive Data was last revised on 2017. Imm gran pct 0.3 % [facility] Comment: Interpretive Data Percent cell count reference ranges are not reported, since discordance with absolute values may lead to misinterpretation of CBC data. Current Interpretive Data was last revised on 2017. Lymphocyte pct 36.8 % [facility] Comment: Interpretive Data Percent cell count reference ranges are not reported, since discordance with absolute values may lead to misinterpretation of CBC data. Current Interpretive Data was last revised on 2017. Monocyte pct 8.0 % [facility] Comment: Interpretive Data Percent cell count reference ranges are not reported, since discordance with absolute values may lead to misinterpretation of CBC data. Current Interpretive Data was last revised on 2017. Eosinophil pct 1.4 % [facility] Comment: Interpretive Data Percent cell count reference ranges are not reported, since discordance with absolute values may lead to misinterpretation of CBC data. Current Interpretive Data was last revised on 2017. Basophil pct 1.4 % [facility] Comment: Interpretive Data Percent cell count reference ranges are not reported, since discordance with absolute values may lead to misinterpretation of CBC data. Current Interpretive Data was last revised on 2017. Blood specimen (specimen) 11/15/2018 9:10 AM CDT 11/15/2018 3:02 PM CDT Narrative [facility] - 11/15/2018 3:11 PM CDT Wood Mahan MD LAB BLOOD ORDERABLE S Final Result [facility] [address] Department [place] [address] * (ABNORMAL) Urinalysis reflex to microscopic and culture Urine, clean voided (11/15/2018 9:10 AM CDT) Color, ur Yellow Yellow [facility] Clarity, ur Clear Clear [facility] Specific gravity, ur 1.004(L) 1.010 - 1.025 [facility] pH, urine 7.0 [facility] Protein, ur ql Negative Negative [facility] Glucose, ur ql Negative Negative [facility] Ketones, ur Negative Negative [facility] Bilirubin, ur Negative Negative [facility] Blood, ur Negative Negative [facility] Urobilinogen, ur <2.0 <2.0 mg/dL [facility] Nitrite, ur Negative Negative [facility] Leukocyte esterase, ur Negative Negative [facility] Urine, clean voided 11/15/2018 9:10 AM CDT 11/15/2018 3:02 PM CDT Narrative [facility] - 11/15/2018 3:11 PM CDT ?? Urine pH is affected by diet, medications, systemic acid-base disturbances, and renal tubular function. ??pH may affect urinary stone formation. ??For example, urine pH below 6.0 may help reduce the tendency for calcium phosphate stones and pH greater than 6.0 may reduce the tendency for uric acid stone formation. Source: [facility]. Last revised 06-18-2017 us Wood Mahan MD LAB MICROBIOLOGY - GENERAL ORDERABLES Final Result Performing Organization Address [facility] de Phone Number [facility] [address] [place] [address] * TSH (11/15/2018 9:10 AM CDT) Pathologist [facility] Thyroid Stimulating Hormone 1.76 0.30 - 4.20 mcIUnit/mL [facility] Blood specimen (specimen) 11/15/2018 9:10 AM CDT 11/15/2018 3:02 PM CDT Narrative [facility] - 11/15/2018 3:57 PM CDT Wodo Mahan MD LAB BLOOD ORDERABLE S Final Result Performing Organization Address [facility] de Phone Number [facility] MCCULLOUGH [address] [address] * (ABNORMAL) Comprehensive metabolic panel (11/15/2018 9:10 AM CDT) Sodium 140 135 - 145 mmol/L [facility] Potassium, pl 4.5 3.3 - 4.9 mmol/L [facility] Chloride 101 97 - 110 mmol/L [facility] CO2 27 22 - 32 mmol/L [facility] Anion gap 12 2 - 15 mmol/L [facility] BUN 11 8 - 25 mg/dL [facility] Creatinine 0.54(L) 0.60 - 1.10 mg/dL [facility] Glucose 85 70 - 199 mg/dL [facility] Comment: Interpretive Data Fasting glucose >/= 126 mg/dl is diagnostic for diabetes. ?? Fasting is defined as no caloric intake for at least 8 hours. Fasting glucose between 100 mg/dl to 125 mg/dl is diagnostic of prediabetes. In a patient with classic symptoms of hyperglycemia or hyperglycemic crisis, a random glucose >/= 200 mg/dl is diagnostic for diabetes. In the absence of unequivocal hyperglycemia, results should be confirmed by repeat testing. The classification and Diagnosis of Diabetes Diabetes Care 2017;40 (Suppl. 1):S11. Current interpretive data was last revised 2017. Calcium 8.9 8.5 - 10.3 mg/dL [facility] Bilirubin, total 0.5 0.1 - 1.2 mg/dL [facility] Protein, pl 6.6 6.5 - 8.5 g/dL [facility] Albumin 4.5 3.5 - 5.0 g/dL [facility] Alk phos 61 40 - 130 Units/L [facility] ALT 12 7 - 45 Units/L [facility] AST 25 10 - 45 Units/L [facility] Blood specimen (specimen) 11/15/2018 9:10 AM CDT 11/15/2018 3:02 PM CDT Narrative [facility] - 11/15/2018 3:57 PM CDT Wood Mahan MD LAB BLOOD ORDERABLE S Final Result [facility] [address] Department [place] [address] * (ABNORMAL) CBC with auto differential (11/15/2018 9:10 AM CDT) WBC 3.6(L) 3.8 - 9.9 K/cumm [facility] Hgb 13.8 11.9 - 15.5 g/dL [facility] Hct 42.2 35.6 - 45.5 % [facility] Plt 262 150 - 400 K/cumm [facility] MPV 10.1 9.1 - 12.3 fL [facility] RBC 4.21 3.90 - 5.20 M/cumm [facility] MCV 100.2(H) 81.3 - 96.4 fL [facility] MCH 32.8 27.1 - 33.3 pg [facility] MCHC 32.7 32.3 - 35.7 g/dL [facility] RDW CV 12.6 11.1 - 14.9 % [facility] RDW SD 46.9 35.7 - 48.1 fL [facility] NRBC abs 0.00 0.00 - 0.01 K/cumm [facility] Blood specimen (specimen) 11/15/2018 9:10 AM CDT 11/15/2018 3:02 PM CDT Narrative [facility] - 11/15/2018 3:11 PM CDT us Wood Mahan MD LAB BLOOD ORDERABLE S Final Result [facility] MCCULLOUGH [address] [facility] [place] [address] * Vitamin D 25 hydroxy (11/15/2018 9:10 AM CDT) Vitamin D 25-OH 35 30 - 80 ng/mL [facility] Blood specimen (specimen) 11/15/2018 9:10 AM CDT 11/15/2018 3:02 PM CDT Narrative [facility] - 11/15/2018 4:06 PM CDT us Wood Mahan MD LAB BLOOD ORDERABLE S Final Result [facility] MCCULLOUGH [address] [address] [facility] [place] [address] * Vitamin B12 (11/15/2018 9:10 AM CDT) Vitamin B12 996 230 - 1,250 pg/mL [facility] Blood specimen (specimen) 11/15/2018 9:10 AM CDT 11/15/2018 3:02 PM CDT Narrative [facility] - 11/15/2018 5:33 PM CDT Wood Mahan MD LAB BLOOD ORDERABLE S Final Result Performing Organization Address City/State/ZIP Co ct Phone Number MEKHI [id number] [facility] Department [place] [address] * Lipid panel (11/15/2018 9:10 AM CDT) Cholesterol 188 30 - 199 mg/dL [facility]ULL[facility] Comment: Interpretive Data Ages < or = 19 years ??Acceptable: ? <170 mg/dL ??Borderline high: ??170-199 mg/dL ??High: ? >or= 200 mg/dL Ages > or = 20 years ??Desirable: ?<200 mg/dL ??Borderline high: ??200-239 mg/dL ??High: ? >or= 240 mg/dL Literature References: 1. Expert Panel on Integrated Guidelines for Cardiovascular Health and Risk Reduction in Children and Adolescents. Pediatrics 2011;128:S213 2. NCEP Expert Panel. Circulation 2004;110:227 Current Interpretive Data was last revised on 2018. Triglycerides 48 <=149 mg/dL [facility]CCULL[facility] Comment: Interpretive Data Ages < or = 9 years ??Acceptable: ? <75 mg/dL ??Borderline high: ??75-99 mg/dL ??High: ? >or= 100 mg/dL Ages 10 to 20 years ??Acceptable: ? <90 mg/dL ??Borderline high: ??90-129 mg/dL ??High: ? >or= 130 mg/dL Ages > or = 20 years ??Desirable: ?<150 mg/dL ??Borderline high: ??150-199 mg/dL ??High: ? 200-499 mg/dL ?Very high: ?? >or= 499 mg/dL Literature References: 1. Expert Panel on Integrated Guidelines for Cardiovascular Health and Risk Reduction in Children and Adolescents. Pediatrics 2011;128:S213 2. NCEP Expert Panel. Circulation 2004;110:227 Current Interpretive Data was last revised on 2018. HDL 82 >=40 mg/dL [facility] Comment: Interpretive Data Ages < or = 19 years ??Acceptable: ? >45 mg/dL ??Borderline low: ?? 40-45 mg/dL ??Low: ? <40 mg/dL Ages > or = 20 years ??Desirable: ?>or= 60 mg/dL ??Low: ? <40 mg/dL Literature References: 1. Expert Panel on Integrated Guidelines for Cardiovascular Health and Risk Reduction in Children and Adolescents. Pediatrics 2011;128:S213 2. NCEP Expert Panel. Circulation 2004;110:227 Current Interpretive Data was last revised on 2018. LDL, calculated 96 <=129 mg/dL [facility] Comment: Interpretive Data Ages < or = 19 years ??Acceptable: ? <110 mg/dL ??Borderline high: ??110-129 mg/dL ??High: ?>or= 130 mg/dL Ages > or = 20 years ??Optimal: ? <100 mg/dL ??Near optimal: ?100-129 mg/dL ??Borderline high: ?? 130-159 mg/dL ??High: ?>160 mg/dL Literature References: 1. Expert Panel on Integrated Guidelines for Cardiovascular Health and Risk Reduction in Children and Adolescents. Pediatrics 2011;128:S213 2. NCEP Expert Panel. Circulation 2004;110:227 Current Interpretive Data was last revised on 2018. Non-HDL Cholesterol 106 mg/dL [facility] Comment: Interpretive Data Ages < or = 19 years ??Acceptable: ?<120 mg/dL ??Borderline high: ??120-144 mg/dL ??High: ?>145 mg/dL Ages > or = 20 years ??When triglycerides are >200 mg/dL, Non-HDL cholesterol is a secondary target of ? therapy with treatment goals that are 30 mg/dL greater than the LDL cholesterol target. ? Literature References: 1. Expert Panel on Integrated Guidelines for Cardiovascular Health and Risk Reduction in Children and Adolescents. Pediatrics 2011;128:S213 2. NCEP Expert Panel. Circulation 2004;110:227 Current Interpretive Data was last revised on 2018. Chol/HDL ratio 2 [facility]CCULLOUGH Blood specimen (specimen) 11/15/2018 9:10 AM CDT 11/15/2018 3:02 PM CDT Narrative [facility] MCCULLOUGH - 11/15/2018 3:57 PM CDT us Wood Mahan MD LAB BLOOD ORDERABLE S Final Result [facility] [address] [address] Department [place] [address] documented in this encounter Visit Diagnoses Diagnosis Routine lab draw PE (physical exam), annual B12 deficiency Vitamin D deficiency documented in this encounter Care Teams Tipple Worker Relationship Specialty Start Date End Date Wood Mahan MD PCP - General 08/10/09 03/11/22 documented as of this encounter
--- OUTSIDE RECORDS SUMMARY | 2024-06-05 13:40 | XMS_ITS | Encounter Summary ---
Author Organization [facility] Address [address] [place] [address] Care Team Providers Care Surveyor Name Role Phone Wood Mahan MD Primary Care Provi cherie Reason for Visit * Reason Comments Osteopenia Encounter Details Date Type Department Care Team (Latest Contact Info) Description 03/08/2020 9:15 AM CDT Office Visit [facility] [address] [place] [address] [address] [place] [phone] Wood Mahan MD [address] [place] [address] Vitamin D deficiency (Primary Dx); BMI 21.0-21.9, adult; Recurrent major depressive disorder, in full remission (CMS/HCC); Pure hypercholesterolemia Social History Tobacco Use Types [...] on file 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 Gender Identity Not on file Sexual Orientation Not on file documented as of this encounter Last Filed Vital Signs Vital Sign Reading Time Taken Comments Blood Pressure 122/74 03/08/2020 9:16 AM CDT Pulse 68 03/08/2020 9:16 AM CDT Temperature - - Respiratory Rate 16 03/08/2020 9:16 AM CDT Oxygen Saturation - - Inhaled Oxygen Concentration - - Weight 59.9 kg (132 lb) 03/08/2020 9:16 AM CDT Height 167.6 cm (5' 6 ) 03/08/2020 9:16 AM CDT Body Mass Index 21.31 03/08/2020 9:16 AM CDT documented in this encounter Ordered Prescriptions Prescription Sig Dispense Quantity Refills Last Filled Start Date End Date aspirin 81 mg chewable tablet Take 1 tablet (81 mg total) by mouth daily 30 tablet 11 03/08/2020 03/21/2022 documented in this encounter Progress Notes * Wood Mahan MD - 03/08/2020 9:15 AM CDT Subjective/Objective Patient ID: Renee Vance is a 65 y.o. female. Chief Complaint Osteopenia lipiods cad chol meds ? cxr and flu lsh ot HPI Feels good and taking 1/4 of a chol pill Review of Systems Constitutional: Negative. HENT: Negative for congestion, ear pain, facial swelling, hearing loss, mouth sores, nosebleeds, postnasal drip, rhinorrhea, sinus pressure, sneezing, sore throat, tinnitus, trouble swallowing and voice change. Eyes: Negative. Respiratory: Negative. Cardiovascular: Negative. Gastrointestinal: Negative. Endocrine: Negative. Genitourinary: Negative for decreased urine volume, difficulty urinating, dysuria, flank pain, frequency, genital sores, hematuria and urgency. Nocturia negative Musculoskeletal: Negative. Skin: Negative for skin lesions Negative for puritis Negative for hives Neurological: Negative. Hematological: Negative. Psychiatric/Behavioral: Negative. Vitals: 03/08/20 0916 BP: 122/74 Pulse: 68 Resp: 16 Weight: 59.9 kg (132 lb) Height: 167.6 cm (5' 6 ) Physical Exam Constitutional: Appearance: She is well-developed. HENT: Head: Normocephalic and atraumatic. Eyes: Pupils: Pupils are equal, round, and reactive to light. Neck: Musculoskeletal: Normal range of motion and neck supple. Cardiovascular: Rate and Rhythm: Normal rate and regular rhythm. Pulmonary: Effort: Pulmonary effort is normal. Breath sounds: Normal breath sounds. Abdominal: General: Bowel sounds are normal. Palpations: Abdomen is soft. Musculoskeletal: Normal range of motion. Skin: General: Skin is warm and dry. Neurological: Mental Status: She is alert and oriented to person, place, and time. Psychiatric: Behavior: Behavior normal. Thought Content: Thought content normal. Judgment: Judgment normal. Assessment/Plan Diagnoses and all orders for this visit: Vitamin D deficiency (Primary) Assessment & Plan: Level 38 qand good and no changes BMI 21.0-21.9, adult Assessment & Plan: St stable Recurrent major depressive disorder, in full remission (CMS/HCC) Assessment & Plan: Well controlled and sstay on e ]meds Pure hypercholesterolemia Assessment & Plan: ldl at 72 and dropped 36 and will ask to inch up taking 2.5 mg and go to athe 1/4 pil and add 1/2 of the 1/4 and target 60 if able no diedt as wtlow enough Other orders - aspirin 81 mg chewable tablet; Take 1 tablet (81 mg total) by mouth daily Side effects, [...] Plan Note - Wood Mahan MD - 03/08/2020 9:45 AM CDTAssociated Problem(s): Pure hypercholesterolemia ldl at 72 and dropped 36 and will ask to inch up taking 2.5 mg and go to athe 1/4 pil and add 1/2 of the 1/4 and target 60 if able no diedt as wtlow enough * Assessment & Plan Note - Wood Mahan MD - 03/08/2020 9:44 AM CDTAssociated Problem(s): Recurrent major depressive disorder, in full remission (CMS/HCC) (HCC) (Resolved 03/21/2022) Well controlled and sstay on e ]meds * Assessment & Plan Note - Wood Mahan MD - 03/08/2020 9:44 AM CDTAssociated Problem(s): BMI 21.0-21.9, adult (Resolved 07/06/2023) St stable * Assessment & Plan Note - Wood Mahan MD - 03/08/2020 9:43 AM CDTAssociated Problem(s): Vitamin D deficiency Level 38 qand good and no changes * Addendum Note - Nette Fowler MA - 03/08/2020 9:15 AM CDTAddended by: NETTE FOWLER on: 03/08/2020 09:51 AM Modules accepted: Orders documented in this encounter Plan of Treatment Not on file documented as of this encounter Visit Diagnoses Diagnosis Vitamin D deficiency- Primary BMI 21.0-21.9, adult Recurrent major depressive disorder, in full remission (CMS/[facility]) (HCC) Pure hypercholesterolemia documented in this encounter Orders Immunization/Injection Count Last Ordered Date First Ordered Date FLU VACCINE QUAD PF 3Y+ IM - AFLURIA 1 06/2019 documented in this encounter Care Teams Surveyor Relationship Specialty Start Date End Date Wood Mahan MD PCP - General 08/10/09 03/11/22 documented as of this encounter
--- OUTSIDE RECORDS SUMMARY | 2024-06-05 13:40 | XMS_ITS | Encounter Summary ---
Author Organization [facility] Address [address] [place] [address] Care Team Providers Care Clinician Oncology Name Role Phone Wood Mahan MD Primary Care Provi cherie Reason for Visit * Reason Comments Hyperlipidemia Encounter Details Date Type Department Care Team (Latest Contact Info) Description 10/22/2021 9:00 AM CDT Office Visit [facility] [address] [place] [address] [address] [place] [phone] Wood Mahan MD [address] [place] [address] Pure hypercholesterolemia (Primary Dx); BMI 21.0-21.9, adult; Bilateral carotid artery stenosis; Vitamin D deficiency Social History Tobacco Use [...] on file 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 Gender Identity Not on file Sexual Orientation Not on file documented as of this encounter Last Filed Vital Signs Vital Sign Reading Time Taken Comments Blood Pressure 124/74 10/22/2021 8:50 AM CDT Pulse 60 10/22/2021 8:50 AM CDT Temperature - - Respiratory Rate 16 10/22/2021 8:50 AM CDT Oxygen Saturation - - Inhaled Oxygen Concentration - - Weight 61.1 kg (134 lb 9.6 oz) 10/22/2021 8:50 A M CDT Height 167.6 cm (5' 6 ) 10/22/2021 8:50 AM CDT Body Mass Index 21.73 10/22/2021 8:50 AM CDT documented in this encounter Progress Notes * Wood Mahan MD - 10/22/2021 9:00 AM CDT Subjective/Objective Patient ID: Renee Vance is a 66 y.o. female. Chief Complaint Hyperlipidemia igt lidps aware of breathing and q uestions if nl HPI Review of Systems Constitutional: Negative. HENT: Negative for congestion, ear pain, facial swelling, hearing loss, mouth sores, nosebleeds, postnasal drip, rhinorrhea, sinus pressure, sneezing, sore throat, tinnitus, trouble swallowing and voice change. Eyes: Negative. Respiratory: Negative. Aware of bredathing on and ooff no cough no sputum no chest pain s ex smoker Cardiovascular: Negative. Gastrointestinal: Negative. Endocrine: Negative. Genitourinary: Negative for decreased urine volume, difficulty urinating, dysuria, flank pain, frequency, genital sores, hematuria and urgency. Nocturia negative Musculoskeletal: Negative. Skin: Negative for skin lesions Negative for puritis Negative for hives Neurological: Negative. Hematological: Negative. Psychiatric/Behavioral: Negative. Vitals: 10/22/21 0850 BP: 124/74 Pulse: 60 Resp: 16 Weight: 61.1 kg (134 lb 9.6 oz) Height: 167.6 cm (5' 6 ) Physical Exam Constitutional: Appearance: She is well-developed. HENT: Head: Normocephalic and atraumatic. Eyes: Pupils: Pupils are equal, round, and reactive to light. Cardiovascular: Rate and Rhythm: Normal rate and regular rhythm. Pulmonary: Effort: Pulmonary effort is normal. Breath sounds: Normal breath sounds. Comments: Maybe little decresased air moveemnt Abdominal: General: Bowel sounds are normal. Palpations: [...] Diagnoses and all orders for this visit: BMI 21.0-21.9, adult Side effects, risks, interactions reviewed with patient. [...] Plan Note - Wood Mahan MD - 10/22/2021 9:16 AM CDTAssociated Problem(s): Vitamin D deficiency vid At 46 and great. And keep same * Assessment & Plan Note - Wood Mahan MD - 10/22/2021 9:15 AM CDTAssociated Problem(s): Osteopenia of multiple sites Stable bdmd and repeat in 2 + yrs * Assessment & Plan Note - Wood Mahan MD - 10/22/2021 9:14 AM CDTAssociated Problem(s): Bilateral carotid artery stenosis On tight risk cotnroll and check every couplde yrs.as life line will do formal eval at hospital theweek before * Assessment & Plan Note - Wood Mahan MD - 10/22/2021 9:14 AM CDTAssociated Problem(s): Pure hypercholesterolemia ldl at 60 And keep same Your cholesterol in the form of ldl (bad) cholesterol,hdl(good) cholesteroland triglycerides are monitored. The triglycerides respond to [...] along with whole milk products And limited. documented in this encounter Plan of Treatment Not on file documented as of this encounter Visit Diagnoses Diagnosis Pure hypercholesterolemia- Primary BMI 21.0-21.9, adult Bilateral carotid artery stenosis Occlusion and stenosis of carotid artery without mention of cerebral infarction Vitamin D deficiency documented in this encounter Care Teams Clinician Oncology Relationship Specialty Start Date End Date Wood Mahan MD PCP - General 08/10/09 03/11/22 documented as of this encounter
--- OUTSIDE RECORDS SUMMARY | 2024-06-05 13:40 | XMS_ITS | Encounter Summary ---
Author Organization 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 Gender Identity Not on file Sexual Orientation Not on file documented as of this encounter Plan of Treatment Not on file documented as of this encounter Procedures Procedure Name Priority Date/Time Associated Diagnosis Comments CARDIOLOGY DOCUMENT SCAN Routine 04/06/2019 documented in this encounter Results * SCAN - CARDIOLOGY (04/06/2019) Anatomical Region Laterality Modality Other us Historical Provider [facility] MICKIE ANNE Final Result documented in this encounter Visit Diagnoses Not on filedocumented in this encounter Care Teams Dialysis Tech Relationship Specialty Start Date End Date Wood Mahan MD PCP - General 08/10/09 03/11/22 documented as of this encounter
--- OUTSIDE RECORDS SUMMARY | 2024-06-05 13:40 | XMS_ITS | Encounter Summary ---
Author Organization [facility] Address [address] [place] [address] Care Team Providers Care Textile Chemist Name Role Phone Pamela Huang MD Primary Care Provi cherie Reason for Referral * Diagnostic Imaging (Routine) - Closed Specialty Diagnoses / Procedures Referred By Alyx t Referred To Contact Diagnoses Screening mammogram, encounter for Procedures Screening Mammogram Bilateral W Pamela Merino MD Phone: tel: fax: [address] [phone] Referral ID Status Reason Start Date Expiration Date Visits Re quested Visits Authorized [id number] Closed 06/22/2019 12/31/2020 1 1 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 Encounter Details Date Type Department Care Team (Late st Contact Info) Description 06/22/2019 Orders Only [facility] [address] [facility] [address] [place] [address] Pamela Huang MD [address] [place] [address] Screening mammogram, encounter for (Primary Dx) Social [...] on file 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
--- OUTSIDE RECORDS SUMMARY | 2024-06-05 13:41 | XMS_ITS | Encounter Summary ---
Author Organization [facility] Address [address] [place] [address] Care Team Providers Care Communications Tower Climber Name Role Phone Wood Mahan MD Primary Care Provi 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
--- OUTSIDE RECORDS SUMMARY | 2024-06-05 13:41 | XMS_ITS | Encounter Summary ---
Author Organization [facility] Address [address] [place] [address] Care Team Providers Care Superintendent Police Name Role Phone Wood Mahan MD Primary Care Provi cherie Reason for Referral * Diagnostic Imaging (Routine) - Closed Specialty Diagnoses / Procedures Referred By Contac t Referred To Contact Diagnoses PE (physical exam), annual Procedures Dexa Axial Skeleton Bone Density 1 or 2 Site Wood Mahan MD Phone: tel: fax: [address] [phone] Referral ID Status Reason Start Date Expiration Date Visits Re quested Visits Authorized [id number] Closed 11/26/2017 06/07/2019 1 1 Reason for Visit * Diagnostic Imaging (Routine) - Closed Specialty Diagnoses / Procedures Referred By Contac t Referred To Contact Diagnoses PE (physical exam), annual Procedures Dexa Axial Skeleton Bone Density 1 or 2 Site Wood Mahan MD Phone: tel: fax: [address] [phone] Referral ID Status Reason Start Date Expiration Date Visits Re quested Visits Authorized [id number] Closed 11/26/2017 06/07/2019 1 1 Encounter Details Date Type Department Care Team (Latest Contact Info) Description 11/08/2018 11:26 AM CDT - 11/08/2018 11:59 PM CDT Hospital Encounter [facility] [address] [place] [address] Wood Mahan MD [address] [place], [place] [id number] PE (physical exam), annual Discharge Disposition: Discharge to home or self care Social History Tobacco Use Types Packs/Day Years Used Date Smoking Tobacco: Former Smokeless Tobacco: Former Alcohol Use Standard Drinks/Week Comments No 0 (1 standard drink = 0.6 oz pur e alcohol) Comments No Sex and Gender Information Value Date Recorded Sex Assigned at Not on file 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 100 capsule 02/27/2017 FLUoxetine (PROzac) 20 mg tablet Take 1 tablet (20 mg total) by mouth daily. 90 tablet 3 11/26/2017 11/29/2018 documented as of this encounter Discharge Disposition Disposition Code Departure Means Destination Discharge to home or self care documented in this encounter Plan of Treatment Not on file documented as of this encounter Procedures Procedure Name Priority Date/Time Associated Diagnosis Comments DEXA AXIAL SKELETON BONE DENSITY 1 OR MORE SITES Schedule Routine, Read Routine (OP Routine) 11/08/2018 11:44 AM CDT PE (physical exam), annual documented in this encounter Results * Dexa Axial Skeleton Bone Density 1 or 2 Site (11/08/2018 11:44 AM CDT) Anatomical Region Laterality Modality Body N/A Other 11/08/2018 12:3 6 PM CDT Impressions 11/08/2018 12:36 PM CDT 1. ??OSTEOPENIA OF THE LUMBAR SPINE. 2. ??OSTEOPENIA OF THE LEFT HIP. ?? Ten year fracture risk (FRAX Score) for major osteoporotic fracture is 14%. Risk for hip fracture is 0.7%. COMMENT: W.H.O. defines the T-score of between -1 and -2.5 as osteopenia, the level at which there may be an increased risk of developing osteoporosis and fractures in the future. ??Osteoporosis is defined as T-score lower than -2.5 (significantly increased risk of fracture due to osteoporosis). ??T-score is a comparison to peak bone mineral density of young adult reference population. ??Z-score is a comparison to bone mineral density of sex and age group population. ?? Electronically signed by: Darion Johnston M.D. Narrative 11/08/2018 12:36 PM CDT EXAM: DEXA Bone Density Axial HISTORY: post menapausal .do it after 11/05/18 63-year-old postmenopausal female who states history of vitamin D therapy. FINDINGS: LUMBAR SPINE: Mean bone mineral content is 0.900 g/cm2. The T-score is -1.3. LEFT HIP: Mean bone mineral content is 0.767 g/cm2. The neck T-score is -1.3. ?? The total T-score is -1.4. ?? Procedure Note Darion Johnston MD - 11/08/2018 EXAM: DEXA Bone Density Axial HISTORY: post menapausal .do it after 11/05/18 63-year-old postmenopausal female who states history of vitamin D therapy. FINDINGS: LUMBAR SPINE: Mean bone mineral content is 0.900 g/cm2. The T-score is -1.3. LEFT HIP: Mean bone mineral content is 0.767 g/cm2. The neck T-score is -1.3. The total T-score is -1.4. IMPRESSION: 1. OSTEOPENIA OF THE LUMBAR SPINE. 2. OSTEOPENIA OF THE LEFT HIP. Ten year fracture risk (FRAX Score) for major osteoporotic fracture is 14%. Risk for hip fracture is 0.7%. COMMENT: W.H.O. defines the T-score of between -1 and -2.5 as osteopenia, the level at which there may be an increased risk of developing osteoporosis and fractures in the future. Osteoporosis is defined as T-score lower than -2.5 (significantly increased risk of fracture due to osteoporosis). T-score is a comparison to peak bone mineral density of young adult reference population. Z-score is a comparison to bone mineral density of sex and age group population. Electronically signed by: Darion Johnston M.D. Wood Mahan MD IMG DXA PROCEDURES Final Result documented in this encounter Visit Diagnoses Diagnosis PE (physical exam), annual documented in this encounter Care Teams Superintendent Police Relationship Specialty Start Date End Date Wood Mahan MD PCP - General 08/10/09 03/11/22 documented as of this encounter
--- OUTSIDE RECORDS SUMMARY | 2024-06-05 13:41 | XMS_ITS | Encounter Summary ---
Author Organization [facility] Address [address] [place] [address] Care Team Providers Care Armored Car Guard Name Role Phone Wood Mahan MD Primary Care Provi [facility] Encounter Details Date Type Department Care Team (Latest Contact Info) Description 11/04/2016 8:37 AM CDT - 11/04/2016 11:59 PM CDT Hospital Encounter [facility] Wood Mahan MD [address] [place] [address] Discharge Disposition: Discharge to home or self care Social History Tobacco Use Types Packs/Day Years Used Date Smoking Tobacco: Never Assessed Comments Unknown Sex and Gender Information Value Date Recorded Sex Assigned at Not on file 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 Gender Identity Not on file Sexual Orientation Not on file documented as of this encounter Medications at Time of Discharge cholecalciferol (VITAMIN D3) 2,000 unit capsule 1 a day 0 0 09/02/2010 02/27/2017 cyanocobalamin (vitamin B-12) 1,000 mcg tablet 1 a day 0 07/17/2011 02/28/20 17 documented as of this encounter Discharge Disposition Disposition Code Departure Means Destination Discharge to home or self care documented in this encounter Plan of Treatment Not on file documented as of this encounter Visit Diagnoses Not on filedocumented in this encounter Care Teams Armored Car Guard Relationship Specialty Start Date End Date Wood Mahan MD PCP - General 08/10/09 03/11/22 documented as of this encounter
--- OUTSIDE RECORDS SUMMARY | 2024-06-05 13:41 | XMS_ITS | Encounter Summary ---
Author Organization [facility] Healthcare Address [address] [place] [address] Care Team Providers Care Safety Professional Name Role Phone Wood Mahan MD Primary Care Provi cherie Encounter Details Date Type Department Care Team (Late st Contact Info) Description 02/18/2017 12:58 PM CDT - 02/18/2017 11:59 PM CDT Hospital Encounter [facility] Shagufta Sprague MD [address] [place] [address] [place] [address] Discharge Disposition: Discharge to home or self care Social History Tobacco Use Types Packs/Day Years Used Date Smoking Tobacco: Former Comments Unknown Sex and Gender Information Value Date Recorded Sex Assigned at Not on file 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 60 tablet 11 11/25/2016 11/26/2017 documented as of this encounter Discharge Disposition Disposition Code Departure Means Destination Discharge to home or self care documented in this encounter Plan of Treatment Not on file documented as of this encounter Procedures Procedure Name Priority Date/Time Associated Diagnosis Comments SCREENING MAMMOGRAM Routine 02/18/2017 6 :32 PM CDT documented in this encounter Results * Screening Mammogram (02/18/2017 6:32 PM CDT) Anatomical Region Laterality Modality Breast N/A Mammography 02/18/2017 6:32 PM CDT Narrative 02/18/2017 6:32 PM CDT SCREEN MAMM BI ??Acc#: ??[id number] DATE OF EXAM: ??Feb 18 2017 ?? EXAMINATION: Digital screening mammogram with tomosynthesis. HISTORY: Breast cancer screening PRIOR: 01/23/2016 and 10/10/2014 DENSITY: Scattered fibroglandular densities FINDINGS: Little change is noted. ??No new dominant mass, architectural distortion, nipple retraction, skin thickening, or suspicious calcifications are seen. ??A few faint benign calcifications are present in the breast tissue. IMPRESSION: BIRADS Category 2: Benign finding(s). Digital technology was employed plus computer-aided detection software (R2) was utilized in interpretation of these images. This facility utilizes a reminder system to notify patients of yearly mammograms. Electronically signed by: Carson Garrido M.D. Interpreting Physician: ??CARSON GARRIDO M.D. ??Read on: ??Feb 18 2017 ?? 1:33P Transcribed by: ??PSC ??On: Feb 18 2017 ??1:31P Approved Electronically by: ??CARSON GARRIDO M.D. ??on: ??Feb 18 2017 ?? 1:31P Ordering DR: REFERRAL SELF Attending DR: DR SHAGUFTA SPRAGUE Attending: ??DR SHAGUFTA SPRAGUE Requesting: ??SELF, REFERRAL Requesting Fax: ??-- Attending Fax: ??[phone] Attending ID: ??[id number] Requesting ID: ??[id number] Report To 1 ID: ??[id number] Report To 1 Name: ??DR SHAGUFTA SPRAGUE Report To 1 FAX: ??[phone] NextGen Order #: ?? Procedure Note Miscellaneous, Not In File / Provider, MD Maria Guadalupe - 02/18/2017 SCREEN MAMM BI Acc#: [id number] DATE OF EXAM: Feb 18 2017 EXAMINATION: Digital screening mammogram with tomosynthesis. HISTORY: Breast cancer screening PRIOR: 01/23/2016 and 10/10/2014 DENSITY: Scattered fibroglandular densities FINDINGS: Little change is noted. No new dominant mass, architectural distortion, nipple retraction, skin thickening, or suspicious calcifications are seen. A few faint benign calcifications are present in the breast tissue. IMPRESSION: BIRADS Category 2: Benign finding(s). Digital technology was employed plus computer-aided detection software (R2) was utilized in interpretation of these images. This facility utilizes a reminder system to notify patients of yearly mammograms. Electronically signed by: Carson Garrido M.D. Interpreting Physician: CARSON GARRIDO M.D. Read on: Feb 18 2017 1:33P Transcribed by: [facility] On: Feb 18 2017 1:31P Approved Electronically by: CARSON GARRIDO M.D. on: Feb 18 2017 1:31P Ordering DR: REFERRAL SELF Attending DR: DR SHAGUFTA SPRAGUE Attending: DR SHAGUFTA SPRAGUE Requesting: SELF, REFERRAL Requesting Fax: -- Attending Attending ID: [id number] Requesting ID: [id number] Report To 1 ID: [id number] Report To 1 Name: DR SHAGUFTA SPRAGUE Report To 1 FAX: [phone] NextGen Order #: us Not In File Miscellaneous IMG MAMMO PROCEDURES F inal Result documented in this encounter Visit Diagnoses Not on filedocumented in this encounter Care Teams Safety Professional Relationship Specialty Start Date End Date Wood Mahan MD PCP - General 08/10/09 03/11/22 documented as of this encounter
--- OUTSIDE RECORDS SUMMARY | 2024-06-05 13:41 | XMS_ITS | Encounter Summary ---
Author Organization [facility] Address [address] [place] [address] Care Team Providers Care Social Worker Name Role Phone Wood Mahan MD Primary Care Pro[facility] Encounter Details Date Type Department Care Team (Late st Contact Info) Description 11/08/2018 Telephone [facility] [address] [place] [address] Wood Mahan MD [address] [place] [address] Social History Tobacco Use Types Packs/Day Years Used Date Smoking Tobacco: Former Smokeless Tobacco: Former Alcohol Use Standard Drinks/Week Comments No 0 (1 standard drink = 0.6 oz pur e alcohol) Comments No Sex and Gender Information Value Date Recorded Sex Assigned at Not on file 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 * Telephone Encounter - Wendy Rider - 11/08/2018 2:41 PM CDT Pt aware. Referrals * Telephone Encounter - Va De Guzman MA - 11/08/2018 1:39 PM CDT LMTC * Telephone Encounter - Va De Guzman MA - 11/08/2018 1:39 PM CDT ----- Message from Wood Mahan MD sent at 11/08/2018 1:32 PM CDT ----- bmd with jim [facility]. Recheck 2yrs documented in this encounter Plan of Treatment Not on file documented as of this encounter Visit Diagnoses Not on filedocumented in this encounter Care Teams Social Worker Relationship Specialty Start Date End Date Wood Mahan MD PCP - General 08/10/09 03/11/22 documented as of this encounter
--- OUTSIDE RECORDS SUMMARY | 2024-06-05 13:41 | XMS_ITS | Encounter Summary ---
Author Organization [facility] Address [address] [place] [address] Care Team Providers Care Building Maintenance Custodian Name Role Phone Wood Mahan MD Primary Care Pro[facility] Encounter Details Date Type Department Care Team (Late st Contact Info) Description 11/12/2017 7:15 AM CDT Lab [facility] [address] [place] [address] [place] [phone] Routine lab draw Social History Tobacco Use Types Packs/Day Years Used Date Smoking Tobacco: Former Smokeless Tobacco: Former Comments Unknown Sex and Gender Information Value Date Recorded Sex Assigned at Not on file 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
--- OUTSIDE RECORDS SUMMARY | 2024-06-05 13:41 | XMS_ITS | Encounter Summary ---
Author Organization [facility] Healthcare Address [address] [place] [address] Care Team Providers Care Overweaver Name Role Phone Wood Mahan MD Primary Care Provi cherie Encounter Details Date Type Department Care Team (Latest Contact Info) Description 03/29/2018 6:57 AM CDT - 03/29/2018 9:38 AM CDT Hospital Encounter [facility] [address] [place] [address] Mitch Mcqueen MD [address] [facility] [address] [place] [address] Tulio Serna MD [address] [facility] [address] [place] [address] Discharge Disposition: Discharge to home or self care Social History Tobacco Use Types Packs/Day Years Used Date Smoking Tobacco: Former Smokeless Tobacco: Former Alcohol Use Standard Drinks/Week Comments No 0 (1 standard drink = 0.6 oz pur e alcohol) Comments Unknown Sex and Gender Information Value Date Recorded Sex Assigned at Not on file 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 Gender Identity Not on file Sexual Orientation Not on file documented as of this encounter Last Filed Vital Signs Vital Sign Reading Time Taken Comments Blood Pressure 104/64 03/29/2018 9:26 AM CDT Pulse 60 03/29/2018 9:26 AM CDT Temperature 36.6 ??C (97.8 ??F) 03/29/2018 9:26 AM CD T Respiratory Rate 17 03/29/2018 9:26 AM CDT Oxygen Saturation 100% 03/29/2018 9:26 AM CDT Inhaled Oxygen Concentration - - Weight 59 kg (130 lb) 03/29/2018 7:58 AM CDT Height 167.6 cm (5' 6 ) 03/29/2018 7:58 AM CDT Body Mass Index 20.98 03/29/2018 7:58 AM CDT documented in this encounter Medications [...] or self care documented in this encounter H&P Notes * Tulio Serna MD - 03/29/2018 8:28 AM CDT Plan of Care : Based on the above findings, I consider Renee Vance to be an acceptable risk for: Procedure(s): COLONOSCOPY Source Note - Nan Echevarria MD PhD - 03/29/2018 7:58 AM CDT Anesthesia Evaluation Renee Vance is a 63 y.o. female Procedure(s): COLONOSCOPY HISTORY Past Medical History Neurological + Psychiatric history - depression Cardiovascular Comments: H/o MVP Gastrointestinal + GERD Patient Active Problem List Diagnosis ??? Vitamin D deficiency ??? PE (physical exam), annual ??? Slow transit constipation ??? GERD (gastroesophageal reflux disease) ??? B12 deficiency ??? BMI 21.0-21.9, adult ??? Colon cancer screening ??? Recurrent major depressive disorder, in full remission (CMS/HCC) ??? Encounter for screening colonoscopy Past Medical History: Diagnosis Date ??? Chronic constipation ??? HX OTHER MEDICAL MVP Past Surgical History: Procedure Laterality Date ??? SECTION section ??? CHOLECYSTECTOMY Cholecystectomy ??? COLONOSCOPY 03/22/2008 ??? TONSILLECTOMY 1975 Tonsillectomy OB History No data available No Known Allergies HOME MEDICATIONS : cholecalciferol (VITAMIN D3) 2,000 unit capsule FLUoxetine (PROzac) 20 mg tablet Current Facility-Administered Medications: ??? [MAR Hold] ondansetron (ZOFRAN) injection 4 mg, 4 mg, intravenous, Q30 Min PRN ??? [MAR Hold] sodium chloride 0.9% flush 0.5-20 mL, 0.5-20 mL, intra-catheter, Q8H GALO ??? [MAR Hold] sodium chloride 0.9% flush 0.5-20 mL, 0.5-20 mL, intra-catheter, PRN ??? sodium chloride 0.9% infusion, 30 mL/hr, intravenous, Continuous ??? sodium chloride 0.9% infusion, 125 mL/hr, intravenous, Continuous Social History Smoking Status ??? Former Smoker Smokeless Tobacco ??? Former User Alcohol Use No Drug Use No Family History Problem Relation Age of Onset ??? Lung cancer Mother Cancer, lung; ??? COPD Mother copd; PAT Physical Exam There were no vitals filed for this visit. PT: No results found for requested labs within last 720 hours. INR: No results found for requested labs within last 720 hours. APTT: No results found for requested labs within last 720 hours. Hgb A1C: No results found for requested labs within last 720 hours. CBC RBC: No results found for requested labs within last 720 hours. RDW: No results found for requested labs within last 720 hours. MCHC: No results found for requested labs within last 720 hours. MCH: No results found for requested labs within last 720 hours. MCV: No results found for requested labs within last 720 hours. Hct: No results found for requested labs within last 720 hours. Hgb: No results found for requested labs within last 720 hours. WBC: No results found for requested labs within last 720 hours. MPV: No results found for requested labs within last 720 hours. Platelets: No results found for requested labs within last 720 hours. RDW CV: No results found for requested labs within last 720 hours. RDW Sd: No results found for requested labs within last 720 hours. BMP Glucose: No results found for requested labs within last 720 hours. Calcium: No results found for requested labs within last 720 hours. Sodium: No results found for requested labs within last 720 hours. Potassium: No results found for requested labs within last 720 hours. CO2: No results found for requested labs within last 720 hours. Chloride: No results found for requested labs within last 720 hours. BUN: No results found for requested labs within last 720 hours. Creatinine: No results found for requested labs within last 720 hours. STOP-Bang Total Score: 1 DOS Physical Exam Medical history, medications, and allergies reviewed. Attestation: I endorse the findings of the anesthesia pre-evaluation assessment dated: 03/29/2018. Airway Exam: Mallampati: II Cervical ROM: FROM TM distance: normal Jaw ROM: full Cardiovascular Exam: Rate: regular Rhythm: regular Pulmonary Exam: LCTA, bilat EENT Exam: trachea midline Skin Exam: Skin is warm. Turgor is normal. Current state: Patient's current state is cooperative and interactive. Anesthesia Plan ASA 2 Planned anesthesia: General/TIVA Induction: Induction: intravenous. Postoperative Plan: No plan for postoperative opioid use. No postoperative mechanical ventilation intended. Patient's planned disposition post procedure is Outpatient. Informed Consent: Discussed plan with TECHNICIAN. Anesthesia plan and risks discussed with patient. Consent and Attending signature: I and/or my designee have discussed the anesthesia plan, benefits, possible alternatives, parental presence at time of induction (if indicated), and clinically relevant risks that may include dental injury, unintentional awareness, and/or other complications. The patient and/or parent/legal guardian understand, and agree to proceed. All questions answered. documented in this encounter Procedure Notes * Tulio Serna MD - 03/29/2018 8:26 AM CDTAssociated Order(s): COLONOSCOPY [place] Patient Name: Renee Vance Procedure Date: 03/29/2018 8:26 AM Date of : 1955 Admit Type: Outpatient Age: 63 Gender: Female Attending MD: Tulio Serna M.D. Room: [facility] Note Status: Finalized Procedure: Colonoscopy [...] - Repeat colonoscopy in 10 years for screening purposes. - Return to primary care physician as previously scheduled. Medicines: Propofol per Anesthesia Complications: No immediate complications. Estimated Blood Loss: Estimated blood loss: none. Procedure: Pre-Anesthesia Assessment: - Prior to the procedure, a History and Physical was performed, and patient medications and allergies were reviewed. The patient is competent. The risks and benefits of the procedure and the sedation options and risks were discussed with the patient. All questions were answered and informed consent was obtained. Patient identification and proposed procedure were verified by the physician in the pre-procedure area. Mental Status Examination: alert and oriented. Airway Examination: normal oropharyngeal airway and neck mobility. Prophylactic Antibiotics: The patient does not require prophylactic antibiotics. Prior Anticoagulants: The patient has taken no previous anticoagulant or antiplatelet agents. ASA Grade Assessment: II - A patient with mild systemic disease. After reviewing the risks and benefits, the patient was deemed in satisfactory condition to undergo the procedure. The anesthesia plan was to use moderate sedation / analgesia (conscious sedation). Immediately prior to administration of medications, the patient was re-assessed for adequacy to receive sedatives. The heart rate, respiratory rate, oxygen saturations, blood pressure, adequacy of pulmonary ventilation, and response to care were monitored throughout the procedure. The physical status of the patient was re-assessed after the procedure. The benefits, risks and alternatives of the procedure and sedation were discussed and informed consent was obtained. All questions were answered. Please refer to the signed informed consent document in the medical record. The scope was passed under direct vision. The Colonoscope [id number] was introduced through the anus and advanced to the the cecum, identified by appendiceal orifice and ileocecal valve. The colonoscopy [...] malignant neoplasm of colon CPT copyright 2017 [employer]. All rights reserved. The codes documented in this report are preliminary and upon dimension warehouse supervisor review may be revised to meet current compliance requirements. Recognized by the [employer] for promoting quality in endoscopy documented in this encounter Miscellaneous Notes * Perioperative Nursing Note - Sharan Martinez RN - 03/29/2018 9:[address] Serna spoke to patient and visitor. documented in this encounter Plan of Treatment Not on file documented as of this encounter Procedures Procedure Name Priority Date/Time Associated Diagnosis Comments COLONOSCOPY 03/29/2018 8:26 AM CDT COLONOSCOPY 03/29/2018 8:25 AM CDT Encounter for screening colonoscopy documented in this encounter Results * COLONOSCOPY (03/29/2018 8:26 AM CDT) Anatomical Region Laterality Modality Other Narrative Procedure Note Tulio Serna MD - 03/29/2018 8:26 AM CDT [place] Patient Name: Renee Vance Procedure Date: 03/29/2018 8:26 AM Date of : 1955 Admit Type: Outpatient Age: 63 Gender: Female Attending MD: Tulio Serna M.D. Room: [facility] Note Status: Finalized Procedure: Colonoscopy [...] scope was passed under direct vision.The Colonoscope [id number] was introducedthrough the anus and advanced to [...] malignant neoplasm of colon CPT copyright 2017 [employer]. All rights reserved. The codes documented in this report are preliminary and upon dimension warehouse supervisor reviewmay be revised to meet current compliance requirements. Recognized by the [employer] for promoting quality in endoscopy Tulio Serna MD ENDOSCOPY PROCEDURES Final Re sult documented in this encounter Visit Diagnoses Diagnosis Encounter for screening colonoscopy documented in this encounter Admitting Diagnoses Diagnosis Encounter for screening colonoscopy documented in this encounter Administered Medications Inactive Administered Medications - up to 3 most recent administrations Medication Order MAR Action Action Date Dose Rate Site ondansetron (ZOFRAN) injection 4 mg 4 mg, intravenous, Every 30 min PRN, nausea, vomiting, Starting on Thu03/29/18 at 0754, For 2 doses, Recovery (GI), Indications: Nausea and VomitingIndications:Nausea and Vomiting sodium chloride 0.9% flush 0.5-20 mL 0.5-20 mL, intra-catheter, Every 8 hours scheduled, First dose on Thu03/29/18 at 0830, Pre-Procedure (GI), Flush volume based on line type and size. , Indications: FlushingIndications:Flushing sodium chloride 0.9% flush 0.5-20 mL 0.5-20 mL, intra-catheter, As needed, line care, Starting on Thu03/29/18 at 0754, Pre-Procedure (GI), Flush volume based on line type and size. Flush before and after each use. , Indications: FlushingIndications:Flushing sodium chloride 0.9% infusion 30 mL/hr, intravenous, Continuous, Starting on Thu03/29/18 at 0830, Pre-Procedure (GI) New Bag 03/29/2018 8:15 AM CDT 30 mL/hr 30 mL/hr sodium chloride 0.9% infusion 125 mL/hr, intravenous, Continuous, Starting on Thu03/29/18 at 0830, Recovery (GI) New Bag 03/29/2018 8:31 AM CDT documented in this encounter Active and Recently Administered Medications Times are shown in CDT. Scheduled Medication Order 03/27/2018 03/28/2018 03/29/2018 sodium chloride 0.9% flush 0.5-20 mL 0.5-20 mL, intra-catheter, Every 8 hours scheduled, First dose on Thu03/29/18 at 0830, Pre-Procedure (GI), Flush volume based on line type and size. , Indications: Flushing 0755 (MAR Hold - Pro vider: Automatic Transfer Provider - Reason: Patient not available)0830 (Dose Auto Held - Provider: Automatic Transfer Provider)1138 (BANNER Unhold - Provider: User Epic) Continuous Medication Order 03/27/2018 03/28/2018 03/29/2018 sodium chloride 0.9% infusion 30 mL/hr, intravenous, Continuous, Starting on Thu03/29/18 at 0830, Pre-Procedure (GI) 0815 (New Bag - Prov ider: Sharan Martinez RN)0925 (Stopped - Provider: Sharan Martinez RN) sodium chloride 0.9% infusion 125 mL/hr, intravenous, Continuous, Starting on Thu03/29/18 at 0830, Recovery (GI) 0831 (New Bag - Prov ider: Kiersten Streeter CRNA) PRN Medication Order 03/27/2018 03/28/2018 03/29/2018 ondansetron (ZOFRAN) injection 4 mg 4 mg, intravenous, Every 30 min PRN, nausea, vomiting, Starting on Thu03/29/18 at 0754, For 2 doses, Recovery (GI), Indications: Nausea and Vomiting 0755 (MAR Hold - Pro vider: Automatic Transfer Provider - Reason: Patient not available)1138 (BANNER Unhold - Provider: User Epic) sodium chloride 0.9% flush 0.5-20 mL 0.5-20 mL, intra-catheter, As needed, line care, Starting on Thu03/29/18 at 0754, Pre-Procedure (GI), Flush volume based on line type and size. Flush before and after each use. , Indications: Flushing 0755 (AUG Hold - Pro vider: Automatic Transfer Provider - Reason: Patient not available)1138 (AUG Unhold - Provider: User Epic) documented in this encounter Orders Medications Ordered That Fuad ht Not Have Been Administered Count Last Ordered Date First Ordered Date ondansetron (ZOFRAN) injection 4 mg 1 03/29 sodium chloride 0.9% flush 0.5-20 mL 2 03/09 sodium chloride 0.9% infusion 1 03/29/2018 documented in this encounter Care Teams Overweaver Relationship Specialty Start Date End Date Wood Mahan MD PCP - General 08/10/09 03/11/22 documented as of this encounter
--- OUTSIDE RECORDS SUMMARY | 2024-06-05 13:41 | XMS_ITS | Encounter Summary ---
Author Organization [facility] Address [address] [place] [address] Care Team Providers Care Community Development Manager Name Role Phone Wood Mahan MD Primary Care Provi cherie Reason for Referral * Diagnostic Imaging (Routine) - Closed Specialty Diagnoses / Procedures Referred By Alyx cho Referred To Contact Diagnoses Encounter for screening mammogram for malignant neoplasm of breast Procedures Screening Mammogram Bilateral W Wood Merino MD Phone: tel: fax: [address] [phone] Referral ID Status Reason Start Date Expiration Date Visits Re quested Visits Authorized [id number] Closed 03/26/2018 10/05/2019 1 1 Reason for Visit * Diagnostic Imaging (Routine) - Closed Specialty Diagnoses / Procedures Referred By Alyx cho Referred To Contact Diagnoses Encounter for screening mammogram for malignant neoplasm of breast Procedures Screening Mammogram Bilateral W Wood Merino MD Phone: tel: fax: [address] [phone] Referral ID Status Reason Start Date Expiration Date Visits Re quested Visits Authorized [id number] Closed 03/26/2018 10/05/2019 1 1 Encounter Details Date Type Department Care Team (Latest Contact Info) Description 04/07/2018 12:51 PM CDT - 04/07/2018 11:59 PM CDT Hospital Encounter [facility] [address] [place] [id number] Wood Mahan MD [address] [place] [id number] Encounter for screening mammogram for malignant neoplasm of breast Discharge Disposition: Discharge to home or self care Social History Tobacco Use Types Packs/Day Years Used Date Smoking Tobacco: Former Smokeless Tobacco: Former Alcohol Use Standard Drinks/Week Comments No 0 (1 standard drink = 0.6 oz pur e alcohol) Comments No Sex and Gender Information Value Date Recorded Sex Assigned at Not on file 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 Gender Identity Not on file Sexual Orientation Not on file documented as of this encounter Last Filed Vital Signs Vital Sign Reading Time Taken Comments Blood Pressure - - Pulse - - Temperature - - Respiratory Rate - - Oxygen Saturation - - Inhaled Oxygen Concentration - - Weight 59.9 kg (132 lb) 04/07/2018 1:09 PM CDT Height 167.6 cm (5' 6 ) 04/07/2018 1:09 PM CDT Body Mass Index 21.31 04/07/2018 1:09 PM CDT documented in this encounter Medications at [...] NICOLE Schedule Routine, Read Routine (OP Routine) 04/07/2018 1:18 PM CDT Encounter for screening mammogram for malignant neoplasm of breast documented in this encounter Results * Screening Mammogram Bilateral W Nicole (04/07/2018 1:18 PM CDT) Anatomical Region Laterality Modality Breast Bilateral Mammography 04/07/2018 1:20 PM CDT Impressions 04/07/2018 1:20 PM CDT BIRADS Category 2: Benign finding(s). Digital technology was employed plus computer-aided detection software (R2) was utilized in interpretation of these images. This facility utilizes a reminder system to notify patients of yearly mammograms. Electronically signed by: Kadeem Stafford M.D. Narrative 04/07/2018 1:20 PM CDT EXAMINATION: Digital screening mammogram with tomosynthesis. HISTORY: Breast cancer screening PRIOR: 02/18/2017 and 01/23/2016 DENSITY: Scattered fibroglandular densities FINDINGS: Little change is noted. ??No new dominant mass, architectural distortion, nipple retraction, skin thickening, or suspicious calcifications are seen. A few benign calcifications are noted. Wood Mahan MD IMG MAMMO PROCEDURE S Final Result documented in this encounter Visit Diagnoses Diagnosis Encounter for screening mammogram for malignant neoplasm of breast documented in this encounter Care Teams Community Development Manager Relationship Specialty Start Date End Date Wood Mahan MD PCP - General 08/10/09 03/11/22 documented as of this encounter
--- OUTSIDE RECORDS SUMMARY | 2024-06-05 13:41 | XMS_ITS | Encounter Summary ---
Author Organization [facility] Address [address] [place] [address] Care Team Providers Care Aerial Sprayer Name Role Phone Wood Mahan MD Primary Care Provi cherie Reason for Visit * Reason Comments b12 def follow up Encounter Details Date Type Department Care Team (Late st Contact Info) Description 05/19/2017 9:00 AM POWER SAW MECHANIC Office Visit [facility] [address] [place] [address] Wood Mahan MD [address] [place] [address] BMI 21.0-21.9, adult (Primary Dx); Epigastric pain; Vitamin D deficiency; B12 deficiency; Slow transit constipation; Gastroesophageal reflux disease without esophagitis; Anxiousness; PE (physical exam), annual; Annual physical exam Social History Tobacco Use Types Packs/Day Years Used Date Smoking Tobacco: Former Smokeless Tobacco: Former Comments Unknown Sex and Gender Information Value Date Recorded Sex Assigned at Not on file Legal Sex Female 9:51 AM POWER SAW MECHANIC Gender Identity Not on file Sexual Orientation Not on file documented as of this encounter Last Filed Vital Signs Vital Sign Reading Time Taken Comments Blood Pressure 108/62 05/19/2017 9:02 AM POWER SAW MECHANIC Pulse 66 05/19/2017 9:02 AM POWER SAW MECHANIC Temperature - - Respiratory Rate 16 05/19/2017 9:02 AM POWER SAW MECHANIC Oxygen Saturation - - Inhaled Oxygen Concentration - - Weight 59.9 kg (132 lb) 05/19/2017 8:46 AM POWER SAW MECHANIC Height 167.6 cm (5' 6 ) 05/19/2017 8:46 AM POWER SAW MECHANIC Body Mass Index 21.31 05/19/2017 8:46 AM POWER SAW MECHANIC documented in this encounter Patient Instructions * Patient Instructions* Wood Mahan MD - 05/19/2017 9:00 AM POWER SAW MECHANIC Keep meds.supplement same. Se erly if gi c.o not gone or worse R SAW MECHANIC documented in this encounter Progress Notes * Wood Mahan MD - 05/19/2017 9:00 AM CST Subjective/Objective Patient ID: Renee Vance is a 62 y.o. female. Chief Complaint b12 def (follow up ) Epigastric pain to back. For 3 wks from after return from cruise. 75% better Review of Systems Constitutional: Negative. HENT: Positive for postnasal drip and rhinorrhea. Negative for congestion, ear pain, facial swelling, hearing loss, mouth sores, nosebleeds, sinus pressure, sneezing, sore throat, tinnitus, trouble swallowing and voice change. Eyes: Negative. Respiratory: Negative. Cardiovascular: Negative. Gastrointestinal: Negative. Epigastric pain rad to back. Better .on reg acid meds Endocrine: Negative. Genitourinary: Negative for decreased urine volume, difficulty urinating, dysuria, flank pain, frequency, genital sores, hematuria and urgency. Nocturia negative Musculoskeletal: Negative. Skin: Negative for skin lesions Negative for puritis Negative for hives Neurological: Negative. Hematological: Negative. Psychiatric/Behavioral: Negative. Vitals: 05/19/17 0846 05/19/17 0902 BP: 108/62 Pulse: 66 Resp: 16 Weight: 59.9 kg (132 lb) Height: 167.6 cm (5' 6 ) Physical Exam Constitutional: She is oriented to person, place, and time. She appears well- developed and well-nourished. HENT: Head: Normocephalic and atraumatic. Eyes: EOM are normal. Pupils are equal, round, and reactive to light. Neck: Normal range of motion. Neck supple. Cardiovascular: Normal rate and regular rhythm. Pulmonary/Chest: Effort normal and breath sounds normal. Abdominal: Soft. Bowel sounds are normal. Benign exam Musculoskeletal: Normal range of motion. Neurological: She is alert and oriented to person, place, and time. Skin: Skin is warm and dry. Psychiatric: She has a normal mood and affect. Her behavior is normal. Judgment and thought contentnormal. Assessment/Plan Diagnoses and all orders for this visit: BMI 21.0-21.9, adult (Primary) Epigastric pain Assessment & Plan: As pain better to near gone will not eval or treat but if appears to get worse again. Not completely go away then would weant to re eval. As no new meds added to get improvement and [place]. Additionally not takinghte zantac she has on any frequescy but only with occasional gerd andnot having Gal bladder out. Chapin play wait and watch with improvement for now. No bm changes either Vitamin D deficiency Assessment & Plan: Vit 39 Great and no changes B12 deficiency Assessment & Plan: b12 at 7612 and great and will stay about here for most as long as stay with supplements Slow transit constipation Assessment & Plan: Controlled and stable Gastroesophageal reflux disease without esophagitis Assessment & Plan: No gerd with meds Anxiousness Assessment & Plan: Back to b ase line and feels shold never come off the meds. Will stay with for the future PE (physical exam), annual - Comprehensive metabolic panel; Future - CBC with auto differential; Future - Lipid panel with reflex to direct LDL; Future - Urinalysis reflex to microscopic and culture; Future Annual physical exam Assessment & Plan: Repeat in november Side effects, risks, interactions reviewed with patient. Indications for testing discussed. Any further problems to contact us. She was told what to look out for and verbalized understanding. The patient was given the opportunity to have all questions answered today and was in agreement with the plan of care. R SAW MECHANIC documented in this encounter Miscellaneous Notes * Assessment & Plan Note - Wood Mahan MD - 05/19/2017 9:14 AM POWER SAW MECHANIC Associated Problem(s): PE (physical exam), annual (Resolved 02/05/2021) Repeat in november R SAW MECHANIC * Assessment & Plan Note - Wood Mahan MD - 05/19/2017 9:11 AM POWER SAW MECHANIC Associated Problem(s): Anxiousness (Resolved 11/26/2017) Back to b ase line and feels shold never come off the meds. Will stay with for the future R SAW MECHANIC * Assessment & Plan Note - Wood Mahan MD - 05/19/2017 9:10 AM POWER SAW MECHANIC Associated Problem(s): Slow transit constipation Controlled and stable R SAW MECHANIC * Assessment & Plan Note - Wood Mahan MD - 05/19/2017 9:09 AM POWER SAW MECHANIC Associated Problem(s): GERD (gastroesophageal reflux disease) No gerd with meds R SAW MECHANIC * Assessment & Plan Note - Wood Mahan MD - 05/19/2017 9:09 AM POWER SAW MECHANIC Associated Problem(s): B12 deficiency b12 at 7612 and great and will stay about here for most as long as stay with supplements R SAW MECHANIC * Assessment & Plan Note - Wood Mahan MD - 05/19/2017 9:09 AM POWER SAW MECHANIC Associated Problem(s): Vitamin D deficiency Vit 39 Great and no changes R SAW MECHANIC * Assessment & Plan Note - Wood Mahan MD - 05/19/2017 9:07 AM POWER SAW MECHANIC Associated Problem(s): Epigastric pain (Resolved 11/26/2017) As pain better to near gone will not eval or treat but if appears to get worse again. Not completely go away then would weant to re eval. As no new meds added to get improvement and [place]. Additionally not takinghte zantac she has on any frequescy but only with occasional gerd andnot having Gal bladder out. Chapin play wait and watch with improvement for now. No bm changes either R SAW MECHANIC R SAW MECHANIC documented in this encounter Plan of Treatment Not on file documented as of this encounter Results * (ABNORMAL) Urinalysis reflex to microscopic and culture Urine (11/12/2017 7:35 AM CDT) Color, ur Yellow Yellow [facility] Clarity, ur Clear Clear [facility] Specific gravity, ur 1.005(L) 1.010 - 1.025 [facility] pH, urine 7.0 [facility] Protein, ur ql Negative Negative [facility] Glucose, ur ql Negative Negative [facility] Ketones, ur Negative Negative [facility] Bilirubin, ur Negative Negative [facility] Blood, ur Negative Negative [facility] Urobilinogen, ur <2.0 <2.0 mg/dL [facility] Nitrite, ur Negative Negative [facility] Leukocyte esterase, ur Negative Negative [facility] Ascorbic acid, ur Negative Negative [facility] Urine 11/12/2017 7:35 AM CDT 11/12/2017 2:01 PM CDT Narrative [facility] - 11/12/2017 2:14 PM CDT ?? Urine pH is affected by diet, medications, systemic acid-base disturbances, and renal tubular function. ??pH may affect urinary stone formation. ??For example, urine pH below 6.0 may help reduce the tendency for calcium phosphate stones and pH greater than 6.0 may reduce the tendency for uric acid stone formation. Source: R&V. Last revised 06-18-2017 us Wood Mahan MD LAB MICROBIOLOGY - GENERAL ORDERABLES Final Result [facility] [address] Department of Laboratories [place] [phone] * (ABNORMAL) Lipid panel with reflex to direct LDL (11/12/2017 7:35 AM CDT) Cholesterol 177 100 - 200 mg/dL [facility] Comment: Interpretive Data Desirable: ?<200 mg/dL Borderline high: ??200-239 mg/dL High: ? >240 mg/dL Current interpretive data was last revised on 2015. Triglycerides 77 10 - 150 mg/dL [facility] Comment: Interpretive Data Desirable: ? < 150 ? mg/dL Borderline High: ? 150 - 199 mg/dL High: ?200 - 499 mg/dL Very High: ? > or = 499 ??mg/dL Current interpretive data was last revised on 2015. HDL 69(H) 40 - 59 mg/dL [facility] Comment: Interpretive Data Less than 40 mg/dL - Low; A major risk factor for heart disease. Greater than or equal to 60 mg/dL - High; ??Considered protective of heart disease. Current interpretive data was last revised on 2015. LDL, calculated 93 60 - 129 mg/dL [facility] Comment: Interpretive Data Optimal: ? < 100 mg/dL Near Optimal: ?100 - 129 mg/dL Borderline High: ?? 130 - 159 mg/dL High: ?> 160 mg/dL Current interpretive data was last revised on 2015. Chol/HDL ratio 3 mg/dL [facility] Blood specimen (specimen) 11/12/2017 7:35 AM CDT 11/12/2017 2:02 PM CDT Narrative [facility] - 11/12/2017 2:43 PM CDT us Wood Mahan MD LAB BLOOD ORDERABLE S Final Result [facility] [address] [place] [address] * (ABNORMAL) CBC with auto differential (11/12/2017 7:35 AM CDT) WBC 3.6(L) 3.8 - 9.9 K/cumm [facility] RBC 4.25 3.90 - 5.20 M/cumm [facility] Hgb 13.9 11.9 - 15.5 g/dL [facility] Hct 42.5 35.6 - 45.5 % [facility] MCV 100.0(H) 81.3 - 96.4 fL [facility] MCH 32.7 27.1 - 33.3 pg [facility] MCHC 32.7 32.3 - 35.7 g/dL [facility] RDW CV 12.8 11.1 - 14.9 % [facility] RDW SD 47.5 35.7 - 48.1 fL [facility] Plt 267 150 - 400 K/cumm [facility] MPV 10.2 9.1 - 12.3 fL [facility] NRBC abs 0.00 0.00 - 0.01 K/cumm [facility] Blood specimen (specimen) 11/12/2017 7:35 AM CDT 11/12/2017 2:02 PM CDT Narrative [facility] - 11/12/2017 2:11 PM CDT us Wood Mahan MD LAB BLOOD ORDERABLE S Final Result [facility] [address] Department [facility]Platform [place], [place] [id number] * (ABNORMAL) Comprehensive metabolic panel (11/12/2017 7:35 AM CDT) Sodium 138 135 - 145 mmol/L [facility] Potassium, pl 4.2 3.5 - 5.1 mmol/L [facility] CO2 29 22 - 32 mmol/L [facility] BUN 8 8 - 24 mg/dL [facility] Glucose 78 70 - 199 mg/dL [facility] Comment: Interpretive Data Fasting glucose >/= 126 [...] Current interpretive data was last revised 2017. Creatinine 0.59(L) 0.60 - 1.30 mg/dL [facility] Calcium 9.0 8.4 - 10.5 mg/dL [facility] Chloride 101 100 - 114 mmol/L [facility] Albumin 3.8 3.2 - 4.8 g/dL [facility] AST 25 7 - 40 Units/L [facility] ALT 13 1 - 45 Units/L [facility] Alk phos 51 30 - 110 Units/L [facility] Bilirubin, total 0.30 0.10 - 1.30 mg/dL [facility] Protein, pl 6.1 6.0 - 8.3 g/dL [facility] Anion gap 12 8 - 16 mmol/L [facility] Blood specimen (specimen) 11/12/2017 7:35 AM CDT 11/12/2017 2:02 PM CDT Narrative [facility] - 11/12/2017 2:43 PM CDT us Wood Mahan MD LAB BLOOD ORDERABLE S Final Result [facility] [address] Department [place] [address] documented in this encounter Visit Diagnoses Diagnosis BMI 21.0-21.9, adult- Primary Epigastric pain Abdominal pain, epigastric Vitamin D deficiency B12 deficiency Slow transit constipation Gastroesophageal reflux disease without esophagitis Esophageal reflux Anxiousness Anxiety state, unspecified PE (physical exam), annual Annual physical exam Routine general medical examination at a health care facility PE (physical exam), annual documented in this encounter Care Teams Aerial Sprayer Relationship Specialty Start Date End Date Wood Mahan MD PCP - General 08/10/09 03/11/22 documented as of this encounter
--- OUTSIDE RECORDS SUMMARY | 2024-06-05 13:41 | XMS_ITS | Encounter Summary ---
Author Organization [facility] Address [address] [place] [address] Care Team Providers Care Glaze Supervisor Name Role Phone Wood Mahan MD Primary Care Provi [facility] Encounter Details Date Type Department Care Team (Late st Contact Info) Description 05/05/2017 8:30 AM RAGS LABORER Lab [facility] [address] [place] [address] [place] [phone] B12 deficiency Social History Tobacco Use Types Packs/Day Years Used Date Smoking Tobacco: Former Smokeless Tobacco: Former Comments Unknown Sex and Gender Information Value Date Recorded Sex Assigned at Not on file Legal Sex Female 9:51 AM RAGS LABORER Gender Identity Not on file Sexual Orientation Not on file documented as of this encounter Plan of Treatment Not on file documented as of this encounter Visit Diagnoses Diagnosis B12 deficiency documented in this encounter Care Teams Glaze Supervisor Relationship Specialty Start Date End Date Wood Mahan MD PCP - General 08/10/09 03/11/22 documented as of this encounter
--- OUTSIDE RECORDS SUMMARY | 2024-06-05 13:41 | XMS_ITS | Encounter Summary ---
Author Organization [facility] Address [address] [place] [address] Care Team Providers Care Paper Core Machine Operator Name Role Phone Wood Mahan MD Primary Care Provi cherie Reason for Visit * Reason Comments Preventative Care Encounter Details Date Type Department Care Team (Late st Contact Info) Description 11/25/2016 8:30 AM CDT Office Visit [facility] [address] [place] [address] [address] [place] [id number] Wood Mahan MD [address] [place] [address] Vitamin B-complex deficiency (Primary Dx); Vitamin D deficiency; Annual physical exam; Slow transit constipation; Gastroesophageal reflux disease without esophagitis Social History Tobacco Use Types Packs/Day Years Used Date Smoking Tobacco: Former Comments Unknown Sex and Gender Information Value Date Recorded Sex Assigned at Not on file Legal Sex Female 9:51 AM TRAFFIC SIGN ERECTION SUPERVISOR Gender Identity Not on file Sexual Orientation Not on file documented as of this encounter Last Filed Vital Signs Vital Sign Reading Time Taken Comments Blood Pressure 118/74 11/25/2016 8:51 AM CDT Pulse 68 11/25/2016 8:51 AM CDT Temperature - - Respiratory Rate 16 11/25/2016 8:51 AM CDT Oxygen Saturation - - Inhaled Oxygen Concentration - - Weight 61.2 kg (135 lb) 11/25/2016 8:30 AM CDT Height 167.6 cm (5' 6 ) 11/25/2016 8:30 AM CDT Body Mass Index 21.79 11/25/2016 8:30 AM CDT documented in this encounter Patient Instructions * Patient Instructions* Wood Mahan MD - 11/25/2016 8:30 AM CDT With b 12 a touch low and d would dupplement and tryto getup and recheckon return. Add thyroid screen for constipation and either Or both take 1T citrocele like fiber and a 1-2 T yogurt And mix with water and drink or use probiotic c ap in place of yogurt. Can also work with miralax daily and with or without the Fiber. And both or together will work, recheck b12, thyroid and d I 6 month. 500 of b12 a day and 2000 of d a day. Will see if can find the last colon and nl'ly recheck 10 yrs. And lastwas 2007 last and nl so 2018 would be nl repeat unles issue crop up documented in this encounter Ordered Prescriptions Prescription Sig Dispense Quantity Refills Last Filled Start Date End Date raNITIdine (ZANTAC) 150 mg tabletIndications: Gastroesophageal reflux disease without esophagitis Take 1 tablet (150 mg total) by mouth 2 (two) times a day. 60 tablet 11 11/25/2016 11/26/2017 documented in this encounter Progress Notes * Wood Mahan MD - 11/25/2016 8:30 AM CDT Subjective/Objective Patient ID: Renee Vance is a 61 y.o. female. Chief Complaint Preventative Care Back of tongue and throat thick feeling for month. About Same. Always have Francisco d Review of Systems Constitutional: Negative. HENT: Negative. Eyes: Negative. Respiratory: Negative. Cardiovascular: Negative. Gastrointestinal: Positive for constipation. Negative for abdominal distention, abdominal pain, anal bleeding, blood in stool, diarrhea, nausea, rectal pain and vomiting. Gerd bad couple trimes a week.mild additional Endocrine: Negative. Genitourinary: Negative. Musculoskeletal: Negative. Skin: Negative. Allergic/Immunologic: Negative. Neurological: Negative. Hematological: Negative. Psychiatric/Behavioral: Negative. All other systems reviewed and are negative. Physical Exam Constitutional: She is oriented to person, place, and time. She appears well- developed and well-nourished. No distress. HENT: Head: Normocephalic and atraumatic. Right Ear: External ear normal. Left Ear: External ear normal. Nose: Nose normal. Mouth/Throat: Oropharynx is clear and moist. No oropharyngeal exudate. Eyes: Conjunctivae and EOM are normal. Pupils are equal, round, and reactive to light. Right eye exhibits no discharge. Left eye [...] Diagnoses and all orders for this visit: 1. Vitamin B-complex deficiency (Primary) Assessment & Plan: b12 at 379 and neuro feels Below 400 there is a 5-10 %^ chance of nerve damage. So try 500 5-7 daysa week and stay on and will check in futuree Orders: - Vitamin B12; Future 2. Vitamin D deficiency Assessment & Plan: Vit d at 28 and want higher. Add 2000 of d a day and will get yo to about 40 and great. Stay with or will d rop Orders: - 1,25 Dihydroxycholecalciferol; Future 3. Annual physical exam Assessment & Plan: Screening labs for blood cnts. Chem with kidney and liver nl. w eight good yrly blanco. Screening colon per rec's. Hep c neg. Check screening yr'ly and repeat b12 and d in 6 m [facility] 4. Slow transit constipation Assessment & Plan: Try probiotic and fiber bversus miralx sdaily Orders: - TSH; Future 5. Gastroesophageal reflux disease without esophagitis Assessment & Plan: Trial zantac 150 twice a day and see if stops the thickening feeling in back of throat . If not consider upping meds and or ent eeval Orders: - raNITIdine (ZANTAC) 150 mg tablet; Take 1 tablet (150 mg total) by mouth 2 (two) times a day. documented in this encounter Miscellaneous Notes * Assessment & Plan Note - Wood Mahan MD - 11/25/2016 9:05 AM CDT Associated Problem(s): PE (physical exam), annual (Resolved 02/05/2021) Screening labs for blood cnts. Chem with kidney and liver nl. w eight good yrly blanco. Screening colon per rec's. Hep c neg. Check screening yr'ly and repeat b12 and d in 6 m [facility] * Assessment & Plan Note - Wood Mahan MD - 11/25/2016 9:05 AM CDT Associated Problem(s): Vitamin B-complex deficiency (Resolved 02/27/2017) b12 at 379 and neuro feels Below 400 there is a 5-10 %^ chance of nerve damage. So try 500 5-7 daysa week and stay on and will check in futuree * Assessment & Plan Note - Wood Mahan MD - 11/25/2016 9:04 AM CDT Associated Problem(s): Vitamin D deficiency Vit d at 28 and want higher. Add 2000 of d a day and will get yo to about 40 and great. Stay with or will d rop * Assessment & Plan Note - Wood Mahan MD - 11/25/2016 9:03 AM CDT Associated Problem(s): Slow transit constipation Try probiotic and fiber bversus miralx sdaily * Assessment & Plan Note - Wood Mahan MD - 11/25/2016 9:02 AM CDT Associated Problem(s): GERD (gastroesophageal reflux disease) Trial zantac 150 twice a day and see if stops the thickening feeling in back of throat . If not consider upping meds and or ent eeval documented in this encounter Plan of Treatment Scheduled Orders Name Type Priority Associated Diagnoses Orde r Schedule TSH Lab Routine Slow transit constipation 1 Occurrences starting 05/27/2017 until 11/25/2017 Vitamin B12 Lab Routine Vitamin B-complex deficiency 1 Occurrences starting 05/27/2017 until 11/25/2017 1,25 Dihydroxycholecalciferol Lab Routine Vitamin D deficiency 1 Occurrences starting 05/27/2017 until 11/25/2017 documented as of this encounter Visit Diagnoses Diagnosis Vitamin B-complex deficiency- Primary Unspecified vitamin B deficiency Vitamin D deficiency Annual physical exam Routine general medical examination at a health care facility Slow transit constipation Gastroesophageal reflux disease without esophagitis Esophageal reflux documented in this encounter Care Teams Paper Core Machine Operator Relationship Specialty Start Date End Date Wood Mahan MD PCP - General 08/10/09 03/11/22 documented as of this encounter
--- OUTSIDE RECORDS SUMMARY | 2024-06-05 13:41 | XMS_ITS | Encounter Summary ---
Author Organization [facility] Address [address] [place] [address] Care Team Providers Care Tinter Photograph Name Role Phone Wood Mahan MD Primary Care Provi cherie Reason for Visit * Reason Onset Date Comments schedule colonoscopy 11/26/2017 pt is sched uled for a colonoscopy with dr romo on thursday03-29-18 at 7:30am Encounter Details Date Type Department Care Team (Late st Contact Info) Description 11/26/2017 Telephone [facility] Gastroenterology at [address], [place] [address] Kristen Garcia MA schedule colonoscopy (pt is scheduled for a colonoscopy with dr romo on thursday03-29-18 at 7:30am) Social History Tobacco Use Types Packs/Day Years Used Date Smoking Tobacco: Former Smokeless Tobacco: Former Comments Unknown Sex and Gender Information Value Date Recorded Sex Assigned at Not on file Legal Sex Female 9:51 AM BURR BENCH HAND Gender Identity Not on file Sexual Orientation Not on file documented as of this encounter Miscellaneous Notes * Telephone Encounter - Kristen Garcia MA - 11/26/2017 12:50 PM CDT pt is scheduled for a colonoscopy with dr romo on thursday03-29-18 at 7:30am, verbal instructions given and mailed to verified address documented in this encounter Plan of Treatment Not on file documented as of this encounter Visit Diagnoses Diagnosis Encounter for screening colonoscopy- Primary documented in this encounter Orders Case Request Count Last Ordered Date First Orde red Date CASE REQUEST GI 1 11/26/2017 documented in this encounter Care Teams Tinter Photograph Relationship Specialty Start Date End Date Wood Mahan MD PCP - General 08/10/09 03/11/22 documented as of this encounter
--- OUTSIDE RECORDS SUMMARY | 2024-06-05 13:41 | XMS_ITS | Encounter Summary ---
Author Organization [facility] Address [address] [place] [address] Care Team Providers Care Temper Mill Roller Name Role Phone Wood Mahan MD Primary Care Provi cherie Reason for Visit * Reason Comments Other flu shot Encounter Details Date Type Department Care Team (Latest Contact Info) Description 04/07/2018 1:45 PM CDT Clinical Support [facility] [address] [place] [address] [address] [place] [address] Need for vaccination (Primary Dx) Social History Tobacco Use Types Packs/Day Years Used Date Smoking Tobacco: Former Smokeless Tobacco: Former Alcohol Use Standard Drinks/Week Comments No 0 (1 standard drink = 0.6 oz pur e alcohol) Comments No Sex and Gender Information Value Date Recorded Sex Assigned at Not on file Legal Sex Female 9:51 AM LITHOSTRIPPER Gender Identity Not on file Sexual Orientation Not on file documented as of this encounter Plan of Treatment Not on file documented as of this encounter Visit Diagnoses Diagnosis Need for vaccination- Primary Need for prophylactic vaccination and inoculation against unspecified single disease documented in this encounter Orders Immunization/Injection Count Last Ordered Date First Ordered Date FLU VACCINE QUAD PF 3Y+ IM - FLUZONE 1 03/10 documented in this encounter Care Teams Temper Mill Roller Relationship Specialty Start Date End Date Wood Mahan MD PCP - General 08/10/09 03/11/22 documented as of this encounter
--- OUTSIDE RECORDS SUMMARY | 2024-06-05 13:41 | XMS_ITS | Encounter Summary ---
Author Organization [facility] Address [address] [place] [address] Care Team Providers Care Rn Appeals Name Role Phone Wood Mahan MD Primary Care Provi [facility] Encounter Details Date Type Department Care Team (Late st Contact Info) Description 04/07/2018 Telephone [facility] [address] [place] [address] Wood Mahan MD [address] [place] [address] Social History Tobacco Use Types Packs/Day Years Used Date Smoking Tobacco: Former Smokeless Tobacco: Former Alcohol Use Standard Drinks/Week Comments No 0 (1 standard drink = 0.6 oz pur e alcohol) Comments No Sex and Gender Information Value Date Recorded Sex Assigned at Not on file 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 Repeat one year. documented in this encounter Plan of Treatment Not on file documented as of this encounter Visit Diagnoses Not on filedocumented in this encounter Care Teams Rn Appeals Relationship Specialty Start Date End Date Wood Mahan MD PCP - General 08/10/09 03/11/22 documented as of this encounter
--- OUTSIDE RECORDS SUMMARY | 2024-06-05 13:41 | XMS_ITS | Encounter Summary ---
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 Gender Identity Not on file Sexual Orientation Not on file documented as of this encounter Plan of Treatment Not on file documented as of this encounter Procedures Procedure Name Priority Date/Time Associated Diagnosis Comments EGFR Routine 11/12/2017 7:35 AM CDT PE (physical exam), annual DIFFERENTIAL AUTO Routine 11/12/2017 7:3 5 AM CDT PE (physical exam), annual LIPID PANEL WITH REFLEX TO DIRECT LDL Routine 11/12/2017 7:35 AM CDT PE (physical exam), annual URINALYSIS AND REFLEX TO MICROSCOPIC AND CULTURE Routine 11/12/2017 7:35 AM CDT PE (physical exam), annual CBC WITH AUTO DIFFERENTIAL Routine 11/12/2017 7:35 AM CDT PE (physical exam), annual COMPREHENSIVE METABOLIC PANEL Routine 11/12/2017 7:35 AM CDT PE (physical exam), annual documented in this encounter Results * eGFR (11/12/2017 7:35 AM CDT) eGFR 99 mL/min/1.7 3 m2 MEKHI MCCULLOUGH Comment: Interpretive Data Reference Interval Normal ?>/= 90 mL/min/1.73m2 Mildly decreased* ? 60 - 89 mL/min/1.73m2 Mildly to moderately decreased ?45 - 59 mL/min/1.73m2 Moderately to severely decreased ??30 - 44 mL/min/1.73m2 Severely decreased ?15 - 29 mL/min/1.73m2 Kidney Failure ?< 15 ??mL/min/1.73m2 *Relative to young adult level If -Emirati multiply value by 1.16. Estimated glomerular filtration rate is determined by the CKD-EPI equation recommended by the National Kidney Foundation (KDIGO 2012 Clinical Practice Guideline for the Evaluation and Management of Chronic Kidney Disease. Kidney Intnl Suppl Jun 2012;3:1). The CKD-EPI equation should not be used for patients with unstable renal function and has not been validated in children and those over 70. Current interpretive data was last reviewed 2015. Blood specimen (specimen) 11/12/2017 7:35 AM CDT 11/12/2017 2:11 PM CDT Narrative MEKHI MCCULLOUGH - 11/12/2017 2:43 PM CDT us Wood Mahan MD LAB BLOOD ORDERABLE S Final Result [facility] [address] [address] Department [place] [address] * (ABNORMAL) Differential, auto (11/12/2017 7:35 AM CDT) Neutrophil abs 1.6(L) 1.7 - 6.5 K/cumm [facility] Imm gran abs 0.0 0.0 - 0.1 K/cumm [facility] Lymphocyte abs 1.6 0.8 - 3.3 K/cumm [facility] Monocyte abs 0.3 0.2 - 0.8 K/cumm [facility] Eosinophil abs 0.1 0.0 - 0.5 K/cumm [facility] Basophil abs 0.0 0.0 - 0.1 K/cumm [facility] Neutrophil pct 44.2 % [facility] Comment: Interpretive Data Percent cell count reference ranges are not reported, since discordance with absolute values may lead to misinterpretation of CBC data. Current Interpretive Data was last revised on 2017. Imm gran pct 0.3 % [facility] Comment: Interpretive Data Percent cell count reference ranges are not reported, since discordance with absolute values may lead to misinterpretation of CBC data. Current Interpretive Data was last revised on 2017. Lymphocyte pct 43.9 % [facility] Comment: Interpretive Data Percent cell count reference ranges are not reported, since discordance with absolute values may lead to misinterpretation of CBC data. Current Interpretive Data was last revised on 2017. Monocyte pct 8.6 % [facility] Comment: Interpretive Data Percent cell count reference ranges are not reported, since discordance with absolute values may lead to misinterpretation of CBC data. Current Interpretive Data was last revised on 2017. Eosinophil pct 1.9 % [facility] Comment: Interpretive Data Percent cell count reference ranges are not reported, since discordance with absolute values may lead to misinterpretation of CBC data. Current Interpretive Data was last revised on 2017. Basophil pct 1.1 % [facility] Comment: Interpretive Data Percent cell count reference ranges are not reported, since discordance with absolute values may lead to misinterpretation of CBC data. Current Interpretive Data was last revised on 2017. Blood specimen (specimen) 11/12/2017 7:35 AM CDT 11/12/2017 2:02 PM CDT Narrative [facility] - 11/12/2017 2:11 PM CDT Wood Mahan MD LAB BLOOD ORDERABLE S Final Result Performing Organization Address [facility] de Phone Number MEKHI [id number] [address] Department [place] [address] * (ABNORMAL) Urinalysis reflex to microscopic and [...] tendency for uric acid stone formation. Source: [facility] [employer]. Last revised 06-18-2017 us Wood Mahan MD LAB MICROBIOLOGY - GENERAL ORDERABLES Final Result Performing Organization Address [facility]/ZIP Co de Phone Number MEKHI [phone] [address] Department [place] [address] * (ABNORMAL) Lipid panel with reflex to [...] MD LAB BLOOD ORDERABLE S Final Result [facility] [address] [address] [place] [address] * (ABNORMAL) CBC with auto differential (11/12/2017 7:35 AM CDT) WBC 3.6(L) 3.8 - 9.9 K/cumm [facility] RBC 4.25 3.90 - 5.20 M/cumm [facility] Hgb 13.9 11.9 - 15.5 g/dL [facility] Hct 42.5 35.6 - 45.5 % [facility] MCV 100.0(H) 81.3 - 96.4 fL [facility] MCH 32.7 27.1 - 33.3 pg [facility] MCHC 32.7 32.3 - 35.7 g/dL [facility] RDW CV 12.8 11.1 - 14.9 % [facility] RDW SD 47.5 35.7 - 48.1 fL [facility] Plt 267 150 - 400 K/cumm [facility] MPV 10.2 9.1 - 12.3 fL [facility] NRBC abs 0.00 0.00 - 0.01 K/cumm [facility] Blood specimen (specimen) 11/12/2017 7:35 AM CDT 11/12/2017 2:02 PM CDT Narrative [facility] - 11/12/2017 2:11 PM CDT us Wood Mahan MD LAB BLOOD ORDERABLE S Final Result [facility] [address] [address] Department [place] [address] * (ABNORMAL) Comprehensive metabolic panel (11/12/2017 7:35 AM CDT) Sodium 138 135 - 145 mmol/L [facility] Potassium, pl 4.2 3.5 - 5.1 mmol/L [facility] CO2 29 22 - 32 mmol/L [facility] BUN 8 8 - 24 mg/dL [facility] Glucose 78 70 - 199 mg/dL [facility] Comment: Interpretive Data Fasting glucose >/= 126 [...] Creatinine 0.59(L) 0.60 - 1.30 mg/dL [facility] Calcium 9.0 8.4 - 10.5 mg/dL [facility] Chloride 101 100 - 114 mmol/L [facility] Albumin 3.8 3.2 - 4.8 g/dL [facility] AST 25 7 - 40 Units/L [facility] ALT 13 1 - 45 Units/L [facility] Alk phos 51 30 - 110 Units/L [facility] Bilirubin, total 0.30 0.10 - 1.30 mg/dL [facility] Protein, pl 6.1 6.0 - 8.3 g/dL [facility] Anion gap 12 8 - 16 mmol/L [facility] Blood specimen (specimen) 11/12/2017 7:35 AM CDT 11/12/2017 2:02 PM CDT Narrative [facility] - 11/12/2017 2:43 PM CDT us Wood Mahan MD LAB BLOOD ORDERABLE S Final Result [facility] [address] [address] Mehta Department [place] [address] documented in this encounter Visit Diagnoses Diagnosis PE (physical exam), annual documented in this encounter Care Teams Salt Washer Harvesting Station Relationship Specialty Start Date End Date Wood Mahan MD PCP - General 08/10/09 03/11/22 documented as of this encounter
--- OUTSIDE RECORDS SUMMARY | 2024-06-05 13:41 | XMS_ITS | Encounter Summary ---
Author Organization [facility] Healthcare Address [address] [place] [address] Care Team Providers Care Telephone Services Sales Representative Name Role Phone Wood Mahan MD Primary Care Provi cherie Encounter Details Date Type Department Care Team (Late st Contact Info) Description 03/29/2018 8:30 AM CDT - 03/29/2018 9:00 AM CDT Surgery [facility] [address] [place] [address] Tulio Serna MD [address] [place] [id number] COLONOSCOPY Surgery Details Date/Time Status Location OR Service Patient Class Case Class Case Type Trauma Case? 03/29/2018 8:30 AM Posted [facility] ENDOSCOPY GI Cap Gastroenterology Outpatient Elective Panel 1 Procedure LRB Anes Op Region Wound Class Comments COLONOSCOPY N/A Monitor Anesthes ia Care Class II - Clean Contaminated Surgeon Surgeon Role Service Panel Tulio Serna MD Primary Gastroenterology 1 documented in this encounter Social History Tobacco Use Types Packs/Day Years Used Date Smoking Tobacco: Former Smokeless Tobacco: Former Alcohol Use Standard Drinks/Week Comments No 0 (1 standard drink = 0.6 oz pur e alcohol) Comments Unknown Sex and Gender Information Value Date Recorded Sex Assigned at Not on file 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 Informed Consent: Discussed plan with SLEEVE SETTER SAFETY STITCH. Anesthesia plan and risks discussed with patient. [...] - 03/29/2018 8:26 AM CDTAssociated Order(s): COLONOSCOPY [facility] Patient Name: Renee Vance Procedure Date: 03/29/2018 8:26 AM Date of : 1955 Admit Type: Outpatient Age: 63 Gender: Female Attending MD: Tulio Serna M.D. Room: [facility] ENDOSCOPY CAPSULE Note Status: Finalized Procedure: Colonoscopy [...] was passed under direct vision. The Colonoscope CF-[id number] was introduced through the anus and advanced [...] malignant neoplasm of colon CPT copyright 2017 [employer]. All rights reserved. The codes documented in this report are preliminary and upon home improvement contractor review may be revised to meet current compliance requirements. Recognized by the [employer] for promoting quality [...] Serna MD - 03/29/2018 8:26 AM CDT [facility] Patient Name: Renee Vance Procedure Date: 03/29/2018 8:26 AM Date of : 1955 Admit Type: Outpatient Age: 63 Gender: Female Attending MD: Tulio Serna M.D. Room: [facility] ENDOSCOPY CAPSULE Note Status: Finalized Procedure: Colonoscopy [...] scope was passed under direct vision.The Colonoscope CF-[id number] was introducedthrough the anus and advanced to [...] malignant neoplasm of colon CPT copyright 2017 [employer]. All rights reserved. The codes documented in this report are preliminary and upon home improvement contractor reviewmay be revised to meet current compliance requirements. Recognized by the [employer] for promoting quality in endoscopy Tulio Serna MD ENDOSCOPY PROCEDURES Final Re sult documented in this encounter Visit Diagnoses Diagnosis Encounter for screening colonoscopy Encounter for screening colonoscopy documented in this [...] Auto Held - Provider: Automatic Transfer Provider)1138 (MAR Unhold - Provider: User Epic) Continuous Medication [...] Transfer Provider - Reason: Patient not available)1138 (MAR Unhold - Provider: User Epic) sodium chloride [...] 03/29/2018 documented in this encounter Care Teams Telephone Services Sales Representative Relationship Specialty Start Date End Date Wood Mahan MD PCP - General 08/10/09 03/11/22 documented as of this encounter
--- OUTSIDE RECORDS SUMMARY | 2024-06-05 13:41 | XMS_ITS | Encounter Summary ---
Author Organization [facility] Address [address] [facility] [address] [place] [address] Care Team Providers Care Lidder Name Role Phone Wood Mahan MD Primary Care Provi cherie Encounter Details Date Type Department Care Team (Late st Contact Info) Description 02/27/2017 Telephone [facility] [address] [facility] [address] [place] [phone] Wood Mahan MD [address] [place] [address] Social History Tobacco Use Types Packs/Day Years Used Date Smoking Tobacco: Former Smokeless Tobacco: Former Comments Unknown Sex and Gender Information Value Date Recorded Sex Assigned at Not on file 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 Modesta added to appt details. * Telephone Encounter - Maria Ines Gilbert - 02/27/2017 8:43 AM CDT At checkout jw added 58 to lab appt on 05/05/17 . thanks documented in this encounter Plan of Treatment Not on file documented as of this encounter Visit Diagnoses Not on filedocumented in this encounter Care Teams Lidder Relationship Specialty Start Date End Date Wood Mahan MD PCP - General 08/10/09 03/11/22 documented as of this encounter
--- OUTSIDE RECORDS SUMMARY | 2024-06-05 13:41 | XMS_ITS | Encounter Summary ---
Author Organization [facility] Address [address] [facility] [address] [place] [address] Care Team Providers Care Double Cut Sawyer Name Role Phone Wood Mahan MD Primary Care Provi cherie Reason for Visit * Reason Comments discuss medications Encounter Details Date Type Department Care Team (Late st Contact Info) Description 02/27/2017 8:00 AM CDT Office Visit [facility] [address] [facility] [address] [place] [phone] Wood Mahan MD [address] [place] [address] Body mass index (BMI) 21.0-21.9, adult (Primary Dx); Vitamin D deficiency; B12 deficiency; Anxiousness Social History Tobacco Use Types Packs/Day Years Used Date Smoking Tobacco: Former Smokeless Tobacco: Former Comments Unknown Sex and Gender Information Value Date Recorded Sex Assigned at Not on file 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 Gender Identity Not on file Sexual Orientation Not on file documented as of this encounter Last Filed Vital Signs Vital Sign Reading Time Taken Comments Blood Pressure 128/78 02/27/2017 8:13 AM CDT Pulse 78 02/27/2017 8:13 AM CDT Temperature - - Respiratory Rate 16 02/27/2017 8:13 AM CDT Oxygen Saturation - - Inhaled Oxygen Concentration - - Weight 61.2 kg (135 lb) 02/27/2017 8:02 AM CDT Height 167.6 cm (5' 6 ) 02/27/2017 8:02 AM CDT Body Mass Index 21.79 02/27/2017 8:02 AM CDT documented in this encounter Patient Instructions * Patient Instructions* Wood Mahan MD - 02/27/2017 8:00 AM CDT Restart and stay with the prozac at 20 and se what the next weeks does. optino to go up if need. Fall./winter/holidays can increase need. , restart vit d at 2000 a day and b12 at 500 a day and check levels in the future documented in this encounter Ordered Prescriptions Prescription Sig Dispense Quantity Refills Last Filled Start Date End Date cholecalciferol (VITAMIN D3) 2,000 unit capsule 1 capsule (2,000 Units total) daily. 100 capsule 02/27/2017 FLUoxetine (PROzac) 20 mg tablet Take 1 tablet (20 mg total) by mouth daily. 90 tablet 3 02/27/2017 8 FLUoxetine (PROzac) 20 mg tablet Take 1 tablet (20 mg total) by mouth daily. 90 tablet 3 02/27/2017 7 cyanocobalamin (Vitamin B-12) 500 mcg tabletIndications: Prevention of Vitamin B12 Deficiency Take 1 tablet (500 mcg total) by mouth daily. 30 tablet 11 02/27/2017 8 documented in this encounter Progress Notes * Wood Mahan MD - 02/27/2017 8:00 AM CDT Subjective/Objective Patient ID: Renee Vance is a 62 y.o. female. Chief Complaint discuss medications Recent palpitation return.not sleeping well. restrted prozac and helping Review of Systems Constitutional: Negative. HENT: Negative for congestion, ear pain, facial swelling, hearing loss, mouth sores, nosebleeds, postnasal drip, rhinorrhea, sinus pressure, sneezing, sore throat, tinnitus, trouble swallowing and voice change. Eyes: Negative. Respiratory: Negative. Cardiovascular: Positive for palpitations. Gastrointestinal: Negative. Endocrine: Negative. Genitourinary: Negative for decreased urine volume, difficulty urinating, dysuria, flank pain, frequency, genital sores, hematuria and urgency. Nocturia negative Musculoskeletal: Negative. Skin: Negative for skin lesions Negative for puritis Negative for hives Neurological: Negative. Hematological: Negative. Psychiatric/Behavioral: Positive for sleep disturbance. Denies emotional.outlook changes. No reason to have issues but restartinghte prozac has helped so far Vitals: 02/27/17 0802 02/27/17 0813 BP: 128/78 Pulse: 78 Resp: 16 Weight: 61.2 kg (135 lb) Height: 167.6 [...] normal. Abdominal: Soft. Bowel sounds are normal. Musculoskeletal: Normal range of motion. Neurological: She is alert and oriented to person, place, and time. Skin: Skin is warm and dry. Psychiatric: She has a normal mood and affect. Her behavior is normal. Judgment and thought contentnormal. Assessment/Plan Diagnoses and all orders for this visit: 1. Body mass index (BMI) 21.0-21.9, adult (Primary) 2. Vitamin D deficiency Assessment & Plan: D was not a cause for anxiety and would restr the 1999 and check levels in the futrer 3. B12 deficiency Assessment & Plan: b12 level ws in the range where 5-10% can see a nerve damage risk restart b12 and shold need chandan 500 a day. The vitamin itself is not a risk to cause s tr ess.anxiety. 4. Anxiousness Assessment & Plan: Resolution or major improvement with strtinghte prozac after 3 wks would stay on and Look for additioal improvement over next several weeks. Option to go to 30- 40 a day if need over time. Fall and winter/holiday time can increased need. Other orders - Fluarix/Fluzone Quad PF 3 yrs & older IM - cholecalciferol (VITAMIN D3) 2,000 unit capsule; 1 capsule (2,000 Units total) daily. - cyanocobalamin (Vitamin B-12) 500 mcg tablet; Take 1 tablet (500 mcg total) by mouth daily. - FLUoxetine (PROzac) 20 mg tablet; Take 1 tablet (20 mg total) by mouth daily. Disposition: Side effects, risks, interactions reviewed with patient. [...] Plan Note - Wood Mahan MD - 02/27/2017 8:25 AM CDT Associated Problem(s): B12 deficiency b12 level ws in the range where 5-10% can see a nerve damage risk restart b12 and shold need chandan 500 a day. The vitamin itself is not a risk to cause s tr ess.anxiety. * Assessment & Plan Note - Wood Mahan MD - 02/27/2017 8:25 AM CDT Associated Problem(s): Vitamin D deficiency D was not a cause for anxiety and would restr the 1999 Day and check levels in the futrer * Assessment & Plan Note - Wood Mahan MD - 02/27/2017 8:24 AM CDT Associated Problem(s): Anxiousness (Resolved 11/26/2017) Resolution or major improvement with strtinghte prozac after 3 wks would stay on and Look for additioal improvement over next several weeks. Option to go to 30- 40 a day if need over time. Fall and winter/holiday time can increased need. documented in this encounter Plan of Treatment Not on file documented as of this encounter Procedures Procedure Name Priority Date/Time Associated Diagnosis Comments HEPATITIS C SCREENING Routine 11/04/2016 DEXA SCAN Routine 11/04/2016 COLONOSCOPY Routine 03/22/2008 documented in this encounter Results * HEPATITIS C SCREENING (11/04/2016) HEP C Normal Comment:NEGATIVE [facility] Provider MD HEALTH MAINTENANCE Final Result * DEXA SCAN (11/04/2016) DEXA Scan Abnormal Comment:Osteopenia [facility] Provider HEALTH MAINTENANCE Final Result * COLONOSCOPY (03/22/2008) Colonoscopy Normal Comment:Internal hemorrhoida l tissue [facility] Provider MD HEALTH MAINTENANCE Final Result documented in this encounter Visit Diagnoses Diagnosis Body mass index (BMI) 21.0-21.9, adult- Primary Vitamin D deficiency B12 deficiency Anxiousness Anxiety state, unspecified documented in this encounter Discontinued Medications Medication Sig Discontinue Reason Start Date End Da te cyanocobalamin (vitamin B-12) 1,000 mcg tablet 1 a day 07/17/2011 7 cholecalciferol (VITAMIN D3) 2,000 unit capsule 1 a day 09/02/2010 7 FLUoxetine (PROzac) 40 mg capsule Take 40 mg by mouth daily. 02/27/2017 FLUoxetine (PROzac) 20 mg tablet Take 1 tablet (20 mg total) by mouth daily. 02/27/2017 02/27/2017 documented as of this encounter Historical Medications * This list may reflect changes made after this encounter. FLUoxetine (PROzac) 40 mg capsule Take 40 mg by mouth daily. 02/27/2017 added in this encounter Orders Immunization/Injection Count Last Ordered Date First Ordered Date FLU VACCINE QUAD PRESV FREE 3 YRS & OLDER IM 1 02/27/2017 documented in this encounter Care Teams Double Cut Sawyer Relationship Specialty Start Date End Date Wood Mahan MD PCP - General 08/10/09 03/11/22 documented as of this encounter
--- OUTSIDE RECORDS SUMMARY | 2024-06-05 13:41 | XMS_ITS | Encounter Summary ---
Author Organization [facility] Address [address] [place] [address] Care Team Providers Care Supervisor Nut Processing Name Role Phone Wood Mahan MD Primary Care Provi cherie Encounter Details Date Type Department Care Team (Late st Contact Info) Description 03/29/2018 8:31 AM CDT Anesthesia Event [address] [address] Nan Echevarria MD PhD [address] [place] [address] Anesthesia Record Procedure Summary Procedure Name Responsible Anesthesiologist Anesthesia Start Time Anesthesia Stop Time COLONOSCOPY Nan Echevarria MD PhD 03/29/18 0831 03/29/18 0850 Events Date Time Event Comment 03/29/2018 0809 0830 In Room 0831 An Start 0831 An Start Data 0831 Start Supplemental O2 0831 Patient Positioned Laterally 0833 An Induction The patient was reevaluated immediately before moderate or deep sedation use and before anesthesia induction. 0833 Anesthesia Ready 0850 an stop data 0850 Handoff to RN I completed my handoff to the receiving nurse during which we: 1. Patient identified 2. Responsible provider identified 3. Pertinent medical history reviewed 4. Procedure type and surgical course discussed 5. Intraoperative anesthetic management and any significant issues discussed 6. Expectations and concerns for postop period discussed 7. Questions solicited from receiving nurse 8. Patient disposition at the time of handoff: No value filed. 0850 An Stop 0852 Out of Room Meds Name Total propofol 160 mg lidocaine 2 % PF 50 mg sodium chloride 0.9% infusion 0 mL * Agents Name O2 * Blood No blood administrations on file. Lines, Drains, and Airways Type Details Placement Removal Peripheral IV Placement Date: 03/09 07/26; Placement Time: 812; Catheter Size: 20 G; Orientation: Right; Location: Antecubital; Site Prep: Chlorhexidine; Inserted by: Yousuf; Insertion Attempts: 1; Patient Tolerance: Tolerated well 03/29/18812 by Sharan Martinez RN documented in this encounter Social History Tobacco Use Types Packs/Day Years Used Date Smoking Tobacco: Former Smokeless Tobacco: Former Alcohol Use Standard Drinks/Week Comments No 0 (1 standard drink = 0.6 oz pur e alcohol) Comments Unknown Sex and Gender Information Value Date Recorded Sex Assigned at Not on file 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 Gender Identity Not on file Sexual Orientation Not on file documented as of this encounter OR Notes * Anesthesia Postprocedure Evaluation - Kiersten Streeter CRNA - 03/29/2018 8:50 AM CDT Patient: Renee Vance Procedure Summary Date: 03/29/18 [facility] / [facility] Anesthesia Start: 830 Anesthesia Stop: Procedure: COLONOSCOPY (N/A ) Diagnosis: Encounter for screening colonoscopy (Encounter for screening colonoscopy [Z12.11]) Provider: Tulio Serna MD Responsible Provider: Nan Echevarria MD PhD Anesthesia Type: general/TIVA ASA Status: 2 Anesthesia Type: general/TIVA Last vitals BP 100/63 Pulse 60 Temp 36.3 ??C (97.3 ??F) (Tympanic) Resp 16 SpO2 98% Anesthesia Post Evaluation Patient location during evaluation: PACU Patient participation: complete - patient participated Level of consciousness: fully awake Pain score: 0 Pain management: adequate Airway patency: adequate and patent Evidence of recall: no Anesthetic complications: no Cardiovascular status: acceptable and hemodynamically stable Respiratory status: acceptable and room air Hydration status: acceptable Pt is: normothermic Nausea/Vomiting status: none * Anesthesia Preprocedure Evaluation - Nan Echevarria MD PhD - 03/29/2018 [...] is Outpatient. Informed Consent: Discussed plan with HOMICIDE SQUAD CAPTAIN. Anesthesia plan and risks discussed with patient. Consent and Attending signature: I and/or my designee have discussed the anesthesia plan, benefits, possible alternatives, parental presence at time of induction (if indicated), and clinically relevant risks that may include dental injury, unintentional awareness, and/or other complications. The patient and/or parent/legal guardian understand, and agree to proceed. All questions answered. documented in this encounter Plan of Treatment Not on file documented as of this encounter Visit Diagnoses Not on filedocumented in this encounter Administered Medications Inactive Administered Medications - up to 3 most recent administrations Medication Order MAR Action Action Date Dose Rate Site lidocaine (XYLOCAINE) 20 mg/mL (2 %) preservative free injection As needed, Starting on Thu03/29/18 at 0833, Anesthesia Intra-op Given 03/29/2018 8:33 AM CDT 50 mg propofol (DIPRIVAN) IV intravenous, As needed, Starting on Thu03/29/18 at 0833, Anesthesia Intra-op Given 03/29/2018 8:44 AM CDT 40 mg Given 03/29/2018 8:39 AM CDT 20 mg Given 03/29/2018 8:33 AM CDT 100 mg sodium chloride 0.9% infusion 125 mL/hr, intravenous, Continuous, Starting on Thu03/29/18 at 0830, Recovery (GI) New Bag 03/29/2018 8:31 AM CDT documented in this encounter Care Teams Supervisor Nut Processing Relationship Specialty Start Date End Date Wood Mahan MD PCP - General 08/10/09 03/11/22 documented as of this encounter
--- OUTSIDE RECORDS SUMMARY | 2024-06-05 13:41 | XMS_ITS | Encounter Summary ---
Author Organization [facility] Address [address] [facility] [address] [place] [address] Care Team Providers Care Dragsaw Operator Name Role Phone Wood Mahan MD Primary Care Pro[facility] Encounter Details Date Type Department Care Team (Late st Contact Info) Description 11/04/2016 [facility] [address] [facility] [address] [place] [phone] Wood Mahan MD [address] [place] [address] Social History Tobacco Use Types Packs/Day Years Used Date Smoking Tobacco: Never Assessed Comments Unknown Sex and Gender Information Value Date Recorded Sex Assigned at Not on file 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 180 - 920 pg/ml Indeterminate: ??145 - 180 pg/ml Deficient: ? <145 pg/ml Current Interpretive Data was last revised on 2015 Blood specimen (specimen) 11/04/2016 8:35 AM CDT 11/04/2016 12:43 PM CDT us Wood Mahan MD LAB BLOOD ORDERABLE S Final Result Performing Organization Address City/State/ZIP Co in Phone Number MEKHI [address] [address] Department of Laboratories [place], [place] [phone] documented in this encounter Visit Diagnoses Not on filedocumented in this encounter Care Teams Dragsaw Operator Relationship Specialty Start Date End Date Wood Mahan MD PCP - General 08/10/09 03/11/22 documented as of this encounter
--- OUTSIDE RECORDS SUMMARY | 2024-06-05 13:41 | XMS_ITS | Encounter Summary ---
Author Organization [facility] Address [address] [facility] [address] [place] [address] Care Team Providers Care Family Welfare Social Work Professor Name Role Phone Wood Mahan MD Primary Care Provi cherie Encounter Details Date Type Department Care Team (Late st Contact Info) Description 11/04/2016 [facility] Internal Medicine [address] [facility] [address] [place] [phone] Wood Mahan MD [address] [place] [address] Social History Tobacco Use Types Packs/Day Years Used Date Smoking Tobacco: Never Assessed Comments Unknown Sex and Gender Information Value Date Recorded Sex Assigned at Not on file 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 Gender Identity Not on file Sexual Orientation Not on file documented as of this encounter Plan of Treatment Not on file documented as of this encounter Procedures Procedure Name Priority Date/Time Associated Diagnosis Comments URINALYSIS AND REFLEX TO MICROSCOPIC AND CULTURE Routine 11/04/2016 8:35 AM CDT documented in this encounter Results * Urinalysis reflex to microscopic and culture (11/04/2016 8:35 AM CDT) Color, ur Straw [facility] Clarity, ur Clear [facility] Specific gravity, ur 1.003 1.001 - 1.033 [facility] pH, ur 8.0 5.0 - 8.0 [facility] Protein, ur ql Negative Negative [facility] Glucose, ur ql Negative Negative [facility] Ketones, ur Negative Negative [facility] Bilirubin, ur Negative Negative [facility] Blood, ur Negative Negative [facility] Urobilinogen, ur <2.0 <2.0 [facility] Nitrites, ur Negative Negative [facility] Leukocyte esterase, ur Negative Negative [facility] Urine/Blood 11/04/2016 8:35 AM CDT 11/04/2016 12:43 PM CDT us Wood Mahan MD LAB MICROBIOLOGY - GENERAL ORDERABLES Final Result [facility] [address] [address] Department [place] [address] documented in this encounter Visit Diagnoses Not on filedocumented in this encounter Care Teams Family Welfare Social Work Professor Relationship Specialty Start Date End Date Wood Mahan MD PCP - General 08/10/09 03/11/22 documented as of this encounter
--- OUTSIDE RECORDS SUMMARY | 2024-06-05 13:41 | XMS_ITS | Encounter Summary ---
Author Organization [facility] Address [address] [place] [address] Care Team Providers Care Agricultural Loan Officer Name Role Phone Wood Mahan MD Primary Care Provi cherie Reason for Referral * Diagnostic Imaging (Routine) - Closed Specialty Diagnoses / Procedures Referred By Contac t Referred To Contact Diagnoses PE (physical exam), annual Procedures Dexa Axial Skeleton Bone Density 1 or 2 Site Wood Mahan MD Phone: tel: fax: [address] [phone] Referral ID Status Reason Start Date Expiration Date Visits Re quested Visits Authorized [id number] Closed 11/26/2017 06/07/2019 1 1 Reason for Visit * Reason Comments Preventative Care Encounter Details Date Type Department Care Team (Late st Contact Info) Description 11/26/2017 8:30 AM CDT Office Visit [facility] [address] [facility] [address] [place] [phone] Wood Mahan MD [address] [place] [address] PE (physical exam), annual (Primary Dx); BMI 21.0-21.9, adult; B12 deficiency; Colon cancer screening; Gastroesophageal reflux disease without esophagitis; Slow transit constipation; Vitamin D deficiency Social History Tobacco Use Types Packs/Day Years Used Date Smoking Tobacco: Former Smokeless Tobacco: Former Comments Unknown Sex and Gender Information Value Date Recorded Sex Assigned at Not on file 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 Gender Identity Not on file Sexual Orientation Not on file documented as of this encounter Last Filed Vital Signs Vital Sign Reading Time Taken Comments Blood Pressure - - Pulse - - Temperature - - Respiratory Rate - - Oxygen Saturation - - Inhaled Oxygen Concentration - - Weight 59.9 kg (132 lb) 11/26/2017 8:14 AM CDT Height 167.6 cm (5' 6 ) 11/26/2017 8:14 AM CDT Body Mass Index 21.31 11/26/2017 8:14 AM CDT documented in this encounter Ordered Prescriptions Prescription Sig Dispense Quantity Refills Last Filled Start Date End Date FLUoxetine (PROzac) 20 mg tablet Take 1 tablet (20 mg total) by mouth daily. 90 tablet 3 11/26/2017 11/29/2018 documented in this encounter Progress Notes * Wood Mahan MD - 11/26/2017 8:30 AM CDT Subjective/Objective Patient ID: Renee Vance is a 62 y.o. female. Chief Complaint Preventative Care Well Exam. l post lat head for 2 wks has been hurting. Hurts to flex back. Wondered if weather.constipation. b12 def. Review of Systems Constitutional: Negative. HENT: Negative for congestion, ear pain, facial swelling, hearing loss, mouth sores, nosebleeds, postnasal drip, rhinorrhea, sinus pressure, sneezing, sore throat, tinnitus, trouble swallowing and voice change. Eyes: Negative. Respiratory: Negative. Cardiovascular: Negative. Gastrointestinal: Negative. Endocrine: Negative. Genitourinary: Negative for decreased urine volume, difficulty urinating, dysuria, flank pain, frequency, genital sores, hematuria and urgency. Nocturia negative Musculoskeletal: Positive for neck pain and neck stiffness. L post lat. Skin: Negative for skin lesions Negative for puritis Negative for hives Neurological: Negative. Hematological: Negative. Psychiatric/Behavioral: Negative. Vitals: 11/26/17 0814 Weight: 59.9 kg (132 lb) Height: 167.6 cm (5' 6 ) Physical Exam Constitutional: She is oriented to person, place, and time. She appears well- developed and well-nourished. No distress. HENT: Head: Normocephalic and atraumatic. Right Ear: External ear normal. Left Ear: External ear normal. Nose: Nose normal. Mouth/Throat: Oropharynx is clear and moist. Eyes: Conjunctivae and EOM are normal. Pupils [...] She exhibits no edema, tenderness or deformity. l post lab. Tender. Discomfort with rom. No lylmpoh nodesw Lymphadenopathy: She has no cervical adenopathy. Neurological: [...] behavior is normal. Judgment and thought contentnormal. Lab on 11/12/2017 Component Date Value Ref Range Status ??? Sodium 11/12/2017 138 135 - 145 mmol/L Final ??? Potassium, pl 11/12/2017 4.2 3.5 - 5.1 mmol/L Final ??? CO2 11/12/2017 29 22 - 32 mmol/L Final ??? BUN 11/12/2017 8 8 - 24 mg/dL Final ??? Glucose 11/12/2017 78 70 - 199 mg/dL Final Comment: Interpretive Data Fasting glucose >/= 126 mg/dl is diagnostic for diabetes. Fasting is defined as no caloric intake [...] Current interpretive data was last revised 2017. ??? Creatinine 11/12/2017 0.59* 0.60 - 1.30 mg/dL Final ??? Calcium 11/12/2017 9.0 8.4 - 10.5 mg/dL Final ??? Chloride 11/12/2017 101 100 - 114 mmol/L Final ??? Albumin 11/12/2017 3.8 3.2 - 4.8 g/dL Final ??? AST 11/12/2017 25 7 - 40 Units/L Final ??? ALT 11/12/2017 13 1 - 45 Units/L Final ??? Alk phos 11/12/2017 51 30 - 110 Units/L Final ??? Bilirubin 11/12/2017 0.30 0.10 - 1.30 mg/dL Final ??? Protein, pl 11/12/2017 6.1 6.0 - 8.3 g/dL Final ??? Anion Gap 11/12/2017 12 8 - 16 mmol/L Final ??? WBC 11/12/2017 3.6* 3.8 - 9.9 K/cumm Final ??? RBC 11/12/2017 4.25 3.90 - 5.20 M/cumm Final ??? Hgb 11/12/2017 13.9 11.9 - 15.5 g/dL Final ??? Hct 11/12/2017 42.5 35.6 - 45.5 % Final ??? MCV 11/12/2017 100.0* 81.3 - 96.4 fL Final ??? MCH 11/12/2017 32.7 27.1 - 33.3 pg Final ??? MCHC 11/12/2017 32.7 32.3 - 35.7 g/dL Final ??? RDW CV 11/12/2017 12.8 11.1 - 14.9 % Final ??? RDW SD 11/12/2017 47.5 35.7 - 48.1 fL Final ??? Plt 11/12/2017 267 150 - 400 K/cumm Final ??? MPV 11/12/2017 10.2 9.1 - 12.3 fL Final ??? NRBC Abs 11/12/2017 0.00 0.00 - 0.01 K/cumm Final ??? Cholesterol 11/12/2017 177 100 - 200 mg/dL Final Comment: Interpretive Data Desirable: <200 mg/dL Borderline high: 200-239 mg/dL High: >240 mg/dL Current interpretive data was last revised on 2015. ??? Triglycerides 11/12/2017 77 10 - 150 mg/dL Final Comment: Interpretive Data Desirable: < 150 mg/dL Borderline High: 150 - 199 mg/dL High: 200 - 499 mg/dL Very High: > or = 499 mg/dL Current interpretive data was last revised on 2015. ??? HDL 11/12/2017 69* 40 - 59 mg/dL Final Comment: Interpretive Data Less than 40 mg/dL - Low; A major risk factor for heart disease. Greater than or equal to 60 mg/dL - High; Considered protective of heart disease. Current interpretive data was last revised on 2015. ??? LDL, calculated 11/12/2017 93 60 - 129 mg/dL Final Comment: Interpretive Data Optimal: < 100 mg/dL Near Optimal: 100 - 129 mg/dL Borderline High: 130 - 159 mg/dL High: > 160 mg/dL Current interpretive data was last revised on 2015. ??? Chol/HDL ratio 11/12/2017 3 mg/dL Final ??? Color, ur 11/12/2017 Yellow Yellow Final ??? Clarity, ur 11/12/2017 Clear Clear Final ??? Specific gravity, ur 11/12/2017 1.005* 1.010 - 1.025 Final ??? pH, urine 11/12/2017 7.0 Final ??? Protein, ur ql 11/12/2017 Negative Negative Final ??? Glucose, ur ql 11/12/2017 Negative Negative Final ??? Ketones, ur 11/12/2017 Negative Negative Final ??? Bilirubin, ur 11/12/2017 Negative Negative Final ??? Blood, ur 11/12/2017 Negative Negative Final ? ? Urobilinogen, ur 11/12/2017 <2.0 <2.0 mg/dL Final ??? Nitrite, ur 11/12/2017 Negative Negative Final ??? Leukocyte esterase, ur 11/12/2017 Negative Negative Final ??? Ascorbic acid, ur 11/12/2017 Negative Negative Final ??? Neutrophil absolute 11/12/2017 1.6* 1.7 - 6.5 K/cumm Final ??? Immature granulocyte absolute 11/12/2017 0.0 0.0 - 0.1 K/cumm Final ??? Lymphocytes absolute 11/12/2017 1.6 0.8 - 3.3 K/cumm Final ??? Monocyte absolute 11/12/2017 0.3 0.2 - 0.8 K/cumm Final ??? Eosinophils absolute 11/12/2017 0.1 0.0 - 0.5 K/cumm Final ??? Basophils, abs 11/12/2017 0.0 0.0 - 0.1 K/cumm Final ??? Neutrophils 11/12/2017 44.2 % Final Comment: Interpretive Data Percent cell count reference ranges are not reported, since discordance with absolute values may lead to misinterpretation of CBC data. Current Interpretive Data was last revised on 2017. ??? Immature granulocytes 11/12/2017 0.3 % Final Comment: Interpretive Data Percent cell count reference ranges are not reported, since discordance with absolute values may lead to misinterpretation of CBC data. Current Interpretive Data was last revised on 2017. ??? Lymphocytes 11/12/2017 43.9 % Final Comment: Interpretive Data Percent cell count reference ranges are not reported, since discordance with absolute values may lead to misinterpretation of CBC data. Current Interpretive Data was last revised on 2017. ??? Monocytes 11/12/2017 8.6 % Final Comment: Interpretive Data Percent cell count reference ranges are not reported, since discordance with absolute values may lead to misinterpretation of CBC data. Current Interpretive Data was last revised on 2017. ??? Eosinophils 11/12/2017 1.9 % Final Comment: Interpretive Data Percent cell count reference ranges are not reported, since discordance with absolute values may lead to misinterpretation of CBC data. Current Interpretive Data was last revised on 2017. ??? Basophils 11/12/2017 1.1 % Final Comment: Interpretive Data Percent cell count reference ranges are not reported, since discordance with absolute values may lead to misinterpretation of CBC data. Current Interpretive Data was last revised on 2017. ??? GFR 11/12/2017 99 mL/min/1.73 m2 Final Comment: Interpretive Data Reference Interval Normal >/= 90 mL/min/1.73m2 Mildly decreased* 60 - 89 mL/min/1.73m2 Mildly to moderately decreased 45 - 59 mL/min/1.73m2 Moderately to severely decreased 30 - 44 mL/min/1.73m2 Severely decreased 15 - 29 mL/min/1.73m2 Kidney Failure < 15 mL/min/1.73m2 *Relative to young adult level If -Vincentian multiply value by 1.16. Estimated glomerular filtration [...] Current interpretive data was last reviewed 2015. .1 Assessment/Plan Diagnoses and all orders for this visit: PE (physical exam), annual (Primary) Assessment & Plan: Screening blood cnts. Chem for liver and kidney great. No anemia. Lipids good and no changes needed. bmd next summer p.e. And due prior to seeeing then. Colon oct time for 10 yr Repeat. Kerri in setptfor yr'ly, shinlgles 03/23 and new .2 shot series now available and felt much better then last.Suggest getting it but can do now or wait sev eral yrs from the prior shot. Neck pain appears more strain. Reviewed range of motion and stretches , if not going to gone in a wk would re eval and consider referral for formal pt. Possible xrays eval . No apparent underlying lymph noes or masses. BMI 21.0-21.9, adult Assessment & Plan: Weight such that your great at present but do not want to lose much if any. If find it drifting down then needs to take counter actions to bring up B12 deficiency Assessment & Plan: b12 great last fall and will recheck ou return. Cont on b12 Colon cancer screening Assessment & Plan: Colon due this fall and will refer for such. Orders: - Ambulatory referral to Gastroenterology; Future Gastroesophageal reflux disease without esophagitis Assessment & Plan: Gone and not using the zantac Slow transit constipation Assessment & Plan: Back to nl with diet. Vitamin D deficiency Assessment & Plan: A yr aago low but up to nl 6month ago. Dina add to nov labs to mon[facility] Other orders - FLUoxetine (PROzac) 20 mg tablet; Take 1 tablet (20 mg total) by mouth daily. Side effects, risks, interactions reviewed with patient. [...] Plan Note - Wood Mahan MD - 11/26/2017 8:54 AM CDT Associated Problem(s): PE (physical exam), annual (Resolved 02/05/2021) Screening blood cnts. Chem for liver and kidney great. No anemia. Lipids good and no changes needed. bmd next summer p.e. And due prior to seeeing then. Colon oct time for 10 yr Repeat. Kerri in setpt for yr'ly, shinlgles 03/23 and [...] No apparent underlying lymph noes or masses. * Assessment & Plan Note - Wood Mahan MD - 11/26/2017 8:53 AM CDT Associated Problem(s): Recurrent major depressive disorder, in full remission (CMS/HCC) (HCC) (Resolved 03/21/2022) Stable on prozac. Had came off more then once n past and didn't go well and decided to stay on now going forward * Assessment & Plan Note - Wood Mahan MD - 11/26/2017 8:53 AM CDT Associated Problem(s): Vitamin D deficiency A yr aago low but up to nl 6month ago. Dina add to nov labs to [facility] * Assessment & Plan Note - Wood Mahan MD - 11/26/2017 8:52 AM CDT Associated Problem(s): Slow transit constipation Back to nl with diet. * Assessment & Plan Note - Wood Mahan MD - 11/26/2017 8:52 AM CDT Associated Problem(s): GERD (gastroesophageal reflux disease) Gone and not using the zantac * Assessment & Plan Note - Wood Mahan MD - 11/26/2017 8:51 AM CDT Associated Problem(s): B12 deficiency b12 great last fall and will recheck ou return. Cont on b12 * Assessment & Plan Note - Wood Mahan MD - 11/26/2017 8:50 AM CDT Associated Problem(s): BMI 21.0-21.9, adult (Resolved 07/06/2023) Weight such that your great at present but do not want to lose much if any. If find it drifting down then needs to take counter actions to bring up * Assessment & Plan Note - Wood Mahan MD - 11/26/2017 8:50 AM CDT Associated Problem(s): Colon cancer screening (Resolved 11/29/2018) Colon due this fall and will refer for such. documented in this encounter Plan of Treatment Not on file documented as of this encounter Results * TSH (11/15/2018 9:10 AM CDT) Thyroid Stimulating Hormone 1.76 0.30 - 4.20 mcIUnit/mL [facility] Blood specimen (specimen) 11/15/2018 9:10 AM CDT 11/15/2018 3:02 PM CDT Narrative [facility] - 11/15/2018 3:57 PM CDT Wood Mahan MD LAB BLOOD ORDERABLE S Final Result [facility] [id number] [address] Department [place] [address] * (ABNORMAL) Urinalysis reflex to microscopic and culture Urine, clean voided (11/15/2018 9:10 AM CDT) Color, ur Yellow Yellow [facility] Clarity, ur Clear Clear [facility] Specific gravity, ur 1.004(L) 1.010 - 1.025 [...] [facility] - 11/15/2018 3:11 PM CDT ?? Urine pH is affected by diet, medications, systemic acid-base disturbances, and renal tubular function. ??pH may affect urinary stone formation. ??For example, urine pH below 6.0 may help reduce the tendency for calcium phosphate stones and pH greater than 6.0 may reduce the tendency for uric acid stone formation. Source: [place] [employer]. Last revised 06-18-2017 Wood Mahan MD LAB MICROBIOLOGY - GENERAL ORDERABLES Final Result [facility] [id number] Department [place] [address] * (ABNORMAL) Comprehensive metabolic panel (11/15/2018 9:10 AM CDT) Sodium 140 135 - 145 mmol/L [facility] Potassium, pl 4.5 3.3 - 4.9 mmol/L [facility] Chloride 101 97 - 110 mmol/L [facility] CO2 27 22 - 32 mmol/L [facility] Anion gap 12 2 - 15 mmol/L [facility] BUN 11 8 - 25 mg/dL [facility] Creatinine 0.54(L) 0.60 - 1.10 mg/dL [facility] Glucose 85 70 - 199 mg/dL [facility] Comment: Interpretive Data Fasting glucose >/= 126 [...] [facility] - 11/15/2018 3:57 PM CDT us Wood Mahan MD LAB BLOOD ORDERABLE S Final Result [facility] [id number] [address] Department [place] [address] * (ABNORMAL) CBC with auto differential (11/15/2018 9:10 AM CDT) WBC 3.6(L) 3.8 - 9.9 K/cumm [facility] Hgb 13.8 11.9 - 15.5 g/dL [facility] Hct 42.2 35.6 - 45.5 % [facility] Plt 262 150 - 400 K/cumm [facility] MPV 10.1 9.1 - 12.3 fL [facility] RBC 4.21 3.90 - 5.20 M/cumm [facility] MCV 100.2(H) 81.3 - 96.4 fL [facility] MCH 32.8 27.1 - 33.3 pg [facility] MCHC 32.7 32.3 - 35.7 g/dL [facility] RDW CV 12.6 11.1 - 14.9 % [facility] RDW SD 46.9 35.7 - 48.1 fL [facility] NRBC abs 0.00 0.00 - 0.01 K/cumm [facility] Blood specimen (specimen) 11/15/2018 9:10 AM CDT 11/15/2018 3:02 PM CDT Narrative [facility] - 11/15/2018 3:11 PM CDT us Wood Mahan MD LAB BLOOD ORDERABLE S Final Result [facility] [address] [address] [facility] [place], [place] [id number] * Vitamin D 25 hydroxy (11/15/2018 9:10 AM CDT) Vitamin D 25-OH 35 30 - 80 ng/mL [facility] Blood specimen (specimen) 11/15/2018 9:10 AM CDT 11/15/2018 3:02 PM CDT Narrative [facility] - 11/15/2018 4:06 PM CDT us Wood Mahan MD LAB BLOOD ORDERABLE S Final Result Performing Organization Address City/[facility] Co de Phone Number [facility] [address] [address] [facility] [place] [address] * Vitamin B12 (11/15/2018 9:10 AM CDT) Vitamin B12 996 230 - 1,250 pg/mL [facility] Blood specimen (specimen) 11/15/2018 9:10 AM CDT 11/15/2018 3:02 PM CDT Narrative [facility] - 11/15/2018 5:33 PM CDT Wood Mahan MD LAB BLOOD ORDERABLE S Final Result Performing Organization Address City/[facility]/ZIP Co de Phone Number [facility] [id number] [address] Department [place] [address] * Dexa Axial Skeleton Bone Density 1 [...] (physical exam), annual- Primary BMI 21.0-21.9, adult B12 deficiency Colon cancer screening Special screening for malignant neoplasms, colon Gastroesophageal reflux disease without esophagitis Esophageal reflux Slow transit constipation Vitamin D deficiency PE (physical exam), annual Routine lab draw PE (physical exam), annual B12 deficiency Vitamin D deficiency documented in this encounter Discontinued Medications Medication Sig Discontinue Reason Start Date End Da te FLUoxetine (PROzac) 20 mg tablet Take 1 tablet (20 mg total) by mouth daily. 02/27/2017 11/26/2017 raNITIdine (ZANTAC) 150 mg tabletIndications:Gastroe sophageal reflux disease without esophagitis Take 1 tablet (150 mg total) by mouth 2 (two) times a day. 11/25/2016 11/26/2017 documented as of this encounter Care Teams Agricultural Loan Officer Relationship Specialty Start Date End Date Wood Mahan MD PCP - General 08/10/09 03/11/22 documented as of this encounter
--- OUTSIDE RECORDS SUMMARY | 2024-06-05 13:41 | XMS_ITS | Encounter Summary ---
Author Organization [facility] Address [address] [place] [address] Care Team Providers Care Medical Observer Name Role Phone Wood Mahan MD Primary Care Provi [facility] Encounter Details Date Type Department Care Team (Late st Contact Info) Description 11/04/2016 [facility] Internal Medicine [address] [place] [phone] Wood Mahan MD [address] [place] [address] Social History Tobacco Use Types Packs/Day Years Used Date Smoking Tobacco: Never Assessed Comments Unknown Sex and Gender Information Value Date Recorded Sex Assigned at Not on file 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 Gender Identity Not on file Sexual Orientation Not on file documented as of this encounter Plan of Treatment Not on file documented as of this encounter Procedures Procedure Name Priority Date/Time Associated Diagnosis Comments DIFFERENTIAL AUTO Routine 11/04/2016 8:3 5 AM CDT documented in this encounter Results * Differential, auto (11/04/2016 8:35 AM CDT) Neutrophil pct 46.0 % [facility] Imm gran pct 0.3 % [facility] Lymphocyte pct 42.8 % [facility] Monocyte pct 7.3 % [facility] Eosinophil pct 0.1 % [facility] Basophil pct 1.4 % [facility] Neutrophil abs 1.70 1.70 - 6.50 K/cumm [facility] Imm gran abs 0.01 0.00 - 0.10 K/cumm [facility] Lymphocyte abs 1.58 0.80 - 3.30 K/cumm [facility] Monocyte abs 0.27 0.20 - 0.80 K/cumm [facility] Eosinophil abs 0.08 0.00 - 0.50 K/cumm [facility] Basophil abs 0.05 0.00 - 0.10 K/cumm [facility] Blood specimen (specimen) 11/04/2016 8:35 AM CDT 11/04/2016 12:43 PM CDT us Wood Mahan MD LAB BLOOD ORDERABLE S Final Result [facility] [address] [address] Department [place] [address] documented in this encounter Visit Diagnoses Not on filedocumented in this encounter Care Teams Medical Observer Relationship Specialty Start Date End Date Wood Mahan MD PCP - General 08/10/09 03/11/22 documented as of this encounter
--- OUTSIDE RECORDS SUMMARY | 2024-06-05 13:41 | XMS_ITS | Encounter Summary ---
Author Organization [facility] Address [address] [place] [address] Care Team Providers Care Tent Worker Name Role Phone Wood Mahan MD Primary Care Provi cherie Encounter Details Date Type Department Care Team (Late st Contact Info) Description 11/04/2016 [facility] Internal Medicine [address] [place] [phone] Wood Mahan MD [address] [place] [address] Social History Tobacco Use Types Packs/Day Years Used Date Smoking Tobacco: Never Assessed Comments Unknown Sex and Gender Information Value Date Recorded Sex Assigned at Not on file 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 Gender Identity Not on file Sexual Orientation Not on file documented as of this encounter Plan of Treatment Not on file documented as of this encounter Procedures Procedure Name Priority Date/Time Associated Diagnosis Comments HEPATITIS C AB REFLEX RNA QUANT PCR Routine 11/04/2016 8:35 AM CDT documented in this encounter Results * Hepatitis C Antibody Reflex Hepatitis C RNA Quantitative PCR (11/04/2016 8:35 AM CDT) Hep C Ab Negative Negative [facility] Blood specimen (specimen) 11/04/2016 8:35 AM CDT 11/04/2016 1:02 PM CDT Wood Mahan MD LAB MICROBI OLOGY - GENERAL ORDERABLES Edited Result - Final [facility] [address] [address] Department [place] [address] documented in this encounter Visit Diagnoses Not on filedocumented in this encounter Care Teams Tent Worker Relationship Specialty Start Date End Date Wood Mahan MD PCP - General 08/10/09 03/11/22 documented as of this encounter
--- OUTSIDE RECORDS SUMMARY | 2024-06-05 13:41 | XMS_ITS | Encounter Summary ---
Author Organization [facility] Healthcare Address [address] [place] [address] Care Team Providers Care Family Centered Specialist Name Role Phone Wood Mahan MD Primary Care Provi cherie Encounter Details Date Type Department Care Team (Late st Contact Info) Description 05/05/2017 3:00 PM CASE WORK AIDE Lab [address] [address] Vitamin D deficiency; Slow transit constipation; Vitamin B12 deficiency (non anemic) Social History Tobacco Use Types Packs/Day Years Used Date Smoking Tobacco: Former Smokeless Tobacco: Former Comments Unknown Sex and Gender Information Value Date Recorded Sex Assigned at Not on file Legal 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 Female 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 Gender Identity Not on file Sexual Orientation Not on file documented as of this encounter Plan of Treatment Not on file documented as of this encounter Procedures Procedure Name Priority Date/Time Associated Diagnosis Comments VITAMIN D 25 HYDROXY Routine 05/05/2017 8:54 AM CASE WORK AIDE Vitamin D deficiency TSH Routine 05/05/2017 8:54 AM CASE WORK AIDE Slow transit constipation VITAMIN B12 Routine 05/05/2017 8:54 AM CASE WORK AIDE Vitamin B12 deficiency (non anemic) documented in this encounter Results * Vitamin B12 (05/05/2017 8:54 AM CASE WORK AIDE) Vitamin B12 710 180 - 920 pg/mL MEKHI MCCULLOUGH Comment: Interpretive Data Reference Interval (greater than 1 year of age) Normal: ? 180 - 920 pg/ml Indeterminate: ??145 - 180 pg/ml Deficient: ? <145 pg/ml Current Interpretive Data was last revised on 2015 Blood specimen (specimen) 05/05/2017 8:54 AM CASE WORK AIDE 05/05/2017 2:54 PM CASE WORK AIDE Narrative MEKHI - 05/05/2017 3:34 PM CASE WORK AIDE Wood Mahan MD LAB BLOOD ORDERABLE S Final Result Performing Organization Address [facility] de Phone Number MEKHI [phone] [address] [facility] [place] [address] * TSH (05/05/2017 8:54 AM CASE WORK AIDE) Thyroid Stimulating Hormone 1.60 0.45 - 5.33 mcIUnit/mL JEROMEARI Blood specimen (specimen) 05/05/2017 8:54 AM CASE WORK AIDE 05/05/2017 2:54 PM CASE WORK AIDE Narrative MEKHI - 05/05/2017 3:25 PM CASE WORK AIDE Wood Mahan MD LAB BLOOD ORDERABLE S Final Result Performing Organization Address [facility] de Phone Number MEKHI [phone] [address] [facility] [place] [address] * Vitamin D 25 hydroxy (05/05/2017 8:54 AM CASE WORK AIDE) Vitamin D 25-OH 39 30 - 80 ng/[facility] Blood specimen (specimen) 05/05/2017 8:54 AM CASE WORK AIDE 05/05/2017 2:54 PM CASE WORK AIDE Narrative MEKHI - 05/05/2017 3:30 PM CASE WORK AIDE Wood Mahan MD LAB BLOOD ORDERABLE S Final Result Performing Organization Address [facility]/State/ZIP Co de Phone Number MEKHI MCCULLOUGH [phone] [address] Department [place] [address] documented in this encounter Visit Diagnoses Diagnosis Vitamin D deficiency Slow transit constipation Vitamin B12 deficiency (non anemic) Other B-complex deficiencies documented in this encounter Care Teams Family Centered Specialist Relationship Specialty Start Date End Date Wood Mahan MD PCP - General 08/10/09 03/11/22 documented as of this encounter
--- OUTSIDE RECORDS SUMMARY | 2024-06-05 13:41 | XMS_ITS | Encounter Summary ---
Author Organization [facility] Medical Group Address [address] [facility] [address] [place] [address] Care Team Providers Care Technical Writing Lead/Mgr Name Role Phone Wood Mahan MD Primary Care Provi cherie Encounter Details Date Type Department Care Team (Late st Contact Info) Description 11/04/2016 [facility] Internal Medicine [address] [facility] [address] [place] [phone] Wood Mahan MD [address] [place] [address] Social History Tobacco Use Types Packs/Day Years Used Date Smoking Tobacco: Never Assessed Comments Unknown Sex and Gender Information Value Date Recorded Sex Assigned at Not on file Legal Sex Female 9:51 AM ENROUTE CONTROLLER Gender Identity Not on file Sexual Orientation Not on file documented as of this encounter Plan of Treatment Not on file documented as of this encounter Procedures Procedure Name Priority Date/Time Associated Diagnosis Comments EGFR Routine 11/04/2016 8:35 AM CDT documented in this encounter Results * eGFR (11/04/2016 8:35 AM CDT) eGFR 91 mL/min/1.7 3 m2 MEKHI MCCULLOUGH Comment: Interpretive Data Reference Interval Normal ?>/= 90 mL/min/1.73m2 Mildly decreased* ? 60 - 89 mL/min/1.73m2 Mildly to moderately decreased ?45 - 59 mL/min/1.73m2 Moderately to severely decreased ??30 - 44 mL/min/1.73m2 Severely decreased ?15 - 29 mL/min/1.73m2 Kidney Failure ?< 15 ??mL/min/1.73m2 *Relative to young adult level If -Turkish multiply value by 1.16. Estimated glomerular filtration [...] was last reviewed 2015. Blood specimen (specimen) 11/04/2016 8:35 AM CDT 11/04/2016 1:12 PM CDT us Wood Mahan MD LAB BLOOD ORDERABLE S Final Result Performing Organization Address City/State/[facility] Co vt Phone Number [facility] [address] [facility] [place] [address] documented in this encounter Visit Diagnoses Not on filedocumented in this encounter Care Teams Technical Writing Lead/Mgr Relationship Specialty Start Date End Date Wood Mahan MD PCP - General 08/10/09 03/11/22 documented as of this encounter
--- OUTSIDE RECORDS SUMMARY | 2024-06-05 13:41 | XMS_ITS | Encounter Summary ---
Author Organization [facility] Healthcare Address [address] [place] [address] Care Team Providers Care Tow Car Driver Name Role Phone Wood Mahan MD Primary Care Provi [facility] Encounter Details Date Type Department Care Team (Latest Contact Info) Description 05/05/2017 8:54 AM CONE WORKER - 05/05/2017 11:59 PM CONE WORKER Hospital Encounter CH OP INTERIM Wood Mahan MD [address] [place] [address] Discharge Disposition: Discharge to home or self care Social History Tobacco Use Types Packs/Day Years Used Date Smoking Tobacco: Former Smokeless Tobacco: Former Comments Unknown Sex and Gender Information Value Date Recorded Sex Assigned at Not on file Legal Sex Female 9:51 AM CONE WORKER Gender Identity Not on file Sexual Orientation Not on file documented as of this encounter Medications at Time of Discharge cholecalciferol (VITAMIN D3) 2,000 unit capsule 1 capsule (2,000 Units total) daily. 100 capsule 02/27/2017 cyanocobalamin (Vitamin B-12) 500 mcg tabletIndications :Prevention of Vitamin B12 Deficiency Take 1 tablet (500 mcg total) by mouth daily. 30 tablet 11 02/27/2017 02/27/2018 FLUoxetine (PROzac) 20 mg tablet Take 1 tablet (20 mg total) by mouth daily. 90 tablet 3 02/27/2017 11/26/2017 raNITIdine (ZANTAC) 150 mg tabletIndications :Gastroesophageal reflux disease without esophagitis Take 1 tablet (150 mg total) by mouth 2 (two) times a day. 60 tablet 11 11/25/2016 11/26/2017 documented as of this encounter Discharge Disposition Disposition Code Departure Means Destination Discharge to home or self care documented in this encounter Plan of Treatment Not on file documented as of this encounter Procedures Procedure Name Priority Date/Time Associated Diagnosis Comments DISCHARGE LABORATORY CUMULATIVE REPORT 05/05/2017 12:00 AM CONE WORKER documented in this encounter Results * DISCHARGE LABORATORY CUMULATIVE REPORT (05/05/2017 12:00 AM CONE WORKER) Narrative 05/05/2017 12:00 AM CONE WORKER Ordered by an unspecified provider. us Historical Provider LAB BLOOD ORDERABLES Eloisa l Result documented in this encounter Visit Diagnoses Not on filedocumented in this encounter Care Teams Tow Car Driver Relationship Specialty Start Date End Date Wood Mahan MD PCP - General 08/10/09 03/11/22 documented as of this encounter
--- OUTSIDE RECORDS SUMMARY | 2024-06-05 13:41 | XMS_ITS | Encounter Summary ---
Author Organization [facility] Medical Group Address [address] [place] [address] Care Team Providers Care Cardiovascular Sonographer Name Role Phone Wood Mahan MD Primary Care Provi cherie Encounter Details Date Type Department Care Team (Late st Contact Info) Description 11/04/2016 [facility] Internal Medicine [address] [facility] [address] [place] [phone] Wood Mahan MD [address] [place] [address] Social History Tobacco Use Types Packs/Day Years Used Date Smoking Tobacco: Never Assessed Comments Unknown Sex and Gender Information Value Date Recorded Sex Assigned at Not on file Legal Sex Female 9:51 AM LEASING ASSISTANT Gender Identity Not on file Sexual Orientation Not on file documented as of this encounter Plan of Treatment Not on file documented as of this encounter Procedures Procedure Name Priority Date/Time Associated Diagnosis Comments VITAMIN D 25 HYDROXY Routine 11/04/2016 8:35 AM CDT documented in this encounter Results * (ABNORMAL) Vitamin D 25 hydroxy (11/04/2016 8:35 AM CDT) Vitamin D 25-OH 28(L) 30 - 80 ng/mL [facility] Blood specimen (specimen) 11/04/2016 8:35 AM CDT 11/04/2016 12:43 PM CDT us Wood Mahan MD LAB BLOOD [place] [address] [address] Department [place] [address] documented in this encounter Visit Diagnoses Not on filedocumented in this encounter Care Teams Cardiovascular Sonographer Relationship Specialty Start Date End Date Wood Mahan MD PCP - General 08/10/09 03/11/22 documented as of this encounter
--- OUTSIDE RECORDS SUMMARY | 2024-06-05 13:41 | XMS_ITS | Encounter Summary ---
Author Organization [facility] Medical Group Address [address] [place] [address] Care Team Providers Care Dramatic Teacher Name Role Phone Wood Mahan MD Primary Care Provi [facility] Encounter Details Date Type Department Care Team (Late st Contact Info) Description 11/04/2016 [facility] Internal Medicine [address] [facility] [address] [place] [phone] Wood Mahan MD [address] [place] [address] Social History Tobacco Use Types Packs/Day Years Used Date Smoking Tobacco: Never Assessed Comments Unknown Sex and Gender Information Value Date Recorded Sex Assigned at Not on file Legal Sex Female 9:51 AM TURNING SANDER TENDER Gender Identity Not on file Sexual Orientation Not on file documented as of this encounter Plan of Treatment Not on file documented as of this encounter Procedures Procedure Name Priority Date/Time Associated Diagnosis Comments COMPREHENSIVE METABOLIC PANEL Routine 11/04/2016 8:35 AM CDT documented in this encounter Results * Comprehensive metabolic panel (11/04/2016 8:35 AM CDT) Sodium 139 135 - 145 mmol/L [facility] Potassium, pl 4.8 3.5 - 5.1 mmol/L [facility] CO2 28 22 - 32 mmol/L [facility] BUN 9 8 - 24 mg/dL [facility] Glucose 86 70 - 199 mg/dL [facility] Creatinine 0.72 0.60 - 1.30 mg/dL [facility] Calcium 9.5 8.4 - 10.5 mg/dL [facility] Chloride 102 100 - 114 mmol/L [facility] Albumin 4.2 3.2 - 4.8 g/dL [facility] AST 26 7 - 40 Units/L [facility] ALT 16 1 - 45 Units/L [facility] Alk phos 71 30 - 110 Units/L [facility] Bilirubin, total 0.80 0.10 - 1.30 mg/dL [facility] Protein, pl 6.8 6.0 - 8.3 g/dL [facility] Anion gap 14 8 - 16 mmol/L [facility] Blood specimen (specimen) 11/04/2016 8:35 AM CDT 11/04/2016 12:43 PM CDT us Wood Mahan MD LAB BLOOD ORDERABLE S Final Result MEKHI [address] [address] Department [place] [address] documented in this encounter Visit Diagnoses Not on filedocumented in this encounter Care Teams Dramatic Teacher Relationship Specialty Start Date End Date Wood Mahan MD PCP - General 08/10/09 03/11/22 documented as of this encounter
--- OUTSIDE RECORDS SUMMARY | 2024-06-05 13:41 | XMS_ITS | Encounter Summary ---
Author Organization [facility] Medical Group Address [address] [place] [address] Care Team Providers Care Events Intern Name Role Phone Wood Mahan MD Primary Care Provi chreie Encounter Details Date Type Department Care Team (Late st Contact Info) Description 11/04/2016 [facility] Internal Medicine [address] [facility] [address] [place] [phone] Wood Mahan MD [address] [place] [address] Social History Tobacco Use Types Packs/Day Years Used Date Smoking Tobacco: Never Assessed Comments Unknown Sex and Gender Information Value Date Recorded Sex Assigned at Not on file Legal Sex Female 9:51 AM JUNIOR ADMINISTRATIVE ASSISTANT Gender Identity Not on file Sexual Orientation Not on file documented as of this encounter Plan of Treatment Not on file documented as of this encounter Procedures Procedure Name Priority Date/Time Associated Diagnosis Comments CBC WITH AUTO DIFFERENTIAL Routine 11/04/2016 8:35 AM CDT documented in this encounter Results * (ABNORMAL) CBC with auto differential (11/04/2016 8:35 AM CDT) WBC 3.69(L) 3.80 - 9.90 K/cumm [facility] RBC 4.22 3.90 - 5.20 M/cumm [facility] Hgb 14.3 11.9 - 15.5 g/dL [facility] Hct 42.8 35.6 - 45.5 % [facility] MCV 101.4(H) 81.3 - 96.4 fL [facility] MCH 33.9(H) 27.1 - 33.3 pg [facility] MCHC 33.4 32.3 - 35.7 g/dL [facility] RDW CV 12.8 11.1 - 14.9 % [facility] RDW SD 48.0 35.7 - 48.1 fL [facility] Plt 265 150 - 400 K/cumm [facility] MPV 10.7 9.1 - 12.3 fL [facility] NRBC 0.0 0.0 - 0.2 % [facility] NRBC abs 0.00 0.00 - 0.01 K/cumm [facility] Blood specimen (specimen) 11/04/2016 8:35 AM CDT 11/04/2016 12:43 PM CDT us Wood Mahan MD LAB BLOOD ORDERABLE S Final Result [facility] [address] [address] Department of Laboratories [place], [place] [id number] documented in this encounter Visit Diagnoses Not on filedocumented in this encounter Care Teams Events Intern Relationship Specialty Start Date End Date Wood Mahan MD PCP - General 08/10/09 03/11/22 documented as of this encounter
--- OUTSIDE RECORDS SUMMARY | 2024-06-05 13:41 | XMS_ITS | Encounter Summary ---
Author Organization [facility] Medical Group Address [address] [facility] [address] [place] [address] Care Team Providers Care Certified Nursing Attendant Name Role Phone Wood Mahan MD Primary Care Provi cherie Encounter Details Date Type Department Care Team (Late st Contact Info) Description 11/11/2018 [facility] Internal Medicine [address] [place] [address] [address] [place] [phone] Wood Mahan MD [address] [place] [address] Routine lab draw (Primary Dx) Social History Tobacco Use Types Packs/Day Years Used Date Smoking Tobacco: Former Smokeless Tobacco: Former Alcohol Use Standard Drinks/Week Comments No 0 (1 standard drink = 0.6 oz pur e alcohol) Comments No Sex and Gender Information Value Date Recorded Sex Assigned at Not on file Legal Sex Female 9:51 AM MAILMASTER Gender Identity Not on file Sexual Orientation Not on file documented as of this encounter Plan of Treatment Not on file documented as of this encounter Results * Lipid panel (11/15/2018 9:10 AM CDT) [...] on 2018. HDL 82 >=40 mg/dL MEKHI MCCULLOUGH Comment: Interpretive Data Ages [...] 2018. LDL, calculated 96 <=129 mg/dL MEKHI MCCULLOUGH Comment: Interpretive Data Ages [...] on 2018. Non-HDL Cholesterol 106 mg/dL MEKHI MCCULLOUGH Comment: Interpretive Data Ages [...] revised on 2018. Chol/HDL ratio 2 MEKHI Blood specimen (specimen) 11/15/2018 9:10 AM CDT 11/15/2018 3:02 PM CDT Narrative MEKHI MCCULLOUGH - 11/15/2018 3:57 PM CDT Wood Mahan MD LAB BLOOD ORDERABLE S Final Result MEKHI MCCULLOUGH [address] [address] Department [place] [address] documented in this encounter Visit Diagnoses Diagnosis Routine lab draw- Primary Routine lab draw PE (physical exam), annual B12 deficiency Vitamin D deficiency documented in this encounter Care Teams Certified Nursing Attendant Relationship Specialty Start Date End Date Wood Mahan MD PCP - General 08/10/09 03/11/22 documented as of this encounter
--- OUTSIDE RECORDS SUMMARY | 2024-06-05 13:41 | XMS_ITS | Encounter Summary ---
Author Organization [facility] Medical Group Address [address] [place] [address] Care Team Providers Care Senior Quality Engineer Name Role Phone Wood Mahan MD Primary Care Provi cherie Reason for Visit * Reason Onset Date Comments Colonoscopy 12/23/2017 Reschedule w/ Dr Presley Serna Encounter Details Date Type Department Care Team (Late st Contact Info) Description 12/23/2017 Telephone [facility] Medical [facility] Gastroenterology at [address], [place] [address] Henna Jean I., JERRY Colonoscopy (Reschedule w/ Dr. Serna) Social History Tobacco Use Types Packs/Day Years Used Date Smoking Tobacco: Former Smokeless Tobacco: Former Comments Unknown Sex and Gender Information Value Date Recorded Sex Assigned at Not on file Legal Sex Female 9:51 AM SALES PLANNING ANALYST Gender Identity Not on file Sexual Orientation Not on file documented as of this encounter Miscellaneous Notes * Telephone Encounter - Henna Jean MA - 12/23/2017 11:39 AM CDT Pt r/s colonoscopy w/ Dr. Serna on 03/29/18 @ 8:00am arriving at 7:00am, pt states she has prep instructions, aware to disregard #5 not to drink mag citrate. Pt verbalized understanding. R/s faxed to Endo. documented in this encounter Plan of Treatment Not on file documented as of this encounter Visit Diagnoses Not on filedocumented in this encounter Care Teams Senior Quality Engineer Relationship Specialty Start Date End Date Wood Mahan MD PCP - General 08/10/09 03/11/22 documented as of this encounter
--- OUTSIDE RECORDS SUMMARY | 2024-06-05 13:41 | XMS_ITS | Encounter Summary ---
Author Organization [facility] Medical Group Address [address] [place] [address] Care Team Providers Care Hydrology Technician Name Role Phone Wood Mahan MD Primary Care Provi cherie Encounter Details Date Type Department Care Team (Late st Contact Info) Description 04/07/2018 [facility] Internal Medicine [address] [facility] [address] [place] [phone] Wood Mahan MD [address] [place] [address] Screening mammogram, encounter for (Primary Dx) Social History Tobacco Use Types Packs/Day Years Used Date Smoking Tobacco: Former Smokeless Tobacco: Former Alcohol Use Standard Drinks/Week Comments No 0 (1 standard drink = 0.6 oz pur e alcohol) Comments No Sex and Gender Information Value Date Recorded Sex Assigned at Not on file Legal Sex Female 9:51 AM ONCOLOGY TECHNICIAN Gender Identity Not on file Sexual Orientation Not on file documented as of this encounter Plan of Treatment Not on file documented as of this encounter Visit Diagnoses Diagnosis Screening mammogram, encounter for- Primary documented in this encounter Care Teams Hydrology Technician Relationship Specialty Start Date End Date Wood Mahan MD PCP - General 08/10/09 03/11/22 documented as of this encounter
--- OUTSIDE RECORDS SUMMARY | 2024-06-05 13:42 | XMS_ITS | Encounter Summary ---
Author Organization [facility] Healthcare Address [address] [place] [address] Care Team Providers Care Industrial Painter Name Role Phone Wood Mahan MD Primary Care Provi cherie Encounter Details Date Type Department Care Team (Late st Contact Info) Description 10/26/2007 12:01 AM CDT - 10/26/2007 11:59 PM CDT Hospital Encounter [facility] Bryson MD [address] [place] [address] [place] [address] Social History Tobacco Use Types Packs/Day Years Used Date Smoking Tobacco: Never Assessed Comments Unknown Sex and Gender Information Value Date Recorded Sex Assigned at Not on file Legal Sex Female 9:51 AM CHIEF MATE Gender Identity Not on file Sexual Orientation Not on file documented as of this encounter Plan of Treatment Not on file documented as of this encounter Visit Diagnoses Not on filedocumented in this encounter Care Teams Industrial Painter Relationship Specialty Start Date End Date Wood Mahan MD PCP - General 07/01/07 08/09/09 documented as of this encounter
--- OUTSIDE RECORDS SUMMARY | 2024-06-05 13:42 | XMS_ITS | Encounter Summary ---
Author Organization [facility] Healthcare Address [address] [place] [address] Care Team Providers Care Turn Supervisor Name Role Phone Wood Mahan MD Primary Care Provi cherie Encounter Details Date Type Department Care Team (Late st Contact Info) Description 02/27/2011 10:58 AM CDT - 02/27/2011 11:59 PM CDT Hospital Encounter [facility] Lg Bryson MD [address] [place] [address] [place] [address] Encounter for screening mammogram for high-risk patient; Family history of malignant neoplasm of breast Social History Tobacco Use Types Packs/Day Years Used Date Smoking Tobacco: Never Assessed Comments Unknown Sex and Gender Information Value Date Recorded Sex Assigned at Not on file Legal Sex Female 9:51 AM REPLENISHMENT BUYER Gender Identity Not on file Sexual Orientation Not on file documented as of this encounter Medications at Time of Discharge cholecalciferol (VITAMIN D3) 2,000 unit capsule 1 a day 0 0 09/02/2010 02/27/2017 documented as of this encounter Plan of Treatment Not on file documented as of this encounter Visit Diagnoses Diagnosis Encounter for screening mammogram for high-risk patient Family history of malignant neoplasm of breast documented in this encounter Care Teams Turn Supervisor Relationship Specialty Start Date End Date Wood Mahan MD PCP - General 08/10/09 03/11/22 documented as of this encounter
--- OUTSIDE RECORDS SUMMARY | 2024-06-05 13:42 | XMS_ITS | Encounter Summary ---
Author Organization [facility] Healthcare Address [address] [place] [address] Care Team Providers Care Client Technologies Specialist Name Role Phone Wood Mahan MD Primary Care Provi cherie Encounter Details Date Type Department Care Team (Late st Contact Info) Description 05/15/2014 1:35 PM SEARCH MANAGER - 05/15/2014 11:59 PM SEARCH MANAGER Hospital Encounter [facility] Wood Mahan MD [address] [place] [address] Other B-complex deficiencies; Vitamin D deficiency Social History Tobacco Use Types Packs/Day Years Used Date Smoking Tobacco: Never Assessed Comments Unknown Sex and Gender Information Value Date Recorded Sex Assigned at Not on file Legal Sex Female 9:51 AM SEARCH MANAGER Gender Identity Not on file Sexual Orientation Not on file documented as of this encounter Medications at Time of Discharge cholecalciferol (VITAMIN D3) 2,000 unit capsule 1 a day 0 0 09/02/2010 02/27/2017 cyanocobalamin (vitamin B-12) 1,000 mcg tablet 1 a day 0 07/17/2011 02/28/20 17 documented as of this encounter Plan of Treatment Not on file documented as of this encounter Visit Diagnoses Diagnosis Other B-complex deficiencies Vitamin D deficiency documented in this encounter Care Teams Client Technologies Specialist Relationship Specialty Start Date End Date Wood Mahan MD PCP - General 08/10/09 03/11/22 documented as of this encounter
--- OUTSIDE RECORDS SUMMARY | 2024-06-05 13:42 | XMS_ITS | Encounter Summary ---
Author Organization [facility] Healthcare Address [address] [place] [address] Care Team Providers Care Plush Cutter Name Role Phone Unavailable Primary Care Provider Unavailabl e Encounter Details Date Type Department Care Team (Late st Contact Info) Description 07/24/2006 12:01 AM LABORER SHAFT SINKING - 07/24/2006 11:59 PM LABORER SHAFT SINKING Hospital Encounter [facility] Lg Bryson MD [address] [place] [address] [address] [address] Social History Tobacco Use Types Packs/Day Years Used Date Smoking Tobacco: Never Assessed Comments Unknown Sex and Gender Information Value Date Recorded Sex Assigned at Not on file Legal Sex Female 9:51 AM LABORER SHAFT SINKING Gender Identity Not on file Sexual Orientation Not on file documented as of this encounter Plan of Treatment Not on file documented as of this encounter Visit Diagnoses Not on filedocumented in this encounter
--- OUTSIDE RECORDS SUMMARY | 2024-06-05 13:42 | XMS_ITS | Encounter Summary ---
Author Organization [facility] Healthcare Address [address] [place] [address] Care Team Providers Care Principal Clerk Name Role Phone Wood Mahan MD Primary Care Provi cherie Encounter Details Date Type Department Care Team (Late st Contact Info) Description 02/25/2011 11:07 AM CDT - 02/25/2011 11:59 PM CDT Hospital Encounter [facility] Social History Tobacco Use Types Packs/Day Years Used Date Smoking Tobacco: Never Assessed Comments Unknown Sex and Gender Information Value Date Recorded Sex Assigned at Not on file Legal Sex Female 9:51 AM COOK CHILL TECHNICIAN Gender Identity Not on file Sexual Orientation Not on file documented as of this encounter Medications at Time of Discharge cholecalciferol (VITAMIN D3) 2,000 unit capsule 1 a day 0 0 09/02/2010 02/27/2017 documented as of this encounter Plan of Treatment Not on file documented as of this encounter Visit Diagnoses Not on filedocumented in this encounter Care Teams Principal Clerk Relationship Specialty Start Date End Date Wood Mahan MD PCP - General 08/10/09 03/11/22 documented as of this encounter
--- OUTSIDE RECORDS SUMMARY | 2024-06-05 13:42 | XMS_ITS | Encounter Summary ---
Author Organization [facility] Healthcare Address [address] [place] [address] Care Team Providers Care Maintenance Apprentice Name Role Phone Wood Mahan MD Primary Care Provi cherie Encounter Details Date Type Department Care Team (Late st Contact Info) Description 09/15/2013 12:14 PM CDT - 09/15/2013 11:59 PM CDT Hospital Encounter [facility] Shagufta Bryson MD [address] [place] [address] [place] [address] Encounter for screening mammogram for high-risk patient; Family history of malignant neoplasm of breast Social History Tobacco Use Types Packs/Day Years Used Date Smoking Tobacco: Never Assessed Comments Unknown Sex and Gender Information Value Date Recorded Sex Assigned at Not on file 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 ??Family history of breast cancer (aunt). RESULT: Craniocaudal and mediolateral oblique views demonstrate mild to moderate fibroglandular density, mostly in the anterolateral portions of the breasts. ??No dominant mass, skin thickening, nipple retraction or suspicious cluster of microcalcifications is seen. ??Scattered benign appearing calcifications are present bilaterally. Digital technology was employed plus computer-aided detection software (R2) was utilized in interpretation of these images. ??This facility utilizes a reminder system to notify patients of yearly mammograms. IMPRESSION: 1. NO FINDINGS SUSPICIOUS FOR MALIGNANCY. 2. NO SIGNIFICANT CHANGE SINCE MARCH 19 OR . BI-RADS CATEGORY 2 ??BENIGN FINDINGS. Interpreting Physician: ??DR IVANIA BURDEN M.D. ??Read on: ??Sep 15 2013 12:57P Transcribed by: ??reyna ??On: Sep 15 2013 ??5:11P Approved Electronically by: ??BERTRAM Champion, DR REDD ??on: ??Sep 16 2013 1:23P Ordering DR: DR SHAGUFTA SPRAGUE Attending DR: DR SHAGUFTA SPRAGUE Procedure Note Provider, MD Maria Guadalupe - 10/01/2016 Vm Mammogram Performed by: Screening Mamm Bi Acc#: [id number] DATE OF EXAM: Sep 15 2013 CLINICAL HISTORY: Screening. Family history of breast cancer (aunt). RESULT: Craniocaudal and mediolateral oblique views demonstrate mild to moderatefibroglandular density, mostly in the anterolateral portions of thebreasts. No dominant mass, skin thickening, nipple retraction orsuspicious cluster of microcalcifications is seen. Scattered benignappearing calcifications are present bilaterally. Digital technology wasemployed plus computer-aided detection software (R2) was utilized ininterpretation of these images. This facility utilizes a reminder systemto notify patients of yearly mammograms. IMPRESSION: 1. NO FINDINGS SUSPICIOUS FOR MALIGNANCY. 2. NO SIGNIFICANT CHANGE SINCE MARCH 19 OR . BI-RADSCATEGORY 2 BENIGN FINDINGS. Interpreting Physician: DR IVANIA BURDEN M.D. Read on: Sep 15 201312:57P Transcribed by: va On: Sep 15 2013 5:11P Approved Electronically by: BERTRAM Champion, DR REDD on: Sep 16 20131:23P Ordering DR: DR SHAGUFTA SPRAGUE Attending DR: DR SHAGUFTA SPRAGUE us Historical Provider MD FU MAMMO PROCEDURES Eloisa l Result documented in this encounter Visit Diagnoses Diagnosis Encounter for screening mammogram for high-risk patient Family history of malignant neoplasm of breast documented in this encounter Care Teams Maintenance Apprentice Relationship Specialty Start Date End Date Wood Mahan MD PCP - General 08/10/09 03/11/22 documented as of this encounter
--- OUTSIDE RECORDS SUMMARY | 2024-06-05 13:42 | XMS_ITS | Encounter Summary ---
Author Organization [facility] Healthcare Address [address] [place] [address] Care Team Providers Care Senior Financial Analyst Name Role Phone Wood Mahan MD Primary Care Provi cherie Encounter Details Date Type Department Care Team (Late st Contact Info) Description 12/15/2008 12:01 AM CDT - 12/15/2008 11:59 PM CDT Hospital Encounter [facility] Lg Bryson MD [address] [place] [address] [place] [address] Other screening mammogram Social History Tobacco Use Types Packs/Day Years Used Date Smoking Tobacco: Never Assessed Comments Unknown Sex and Gender Information Value Date Recorded Sex Assigned at Not on file Legal Sex Female 9:51 AM 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
--- OUTSIDE RECORDS SUMMARY | 2024-06-05 13:42 | XMS_ITS | Encounter Summary ---
Author Organization [facility] Healthcare Address [address] [place] [address] Care Team Providers Care Manager Quality Systems Name Role Phone Wood Huang MD Primary Care Provi cherie Encounter Details Date Type Department Care Team (Late st Contact Info) Description 01/23/2016 12:55 PM CDT - 01/23/2016 11:59 PM CDT Hospital Encounter [facility] Shagufta Bryson MD [address] [place] [address] [place] [address] Encounter for screening mammogram for malignant neoplasm of breast Social History Tobacco Use Types Packs/Day Years Used Date Smoking Tobacco: Never Assessed Comments Unknown Sex and Gender Information Value Date Recorded Sex Assigned at Not on file 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 Kindra HUANG Screening Mamm Bi ??Acc#: ??[id number] DATE OF EXAM: ??Jan 23 2016 CLINICAL HISTORY: Routine screening. Performed by: [facility] RESULT: Two views of each breast obtained, compared with 10/10/14 and 09/15/13. Scattered fibroglandular densities bilaterally. ??No dominant mass is demonstrated. ??No suspicious clusters of microcalcifications are evident. Similar appearance to prior studies. Digital technology was employed plus computer-aided detection software (R2) was utilized in interpretation of these images. IMPRESSION: NO BREAST NEOPLASM IDENTIFIED. ??ANNUAL MAMMOGRAPHIC FOLLOWUP RECOMMENDED. BI- RAD 1 - NEGATIVE Interpreting Physician: ??VERÓNICA VERNON M.D. ??Read on: ??Jan 23 2016 ??1:24P Transcribed by: ??[facility] ??On: Jan 23 2016 ??3:30P Approved Electronically by: ??VERÓNICA VERNON M.D. ??on: ??Jan 24 2016 ??9:20A Attending: ??SHAGUFTA SPRAGUE Requesting: ??DR SHAGUFTA SPRAGUE Requesting Fax: ??[phone] Attending Fax: ??-- Attending ID: ??[id number] Requesting ID: ??[id number] Report To 1 ID: ??[id number] Report To 1 Name: ??SHAGUFTA SPRAGUE Report To 1 FAX: ??-- NextGen Order #: Procedure Note Provider, MD Maria Guadalupe - 10/01/2016 CC: DR. Kindra HUANG Screening Mamm Bi Acc#: [id number] DATE OF EXAM: Jan 23 2016 CLINICAL HISTORY: Routine screening. Performed by: [facility] RESULT: Two views of each breast obtained, compared with 10/10/14 and 09/15/13.Scattered fibroglandular densities bilaterally. No dominant mass isdemonstrated. No suspicious clusters of microcalcifications are evident.Similar appearance to prior studies. Digital technology was employed pluscomputer-aided detection software (R2) was utilized in interpretation ofthese images. IMPRESSION: NO BREAST NEOPLASM IDENTIFIED. ANNUAL MAMMOGRAPHIC FOLLOWUP RECOMMENDED.BI-RAD 1 - NEGATIVE Interpreting Physician: VERÓNICA VERNON M.D. Read on: Jan 23 2016 1:24P Transcribed by: [facility] On: Jan 23 2016 3:30P Approved Electronically by: VERÓNICA VERNON M.D. on: Jan 24 2016 9:20A Attending: SHAGUFTA SPRAGUE Requesting: DR SHAGUFTA SPRAGUE Requesting Attending Fax: -- Attending ID: [id number] Requesting ID: [id number] Report To 1 ID: [id number] Report To 1 Name: SHAGUFTA SPRAGUE Report To 1 FAX: -- NextGen Order #: us Historical Provider MD FU MAMMO PROCEDURES Eloisa l Result documented in this encounter Visit Diagnoses Diagnosis Encounter for screening mammogram for malignant neoplasm of breast documented in this encounter Care Teams Manager Quality Systems Relationship Specialty Start Date End Date Wood Huang MD PCP - General 08/10/09 03/11/22 documented as of this encounter
--- OUTSIDE RECORDS SUMMARY | 2024-06-05 13:42 | XMS_ITS | Encounter Summary ---
Author Organization [facility] Healthcare Address [address] [place] [address] Care Team Providers Care Dairy Farm Supervisor Name Role Phone Wood Mahan MD Primary Care Provi cherie Encounter Details Date Type Department Care Team (Late st Contact Info) Description 11/01/2015 9:43 AM CDT - 11/01/2015 11:59 PM CDT Hospital Encounter [facility] ANDRECONWood Do MD [address] [place] [address] Encounter for general adult medical examination without abnormal findings; Deficiency of other specified B group vitamins; Vitamin D deficiency Social History Tobacco Use Types Packs/Day Years Used Date Smoking Tobacco: Never Assessed Comments Unknown Sex and Gender Information Value Date Recorded Sex Assigned at Not on file 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
--- OUTSIDE RECORDS SUMMARY | 2024-06-05 13:42 | XMS_ITS | Encounter Summary ---
Author Organization [facility] Healthcare Address [address] [place] [address] Care Team Providers Care Knockdown Man Name Role Phone Wood Mahan MD Primary Care Provi cherie Encounter Details Date Type Department Care Team (Late st Contact Info) Description 03/29/2012 9:09 AM CDT - 03/29/2012 11:59 PM CDT Hospital Encounter [facility] Lg Bryson MD [address] [place] [address] [place] [address] Other screening mammogram Social History Tobacco Use Types Packs/Day Years Used Date Smoking Tobacco: Never Assessed Comments Unknown Sex and Gender Information Value Date Recorded Sex Assigned at Not on file 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
--- OUTSIDE RECORDS SUMMARY | 2024-06-05 13:42 | XMS_ITS | Encounter Summary ---
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
--- OUTSIDE RECORDS SUMMARY | 2024-06-05 13:42 | XMS_ITS | Encounter Summary ---
Author Organization [facility] Healthcare Address [address] [place] [address] Care Team Providers Care Oven Dauber Name Role Phone Wood Mahan MD Primary Care Provi cherie Encounter Details Date Type Department Care Team (Late st Contact Info) Description 10/10/2014 12:32 PM CDT - 10/10/2014 11:59 PM CDT Hospital Encounter [facility] Shagufta Bryson MD [address] [place] [address] [place] [address] Other screening mammogram Social History Tobacco Use Types Packs/Day Years Used Date Smoking Tobacco: Never Assessed Comments Unknown Sex and Gender Information Value Date Recorded Sex Assigned at Not on file 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 Screening Mamm Bi ??Acc#: ??[id number] DATE OF EXAM: ??May ??2014 CLINICAL HISTORY: Screen. RESULT: Two views of each breast, correlated to studies dating back to 10/26/2007 demonstrate scattered fibroglandular densities bilaterally. ??No suspicious mass or calcification is seen to suggest mammographic evidence of malignancy. ??There are bilateral benign breast calcifications. Digital technology was employed plus computer-aided detection software (R2) was utilized in interpretation of these images. IMPRESSION: 1. NO DEFINITIVE MAMMOGRAPHIC EVIDENCE OF MALIGNANCY. 2. ANNUAL FOLLOWUP IS RECOMMENDED. BI-RADS CATEGORY 2 - BENIGN Interpreting Physician: ??MILLY COTTER M.D. ??Read on: ??May ??5 2014 12:51P Transcribed by: ??mague ??On: May ??5 2014 ??2:20P Approved Electronically by: ??MILLY COTTER M.D. ??on: ??May ??5 2014 ??3:37P Attending: ??, Requesting: ??DR SHAGUFTA SPRAGUE Requesting Fax: ??-- Attending Fax: ??-- Attending ID: ?? Requesting ID: ??[id number] Report To 1 ID: ??[id number] Report To 1 Name: ??SHAGUFTA SPARGUE Report To 1 FAX: ??-- NextGen Order #: Procedure Note Provider, MD Maria Guadalupe - 10/01/2016 Mammogram Performed by: Screening Mamm Bi Acc#: [id number] DATE OF EXAM: Oct 10 2014 CLINICAL HISTORY: Screen. RESULT: Two views of each breast, correlated to studies dating back to 10/26/2007demonstrate scattered fibroglandular densities bilaterally. No suspiciousmass or calcification is seen to suggest mammographic evidence ofmalignancy. There are bilateral benign breast calcifications. Digitaltechnology was employed plus computer-aided detection software (R2) wasutilized in interpretation of these images. IMPRESSION: 1. NO DEFINITIVE MAMMOGRAPHIC EVIDENCE OF MALIGNANCY. 2. ANNUAL FOLLOWUP IS RECOMMENDED. BI-RADS CATEGORY 2 - BENIGN Interpreting Physician: MILLY COTTER M.D. Read on: Oct 10 2014 12:51P Transcribed by: mague On: Oct 10 2014 2:20P Approved Electronically by: MILLY COTTER M.D. on: Oct 10 2014 3:37P Attending: , Requesting: DR SHAGUFTA SPRAGUE Requesting Fax: -- Attending Fax: -- Attending ID: Requesting ID: [id number] Report To 1 ID: [id number] Report To 1 Name: SHAGUFTA SPRAGUE Report To 1 FAX: -- NextGen Order #: Historical Provider MD FU MAMMO PROCEDURES Eloisa l Result documented in this encounter Visit Diagnoses Diagnosis Other screening mammogram documented in this encounter Care Teams Oven Dauber Relationship Specialty Start Date End Date Wood Mahan MD PCP - General 08/10/09 03/11/22 documented as of this encounter
--- OUTSIDE RECORDS SUMMARY | 2024-06-05 13:42 | XMS_ITS | Encounter Summary ---
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
--- OUTSIDE RECORDS SUMMARY | 2024-06-05 13:42 | XMS_ITS | Encounter Summary ---
Author Organization [facility] Healthcare Address [address] [place] [address] Care Team Providers Care Forging Press Setter Up Name Role Phone Wood Mahan MD Primary Care Provi cherie Encounter Details Date Type Department Care Team (Late st Contact Info) Description 01/14/2010 12:01 AM CDT - 01/14/2010 11:59 PM CDT Hospital Encounter [facility] Lg Bryson MD [address] [place] [address] [place] [address] Other screening mammogram Social History Tobacco Use Types Packs/Day Years Used Date Smoking Tobacco: Never Assessed Comments Unknown Sex and Gender Information Value Date Recorded Sex Assigned at Not on file 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
--- OUTSIDE RECORDS SUMMARY | 2024-06-05 13:42 | XMS_ITS | Encounter Summary ---
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
== END 2024-05-29 11:06 | disposition home or self-care (01) ==
PROVIDERS: Emergency Provider Nurse Practitioner Family; PCP Physician Assistant
DX: H10.9 Unspecified conjunctivitis (principal)
CPT/HCPCS: 99213; G0463